=== PATIENT | female | born 1960 | race Caucasian/White ===

== ENCOUNTER → 2017-12-05 08:38 | Outpatient (CLI) | payer OTHER, SELFPAY ==
--- NOTE | 2017-12-05 08:17 | DI.REPORT_ITS ---
SYMPTOMS/DIAGNOSIS: S/P RTKR, RT GREAT TOE PAIN RIGHT KNEE: The patient is status post TKR. The prosthesis in good position and surrounding bone intact. 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 Screws are affixed to the distal metaphysis of the first metatarsal. In addition there is medial subluxation of the second toe on the metatarsal phalangeal joint. SUMMARY: Degenerative changes and deformities of the first and second toes are noted as described above.
== END ==
PROVIDERS: PCP Family Medicine; Visit Provider Physician Assistant
DX: M79.674 Pain in right toe(s) (principal); M19.071 Primary osteoarthritis, right ankle and foot; Z96.651 Presence of right artificial knee joint; Z47.1 Aftercare following joint replacement surgery
CPT/HCPCS: 73560; 73630

== ENCOUNTER 2018-01-16 11:14 | Outpatient (REF) | payer OTHER, SELFPAY | END 2018-01-16 11:34 | LOC: LBN 11:14 | PROVIDERS: PCP Family Medicine; Visit Provider Family Medicine | DX: B99.9 Unspecified infectious disease (principal) | CPT/HCPCS: 87070; 87205 ==

== ENCOUNTER 2018-02-05 08:04 | Outpatient (CLI) | payer OTHER, SELFPAY ==
[2018-02-05 11:14] LABS: HCT 38.6 % (36.0-46.0); Mean Corp. HGB Concentration 31.1 g/dL (32.0-36.0); Mean Corpuscular Hemoglobin 28.2 pg (27.0-33.0); Mean Corpuscular Volume 90.6 fL (80-95); Mean Platelet Volume 8.9 fL (8.0-11.0); Platelet Count 333 x1000/uL (130-400); RBC 4.26 m/cumm (4.00-5.20); RBC Distribution Width 15.4 % (11.7-14.6); White Blood Cell Count 6.79 k/cumm (4.4-10.8)
[2018-02-05 11:43] LABS: ALT 32 U/L (12-78); AST 28 U/L (15-37); Albumin 3.7 g/dL (3.4-5.0); Alkaline Phosphatase 90 U/L (46-116); Anion Gap 7.9 mmol/L (3-11); BUN 15 mg/dL (7-18); Bilirubin, Total 0.3 mg/dL (0.2-1.0); CO2 30.1 mmol/L (21.0-32.0); CREATININE 0.72 mg/dL (0.55-1.02); Chloride 103 mmol/L (98-107); Cholesterol 207 mg/dL (50-200); Glucose 98 mg/dL (70-100); HDL Cholesterol 115 mg/dL (40-60); LDL CHOLESTEROL 81 mg/dL (<100); Potassium 4.3 mmol/L (3.5-5.1); Sodium 141 mmol/L (136-145); TSH (W/Ref FT4) 1.38 uIU/mL (0.358-3.74); Total Protein 6.3 g/dL (6.4-8.2); Triglyceride 42 mg/dL (30-150)
== END 2018-02-05 08:24 ==
PROVIDERS: PCP Family Medicine; Visit Provider Family Medicine
DX: R53.83 Other fatigue (principal); M06.9 Rheumatoid arthritis, unspecified
CPT/HCPCS: 36415; 80053; 80061; 83721; 85027; 84443

== ENCOUNTER 2018-05-13 08:40 | Emergency (ER) | payer OTHER, SELFPAY ==
[2018-05-13] VITALS (64 sets, daily range): BP systolic 106–167; BP diastolic 58–98; PULSE 63–112; RESP 8–27; TEMP 36.4–36.8; O2SAT 91–99
--- NOTE | 2018-05-13 08:48 | ED.GENADUL_ITS ---
Discharge Plan Disposition Patient Disposition: HOME Discharge Details Chief Complaint: Headache Clinical Impression: Acute neck pain, Headache Primary Care Provider: Kim Mandel ED Provider: Gallo Cuenca Home Meds and New Rx's Prescriptions: New cyclobenzaprine 5 mg tablet 5 mg PO TID PRN (Reason: spasm) Qty: 20 RF: 0 Continued methylphenidate HCl 10 mg tablet See Rx Instructions PO TID MDD 4 Qty: 120 RF: 0 Advair HFA 230-21 mcg/actuation HFA aerosol inhaler 2 puff Inhalation BID PRN (Reason: asthma) Qty: 12 RF: 11 estradiol [Vivelle-Dot] 0.0375 mg/24 hr patch semiweekly 1 patch Transdermal twice weekly Qty: 24 RF: 5 rosuvastatin [Crestor] 5 mg tablet 5 mg PO Q48H Qty: 45 RF: 12 albuterol sulfate 5 MG/1 ML solution 2.5 mg Inhalation QID PRNRF: 0 Rituxan 10 MG/1 ML concentrate 1,000 mg IV q20 weeks RF: 0 Restasis 1 EACH dropperette 1 drp OU BID PRNRF: 0 cholecalciferol (vitamin D3) 1,000 UNIT tablet 1,000 unit PO DAILY RF: 0 Bactroban Nasal 1 GM ointment 1 gm NS BID Qty: 15 RF: 0 Loratadine 10 MG TAB.RAPDIS 10 mg PO DAILY Qty: 90 RF: 12 triamcinolone acetonide 80 GM ointment 2 - 4 gm Topical BID PRNQty: 80 RF: 2 amitriptyline 10 MG tablet 2 tab PO HS PRNQty: 180 RF: 12 duloxetine 60 MG capsule,delayed release(DR/EC) 60 mg PO DAILY Qty: 90 RF: 11 clindamycin phosphate 40 GM cream 1 appful VG HS Qty: 15 RF: 3 olopatadine [Pataday] 2.5 ML drops 1 drp Ophthalmic DAILY PRNQty: 1 RF: 0 acyclovir 800 MG tablet 800 mg PO TID PRNQty: 90 RF: 0 celecoxib [Celebrex] 200 mg capsule 200 mg PO BID Qty: 180 RF: 4 folic acid 1 mg tablet 2 mg PO DAILY Qty: 180 RF: 12 methotrexate sodium 2.5 mg tablet 7.5 mg PO qWEEK Qty: 36 RF: 5 prednisone 5 mg tablet 5 mg PO DAILY Qty: 90 RF: 4 prednisone 20 mg tablet 20 mg PO DAILY PRNQty: 11 RF: 0 zolpidem 10 mg tablet 10 mg PO HS PRN (Reason: insomnia) Qty: 45 RF: 3 prednisone 20 mg tablet 40 mg PO DAILY Qty: 10 RF: 0 levofloxacin 500 mg tablet 500 mg PO DAILY Qty: 7 RF: 0 polyethylene glycol 3350 17 GM powder in packet 17 gm PO BID PRN PRN (Reason: Constipation) RF: 0 acetaminophen [Acetaminophen Extra Strength] 500 MG tablet 1,000 mg PO Q8H PRN PRNQty: 180 RF: 0 Discharge Instructions Instructions: General Headache (ED), Neck Pain (ED) Additional Instructions: Please follow-up with your primary care physician. Call tomorrow. Take flexeril as prescribed. If pain persists, consider prednisone burst as prescribed by your primary. Return to the ER for any worsening or new concerning symptoms. Referrals: Kim Mandel MD, [place] [Primary Care Provider] - Discharge Data Discharge Date/Time-TO BE ENTERED AT DEPARTURE: 05/13/18 17:15 Medical Decision Making <Laurie Cuenca MD - Last Filed: 05/22/18 14:18> Crissy Hurt is a 57-year-old woman with history of rheumatoid arthritis on Rituxan, hyperlipidemia, GERD presenting to the emergency department with 10 days of neck pain and headache worse with movement of her neck, associated with sensation of being off balance and intermittent tingling of the right face. On exam patient is a comfortable uncomfortable but nontoxic-appearing. She has a normal neurologic exam, normal gait. Concern for pathology of the OA junction, opportunistic infection of the C-spine/brain given immunosuppressed, vasculitis, SAH, other. Doubt bacterial meningitis at this time given duration of symptoms. Exam/history not consistent with sepsis. Discussed patient presentation with Dr. Suazo of neurology, who recommended MRI brain with contrast in addition to imaging of the C-spine. I discussed imaging with Dr. Dhillon, who recommended MRA of the head and neck in addition to MRI of the head and neck with and without contrast, to evaluate for bony, vascular, or infectious etiologies. Will plan for these imaging tests in addition to screening labs and LP, Compazine, Benadryl, IV fluid hydration. At this time patient requesting delay LP until imaging test resulted, she feels she will not be able to tolerate the necessary positioning for the procedure. This delay is unlikely to pose a significant threat to her health given duration of symptoms at this point. Per radiology: MRI brain/neck, MRA brain/neck negative. Plan for LP at this t joshua. LP performed by anesthesia. Patient signed out to Dr. Gallo Cuenca at time of shift change with LP results, disposition pending. Anticipate discharge to home if LP negative with Flexeril for trap spasm, MSK pain, plan for outpatient f/u. He did have a lengthy discussion with the patient regarding outpatient plan including return to emergency department precautions and importance of outpati ent follow-up should be negative prior to my sign out. Medical Records Medical records reviewed: Yes I reviewed the patient's medical records. Lab Data Lab results reviewed: Yes I reviewed the patient's lab results. HPI <Laurie Cuenca MD - Last Filed: 05/22/18 14:18> General Mode of arrival: ambulatory . Date/Time Provider Initiated Documentation: 05/13/18 08:47 . Limitations to Documentation: no limitations . Information obtained by: patient, RN notes reviewed and old records reviewed . HPI Narrative: Crissy Hurt is a 7-year-old woman with history of rheumatoid arthritis, hyperlipidemia, GERD on Rituxan every 2 weeks presenting to the emergency department with neck pain and headache. Patient reports that at the end of March she was treated with amoxicillin for respiratory infection, which did seem to improve symptoms. She developed sinus pain in the middle of April, and was treated for this with Levaquin, which did not improve her symptoms. Subsequent to her course of Levaquin, patient was diagnosed with strep throat and is on approximately day 5 of treatment with penicillin for that. Patient reports that she has not been having any respiratory symptoms in the past few weeks, and her sore throat has resolved. She has continued bilateral frontal sinus pain. Patient reports that approximately 10 days ago she developed gradual onset posterior neck pain and headache. Neck pain and headache has been constant and persistent since onset, worsening in severity over the past few days. There was no trauma. Patient has continued to work during this time, but reports the pain is worse with any movement of her neck, particularly flexion, and has been holding herself very stiffly She reports that since onset of head and neck pain she has developed difficulty with balance wi thout vertigo or presyncopal component. She has also had tingling intermittently in her right face. She denies fevers, any other pain, shortness of breath, cough, vomiting, diarrhea, weakness to the extremities. Has had some nausea. Has continued to eat and drink as usual. No recent travel. Has been receiving her Rituxan as usual. No trauma. Related Data Home Medications Medication Instructions Recorded Confirmed Restasis 1 drp OU BID PRN drp 01/26/16 05/13/18 Rituxan 1,000 mg IV q20 weeks vial 01/26/16 05/13/18 albuterol sulfate 2.5 mg INHALATION QID PRN ml 01/26/16 05/13/18 cholecalciferol (vitamin D3) 1,000 unit PO DAILY 01/26/16 05/13/18 acetaminophen [Acetaminophen Extra 1,000 mg PO Q8H PRN PRN #180 08/30/16 05/13/18 Strength] tab-cap polyethylene glycol 3350 17 gm PO BID PRN PRN packet 08/30/16 05/13/18 Bactroban Nasal 1 gm NS BID #15 gm 10/04/16 05/13/18 triamcinolone acetonide 2 - 4 gm TOPICAL BID PRN #80 gm 02/27/17 05/13/18 amitriptyline 2 tab PO HS PRN #180 tab-cap 05/02/17 05/13/18 duloxetine 60 mg PO DAILY #90 tab-cap 06/07/17 05/13/18 clindamycin phosphate 1 appful VG HS #15 dose 06/15/17 05/13/18 olopatadine [Pataday] 1 drp OPHTHALMIC DAILY PRN #1 07/09/17 05/13/18 bottle acyclovir 800 mg PO TID PRN #90 tab 11/02/17 05/13/18 estradiol 0.0375 mg/24 hr 1 patch TRANSDERMAL twice weekly 02/12/18 05/13/18 semiweekly transdermal patch #24 patch fluticasone-salmeterol 230 mcg-21 2 puff INHALATION BID PRN #12 gm 02/12/18 05/13/18 mcg/actuation HFA aerosol inhaler methylphenidate 10 mg tablet See Rx Instructions PO TID #120 02/12/18 05/13/18 tab-cap MDD 4 rosuvastatin 5 mg tablet 5 mg PO Q48H #45 tab-cap 02/12/18 05/13/18 celecoxib 200 mg capsule 200 mg PO BID #180 tab-cap 02/19/18 05/13/18 folic acid 1 mg tablet 2 mg PO DAILY #180 tab-cap 02/19/18 05/13/18 methotrexate sodium 2.5 mg tablet 7.5 mg PO qWEEK #36 tab 02/19/18 05/13/18 prednisone 5 mg tablet 5 mg PO DAILY #90 tab 02/19/18 05/13/18 prednisone 20 mg tablet 20 mg PO DAILY PRN #11 tab 02/25/18 05/13/18 zolpidem 10 mg tablet 10 mg PO HS PRN #45 tab-cap 04/07/18 05/13/18 levofloxacin 500 mg tablet 500 mg PO DAILY #7 tab 04/22/18 05/13/18 prednisone 20 mg tablet 40 mg PO DAILY #10 tab 04/22/18 05/13/18 cyclobenzaprine 5 mg PO TID PRN #20 tab 05/13/18 Previous Rx's Medication Instructions Recorded acetaminophen [Acetaminophen Extra 1,000 mg PO Q8H PRN PRN #180 08/30/16 Strength] tab-cap polyethylene glycol 3350 17 gm PO BID PRN PRN packet 08/30/16 duloxetine 60 mg PO DAILY #90 tab-cap 06/07/17 clindamycin phosphate 1 appful VG HS #15 dose 06/15/17 estradiol 0.0375 mg/24 hr 1 patch TRANSDERMAL twice weekly 02/12/18 semiweekly transdermal patch #24 patch fluticasone-salmeterol 230 mcg-21 2 puff INHALATION BID PRN #12 gm 02/12/18 mcg/actuation HFA aerosol inhaler methylphenidate 10 mg tablet See Rx Instructions PO TID #120 02/12/18 tab-cap MDD 4 rosuvastatin 5 mg tablet 5 mg PO Q48H #45 tab-cap 02/12/18 celecoxib 200 mg capsule 200 mg PO BID #180 tab-cap 02/19/18 folic acid 1 mg tablet 2 mg PO DAILY #180 tab-cap 02/19/18 methotrexate sodium 2.5 mg tablet 7.5 mg PO qWEEK #36 tab 02/19/18 prednisone 5 mg tablet 5 mg PO DAILY #90 tab 02/19/18 zolpidem 10 mg tablet 10 mg PO HS PRN #45 tab-cap 04/07/18 levofloxacin 500 mg tablet 500 mg PO DAILY #7 tab 04/22/18 prednisone 20 mg tablet 40 mg PO DAILY #10 tab 04/22/18 cyclobenzaprine 5 mg PO TID PRN #20 tab 05/13/18 Allergies Allergy/AdvReac Type Severity Reaction Status Date / Time gabapentin AdvReac Severe Psychosis Unverified 05/13/18 08:55 codeine AdvReac Nausea Unverified 05/13/18 08:55 Review of Systems <Laurie Cuenca MD - Last Filed: 05/22/18 14:18> Review of Systems Constitutional: denies fevers Eyes: denies eye pain, vision changes, reports photophobia ENT: denies facial pain, dental pain, sore throat Cardiovascular: denies chest pain, edema Respiratory: denies SOB, cough GI: denies abdominal pain, vomiting, diarrhea, reports nausea : denies flank pain MSK: denies back pain, arthralgias, myalgias, reports neck pain Skin: denies rash Neuro: denies numbness, weakness, reports headaches, intermittent tingling of the right face, sensation of difficulty with balance PFSH <Laurie Cuenca MD - Last Filed: 05/22/18 14:18> Medical History Rheumatoid arthritis (Chronic) Pulmonary hypertension, high resistance (Chronic 04/01/17) Paresthesia (Chronic) Osteopenia (Chronic) Insomnia (Chronic) Hyperlipidemia (Chronic) Hormone replacement therapy (HRT) (Chronic) GERD (gastroesophageal reflux disease) (Chronic) Family history of early CAD (Chronic 04/17/16) DDD (degenerative disc disease), lumbosacral (Chronic) Cough (Chronic) Bone spur of toe (Chronic 02/27/17) Trismus (Chronic) Surgical History Abdominal hysterectomy (~1987) Appendectomy (~1977) Bilateral salpingectomy with oophorectomy (~1987) Bunionectomy (~2006) Injection L5-S1 Discectomy (~2001) Lysis of adhesions Repair, ACL (~10/2011) Replacement of total knee joint Rotator Cuff Repair (~2003) Family History Mother Essential hypertension Depression Heart disease Hyperlipidemia Stroke Father RA (rheumatoid arthritis) Essential hypertension CAD (coronary artery disease) Heart disease Hyperlipidemia Myocardial infarction Parkinson disease Sister Multiple personality disorder Substance abuse Essential hypertension Bipolar disorder Depression Heart disease Hyperlipidemia OA (osteoarthritis) Brother Essential hypertension CAD (coronary artery disease) Heart disease Hyperlipidemia Myocardial infarction Brother RA (rheumatoid arthritis) Grandfather Essential hypertension Heart disease Hyperlipidemia Grandfather Dementia Leukemia Grandmother Neoplasm Grandmother Essential hypertension Heart disease Hyperlipidemia Social History Smoking and Tabacco status: Former Tobacco Use Exam <Laurie Cuenca MD - Last Filed: 05/22/18 14:18> Narrative Exam Narrative: Constitutional: Uncomfortable but [id number], pleasant, conversing normally HENT: head atraumatic, normocephalic normal inspection, mucous membranes moist, normal oropharynx Eyes: conjunctiva normal, sclera normal, PERRLA, EOMI Neck: no stridor, normal ROM, trachea midline,tenderness posteriorly at the OA junction, of the right cervical paraspinals and right trapezius, has pain with flexion or extension or lateral rotation of the neck Chest: normal inspection Resp: normal work of breathing, LCTAB Cardio: normal rate, normal rhythm, no murmur appreciated Back: normal inspection, no rash Skin: warm, dry, normal color, no rash Neuro: alert, not altered, cranial nerves II through XII intact, motor 5 out of 5 all extremities, normal finger to nose and normal heel to toe Ext: no edema Psych: normal mood, normal affect, normal behavior Sign Out <Laurie Cuenca MD - Last Filed: 05/22/18 14:18> Sign Out Data: Sign Out Comment: Patient signed out to Dr. Cuenca at time of shift change with CSF results pending Last updated by Laurie Cuenca MD at 05/13/18 16:07 Post-Handoff Eval: Plan at signout was to follow-up on LP. LP results reviewed: no xanthochromia, RBC 2, WBC 1. Lumbar puncture is not consistent with infectious process or hemorrhage. MRI of the brain and cspine and MRA neck and brain interpreted by radiology: BRAIN MRI: There are no prior comparison exams. T 2 sagittal, T 1, T 2, FLAIR, diffusion and gradient echo axial and post Dotarem T 1 axial and coronal sequences were performed. No intracranial hemorrhage, mass or infarct is seen. The ventricles are normal in size. There are no areas of restricted diffusion. The vascular flow voids appear intact. There is no abnormal signal in the white matter. There are no abnormal enhancing lesions. IMPRESSION: Negative MRI of the brain. MRA OF THE [place]: A 3D time of flight study was performed. There is no evidence of aneurysm, stenosis or occlusion. IMPRESSION: Negative MRA of the [place]. MRA OF THE NECK: A 2 time of flight study was performed. The exam is mildly limited by patient motion. The vertebral arteries, common, internal and external carotid arteries show normal diameter throughout. There is some tortuosity of the proximal internal carotid arteries. There is no significant stenosis or plaque. IMPRESSION: Negative MRA of the neck. CERVICAL SPINE MRI: There are no prior comparison exams. T 1, T 2, FLAIR and STIR sagittal, gradient echo axial and post Dotarem fat suppressed T 1, axial and sagittal sequences were performed. There are no abnormal areas of enhancement post Dotarem. The exam is limited by patient motion. The marrow signal and cord signal appear normal. There are degenerative disc changes, greatest at C 5-6 and C 6-7. There is reversal of the normal cervical lordosis at these levels. There are prominent endplate osteophytes projecting posteriorly. There is e ffacement of the anterior CSF space at these levels. No disc herniation is seen. There is bulging of the C 4-5 disc. Neural foraminal narrowing is seen bilaterally at C 6-7. IMPRESSION: Degenerative changes, greatest at C 6-7, causing bilateral neural foraminal narrowing and narrowing of the AP dimension of the central canal. Plan is to start Flexeril and if no relief start prednisone burst. I called and spoke with the patient's primary care physician, Dr. Mandel who will follow up with the patient. Disposition decision was made weighing the risks and benefits of hospitalization versus outpatient treatment, the risk for further decompensation, and the patient's wishes. The patient was stable and requested discharge. Prior to discharge, my usual and customary return precautions were reviewed with the patient - this included follow-up instructions and reason to return to the emergency department if condition worsens, does not improve as expected, or other new concerns arise.
[2018-05-13] MEDS: Normal Saline 1,000 ML 1000 ML IV (09:35)
[2018-05-13] MEDS: diphenhydrAMINE 50 MG/ML VIAL 25 MG IVP ×2 (09:42→10:07)
[2018-05-13] MEDS: Prochlorperazine 10 MG/2 ML VIAL IVP (09:43)
--- NOTE | 2018-05-13 09:49 | DI.MRI_ITS ---
SYMPTOM/DIAGNOSIS: HEADACHE, NECK PAIN BRAIN MRI: There are no prior comparison exams. T 2 sagittal, T 1, T 2, FLAIR, diffusion and gradient echo axial and post Dotarem T 1 axial and coronal sequences were performed. No intracranial hemorrhage, mass or infarct is seen. The ventricles are normal in size. There are no areas of restricted diffusion. The vascular flow voids appear intact. There is no abnormal signal in the white matter. There are no abnormal enhancing lesions. IMPRESSION: Negative MRI of the brain. MRA OF [place]: A 3D time of flight study was performed. There is no evidence of aneurysm, stenosis or occlusion. IMPRESSION: Negative MRA of the [place]. MRA OF THE NECK: A 2 time of flight study was performed. The exam is mildly limited by patient motion. The vertebral arteries, common, internal and external carotid arteries show normal diameter throughout. There is some tortuosity of the proximal internal carotid arteries. There is no significant stenosis or plaque. IMPRESSION: Negative MRA of the neck. CERVICAL SPINE MRI: There are no prior comparison exams. T 1, T 2, FLAIR and STIR sagittal, gradient echo axial and post Dotarem fat suppressed T 1, axial and sagittal sequences were performed. There are no abnormal areas of enhancement post Dotarem. The exam is limited by patient motion. The marrow signal and cord signal appear normal. There are degenerative disc changes, greatest at C 5-6 and C 6-7. There is reversal of the normal cervical lordosis at these levels. There are prominent endplate osteophytes projecting posteriorly. There is effacement of the anterior CSF space at these levels. No disc herniation is seen. There is bulging of the C 4-5 disc. Neural foraminal narrowing is seen bilaterally at C 6-7. IMPRESSION: Degenerative changes, greatest at C 6-7, causing bilateral neural foraminal narrowing and narrowing of the AP dimension of the central canal.
[2018-05-13 09:57] LABS: Abs Immature Grans 0.01 k/cumm (0.0-0.09); Absolute Basophil Count 0.02 k/cumm (0.0-0.2); Absolute Eosinophil Count 0.16 k/cumm (0.0-0.7); Absolute Lymphocyte Count 0.95 k/cumm (1.2-3.4); Absolute Monocyte Count 0.72 k/cumm (0.11-0.7); Absolute Neutrophil Count 2.99 k/cumm (1.2-6.7); Basophils % 0.4; Eosinophils % 3.3; HCT 42.6 % (36.0-46.0); HGB 13.6 g/dL (12.0-15.5); Immature Grans % 0.2; Lymphocytes % 19.6; Mean Corp. HGB Concentration 31.9 g/dL (32.0-36.0); Mean Corpuscular Volume 87.7 fL (80-95); Mean Platelet Volume 8.6 fL (8.0-11.0); Monocytes % 14.8; Neutrophils % 61.7; Platelet Count 369 x1000/uL (130-400); RBC 4.86 m/cumm (4.00-5.20); RBC Distribution Width 15.5 % (11.7-14.6); White Blood Cell Count 4.85 k/cumm (4.4-10.8)
[2018-05-13 10:01] LABS: ALT 23 U/L (12-78); AST 30 U/L (15-37); Albumin 3.7 g/dL (3.4-5.0); Alkaline Phosphatase 89 U/L (46-116); Anion Gap 6.9 mmol/L (3-11); BUN 17 mg/dL (7-18); Bilirubin, Total 0.3 mg/dL (0.2-1.0); CO2 30.1 mmol/L (21.0-32.0); CREATININE 0.84 mg/dL (0.55-1.02); Calcium 9.5 mg/dL (8.5-10.1); Chloride 105 mmol/L (98-107); Glucose 100 mg/dL (70-100); Potassium 4.1 mmol/L (3.5-5.1); Sodium 142 mmol/L (136-145); Total Protein 7.1 g/dL (6.4-8.2)
[2018-05-13] MEDS: Normal Saline 1,000 ML 150 ML IV (10:19)
[2018-05-13 10:37] LABS: ESR 8 MM/HR (0-30)
--- NOTE | 2018-05-13 10:46 | NUR.NOTE ---
Nursing Note: Did get an ansy feeling from Compazine---relieved with a second dose of Benadryl 25 mg
[2018-05-13] MEDS: Gadoterate meglumine 20 ML VIAL 12 ML IVP (13:17)
[2018-05-13 16:16] LABS: Glucose (CSF) 62 mg/dL (40-70); Total Protein (CSF) 28 mg/dL (15-45)
[2018-05-13 16:31] LABS: Clarity Clear; RBC 2 /mm3 (0-5); Tube # 4; WBC 1 /mm3 (0-5); Xanthochromia Absent
[2018-05-13] MEDS: Cyclobenzaprine 10 MG TAB PO (17:12)
[2018-05-15 14:37] LABS: VDRL, CSF Negative (Negative)
[2018-05-15 21:54] LABS: Cytomegalovirus PCR Negative (Negative); Specimen Source CSF
[2018-05-15 23:44] LABS: Enterovirus PCR Negative (Negative); Specimen Source CSF
[2018-05-16 13:22] LABS: Specimen Source CSF
[2018-05-16 13:37] LABS: Adenovirus PCR Negative (Negative); Specimen Source CSF
[2018-05-20 10:24] LABS: Lyme Disease Serology, CSF See Comments
== END 2018-05-13 17:15 | disposition home or self-care (01) ==
PROVIDERS: Student in an Organized Health Care Education/Training Program; Emergency Provider Student in an Organized Health Care Education/Training Program; PCP Family Medicine
DX: M54.2 Cervicalgia (principal); R51 Headache
CPT/HCPCS: 36415; 70544; 70547; 70553; 80053; 82945; 85652; 87798; 89050; 89051; 96361; 96374; 96375; 99284; 72156; 84157; 85025; 86140; 86403; 86592; 86618; 87070; 87205; 87496; 87498; J0780; J1200

== ENCOUNTER 2018-08-12 01:07 | Outpatient (CLI) | payer OTHER, SELFPAY ==
--- NOTE | 2018-08-12 17:00 | DI.RAD_ITS ---
SYMPTOM/DIAGNOSIS: HAMMER TOE OF RT FOOT, BUNION, M20.41,M21.611,M20.31,Z48.89 RIGHT FOOT: Three views. Comparison is made with 12/05/17. Since the prior examination, the patient has undergone a bunionectomy. There is again seen medial subluxation at the second metatarsal phalangeal joint which appears stable. No acute fracture or dislocation is seen. The soft tissues are grossly unremarkable.
== END 2018-08-12 01:27 ==
PROVIDERS: PCP Family Medicine; Visit Provider Orthopaedic Surgery Foot and Ankle Surgery
DX: M20.41 Other hammer toe(s) (acquired), right foot (principal); M21.611 Bunion of right foot; M20.31 Hallux varus (acquired), right foot; Z48.89 Encounter for other specified surgical aftercare
CPT/HCPCS: 73630

== ENCOUNTER 2018-11-19 14:30 | Outpatient (REF) | payer OTHER, SELFPAY ==
[2018-11-20 11:32] LABS: Campylobacter PCR SEE COMMENTS; Salmonella PCR SEE COMMENTS; Shiga Toxin PCR SEE COMMENTS; Shigella/Enteroinvasive Ecoli SEE COMMENTS
== END 2018-11-19 14:50 ==
LOC: LBN 14:30
PROVIDERS: PCP Family Medicine; Visit Provider Family Medicine
DX: R19.7 Diarrhea, unspecified (principal)
CPT/HCPCS: 87329; 87505; 82710; 83630; 87324

== ENCOUNTER 2018-11-27 07:40 | Outpatient (REF) | payer OTHER, SELFPAY | END 2018-11-27 08:00 | LOC: LBN 07:40 | PROVIDERS: PCP Family Medicine; Visit Provider Family Medicine | DX: R19.7 Diarrhea, unspecified (principal) | CPT/HCPCS: 87324 ==

== ENCOUNTER 2018-12-03 09:04 | Outpatient (CLI) | payer OTHER, SELFPAY ==
[2018-12-03 13:39] LABS: TSH (W/Ref FT4) 1.09 uIU/mL (0.36-3.74)
[2018-12-04 12:39] LABS: IgA 83 mg/dL (85-499); Interpretation SEE COMMENTS; Tissue Transglutaminase IgA <1.2 U/mL (<4.0)
== END 2018-12-03 09:24 ==
PROVIDERS: PCP Family Medicine; Visit Provider Family Medicine
DX: R53.83 Other fatigue (principal); R19.7 Diarrhea, unspecified
CPT/HCPCS: 36415; 82784; 83516; 84443

== ENCOUNTER 2018-12-30 00:32 | Outpatient (CLI) | payer OTHER, SELFPAY ==
--- NOTE | 2018-12-30 07:30 | DI.MAMMO_ITS ---
EXAM: MG MAMMO SCREENING CLINICAL HISTORY: Screening, Z12.39. TECHNIQUE: Mammograms were interpreted according to the usual protocol including computer analysis [email or web address] CAD system, tomosynthesis and C-view imaging. COMPARISON: No exams were available for comparison FINDINGS: The breast tissue is heterogeneously radiodense, which lowers the sensitivity of the study. There is no dominant mass. There are no suspicious calcifications and there has been no significant interval change when compared with prior images. IMPRESSION: No evidence of malignancy, category 1. Annual screening mammography is recommended. BI-RADS category C. BI-RADS Cat 1 - Negative Breast Density - Category C - Heterogeneously dense
== END 2018-12-30 00:52 ==
PROVIDERS: PCP Family Medicine
DX: Z12.31 Encounter for screening mammogram for malignant neoplasm of breast (principal)
CPT/HCPCS: 77063; 77067

== ENCOUNTER 2019-01-01 09:37 | Outpatient (CLI) | payer OTHER, SELFPAY ==
--- NOTE | 2019-01-01 12:26 | DI.RAD_ITS ---
EXAM: XR HIP RT COMPLETE AND AP PELVIS INDICATION: RT HIP PAIN. COMPARISON: No exams were available for comparison TECHNIQUE: 2D digital imaging was performed. FINDINGS: The bony structures are normally mineralized. The hip joint appears intact. The pelvic bones appear n ormal. IMPRESSION: No abnormality is demonstrated.
== END 2019-01-01 09:57 ==
PROVIDERS: PCP Family Medicine; Visit Provider Student in an Organized Health Care Education/Training Program
DX: M25.551 Pain in right hip (principal)
CPT/HCPCS: 73502

== ENCOUNTER 2019-01-24 02:16 | Outpatient (CLI) | payer OTHER, SELFPAY ==
--- NOTE | 2019-01-24 06:10 | DI.MRI_ITS ---
EXAM: MR LOWER JOINT RT WO CLINICAL HISTORY: R hip pain, s/p fall,? NONDISPLACED FNF OR ACETABULAR FX. TECHNIQUE: Multiplanar multisequence MRI was performed. COMPARISON: XR FEMUR RT from 01/24/2019 FINDINGS: There is abnormal high signal on T2 weighted images in the superior aspect of the right femoral hea d consistent with a mild impaction fracture. There is also some high signal in the adjacent area of the anterior acetabulum which represents a bone contusion. No definite femoral neck fracture is seen . There is some increased edema in the femoral neck region. There is a small right hip joint effusi on. There is mild edema in the abductor muscles close to the femur. The overall marrow signal shows a mildly patchy appearance which could be secondary to red marrow re- conversion. IMPRESSION: Mild impaction fracture of the superior right femoral head. Contusion of the adjacent aspect of the acetabulum.
--- NOTE | 2019-01-24 07:19 | DI.RAD_ITS ---
EXAM: XR FEMUR RT INDICATION: R distal thigh pain,m79.651,S/P FALL, RT DISTAL FEMUR PAIN COMPARISON: BONE LENGTH from 09/13/2016 TECHNIQUE: 2D digital imaging was performed. FINDINGS: There has been no change in the total knee prosthesis. The hip joint is unremarkable. There is no evidence of fracture, lytic or blastic bony lesion. IMPRESSION: Stable knee prosthesis. No evidence of acute fracture.
== END 2019-01-24 02:36 ==
PROVIDERS: PCP Family Medicine; Visit Provider Student in an Organized Health Care Education/Training Program
DX: M25.551 Pain in right hip (principal); M79.651 Pain in right thigh; M25.451 Effusion, right hip; R60.0 Localized edema; S72.044A Nondisplaced fracture of base of neck of right femur, initial encounter for closed fracture; Z96.651 Presence of right artificial knee joint
CPT/HCPCS: 73552; 73721

== ENCOUNTER 2019-02-11 01:52 | Outpatient (CLI) | payer OTHER, SELFPAY ==
[2019-02-11 10:52] LABS: HCT 42.3 % (36.0-46.0); HGB 13.1 g/dL (12.0-15.5); Mean Corpuscular Hemoglobin 27.1 pg (27.0-33.0); Mean Corpuscular Volume 87.6 fL (80-95); Mean Platelet Volume 8.5 fL (8.0-11.0); Platelet Count 477 x1000/uL (130-400); RBC 4.83 m/cumm (4.00-5.20); RBC Distribution Width 15.7 % (11.7-14.6); White Blood Cell Count 7.36 k/cumm (4.4-10.8)
[2019-02-11 10:56] LABS: Anion Gap 7.4 mmol/L (3-11); BUN 15 mg/dL (7-18); CO2 31.6 mmol/L (21.0-32.0); CREATININE 0.86 mg/dL (0.55-1.02); Calcium 9.5 mg/dL (8.5-10.1); Chloride 102 mmol/L (98-107); Glucose 94 mg/dL (70-100); Potassium 4.4 mmol/L (3.5-5.1); Sodium 141 mmol/L (136-145)
== END 2019-02-11 02:12 ==
PROVIDERS: PCP Family Medicine; Visit Provider Student in an Organized Health Care Education/Training Program
DX: M25.551 Pain in right hip (principal); S72.044A Nondisplaced fracture of base of neck of right femur, initial encounter for closed fracture; Z01.818 Encounter for other preprocedural examination; Z01.812 Encounter for preprocedural laboratory examination
CPT/HCPCS: 36415; 80048; 85027; 86850; 86900; 86901

== ENCOUNTER 2019-02-21 09:42 | Inpatient (IN) | payer OTHER, SELFPAY ==
[2019-02-21] VITALS (17 sets, daily range): BP systolic 73–113; BP diastolic 43–82; PULSE 62–90; RESP 10–18; TEMP 36–36.9; O2SAT 87–100
[2019-02-21] MEDS: Lactated Ringers 1,000 ML 80 ML IV ×3 (10:57→16:53)
[2019-02-21] MEDS: Celecoxib 200 MG CAP 400 MG PO (10:58)
[2019-02-21] MEDS: Acetaminophen 500 MG TAB 1000 MG PO ×2 (10:58→19:28)
[2019-02-21] MEDS: ceFAZolin 2 GM/50 ML BAG IVPB (11:40)
[2019-02-21] MEDS: Lactated Ringers 1,000 ML 75 ML IV (12:30)
[2019-02-21] MEDS: Bupivacaine 0.25% Pres-Free 30 ML VIAL (13:35)
[2019-02-21] MEDS: Normal Saline 50 ML (13:35)
[2019-02-21] MEDS: Ketorolac 30 MG/ML VIAL (13:35)
--- NOTE | 2019-02-21 13:50 | DI.RAD_ITS ---
EXAM: XR HIP RT IN OR CLINICAL HISTORY: Articular fracture of head of femur. TECHNIQUE: 2D digital imaging was performed. COMPARISON: XR HIP RT COMPLETE AP PELVIS from 01/01/2019 MR LOWER JOINT RT WO from 01/24/2019 FINDINGS: Fluoroscopy was utilized by during the performance of a right total hip replacement. The orthopedic hardware appears in good position. Please refer to the procedure report for complete det ails. IMPRESSION: Status post right total hip replacement. FLUORO TIME: 48.6 seconds
--- NOTE | 2019-02-21 14:11 | W.PM.OP ---
Date of service: 02/21/19 Time of Service: 14:11 Operative Note Operative Note DATE OF PROCEDURE: 02/21/19 PRE-OP DIAGNOSIS: Right Femoral Head Fracture POST-OP DIAGNOSIS: same PROCEDURE: Right Anterior Total Hip Arthroplasty SURGEON: Darrion Moses JUTE BAG CUTTING MACHINE OPERATOR: Cody Nazario ANESTHESIA: GETA ESTIMATED BLOOD LOSS: 400 PATHOLOGY: none sent COMPLICATIONS: None Patient was transported to: PACU Patient's condition: stable Implants: 1. Depuy Bogard Acetabular Component, 48mm 2. Depuy Acetabular Liner, [id number] 3. Depuy Corail Standard Collared Femoral Stem, Size 9 4. Depuy Altrx Ceramic Femoral Head, Size 32+1mm Indications: I have seen Crissy in clinic for symptoms of a femoral head fracture, confirmed with radiographic findings. Crissy has exhausted nonoperative methods and was having significant limitations in daily function and desired better function and less pain. I discussed the technical details of a hip replacement. I explained the risks of the procedure to include, but not limited to, bleeding, infection, pain, stiffness, fracture, damage to nerves and vessels, damage to muscles and tendons, loosening, instability, leg length inequality, need for repeat procedure, blood clot and cardiopulmonary demise. Despite these risks, Crissy elected to proceed. Findings: There was a notable area of depression of the superior femoral head as well as an area of complete loss of cartilage. Procedure Description: Crissy was greeted in the preoperative holding area where the correct side was identified and marked. The consent was reviewed with the patient and signed. The history and physical was updated. All questions were answered. She was taken back to the operating room. A general anesthetic was administered. The patient was placed into the supine position on the operating room table. The patient was then positioned onto the ARCH table. Both feet were wrapped with Webrill cotton wrap along with Coban. The feet were placed in specialized boots for the ARCH table, well seated within the boot and secured. SCDs were applied. The patient was then slid down onto a peroneal post and the nonoperative leg was secured in a leg zavala attached to the table. The operative side was placed into the ARCH table attachment and bed height and positioning was secured. A preoperative AP pelvis was obtained to serve as a reference for determining leg lengths. Prophylactic antibiotics in the form of Cefazolin were administered. 1g of Tranxemic Acid was given intravenously within 30 minutes of incision. The right leg was then prepped with Chloraprep and draped in a standard fashion. A second prep with Chloraprep was performed prior to placement of a shower-curtain type drape with Iodine impregnated skin protection. A timeout to confirm correct identity, side and site, procedure, allergies, anesthesia, and medical concerns was performed. An obliquely oriented incision was made starting lateral to the ASIS and running distal over the Tensor Fascia Romana (TFL) muscle belly toward the fibular head, approximately 10cm. The skin and soft tissue was dissected sharply, through Liliana?s fascia, and to the fascia of the TFL. With the fascia and superior border of the IT band identified, the fascia was incised with a new knife just above any perforators from the IT band. The TFL muscle belly was bluntly dissected away from the fascia and moved laterally. The fat between TFL and rectus was identified to ensure the dissection was not within the TFL. Blunt dissection created space between abductors and the capsule and retractor was placed over the lateral femoral neck. The fibers of the rectus femoris tendon were identified and these were freed from the anterior capsule. A second cobra retractor was placed around the medial femoral neck. The TFL was further retracted laterally to show the deep fascia. Careful dissection through this layer identified three main crossing vessels of the lateral femoral circumflex. These were cauterized in multiple locations and then cut without any noticeable bleeding. The TFL was further released bluntly from the deep fascia to expose anterior hip capsule and fat The Sammy orthopaedic retractor was then placed beneath the TFL and against sartorius and medial soft tissues to protect and retract the soft tissues. A T-capsulotomy was then performed starting at the superior lateral acetabulum and moving distally to the intertrochanteric ridge. These capsular flaps were tagged with a No. 1 Ethibond and elevated from within. The capsular flaps were released to the shoulder of the lateral neck and to the lesser trochanter to give excellent visualization of the proximal femur. A neck osteotomy was performed using an oscillating saw based on preoperative templates. This cut started in the shoulder and of the lateral neck and exited medially. The saw was at all times directed medially to avoid injury to the greater trochanter. 6cm of traction was applied to the leg and the osteotomy opened. The femoral head was removed with a corkscrew, making sure to protect the TFL on its exit. This was measured on the back table to determing the starting reamer size. Portions of the rectus obscuring visualization were minimally elevated off the superior acetabulum. An anterior retractor was placed over the anterior wall between capsule and labrum and attached to the Gripper retraction system. A posterior retractor was placed similarly. This provided excellent visualization. The contents of the cotyloid fossa were removed with electrocautery and the labrum was removed with a knife. Acetabular reaming began with a 42mm reamer. This first reaming was directed anterior to posterior and medial to get down to the true floor. This was inspected and reamed until the true floor was reached. I then reamed sequentially up to a 48mm reamer where good fit was obtained. The larger reamers were oriented based on anatomical reference of the anterior and lateral garcia to ensure proper abduction and anteversion. Positioning and size was confirmed with the fluoroscopy. A 48mm Depuy Bogard acetabular component was selected. The acetabulum was reamed around the periphery with the selected acetabular size to prevent a rim fit. The deep tissues were irrigated. The acetabular component was then impacted in a position of about 40-45 degrees of abduction and 15-20 degrees of anteversion, using the patient?s anatomy as the ultimate landmark. Fluoroscopy was used to confirm this. There was excellent tape sewing machine operator of the acetabular component and the inserting handle was removed. A primary acetabular screw was placed into the ilium by drilling through one of the holes in the acetabular component. This was measured and an approrpriately sized screw was placed with excellent purchase. It was checked not to be proud. A second screw was placed in a similar fashion. The acetabular liner, Depuy [id number] polyethylene liner, was inserted and lined up with the tines of the acetabular component. There was no soft tissue interposition. The liner was then impacted into position and confirmed to be well-seated. A portion of the sherry-articular cocktail was then injected around the acetabulum into the capsule and periosteum. This cocktail consisted of 50cc of 0.25% Bupivicaine and 20cc of Exparel, expanded to a total of 120cc. Traction was released from the femur. The leg was rotated to 120 degrees. Any remaining medial capsule was released until the lesser trochanter was easily palpable. A Norris retractor was placed medially. The lateral capsule was further released into the shoulder to allow access to the greater trochanter. A Norris retractor was placed over the greater trochanter which allowed the trochanter to flip in front of the capsule for excellent exposure. The leg was brought down into maximal extension and 20 degrees of adduction while ensuring there was no impingement on the acetabulum. Any remnant capsule within the trochanter was released. Piriformis and obturator externis were identified and protected. There was excellent access to the proximal femur. The lateral neck remnant was removed with a rongeur. A blunt canal probe was used to identify the canal and trajectory for later broaching. A box osteotome initiated the broach course. A small curved rasp and a curved curette were used to work laterally. Broaching then began with a size 8 Corail broach. This was inserted manually around the trochanter and into the canal before mallet blows. The broach was seated to a few millimeters below the cut level based on the neck cut and the preoperative template. Sequential broaching was continued until a tight fit was obtained with good rotational control of the femur. At this time, there was noted to be a small crack in the medial calcar. It extended to just above the intertrochanteric ridge and was contained and not unstable. A trial standard neck was inserted along with a +1 trial head. The leg was brought out of extension and adduction and then reduced with traction and internal rotation. The leg was stable anteriorly in a position of 30 degrees of extension and 90 degrees of external rotation. Fluoroscopy was used to ensure there was no fracture and the stem was seated well. Leg lengths were checked with an AP pelvis and pelvic reference points. Once content with the desired offset and leg lengths, the leg was brought back into extension, external rotation and adduction. The periosteum and surrounding tissue was injected with remaining portion of the sherry-articular cocktail. The proximal femur was irrigated as well as the deep tissues. The Cyanuy Corail standard collared stem, size 9, was then manually inserted into the proximal femur making sure to control rotation. It was then malleted into position with light blows, giving breaks to allow bone expansion and decrease risk of fracture. The previously identified calcar crack was inspected and showed no signs of widening. There is also no propagation. It was spanned by the collar and appeared to be contained. The selected Depuy Altrx Ceramic Head, size 32+1mm, was then placed onto the clean and dry trunnion and secured with impaction onto the tapered fit. The leg was brought back out of extension and adduction and reduced with traction and internal rotation. Stability was confirmed with no shuck at 90 degrees of external rotation and 30 degrees of extension. No impingement through range of motion arc. Final x-ray images were obtained with fluoroscopy to confirm adequate positioning. The deep tissues were thoroughly irrigated with a pulse lavage. The second dose of TXA 1g was administered intravenously.The capsule was then reapproximated with the previously placed Ethibond sutures. The TFL fascia was finally closed with a No. 2 Stratafix, barbed suture. Deep tissues were then reapproximated with 0 Vicryl and a running 2-0 Vicryl. The skin was closed with a running 4-0 Monocryl in a subcuticular fashion. This was reinforced with skin glue. A Mepilex silver dressing was applied. At the end of the case, all counts were correct. Crissy was transferred to the hospital bed without difficulty and suffering no apparent complication. Crissy has a good prognosis. Physical therapy will start today and without restrictions, weight-bearing as tolerated. Aspirin 81mg BID will be used for DVT prophylaxis.
[2019-02-21] MEDS: HYDROmorphone 2 MG/ML VIAL IVP ×3 (14:29→14:56)
[2019-02-21] MEDS: Normal Saline Flush 10 ML SYR IV (14:31)
[2019-02-21] MEDS: fentaNYL 100 MCG/2 ML VIAL IVP ×2 (14:44→15:09)
[2019-02-21] MEDS: oxyCODONE 5 MG TAB PO ×3 (18:38→22:58)
[2019-02-21] MEDS: Montelukast 10 MG TAB PO (19:27)
[2019-02-21] MEDS: Celecoxib 200 MG CAP PO (19:27)
[2019-02-21] MEDS: Aspirin E.C. 81 MG TABEC PO (19:27)
[2019-02-21] MEDS: Rosuvastatin 5 MG TAB PO (19:27)
[2019-02-21] MEDS: ceFAZolin 1 GM/50 ML BAG IVPB (19:27)
[2019-02-22 00:05] VITALS: BP 94/58; PULSE 83; RESP 17; TEMP 36.8; O2SAT 100
[2019-02-22 03:35] VITALS: BP 97/64; PULSE 88; RESP 17; TEMP 37; O2SAT 97
[2019-02-22] MEDS: ceFAZolin 1 GM/50 ML BAG IVPB ×2 (03:44→11:10)
[2019-02-22] MEDS: oxyCODONE 5 MG TAB PO ×2 (03:46→12:33)
--- NOTE | 2019-02-22 07:17 | DI.RAD_ITS ---
EXAM: XR HIP RT AP LAT ONLY INDICATION: post R KENNEDY. COMPARISON: XR HIP RT COMPLETE AP PELVIS from 01/01/2019 XR HIP RT IN OR from 02/21/2019 TECHNIQUE: 2D digital imaging was performed. FINDINGS: The patient is status post placement of a total right hip prosthesis. The components appear well ali gned. There is some residual postsurgical air in the soft tissue.
[2019-02-22 07:40] VITALS: BP 93/60; PULSE 80; RESP 18; TEMP 37; O2SAT 99
--- NOTE | 2019-02-22 07:58 | DI.VRAD_ITS ---
PROCEDURE INFORMATION: Exam: XR Right Hip with Pelvis when Performed Exam date and time: 02/22/2019 7:15 AM Clinical history: 58 years old, female; postop TECHNIQUE: Imaging protocol: XR Right hip with pelvis when performed. Views: 2 or 3 views. COMPARISON: None available at the time of dictation FINDINGS: Bones/joints: No acute fracture or subluxation is identified. Total right hip arthroplasty hardware is present. Minimal DJD of the left hip noted Soft tissues: soft tissue air versus dressing over the right hip; this could be postop. IMPRESSION: soft tissue air versus dressing over the right hip; this could be postop. Otherwise no acute findings Total right hip arthroplasty hardware present Dictated and Authenticated by: To Bolton MD. Ordering:ZOHRA Maier MD
[2019-02-22] MEDS: DULoxetine 30 MG CAP 60 MG PO (07:59)
[2019-02-22] MEDS: Cholecalciferol (Vitamin D3) 1,000 UNIT TAB 1000 UNITS PO (08:00)
[2019-02-22] MEDS: Pantoprazole 40 MG TABCR PO (08:00)
[2019-02-22] MEDS: predniSONE 5 MG TAB PO (08:01)
[2019-02-22] MEDS: Celecoxib 200 MG CAP PO (08:01)
[2019-02-22] MEDS: Folic Acid 1 MG TAB 2 MG PO (08:01)
[2019-02-22] MEDS: Aspirin E.C. 81 MG TABEC PO (08:01)
[2019-02-22] MEDS: Acetaminophen 500 MG TAB 1000 MG PO (08:02)
--- NOTE | 2019-02-22 09:21 | DSE_ITS ---
Date of service: 02/22/19 Time of Service: 09:22 DS: Diagnosis Discharge Diagnosis (1) Articular fracture of head of femur: Status: Acute Discharge Plan Disposition Patient Disposition: HOME Condition: Good Discharge Details Reason For Visit: (R) HIP TOTAL Admit Date/Time: 02/21/19 09:42 Admit Provider: Darrion Moses Attending Provider: Darrion Moses Primary Care Provider: Kim Mandel [facility] Hospital Course: Patient was admitted to the medical/surgical floor following the procedure. It was tolerated well without any notable medical, surgical, or anesthetic complications. Mobilization began postoperatively. The hale catheter was removed and voiding spontaneously. Vitals were stable. During did have more pain than I was expecting. Therefore, repeat x-rays were performed to make sure there is no complications. X-ray showed well-positioned components without signs of fracture propagation, malposition, or dislocation. Physical therapy worked with the patient and was cleared for discharge home. No acute medical issues. Home Meds and New Rx's Prescriptions: New aspirin 81 mg tablet,delayed release (DR/EC) 81 mg PO BID Qty: 60 RF: 0 pantoprazole 40 mg tablet,delayed release (DR/EC) 40 mg PO DAILY Qty: 30 RF: 0 oxycodone 5 mg tablet 5 mg PO Q4H Qty: 18 RF: 0 Continued loratadine 10 mg tablet,disintegrating 10 mg PO DAILY PRNRF: 0 flu vacc qs 2019-20 (6 mos up) 60 mcg (15 mcg x 4)/0.5 mL suspension 0.5 ml IM ONCE Qty: 1 RF: 0 albuterol sulfate 5 MG/1 ML solution 2.5 mg Inhalation QID PRNRF: 0 cholecalciferol (vitamin D3) 1,000 UNIT tablet 1,000 unit PO DAILY RF: 0 triamcinolone acetonide 80 GM ointment 2 - 4 gm Topical BID PRNQty: 80 RF: 2 folic acid 1 mg tablet 2 mg PO DAILY Qty: 180 RF: 12 methotrexate sodium 2.5 mg tablet 7.5 mg PO qWEEK Qty: 36 RF: 5 prednisone 5 mg tablet 5 mg PO DAILY Qty: 90 RF: 4 prednisone 20 mg tablet 20 mg PO DAILY PRNQty: 11 RF: 0 duloxetine 60 mg capsule,delayed release(DR/EC) 60 mg PO DAILY Qty: 90 RF: 11 Advair HFA 230-21 mcg/actuation HFA aerosol inhaler 2 puff Inhalation BID PRN (Reason: asthma) Qty: 12 RF: 11 estradiol [Vivelle-Dot] 0.0375 mg/24 hr patch semiweekly 1 patch Transdermal twice weekly RF: 5 montelukast 10 mg tablet 10 mg PO QPM Qty: 90 RF: 4 mupirocin 2 % ointment 1 applic TP BID Qty: 30 RF: 4 Rituxan 10 mg/mL concentrate 1,000 mg IV .q2 weeks RF: 0 methylphenidate HCl 10 mg tablet See Rx Instructions PO TID MDD 4 Qty: 120 RF: 0 rosuvastatin [Crestor] 5 mg tablet 5 mg PO Q48H Qty: 45 RF: 12 acyclovir 800 mg tablet 800 mg PO TID PRN (Reason: herpes) Qty: 90 RF: 5 polyethylene glycol 3350 17 GM powder in packet 17 gm PO BID PRN PRN (Reason: Constipation) RF: 0 acetaminophen [Acetaminophen Extra Strength] 500 MG tablet 1,000 mg PO Q8H PRN PRNQty: 180 RF: 0 celecoxib [Celebrex] 200 mg Capsule 200 mg PO BID RF: 0 Discharge Instructions Additional Instructions: Dr. Moses?s Total Hip Discharge Instructions Activity: The most important activity is to walk. You should try to take short walks a few times a day. You have no restrictions on movement or positioning, but do not try to force what you do. You will find some stiffness and weakness with hip flexion (lifting your knee). Do not try to strengthen this too early, continue to practice walking and stairs and this will come. - Outpatient physical therapy can be helpful to help return you to a normal gait and improve your flexibility and strength. This can start around 2 weeks. For some patients, it?s not necessary. Usually this is determined at the time of discharge or at the first post-operative visit. - You should wear the JEAN PIERRE hose on both legs for 2 weeks. Dressing: Keep the surgical dressing in place for at least one week. After the first week it may be removed and replace with light gauze and tape or nothing. It may get wet after 3 days but avoid soaking the dressing. If it gets wet, just lightly pat dry. It is important to always keep some gauze between skin folds, especially when you are sitting. Spend some time with the wound exposed when you are lying flat as the incision does wrinkle onto itself. Medications: - You should take Tylenol and an anti-inflammatory Celebrex as your primary pain control medications - You have been prescribed a stronger pain medication Oxycodone for breakthrough pain, take as needed as prescribed. - You have also been prescribed a stomach acid reduction agent Pantoprozole to help reduce stomach acid and reflux. - You will be taking Aspirin 81mg twice a day for DVT prevention unless instructed otherwise. - If you have constipation you should take Colace or Miralax (both [id number]). It takes most people 3-4 days to have a bowel movement. Follow-up: 2 weeks Referrals: Darrion Moses MD [ [facility] STAFF PHYSICIAN] - Activity:: Activity as Tolerated Equipment/Supplies:: No Equipment Needed Diet:: As Tolerated Discharge Orders Discharge Orders: Discharge Order (Routine); Ordered 02/22/19 Ordered By: Darrion Moses DS: Summary Status at Discharge Functional status at discharge: uses cane/walker Overall status at discharge: patient is progressing back to baseline Mental Status: mental status grossly normal Speech and Movement: speech and movement normal Mood: congruent mood Affect: normal affect Exam Psych Mental Status: mental status grossly normal Speech and Movement: speech and movement normal Mood: congruent mood Affect: normal affect DS: Data Vitals/I&O Vitals and I&O: Vital Signs Temperature 37 C 02/22/19 03:35 Temperature Source Skin 02/22/19 03:35 Pulse 88 02/22/19 03:35 Pulse Rhythm Regular 02/22/19 03:40 Respiratory Rate 17 02/22/19 03:35 Respiratory Effort Non-Labored 02/22/19 03:40 Respiratory Depth Normal 02/22/19 03:40 Respiratory Pattern Normal 02/22/19 03:40 Blood Pressure 97/64 L 02/22/19 03:35 Pulse Oximetry 97 02/22/19 03:35 Respiratory End-tidal CO2 57 02/21/19 15:45 Oxygen Delivery Method Room Air 02/22/19 03:35 Oxygen Flow Rate 0 02/22/19 03:35 Pain Level 8 11/16/19 08:02 Comment 02/21/19 16:26 Intake & Output 02/21/19 02/21/19 02/22/19 11:59 23:59 11:59 Intake Total 3636 / 3636 2496.25 / 2496.25 Output Total 700 / 700 3050 / 3050 Balance 2936 / 2936 -553.75 / -553.75 Weight 68 kg Intake: IV 2456 / 2456 1656.25 / 1656.25 Oral 1180 / 1180 840 / 840 Output: Urine 300 / 300 3050 / 3050 Estimated Blood Loss 400 / 400 Other: Urine Color Yellow Pale Pale Yellow Yellow Urine Appearance Clear Clear Clear Urine Odor Strong Comment commode x2 Emesis Description None Voiding Methods Bedside Commode [facility] Medical History Bone spur of toe (Chronic 02/27/17) Cough (Chronic) DDD (degenerative disc disease), lumbosacral (Chronic) Family history of early CAD (Chronic 04/17/16) GERD (gastroesophageal reflux disease) (Chronic) Hormone replacement therapy (HRT) (Chronic) Hyperlipidemia (Chronic) Insomnia (Chronic) Osteopenia (Chronic) Paresthesia (Chronic) Pulmonary hypertension, high resistance (Chronic 04/01/17) PAP 37 03/25 Rheumatoid arthritis (Chronic) Trismus (Chronic) Surgical History Abdominal hysterectomy (~1987) Appendectomy (~1977) RUPTURED Bilateral salpingectomy with oophorectomy (~1987) Bunionectomy (~2006) Right Injection 03/03/15, 12/2015 Synvisc/Depomedrol in the right knee L5-S1 Discectomy (~2001) Lysis of adhesions Multiple surgeries Repair, ACL (~10/2011) Replacement of total knee joint 08/23 [facility] (R) Rotator Cuff Repair (~2003) Left Family History Mother Essential hypertension Depression Heart disease Hyperlipidemia Stroke Father , BRAIN BLEED at age 84. RA (rheumatoid arthritis) Essential hypertension CAD (coronary artery disease) Heart disease Hyperlipidemia Myocardial infarction Parkinson disease Sister Multiple personality disorder Substance abuse Essential hypertension Bipolar disorder Depression Heart disease Hyperlipidemia OA (osteoarthritis) RA (rheumatoid arthritis) Brother Essential hypertension CAD (coronary artery disease) Heart disease Hyperlipidemia Myocardial infarction ANGIOPLASTY/STENTS Brother RA (rheumatoid arthritis) Hypertension Hyperlipidemia Maternal Grandfather , 84 Essential hypertension Heart disease Hyperlipidemia Dementia Paternal Grandfather Dementia Leukemia Heart disease Maternal Grandmother , 72 Neoplasm BREAST W/METS Breast cancer with mets Paternal Grandmother , 74 Essential hypertension Heart disease NE Hyperlipidemia Social History Smoking/Tobacco Use Status: Former Tobacco Use Tobacco: How many years used: 16 Second Hand Exposure: Yes Alcohol Intake: current Alcohol Intake frequency: a few times a week Alcohol type: wine and hard liquor Drug use: Never Caregiver/Support person: No Household members: spouse and other Details: Adopted grandson (Rick) Communication Needs: Corrective Lenses Do you need help understanding health information?: Never Pets and animals: No Sexually active: Yes Do you think of yourself as: straight/heterosexual Current gender identity: female What is your relationship status?: How often do you talk on the phone with friends or family?: three or more times per week How often do you get together with friends or relatives?: once per week How often do you attend restoration or scientology services?: 4 or more times per year Do you belong to any clubs or organized social groups?: yes Panel score (0-1 are the most socially isolated patients): 4 What type of physical activity do you participate in: decline to answer Duration: decline to answer Frequency: decline to answer Jessica/Caodaism: Zoroastrian Special jessica needs: No Seatbelt use: always Helmet use: Yes Helmet use: always Drive intox or ride w/intox driver supervisor: No Do you feel safe in your relationship?: Yes
--- NOTE | 2019-02-22 09:59 | PT.INIE ---
Date of service: 02/22/19 Time of Service: 09:00 PT Notes Inpatient Physical Therapy Evaluation Date: 02/22/19 Referring Doctor: Dr. Moses PT Orders: PT CONSULT: s/p anterior right KENNEDY Precautions: WBAT Patient Profile/Admitting Diagnosis: Patient seen post-op day 1 after left KENNEDY for management of articular fracture of the right femoral head after a fall. PMHX: Bone spur of toe (Chronic 02/27/17) Cough (Chronic) DDD (degenerative disc disease), lumbosacral (Chronic) Family history of early CAD (Chronic 04/17/16) GERD (gastroesophageal reflux disease) (Chronic) Hormone replacement therapy (HRT) (Chronic) Hyperlipidemia (Chronic) Insomnia (Chronic) Osteopenia (Chronic) Paresthesia (Chronic) Pulmonary hypertension, high resistance (Chronic 04/01/17) PAP 37 03/25 Rheumatoid arthritis (Chronic) Trismus (Chronic) Social History/Home Situation: Patient lives in a private home with her . She has 3 steps to enter without rail, and full flight of stairs to her bedroom. 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 Equipment Owned/DME: Bilateral axillary crutches. FWW Subjective: Patient states that she fractured her hip after a fall in November 2018. She reports significant pain in the weeks leading up to surgery, and intermittent use of both a walker and either 1 or 2 axillary crutches. She admits to struggling with shoulder and hand pain with utilization of assistive device. Objective: General Observation: Resting comfortably in chair at initiation of session. Mental Status: A and O x3 Pain: Minimal Vital Signs: Resting BP is 99/64, heart rate 99. With transition to standing, BP is 104/65, heart rate 104. ROM: Right Upper Extremity: WNL Left Upper Extremity: WNL Right Lower Extremity: Right knee and ankle motion WNL. Hip ROM not assessed. Left Lower Extremity: Grossly WNL Strength: Right Upper Extremity: WFL Left Upper Extremity: WFL Right Lower Extremity: Quad strength 4/5. Ankle dorsiflexion 4/5, which patient reports is chronic Left Lower Extremity: Hip flexion 5/5. Quads 5/5. Ankle dorsiflexion 5/5. Sensation: Intact distally Bed Mobility/Transfers: Supine?sit: Independent Sit?supine: Independent Sit?stand: Independent Stand?sit: Independent Gait: Patient initially ambulates with FW W x25 feet, with supervision only. She is able to independently toilet and perform self-care activities at the sink. Transition to use of axillary crutches, where she ambulates 150 feet x 2 with supervision only. Her axillary crutches were modified for improved WBing position for the wrists, with significantly improved comfort noted by patient. Stairs: Patient manages therapeutic stairs 4 inches x 3, 6 inches x 2 with bilateral axillary crutches and step to pattern. She requires supervision only. Balance: Static Sitting: Normal Dynamic Sitting: Normal Static Standing: Normal Dynamic Standing: Fair Special Tests: Mobility Limitations Standardized Measure [facility] AM-PAC 6 clicks Basic Mobility Inpatient Short Form: Raw Score: 24 CMS Score: 0% deficit Informed Consent/Education: Patient instructed in purpose of PT consult and plan of care. She was instructed in early home exercise program consisting of antiembolic exercises and heel slides. We discussed appropriate activity progression, and all questions were answered. Assessment: Patient is a 58 year old female referred to physical therapy services with the diagnosis of right KENNEDY. Patient presents with clinical signs and symptoms consistent with post-operative status. Session today consisted of evaluation and instruction in home exercise program, as well as gait and transfer training. Patient demonstrated excellent safety and independence, and does not require any further PT intervention in acute care setting. Patient demonstrates sufficient safety and independence to allow for safe transition back home once medically cleared. She currently demonstrates the following impairment level findings: 1. Decreased right lower extremity strength 2. Gait impairments Impairments are contributing to the following functional limitations: 1. Patient requiring education regarding stair management 2. Decreased activity tolerance Patient is assessed as a Low [id number] complexity based on the following: History: 58-year-old female presenting 1 day status post right KENNEDY. Multiple complicating medical comorbidities, as noted above, most significantly chronic left shoulder pain and rheumatoid arthritis, both affecting tolerance utilization of assistive device. Examination: Functional limitations as noted above Presentation: Stable Decision Making: Low complexity Plan of Care/Treatment Plan: No further PT intervention required in acute care setting. DISCHARGE RECOMMENDATIONS: Home, no anticipated equipment needs TREATMENT CODE/TIME: 9:00?930 ([id number]) Sharon Mackay, PT, DPT [facility]
[2019-02-22] MEDS: Normal Saline Flush 10 ML SYR IV (11:11)
[2019-02-22] MEDS: Normal Saline 500 ML IV (11:11)
--- NOTE | 2019-02-22 14:46 | PDOC.CMDIS ---
- If Service Date Differs Date of service: 02/22/19 Time of Service: 14:46 LACE Index Scoring Tool - Questions: Length of Stay (in days): 2 Acuity (Admit via E.D.?): No E.D. Visits: 1 - Answers: Total Score: 3 Risk of Readmission: Low Risk Care Management Discharge Reason for Hospitalization: right total hip Discharge Plan: Crissy will discharge home with no new services. She will follow up with her surgeon and discharge plan of care. She will transport with family via private vehicle. Patient/Family Education Needs: Discharge plan, limitations, follow up plan, Ask Me Three.
== END 2019-02-22 12:36 | disposition home or self-care (01) | DRG 470 ==
LOC: PDS 09:42 → MS 16:40
PROVIDERS: Admitting Provider Student in an Organized Health Care Education/Training Program; PCP Family Medicine; Visit Provider Student in an Organized Health Care Education/Training Program
PROC: 0SR904A Replacement of Right Hip Joint with Ceramic on Polyethylene Synthetic Substitute, Uncemented, Open Approach (ICD-10-PCS; CPT 27130; principal; 2019-02-21 11:30)
DX: S72.061A Displaced articular fracture of head of right femur, initial encounter for closed fracture (principal); W19.XXXA Unspecified fall, initial encounter; M85.80 Other specified disorders of bone density and structure, unspecified site; K21.9 Gastro-esophageal reflux disease without esophagitis; E78.5 Hyperlipidemia, unspecified; M06.9 Rheumatoid arthritis, unspecified; Z79.890 Hormone replacement therapy; I27.20 Pulmonary hypertension, unspecified
CPT/HCPCS: 27130; 97161; NC; 73501; 73502; J0690; J1100; J1885; J2250; J2405; J3010; J3490; J7512

== ENCOUNTER 2019-03-10 11:14 | Outpatient (CLI) | payer OTHER, SELFPAY ==
--- NOTE | 2019-03-10 11:05 | DI.RAD_ITS ---
EXAM: XR HIP RT COMPLETE AP PELVIS INDICATION: 1ST POST OP RIGHT KENNEDY. COMPARISON: XR HIP RT AP LAT ONLY from 02/22/2019 TECHNIQUE: 2D digital imaging was performed. FINDINGS: There are stable postsurgical changes of a right total hip replacement. No evidence of hardware fail ure is seen. The bones are intact. The soft tissues are unremarkable.
== END 2019-03-10 11:34 ==
PROVIDERS: PCP Family Medicine; Visit Provider Student in an Organized Health Care Education/Training Program
DX: Z96.641 Presence of right artificial hip joint (principal); Z47.1 Aftercare following joint replacement surgery
CPT/HCPCS: 73502

== ENCOUNTER 2019-06-12 09:34 | Outpatient (CLI) | payer OTHER, SELFPAY ==
[2019-06-12 13:09] LABS: HCT 41.6 % (36.0-46.0); HGB 12.8 g/dL (12.0-15.5); Mean Corp. HGB Concentration 30.8 g/dL (32.0-36.0); Mean Corpuscular Hemoglobin 26.5 pg (27.0-33.0); Mean Corpuscular Volume 86.1 fL (80-95); Mean Platelet Volume 8.7 fL (8.0-11.0); Platelet Count 439 x1000/uL (130-400); RBC 4.83 m/cumm (4.00-5.20); RBC Distribution Width 14.9 % (11.7-14.6); White Blood Cell Count 5.49 k/cumm (4.4-10.8)
[2019-06-12 13:28] LABS: Iron 85 ug/dL (50-170)
[2019-06-12 13:41] LABS: ALT 26 U/L (14-59); AST 27 U/L (15-37); Albumin 4.4 g/dL (3.4-5.0); Alkaline Phosphatase 83 U/L (46-116); Anion Gap 9.4 mmol/L (3-11); BUN 16 mg/dL (7-18); Bilirubin, Total 0.5 mg/dL (0.2-1.0); CO2 29.6 mmol/L (21.0-32.0); CREATININE 0.79 mg/dL (0.55-1.02); Calcium 9.4 mg/dL (8.5-10.1); Chloride 101 mmol/L (98-107); Ferritin 47 ng/mL (8-252); Glucose 97 mg/dL (74-106); Potassium 4.3 mmol/L (3.5-5.1); Sodium 140 mmol/L (136-145); Total Protein 6.9 g/dL (6.4-8.2); Vitamin B12 639 pg/mL (193-986)
[2019-06-12 14:54] LABS: ESR 9 mm/hr (0-30)
== END 2019-06-12 09:54 ==
PROVIDERS: PCP Family Medicine; Visit Provider Family Medicine
DX: M06.9 Rheumatoid arthritis, unspecified (principal); R53.83 Other fatigue
CPT/HCPCS: 36415; 80053; 85027; 85652; 82607; 82728; 83540

== ENCOUNTER 2019-08-08 11:51 | Outpatient (CLI) | payer OTHER, SELFPAY ==
[2019-08-09 07:42] LABS: COVID-19 RT-PCR UVMMC Result Negative (Negative)
== END 2019-08-08 12:11 ==
PROVIDERS: PCP Family Medicine; Visit Provider Family Medicine
DX: R43.0 Anosmia (principal); D89.9 Disorder involving the immune mechanism, unspecified
CPT/HCPCS: U0003

== ENCOUNTER 2019-12-18 02:18 | Outpatient (CLI) | payer OTHER, SELFPAY ==
--- NOTE | 2019-12-18 09:19 | DI.RAD_ITS ---
EXAM: XR SHOULDER LT COMPLETE 2+V INDICATION: l shoulder pain s/p repair,[id number]. COMPARISON: CR LEFT SHOULDER COMPLETE from 05/22/2016 TECHNIQUE: 2D digital imaging was performed. FINDINGS: There is mild spurring at the AC joint and undersurface of the acromion. There is severe narrowing o f the glenohumeral joint space with periarticular spurring and sclerosis. Loose bodies are seen in t he subcoracoid bursa. An os acromiale is noted. IMPRESSION: Severe degenerative changes of the glenohumeral joint. Loose bodies in the subcoracoid bursa. DATA REPOSITORY: RADIATION DOSE DELIVERED:
== END 2019-12-18 02:38 ==
PROVIDERS: PCP Family Medicine; Visit Provider Family Medicine
DX: M19.012 Primary osteoarthritis, left shoulder (principal)
CPT/HCPCS: 73030

== ENCOUNTER 2019-12-18 03:10 | Outpatient (CLI) | payer OTHER, SELFPAY ==
[2019-12-18 08:58] LABS: Abs Immature Grans 0.02 10^3/uL (0.0-0.06); Absolute Basophil Count 0.03 10^3/uL (0.0-0.2); Absolute Eosinophil Count 0.11 10^3/uL (0.0-0.7); Absolute Lymphocyte Count 0.73 10^3/uL (1.2-3.4); Absolute Monocyte Count 0.63 10^3/uL (0.1-0.8); Basophils % 0.4; Eosinophils % 1.6; HCT 41.2 % (36.0-46.0); HGB 12.6 g/dL (11.2-15.7); Immature Grans % 0.3; Lymphocytes % 10.5; MCH 27.5 pg (27.0-33.0); MCHC 30.6 % (32.0-36.0); MPV 8.6 fL (8.0-11.0); Monocytes % 9.1; Neutrophils % 78.1; Nucleated RBC 0 %; Platelet Count 386 10^3/uL (130-400); RBC 4.58 10^6/uL (3.93-5.22); RDW 14.7 % (11.7-14.6); RDW-SD 48.3 fL; WBC 6.92 10^3/uL (4.4-10.8)
[2019-12-18 09:58] LABS: ALT 34 U/L (14-59); AST 35 U/L (15-37); Albumin 3.9 g/dL (3.4-5.0); Alkaline Phosphatase 81 U/L (46-116); Anion Gap 6.1 mmol/L (3-11); BUN 17 mg/dL (7-18); Bilirubin, Total 0.4 mg/dL (0.2-1.0); CO2 30.9 mmol/L (21.0-32.0); CREATININE 0.82 mg/dL (0.55-1.02); Calcium 9.2 mg/dL (8.5-10.1); Calculated LDL 106 mg/dL (<100); Chloride 102 mmol/L (98-107); Cholesterol 240 mg/dL (<200); Glucose 98 mg/dL (74-106); HDL Cholesterol 125 mg/dL (40-60); Potassium 4.3 mmol/L (3.5-5.1); Sodium 139 mmol/L (136-145); TSH (W/Ref FT4) 1.77 uIU/mL (0.36-3.74); Total Protein 6.4 g/dL (6.4-8.2); Triglyceride 47 mg/dL (<150)
[2019-12-18 10:11] LABS: Vitamin D 25 Total 50.2 ng/ml (30-100)
== END 2019-12-18 03:30 ==
PROVIDERS: PCP Family Medicine; Visit Provider Family Medicine
DX: Z00.00 Encounter for general adult medical examination without abnormal findings (principal); M06.9 Rheumatoid arthritis, unspecified; Z79.52 Long term (current) use of systemic steroids
CPT/HCPCS: 36415; 80053; 80061; 82306; 83735; 84443; 85025

== ENCOUNTER 2020-01-06 01:41 | Outpatient (CLI) | payer OTHER, SELFPAY ==
--- NOTE | 2020-01-06 09:00 | DI.DEXA_ITS ---
EXAM: XR DEXA BONE DENSITY W/WO SYLVIA CLINICAL HISTORY: chronic prednisone,OSTEOPENIA,M85.80,M06.9,Z79.52 TECHNIQUE: COMPARISON: CR XR HIP RT COMPLETE AP PELVIS from 03/10/2019 FINDINGS: Lateral Spine Image: Limited evaluation due to the patient body habitus. No definite compression fra ctures are seen. Left hip: Total T-Score: -1.1 Total Z-Score: -0.1 T- and Z-scores: Findings consistent with osteopenia and an increased fracture risk. Lumbar Spine: Total T-Score: -1.9 Total Z-Score: -0.4 T- and Z-scores: Findings consistent with osteopenia and an increased fracture risk. IMPRESSION: Findings of osteopenia in the lumbar spine and left hip.
== END 2020-01-06 02:01 ==
PROVIDERS: PCP Family Medicine; Visit Provider Family Medicine
DX: M85.89 Other specified disorders of bone density and structure, multiple sites (principal); M06.9 Rheumatoid arthritis, unspecified; Z79.52 Long term (current) use of systemic steroids
CPT/HCPCS: 77080

== ENCOUNTER 2020-01-26 13:09 | Outpatient (CLI) | payer OTHER, SELFPAY ==
[2020-01-28 13:16] LABS: Patient Race White; SARS-CoV-2 RNA Undetected (Undetected); SARS-CoV-2 Specimen Source Nasal
== END 2020-01-26 13:29 ==
PROVIDERS: PCP Family Medicine; Visit Provider Family Medicine
DX: R05 Cough (principal); J02.9 Acute pharyngitis, unspecified
CPT/HCPCS: U0003

== ENCOUNTER 2020-02-27 10:50 | Outpatient (CLI) | payer OTHER, SELFPAY ==
--- NOTE | 2020-02-27 07:45 | DI.RAD_ITS ---
EXAM: XR HIP RT AP LAT ONLY CLINICAL HISTORY: annual f/u. TECHNIQUE: 2D digital imaging was performed. COMPARISON: CR XR HIP RT AP LAT ONLY from 02/22/2019 FINDINGS: BONES: There are stable post operative changes present. No fracture or dislocation. JOINTS: The joint spaces are well maintained. No joint effusion is present. SOFT TISSUE: Normal. IMPRESSION: Stable postoperative changes. DATA REPOSITORY: RADIATION DOSE DELIVERED:
--- NOTE | 2020-02-27 08:15 | DI.RAD_ITS ---
EXAM: XR KNEE RT 2V AP,LAT CLINICAL HISTORY: right knee pain. TECHNIQUE: 2D digital imaging was performed. COMPARISON: CR RIGHT KNEE LIMITED 1 OR 2 VIEW from 12/05/2017 CR XR HIP RT AP LAT ONLY from 02/27/2020 FINDINGS: BONES: There are stable post operative changes present. No fracture or dislocation. JOINTS: The joint spaces are well maintained. No joint effusion is present. SOFT TISSUE: Normal. IMPRESSION: Stable postoperative changes. DATA REPOSITORY: RADIATION DOSE DELIVERED:
== END 2020-02-27 11:10 ==
PROVIDERS: PCP Family Medicine; Referring Provider Family Medicine; Visit Provider Student in an Organized Health Care Education/Training Program
DX: Z96.641 Presence of right artificial hip joint (principal); M25.561 Pain in right knee
CPT/HCPCS: 73502; 73560

== ENCOUNTER 2020-03-23 00:36 | Outpatient (CLI) | payer OTHER, SELFPAY ==
--- NOTE | 2020-03-23 07:45 | DI.MAMMO_ITS ---
EXAM: MG MAMMO SCREENING CLINICAL HISTORY: screening,Z12.39. TECHNIQUE: Bilateral full field digital CC and MLO mammographic images were obtained with 3D tomosyn thesis and utilizing computer aided detection (CAD). COMPARISON: Prior mammograms dating back to 2012, the most recent being December 2018. FINDINGS: Fibroglandular tissue is dense, this decreasing the sensitivity of the mammogram for finding in under lying lesions. There are no spiculated masses nor malignant appearing microcalcification groups. There is no signif icant architectural distortion nor skin thickening-retraction. IMPRESSION: No radiographic evidence of malignancy. Dense fibroglandular tissue BI-RADS Category 1 - Negative Breast Density - Category C - Heterogeneously dense Breast density Category C or D implies that the patient has dense breast tissue. Dense breast tissue can make it harder to find cancer on a mammogram. Dense breast tissue is also associated with an incr eased risk of breast cancer. This information about the result of the mammogram report was provided to the patient to raise their awareness. Use this report when you speak with the patient about their risks for breast cancer, which includes their family history. At that time, you may recommend additional screening tests (Ultrasoun d or MRI) as these tests may add significant information. A negative radiographic report should not delay biopsy if a dominant or clinically suspicious mass is present. Up to ten percent of cancers are not identified on mammography. A negative report may reinforce clinical impression. Adenosis and dense breasts may obscure an underlying neoplasm. False positive reports average 6 to 10%. Patient will receive a letter notifying them of these results.
== END 2020-03-23 00:56 ==
PROVIDERS: PCP Family Medicine; Visit Provider Family Medicine
DX: Z12.31 Encounter for screening mammogram for malignant neoplasm of breast (principal)
CPT/HCPCS: 77063; 77067

== ENCOUNTER 2020-04-05 08:51 | Outpatient (CLI) | payer OTHER, SELFPAY ==
[2020-04-06 00:37] LABS: COVID-19 RT-PCR UVMMC Result Negative (Negative)
== END 2020-04-05 09:11 ==
PROVIDERS: Nurse Practitioner Family; PCP Family Medicine; Visit Provider Family Medicine
DX: Z11.59 Encounter for screening for other viral diseases (principal); Z01.818 Encounter for other preprocedural examination
CPT/HCPCS: U0003

== ENCOUNTER 2020-04-08 01:00 | Outpatient (CLI) | payer OTHER, SELFPAY ==
--- NOTE | 2020-04-08 09:15 | DI.NM_ITS ---
APPROVED REPORT Exam: Exercise Treadmill Patient Location: Out-Patient Room/Bed: BMI: 27.61 Baseline Rhythm: Sinus Rhythm Indications: chest pain, fatigue, LI Medical History Medical History: degenerative disc disease, gerd, HLD, osteopenia, pulmonary HTN, RA, angina Cardiac Medications: Diltiazem, Nitroglycerin, Rosuvastatin/ Crestor Allergies: gabapentin, codeine Cardiac Risk Factors: family hx, CVD, smoker (former), asthma, HLD Previous Cardiac Procedures: None. Pretest Chest Pain Characteristics: None. Exercise History: Sedentary Physical Disabilities: None. Lung Sounds: Clear to auscultation Heart Sounds: Regular Stress Test Details Test: Exercise stress testing was performed using a José Miguel protocol. Nuclear Acquisition: Rest Tc-99m/Stress Tc-99m 1 day Rest Isotope: Tc-99m Sestamibi. Dose: 12 Date: 04/08/2020 Injection Time: 0945 Stress Isotope: Tc-99m Sestamibi. Dose: 36.1 Date: 04/08/20 Injection Time: 1132 HR Resting HR Supine: 67 bpm Max Heart Rate (APMHR): 159 bpm Resting HR Standin bpm Target HR (85% APMHR): 135 bpm Max HR Achieved: 154 bpm % of APMHR: 96 Recovery HR: 96 bpm HR response to stress: Normal HR response to stress BP Resting BP Supine: 134/82 mmHg Resting BP Standin/80 mmHg Max BP: 154/70 mmHg Recovery BP: 132/78 mmHg BP response to stress: Normal blood pressure response to stress. ECG Resting ECG: Sinus Rhythm Ectopy: None Stress ECG: Sinus Tachycardia ST Change: No significant ST segment changes noted. Arrhythmia: None. Recovery ECG: Sinus Rhythm Recovery ST Change: No significant ST segment changes noted. Recovery Arrhythmia: None Clinical Reason for Termination: Fatigue Stress Symptoms: Dyspnea, localized back pain Exercise duration: 7 min11 sec Highest Stage Reached: Stage 3: 3.4 mph at 14% grade. Exercise capacity: 8.86 METs Stress ECG Conclusion 1. The resting electrocardiogram was normal 2. Patient exercised on the José Miguel protocol and completed a workload of 8.86 METS, limited by shortnes s of breath and back pain 3. Normal heart rate and blood pressure response to exercise. The patient achieved 96% of predicted heart rate for age 4. Electrocardiographically there was no evidence of myocardial ischemia 5. There were no dysrhythmias 6. Capps treadmill score is 7, low risk Stress Test Summary STAGE Time (mins) Speed (mph) Grade (%) HR BP SYMPTOMS METS Supine 67 134/82 Standing 83 128/80 SPO2 97% 1 3 1.7 10 132 136/78 SPO2 92% 4.6 2 6 2.5 12 148 150/72 SOB SPO2 92% 7 3 9 3.4 14 SOB, L scapular pain 8/10 stabbibng 10.2 1 min recovery 138 154/70 SPO2 96%, pain 4/10 3 min recovery 107 148/76 SPO2 98%, pain 0/10 6 min recovery 96 132/78 MPI Conclusion Normal myocardial perfusion without ischemia or prior infarction. EF is 66%
== END 2020-04-08 01:20 ==
PROVIDERS: PCP Family Medicine; Visit Provider Family Medicine
DX: R07.9 Chest pain, unspecified (principal); R06.09 Other forms of dyspnea; Z82.49 Family history of ischemic heart disease and other diseases of the circulatory system; Z87.891 Personal history of nicotine dependence; J45.909 Unspecified asthma, uncomplicated; E78.5 Hyperlipidemia, unspecified
CPT/HCPCS: 78452; 93017

== ENCOUNTER 2020-06-17 13:36 | Outpatient (CLI) | payer OTHER, SELFPAY ==
[2020-06-17 18:18] LABS: Iron 50 ug/dL (50-170)
[2020-06-17 18:33] LABS: Ferritin 94 ng/mL (8-252)
== END 2020-06-17 13:37 | disposition home or self-care (01) ==
LOC: LBO 13:40
PROVIDERS: PCP Family Medicine; Visit Provider Family Medicine
DX: R53.83 Other fatigue (principal); M06.9 Rheumatoid arthritis, unspecified
CPT/HCPCS: 36415; 82728; 83540

== ENCOUNTER 2020-08-10 11:20 | Outpatient (CLI) | payer OTHER, SELFPAY ==
[2020-08-10 13:19] LABS: ESR 5 mm//hr (0-30)
[2020-08-10 15:15] LABS: C-Reactive Protein 6.08 mg/dL (0.0-0.3)
== END 2020-08-10 11:21 | disposition home or self-care (01) ==
LOC: LBO 11:21
PROVIDERS: PCP Family Medicine; Visit Provider Student in an Organized Health Care Education/Training Program
DX: T84.020A Dislocation of internal right hip prosthesis, initial encounter (principal)
CPT/HCPCS: 36415; 85652; 86140

== ENCOUNTER 2020-08-10 17:30 | Outpatient (CLI) | payer OTHER, SELFPAY ==
--- NOTE | 2020-08-10 10:15 | DI.CT_ITS ---
Exam(s) CT LOWER EXTREMITY RT WO EXAM: CT LOWER EXTREMITY RT WO CLINICAL HISTORY: eval component positioning due to recent dislocati T84.020A DISLOCATION RT. TECHNIQUE: Imaging Protocol: Axial computed tomography images with coronal and sagittal reformatted images were created and reviewed. COMPARISON: CT SINUS CT WITHOUT CONTRAST from 11/15/2009 FINDINGS: Bones: No definite acute fracture or dislocation is seen. There is a cortical depression seen at th e posterior lateral aspect of the right acetabulum. This is of uncertain clinical significance. Thi s may be chronic. Bony alignment is satisfactory. No cellulitic or osteomyelitic changes are identi fied. There is a right total hip replacement. No lucencies are seen in or about the orthopedic hard cardenas. There is normal alignment of the orthopedic hardware. No lytic or sclerotic lesions are ident ified. Soft Tissues: There is mild edema in the soft tissues around the right hip. No focal fluid collecti on is seen. No soft tissue mass is appreciated. IMPRESSION: 1. Unremarkable right KENNEDY. 2. No definite acute fracture or dislocation. 3. Mild edema in the soft tissues around the right hip. No focal fluid collection. RADIATION DOSE DELIVERED: 295.85mGy.cm Total DLP 295.85mGy.cm Total DLP DATA REPOSITORY: All CT scans at this facility are submitted to the National Radiology Data Registry (NRDR) Dose Index Registry (DIR) with the [employer] ([employer]). RADIATION OPTIMIZATION: All CT scans at this facility use at least one of these dose optimization te chniques: automated exposure control; mA and/or kV adjustment per patient size (includes targeted exa ms where dose is matched to clinical indication); or iterative reconstruction.
== END 2020-08-10 17:50 ==
PROVIDERS: PCP Family Medicine; Visit Provider Student in an Organized Health Care Education/Training Program
DX: Z96.641 Presence of right artificial hip joint (principal); T84.020A Dislocation of internal right hip prosthesis, initial encounter
CPT/HCPCS: 73700

== ENCOUNTER 2020-08-20 04:49 | Outpatient (RCR) | payer OTHER, SELFPAY ==
[2020-08-20] VITALS (9 sets, daily range): BP systolic 112–124; BP diastolic 71–78; PULSE 73–90; RESP 16; TEMP 36.4–36.9; O2SAT 95–100
[2020-08-20] MEDS: riTUXimab-PVVR 1,000 MG in Normal Saline 150 ML 62.5 MG IVPB (08:50)
[2020-08-20] MEDS: Normal Saline Flush 10 ML SYR IVP (08:52)
== END 2020-09-06 23:59 | disposition home or self-care (01) ==
LOC: INF 04:49
PROVIDERS: PCP Family Medicine; Visit Provider Family Medicine
DX: M06.9 Rheumatoid arthritis, unspecified (principal)
CPT/HCPCS: 96365; 96366; 96413; 96415; Q5119

== ENCOUNTER 2020-08-26 13:39 | Emergency (ER) | payer OTHER, SELFPAY ==
[2020-08-26] VITALS (64 sets, daily range): BP systolic 95–146; BP diastolic 50–119; PULSE 77–162; RESP 6–22; TEMP 36.9; O2SAT 90–100; BMI 23.3
--- NOTE | 2020-08-26 13:50 | ED.GENADUL_ITS ---
Discharge Plan Disposition Patient Disposition: HOME Condition: Improving Discharge Details Clinical Impression: Hip dislocation, right, Status post closed reduction of dislocated total hip prosthesis Primary Care Provider: Kim Mandel ED Provider: Angie Morris Home Meds and New Rx's Prescriptions: Continued Advair HFA 230-21 mcg/actuation HFA aerosol inhaler 2 puff Inhalation BID PRN (Reason: asthma) Qty: 12 RF: 11 mupirocin 2 % ointment 1 applic TP BID Qty: 30 RF: 4 methylphenidate HCl 10 mg tablet See Rx Instructions PO TID MDD 4 Qty: 120 RF: 0 acetaminophen [Acetaminophen Extra Strength] 500 mg tablet 1,000 mg PO Q6H PRNRF: 0 diltiazem HCl 120 mg capsule,extended release 24 hr 120 mg PO DAILY Qty: 90 RF: 4 acyclovir 800 mg tablet 800 mg PO TID PRN (Reason: herpes) Qty: 90 RF: 5 prednisone 5 mg tablet 5 mg PO DAILY Qty: 90 RF: 4 nitroglycerin 0.4 mg tablet, sublingual 0.4 mg SL Q5M PRN (Reason: chest pain) Qty: 25 RF: 6 escitalopram oxalate 10 mg tablet 10 mg PO DAILY Qty: 90 RF: 4 ketorolac 30 mg/mL (1 mL) solution 60 mg IM ONCE Qty: 2 RF: 0 albuterol sulfate 5 MG/1 ML solution 2.5 mg Inhalation QID PRNRF: 0 prednisone 20 mg tablet 20 mg PO DAILY PRNQty: 11 RF: 0 acyclovir [Zovirax] 5 % cream 1 applic TP DAILY PRN Qty: 5 RF: 4 folic acid 1 mg tablet 2 mg PO DAILY Qty: 180 RF: 12 cholecalciferol (vitamin D3) 25 mcg (1,000 unit) tablet 2,000 unit PO DAILY RF: 0 rosuvastatin [Crestor] 5 mg tablet 5 mg PO DAILY Qty: 90 RF: 12 triamcinolone acetonide 0.025 % ointment 1 applic Topical BID PRN (Reason: rash) Qty: 80 RF: 5 methotrexate sodium 2.5 mg tablet 7.5 mg PO qWEEK Qty: 36 RF: 5 estradiol [Vivelle-Dot] 0.0375 mg/24 hr patch semiweekly 1 patch Transdermal twice weekly Qty: 24 RF: 5 montelukast 10 mg tablet 10 mg PO QPM Qty: 90 RF: 4 estradiol [Yuvafem] 10 mcg tablet 10 mcg vaginal .3 times weekly Qty: 36 RF: 4 duloxetine 60 mg capsule,delayed release(DR/EC) 60 mg PO DAILY Qty: 90 RF: 11 celecoxib [Celebrex] 200 mg capsule 200 mg PO BID Qty: 180 RF: 4 prednisone 20 mg tablet 80 mg PO DAILY Qty: 16 RF: 5 estradiol 0.01 % (0.1 mg/gram) cream 1 g vaginal .twice weekly Qty: 127.5 RF: 5 Discharge Instructions Instructions: Hip Dislocation (ED) Additional Instructions: Rest as much as possible. You may use your walker for ambulation as needed. Be sure to avoid hip extension and external rotation. Take your Celebrex or ibuprofen as needed and directed for pain. You can take the tramadol as needed as directed for pain not relieved with Tylenol, ibuprofen or Celebrex. Follow-up with your scheduled appointment with Dr. Moses next week. Return immediately to the emergency department if you develop any worsening or new concerning symptoms. Referrals: Darrion Moses MD [ [facility] STAFF PHYSICIAN] - Discharge Data Discharge Physician: Angie Morris Medical Decision Making <Sean Collins MD - Last Filed: 08/26/20 15:26> 60 yo female with pmhx of prior right femur fx with prosthesis, comes in with ems for right hip pain. She states 3 weeks ago she had a nontraumatic spontaneous right hip dislocation and had it reduced at [facility]. SHe was at work today and similar to 3 weeks ago turned right around a corner and felt her right hip dislocate and fell to the ground, no loc or head trauma. She has pain and is unable to move the right hip with tenderness and also has right knee pain with no visible traumatic deformities. She has intact distal sensation and pulses. No symptoms prior to the fall to suggest presyncope. Will administer pain medicine and obtain xrays for possible recurrent hip dislocation. patient has a dislocated hip. Discussed with ortho and they are going to come assist with reduction. Pt consents to reduction and understands risks benefits patient given 175mg total of propofol but unfortunately unsuccessful in reduction. Dr. Rush consult public accountant and they will attempt sedation at the bedside. Pt signed out to Dr. Mroris pending 2nd attempt at reduction with sedation Differential Diagnosis Differential Diagnosis: fracture, dislocation Medical Records Medical records reviewed: Yes I reviewed the patient's medical records. Imaging Data Radiologic Study: Attestation: I personally reviewed and interpreted this imaging study as follows: Imaging: X-Ray Radiologist's impression: hip dislocation on hip xray Radiologic Study #2: Attestation: I personally reviewed and interpreted this imaging study as follows: Imaging: X-Ray My impression: femur xray shows no femur fracture, does have right hip dislocation Radiologic Study #3: Attestation: I personally reviewed and interpreted this imaging study as follows: Imaging: X-Ray Radiologist's impression: no acute findings xray knee Radiologic Study #4: Attestation: I personally reviewed and interpreted this imaging study as follows: Imaging: X-Ray My impression: 2nd hip xray hip dislocation <Angie Morris DO - Last Filed: 08/26/20 16:35> 1500 --please see Dr. Collins's note for initial presentation, exam and plan. Case endorsed to reevaluate after plan for reduction by Dr. Rush with assistance for sedation by MAINTENANCE TEAM LEADER. 1600 --hip successfully reduced, confirmed by post reduction film. Patient is clear for discharge to home. She is awake and alert. Instructions per Dr. Rush for no brace. She may use her walker but instructed to avoid hip extension and external rotation. Plan is for her to follow-up with Dr. Moses next week and this appointment is already arranged. They requested adding CRP and ESR to her lab work today. Recommend NSAIDs for pain and tramadol as needed. Patient felt much better and was able to drink gerson lana prior to discharge. Usual and customary return precautions given prior to discharge. HPI <Sean Collins MD - Last Filed: 08/26/20 15:26> General Mode of arrival: ambulatory . Date/Time Provider Initiated Documentation: 08/26/20 13:41 . Limitations to Documentation: no limitations . Information obtained by: patient . History of Present Illness 60 year old F presents to the emergency department with the chief complaint of right hip pain, described as moderate, Patient started experiencing this hour(s) (1) and it has been constant. Rest improves symptom(s), Movement worsens symptoms . Patient notes no other symptoms.. Patient did receive the following treatments prior to arrival, none Related Data Home Medications Medication Instructions Recorded Confirmed albuterol sulfate 2.5 mg INHALATION QID PRN ml 01/26/16 03/09/20 prednisone 20 mg tablet 20 mg PO DAILY PRN #11 tab 02/25/18 03/09/20 acyclovir 5 % topical cream 1 applic TP DAILY PRN #5 gm 04/05/19 03/09/20 folic acid 1 mg tablet 2 mg PO DAILY #180 tab-cap 07/25/19 03/09/20 acetaminophen 500 mg tablet 1,000 mg PO Q6H PRN tab-cap 12/08/19 03/09/20 acyclovir 800 mg tablet 800 mg PO TID PRN #90 tab 12/08/19 03/09/20 cholecalciferol (vitamin D3) 25 2,000 unit PO DAILY tab 12/08/19 03/09/20 mcg (1,000 unit) tablet diltiazem HCl 120 mg capsule,24 120 mg PO DAILY #90 cap 12/08/19 03/09/20 hr,extended release escitalopram oxalate 10 mg tablet 10 mg PO DAILY #90 tab 12/08/19 03/09/20 nitroglycerin 0.4 mg sublingual 0.4 mg SL Q5M PRN #25 tab 12/08/19 03/09/20 tablet prednisone 5 mg tablet 5 mg PO DAILY #90 tab 12/08/19 03/09/20 rosuvastatin 5 mg tablet 5 mg PO DAILY #90 tab-cap 01/28/20 03/09/20 triamcinolone acetonide 0.025 % 1 applic TOPICAL BID PRN #80 g 04/07/20 topical ointment Vivelle-Dot 0.0375 mg/24 hr 1 patch TRANSDERMAL twice weekly 05/19/20 transdermal patch #24 ea NS methotrexate sodium 2.5 mg tablet 7.5 mg PO qWEEK #36 tab 05/19/20 montelukast 10 mg tablet 10 mg PO QPM #90 tab 05/19/20 celecoxib 200 mg capsule 200 mg PO BID #180 cap 05/20/20 duloxetine 60 mg capsule,delayed 60 mg PO DAILY #90 tab-cap 05/20/20 release estradiol 10 mcg vaginal tablet 10 mcg VAGINAL .3 times weekly #36 05/20/20 tab prednisone 20 mg tablet 80 mg PO DAILY #16 tab 06/08/20 fluticasone propionate 230 2 puff INHALATION BID PRN #12 gm 07/01/20 07/01/20 mcg-salmeterol 21 mcg/actuation HFA inhaler methylphenidate HCl 10 mg tablet See Rx Instructions PO TID #120 07/01/20 07/01/20 tab-cap MDD 4 mupirocin 2 % topical ointment 1 applic TP BID #30 gm 07/01/20 07/01/20 estradiol 1 g VAGINAL .twice weekly #127.5 g 08/05/20 Previous Rx's Medication Instructions Recorded acyclovir 5 % topical cream 1 applic TP DAILY PRN #5 gm 04/05/19 folic acid 1 mg tablet 2 mg PO DAILY #180 tab-cap 07/25/19 acyclovir 800 mg tablet 800 mg PO TID PRN #90 tab 12/08/19 diltiazem HCl 120 mg capsule,24 120 mg PO DAILY #90 cap 12/08/19 hr,extended release escitalopram oxalate 10 mg tablet 10 mg PO DAILY #90 tab 12/08/19 nitroglycerin 0.4 mg sublingual 0.4 mg SL Q5M PRN #25 tab 12/08/19 tablet prednisone 5 mg tablet 5 mg PO DAILY #90 tab 12/08/19 rosuvastatin 5 mg tablet 5 mg PO DAILY #90 tab-cap 01/28/20 triamcinolone acetonide 0.025 % 1 applic TOPICAL BID PRN #80 g 04/07/20 topical ointment Vivelle-Dot 0.0375 mg/24 hr 1 patch TRANSDERMAL twice weekly 05/19/20 transdermal patch #24 ea NS methotrexate sodium 2.5 mg tablet 7.5 mg PO qWEEK #36 tab 05/19/20 montelukast 10 mg tablet 10 mg PO QPM #90 tab 05/19/20 celecoxib 200 mg capsule 200 mg PO BID #180 cap 05/20/20 duloxetine 60 mg capsule,delayed 60 mg PO DAILY #90 tab-cap 05/20/20 release estradiol 10 mcg vaginal tablet 10 mcg VAGINAL .3 times weekly #36 05/20/20 tab prednisone 20 mg tablet 80 mg PO DAILY #16 tab 06/08/20 fluticasone propionate 230 2 puff INHALATION BID PRN #12 gm 07/01/20 mcg-salmeterol 21 mcg/actuation HFA inhaler methylphenidate HCl 10 mg tablet See Rx Instructions PO TID #120 07/01/20 tab-cap MDD 4 mupirocin 2 % topical ointment 1 applic TP BID #30 gm 07/01/20 estradiol 1 g VAGINAL .twice weekly #127.5 g 08/05/20 Allergies Allergy/AdvReac Type Severity Reaction Status Date / Time gabapentin AdvReac Severe Psychosis Verified 03/09/20 10:36 codeine AdvReac Mild Nausea Verified 03/09/20 10:36 General Stated Complaint: Orthopedic WILMAN: 3 Review of Systems <Sean Collins MD - Last Filed: 08/26/20 15:26> All systems reviewed & are unremarkable except as noted in HPI and below Constitutional Constitutional: Denies chills, Denies fever(s) and Denies weakness Cardiovascular Cardiovascular: Denies chest pain and Denies dyspnea Respiratory Respiratory: Denies cough and Denies dyspnea Gastrointestinal Gastrointestinal: Denies abdominal pain, Denies nausea and Denies vomiting Neurologic Neurologic: Denies weakness PFS <Sean Collins MD - Last Filed: 08/26/20 15:26> Medical History (Updated 08/26/20 @ 16:23 by Horace Rush MD) Articular fracture of head of femur Bone spur of toe (02/27/17) Chest pain Cough DDD (degenerative disc disease), lumbosacral Encounter for screening for other viral diseases Family history of early CAD (04/17/16) GERD (gastroesophageal reflux disease) History of exercise stress test (11/24/13) Hormone replacement therapy (HRT) Hyperlipidemia Insomnia 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 Osteopenia Paresthesia Pre-op exam Pulmonary hypertension, high resistance (04/01/17) PAP 37 03/25 Rheumatoid arthritis Stress fracture Trismus Surgical History (Updated 02/27/20 @ 08:10 by Katharine Pierce) Abdominal hysterectomy (~1987) Appendectomy (~1977) RUPTURED Bilateral salpingectomy with oophorectomy (~1987) Bunionectomy (~2006) Right History of appendectomy History of discectomy History of orthopedic surgery History of total right hip replacement (02/21/19) Injection 03/03/15, 12/2015 Synvisc/Depomedrol in the right knee L5-S1 Discectomy (~2001) Lysis of adhesions Multiple surgeries Repair, ACL (~10/2011) Replacement of total knee joint 08/23 [facility] (R) Rotator Cuff Repair (~2003) Left Status post abdominal hysterectomy Status post bunionectomy Status post repair of anterior cruciate ligament Status post right hip replacement (02/21/19) Status post rotator cuff repair Family History (Updated 12/08/19 @ 15:53 by Shelley Umanzor) Mother Essential hypertension Depression Heart disease Hyperlipidemia Stroke Father , BRAIN BLEED at age 84. RA (rheumatoid arthritis) Essential hypertension CAD (coronary artery disease) Heart disease Hyperlipidemia Myocardial infarction Parkinson disease Sister Multiple personality disorder Substance abuse Essential hypertension Bipolar disorder Depression Heart disease Hyperlipidemia OA (osteoarthritis) RA (rheumatoid arthritis) Brother Essential hypertension CAD (coronary artery disease) Heart disease Hyperlipidemia Myocardial infarction ANGIOPLASTY/STENTS Brother RA (rheumatoid arthritis) Hypertension Hyperlipidemia Maternal Grandfather , 84 Essential hypertension Heart disease Hyperlipidemia Dementia Paternal Grandfather Dementia Leukemia Heart disease Maternal Grandmother , 72 Neoplasm BREAST W/METS Breast cancer with mets Paternal Grandmother , 74 Essential hypertension Heart disease CT Hyperlipidemia Son Depression Substance abuse Social History Smoking/Tobacco Use Status: Former Tobacco Use Tobacco: How many years used: 16 Second Hand Exposure: Yes Smoking risk assessment performed?: Yes Alcohol Intake: current Alcohol Intake frequency: a few times a week Alcohol type: wine and hard liquor Drug use: Never Caregiver/Support person: No Household members: spouse and other Details: Adopted grandson (Rick) Communication Needs: Corrective Lenses Do you need help understanding health information?: Never Pets and animals: No Sexually active: Yes Do you think of yourself as: straight/heterosexual Current gender identity: female What is your relationship status?: How often do you talk on the phone with friends or family?: three or more times per week How often do you get together with friends or relatives?: once per week How often do you attend judaism or roman catholic services?: 4 or more times per year Do you belong to any clubs or organized social groups?: yes Panel score (0-1 are the most socially isolated patients): 4 What type of physical activity do you participate in: decline to answer Duration: decline to answer Frequency: decline to answer Jessica/Hindu: Jain Special jessica needs: No Seatbelt use: always Helmet use: Yes Helmet use: always Drive intox or ride w/intox 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: No Do you feel safe in your relationship?: Yes Exam <Sean Collins MD - Last Filed: 08/26/20 15:26> Const General: other (in pain) Orientation: alert HENVT Head: normal to inspection Ears: external ears normal General nose exam: external nose normal Mouth: moist mucous membranes Eyes General: appearance normal, both eyes and all related structures Neck Neck: normal visual inspection Resp Effort & Inspection: normal respiratory effort and able to speak in complete sentences Cardio Rate: regular rate Skin General skin exam: no rashes or lesions noted Neuro General: patient alert and patient oriented x3 Extrem General: capillary refill normal Psych Mental Status: mental status grossly normal Course <Sean Collins MD - Last Filed: 08/26/20 15:26> Vital Signs Vital signs: Vital Signs Temperature 36.9 C 08/26/20 13:45 Pulse 123 H 08/26/20 13:45 Respiratory Rate 08/26/20 13:45 Blood Pressure 146/119 H 08/26/20 13:45 Pulse Oximetry 99 08/26/20 13:45 Temperature 36.9 C 08/26/20 13:45 Temperature Source Temporal Artery Scan 08/26/20 13:45 Pulse 123 H 08/26/20 13:45 Respiratory Rate 08/26/20 13:45 Blood Pressure 146/119 H 08/26/20 13:45 Pulse Oximetry 99 08/26/20 13:45 Oxygen Delivery Method Room Air 08/26/20 13:45 Oxygen Flow Rate 0 08/26/20 13:45 Pain Level 10 08/26/20 13:45 Procedures <Sean Collins MD - Last Filed: 08/26/20 15:26> Procedural Sedation Indication: fracture/dislocation reduction ASA Class: II Time of Last PO Intake: 09:00 Preparation: desk monitor applied, pulse oximeter, capnometry used and supplemental O2 applied IV Propofol dose (mg): 175 Patient Tolerated Procedure: well Complications: hypoventilation (assisted ventilations for approximately 30 seconds) Interventions: oxygen applied Sign Out <Sean Collins MD - Last Filed: 08/26/20 15:26> Sign Out Data: Sign Out Comment: reeval after ortho and public accountant attempt reduction with sedation Last updated by Sean Collins MD at 08/26/20 15:24
[2020-08-26] MEDS: HYDROmorphone 2 MG/ML VIAL 1 MG IVP (13:57)
[2020-08-26] MEDS: Normal Saline 1,000 ML 1000 ML IV (14:02)
--- NOTE | 2020-08-26 14:02 | DI.RAD_ITS ---
Exam(s) XR PELVIS AP EXAM: XR PELVIS AP CLINICAL HISTORY: pain s/p fall. TECHNIQUE: 2D digital imaging was performed. COMPARISON: CR Hip Right 1 View w/ Pelvis from 08/09/2020 FINDINGS: Right hip prosthesis is dislocated. The femoral head component is dislocated superiorly relative to acetabular component. Acetabular component is again noted be secured by 2 screws. IMPRESSION: DATA REPOSITORY: RADIATION DOSE DELIVERED:
--- NOTE | 2020-08-26 14:02 | NUR.NOTE ---
Nursing Note: PT MEDICATED AND TAKEN TO XRAY. SKIN PWD. PT SPEAKING IN CLEAR AND FULL SENTENCES. DENIES NEEDS AT THIS TIME.
[2020-08-26 14:06] LABS: Abs Immature Grans 0.04 10^3/uL (0.0-0.06); Absolute Basophil Count 0.03 10^3/uL (0.0-0.2); Absolute Eosinophil Count 0.01 10^3/uL (0.0-0.7); Absolute Lymphocyte Count 0.88 10^3/uL (1.2-3.4); Absolute Monocyte Count 0.74 10^3/uL (0.1-0.8); Absolute Neutrophil Count 7.33 10^3/uL (1.2-6.7); Basophils % 0.3; Eosinophils % 0.1; HCT 37.6 % (36.0-46.0); Immature Grans % 0.4; Lymphocytes % 9.7; MCH 28.3 pg (27.0-33.0); MCHC 31.9 % (32.0-36.0); MCV 88.7 fL (80-95); MPV 8.3 fL (8.0-11.0); Monocytes % 8.2; Neutrophils % 81.3; Nucleated RBC 0 %; Platelet Count 438 10^3/uL (130-400); RBC 4.24 10^6/uL (3.93-5.22); RDW 14.7 % (11.7-14.6); RDW-SD 47.5 fL; WBC 9.03 10^3/uL (4.4-10.8)
--- NOTE | 2020-08-26 14:10 | DI.RAD_ITS ---
Exam(s) XR FEMUR RT EXAM: XR FEMUR RT CLINICAL HISTORY: pain s/p fall. TECHNIQUE: 2D digital imaging was performed. COMPARISON: CR XR FEMUR RT from 01/24/2019 FINDINGS: There is dislocation of the hip prosthesis. The femoral and component is dislocated superiorly. No obvious fracture. No obvious loosening. More distally there are components of a knee prosthesis evident. IMPRESSION: DATA REPOSITORY: RADIATION DOSE DELIVERED:
[2020-08-26 14:20] LABS: ALT 36 U/L (14-59); AST 39 U/L (15-37); Alkaline Phosphatase 81 U/L (46-116); Anion Gap 14.3 mmol/L (3-11); BUN 9 mg/dL (7-18); Bilirubin, Total 0.3 mg/dL (0.2-1.0); CO2 22.7 mmol/L (21.0-32.0); Calcium 9.1 mg/dL (8.5-10.1); Chloride 104 mmol/L (98-107); Estimated GFR 56.18 (mL/min/1.73m2); Glucose 108 mg/dL (74-106); Potassium 4.2 mmol/L (3.5-5.1); Sodium 141 mmol/L (136-145); Total Protein 6.7 g/dL (6.4-8.2)
--- NOTE | 2020-08-26 14:20 | DI.RAD_ITS ---
Exam(s) XR KNEE RT 2V AP,LAT EXAM: XR KNEE RT 2V AP,LAT CLINICAL HISTORY: pain s/p fall. TECHNIQUE: 2D digital imaging was performed. COMPARISON: CR XR KNEE RT 2V AP,LAT from 02/27/2020 FINDINGS: Satisfactory position of components of the prosthesis. No fracture or loosening evident. There is n o radiographic evidence of osteomyelitis. IMPRESSION: DATA REPOSITORY: RADIATION DOSE DELIVERED:
[2020-08-26 14:25] LABS: Prothrombin Time 9.9 sec (9.3-11.0)
[2020-08-26] MEDS: HYDROmorphone 2 MG/ML VIAL IVP (14:43)
[2020-08-26 14:44] LABS: Source Nasal/Nares
--- NOTE | 2020-08-26 14:47 | NUR.NOTE ---
patient medicated per MD order Nursing Note:
[2020-08-26] MEDS: Propofol 200 MG/20 ML VIAL 70 MG IVP (14:56)
--- NOTE | 2020-08-26 15:00 | DI.RAD_ITS ---
Exam(s) XR HIP RT 1V EXAM: XR HIP RT 1V CLINICAL HISTORY: right hip reduction. TECHNIQUE: 2D digital imaging was performed. COMPARISON: CR XR HIP RT AP LAT ONLY from 02/27/2020 FINDINGS: There is dislocation of the right hip prosthesis. The femoral head component is dislocated superior to the acetabular cup. IMPRESSION: DATA REPOSITORY: RADIATION DOSE DELIVERED:
--- NOTE | 2020-08-26 15:18 | W.ANESPRE ---
General Info Date of Service Date Performed: 08/26/20 Height: 5 ft 10 in Weight: 73.6 kg Body Mass Index (BMI): 23.3 Meds Allergies and Home Medications Allergies Allergy/AdvReac Type Severity Reaction Status Date / Time gabapentin AdvReac Severe Psychosis Verified 03/09/20 10:36 codeine AdvReac Mild Nausea Verified 03/09/20 10:36 Home Medication Medication Instructions Recorded albuterol sulfate 2.5 mg INHALATION QID PRN ml 01/26/16 prednisone 20 mg tablet 20 mg PO DAILY PRN #11 tab 02/25/18 acyclovir 5 % topical cream 1 applic TP DAILY PRN #5 gm 04/05/19 folic acid 1 mg tablet 2 mg PO DAILY #180 tab-cap 07/25/19 acetaminophen 500 mg tablet 1,000 mg PO Q6H PRN tab-cap 12/08/19 acyclovir 800 mg tablet 800 mg PO TID PRN #90 tab 12/08/19 cholecalciferol (vitamin D3) 25 2,000 unit PO DAILY tab 12/08/19 mcg (1,000 unit) tablet diltiazem HCl 120 mg capsule,24 120 mg PO DAILY #90 cap 12/08/19 hr,extended release escitalopram oxalate 10 mg tablet 10 mg PO DAILY #90 tab 12/08/19 nitroglycerin 0.4 mg sublingual 0.4 mg SL Q5M PRN #25 tab 12/08/19 tablet prednisone 5 mg tablet 5 mg PO DAILY #90 tab 12/08/19 rosuvastatin 5 mg tablet 5 mg PO DAILY #90 tab-cap 01/28/20 triamcinolone acetonide 0.025 % 1 applic TOPICAL BID PRN #80 g 04/07/20 topical ointment Vivelle-Dot 0.0375 mg/24 hr 1 patch TRANSDERMAL twice weekly 05/19/20 transdermal patch #24 ea NS methotrexate sodium 2.5 mg tablet 7.5 mg PO qWEEK #36 tab 05/19/20 montelukast 10 mg tablet 10 mg PO QPM #90 tab 05/19/20 celecoxib 200 mg capsule 200 mg PO BID #180 cap 05/20/20 duloxetine 60 mg capsule,delayed 60 mg PO DAILY #90 tab-cap 05/20/20 release estradiol 10 mcg vaginal tablet 10 mcg VAGINAL .3 times weekly #36 05/20/20 tab prednisone 20 mg tablet 80 mg PO DAILY #16 tab 06/08/20 fluticasone propionate 230 2 puff INHALATION BID PRN #12 gm 07/01/20 mcg-salmeterol 21 mcg/actuation HFA inhaler methylphenidate HCl 10 mg tablet See Rx Instructions PO TID #120 07/01/20 tab-cap MDD 4 mupirocin 2 % topical ointment 1 applic TP BID #30 gm 07/01/20 estradiol 1 g VAGINAL .twice weekly #127.5 g 08/05/20 Current Visit Medications: Current Medications Generic Name Dose Route Start Last Admin Trade Name Freq PRN Reason Stop Dose Admin IV Miscellaneous Supplies 1 each 08/26/20 13:45 Iv Access IV DIRECTED MARIZA Sodium Chloride 0 ml 08/26/20 13:42 Normal Saline Flush 10 Ml Syr IVP PRN PRN PFSH Active Problems Active Problems: Problem Status Onset Code Contusion of hip, right S70.01XA Strain of right knee S86.911A Dislocation of internal right hip prosthesis T84.020A Rectocele N81.6 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00 Trismus R25.2 Medical History Medical History (Updated 08/26/20 @ 15:14 by Sean Collins MD) Articular fracture of head of femur Bone spur of toe (02/27/17) Chest pain Cough DDD (degenerative disc disease), lumbosacral Encounter for screening for other viral diseases Family history of early CAD (04/17/16) GERD (gastroesophageal reflux disease) History of exercise stress test (11/24/13) Hormone replacement therapy (HRT) Hyperlipidemia Insomnia 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 Osteopenia Paresthesia Pre-op exam Pulmonary hypertension, high resistance (04/01/17) PAP 37 03/25 Rheumatoid arthritis Stress fracture Trismus Surgical History Surgical History (Updated 02/27/20 @ 08:10 by Katharine Pierce) Abdominal hysterectomy (~1987) Appendectomy (~1977) RUPTURED Bilateral salpingectomy with oophorectomy (~1987) Bunionectomy (~2006) Right History of appendectomy History of discectomy History of orthopedic surgery History of total right hip replacement (02/21/19) Injection 03/03/15, 12/2015 Synvisc/Depomedrol in the right knee L5-S1 Discectomy (~2001) Lysis of adhesions Multiple surgeries Repair, ACL (~10/2011) Replacement of total knee joint 08/23 [facility] (R) Rotator Cuff Repair (~2003) Left Status post abdominal hysterectomy Status post bunionectomy Status post repair of anterior cruciate ligament Status post right hip replacement (02/21/19) Status post rotator cuff repair Tobacco Smoking/Tobacco Use Status: Former Tobacco Use Tobacco: How many years used: 16 Passive smoking exposure: Yes Second hand exposure: Yes Alcohol Alcohol Intake: current Alcohol intake frequency: a few times a week Alcohol type: wine and hard liquor Substance Use Substance use: Never Vital Signs and Lab Results Vital Signs Most Recent Vital Signs in EMR: Most Recent Vital Signs Temp Pulse Resp BP Pulse Ox 36.9 C 85 13 102/50 L 94 08/26/20 13:45 08/26/20 15:15 08/26/20 15:15 08/26/20 15:15 08/26/20 15:15 Lab Results Result Diagrams: 08/26/20 13:53 08/26/20 13:53 Blood Type / Crossmatch: Patient ABO/Rh O Positive 08/26/20 13:53 08/26/20 Antibody Screen Negative 08/26/20 13:53 08/26/20 Complete Blood Count: White Blood Count 9.03 10^3/uL (4.4-10.8) 08/26/20 13:53 08/26/20 Red Blood Count 4.24 10^6/uL (3.93-5.22) 08/26/20 13:53 08/26/20 Hemoglobin 12.0 g/dL (11.2-15.7) 08/26/20 13:53 08/26/20 Hematocrit 37.6 % (36.0-46.0) 08/26/20 13:53 08/26/20 Platelet Count 438 10^3/uL (130-400) H 08/26/20 13:53 08/26/20 Complete Metabolic Panel: Sodium Level 141 mmol/L (136-145) 08/26/20 13:53 08/26/20 Potassium Level 4.2 mmol/L (3.5-5.1) 08/26/20 13:53 08/26/20 Chloride Level 104 mmol/L (98-107) 08/26/20 13:53 08/26/20 Carbon Dioxide Level 22.7 mmol/L (21.0-32.0) 08/26/20 13:53 08/26/20 Blood Urea Nitrogen 9 mg/dL (7-18) 08/26/20 13:53 08/26/20 Creatinine 1.0 mg/dL (0.55-1.02) 08/26/20 13:53 08/26/20 Calcium Level 9.1 mg/dL (8.5-10.1) 08/26/20 13:53 08/26/20 Albumin 4.0 g/dL (3.4-5.0) 08/26/20 13:53 08/26/20 Glucose Level 108 mg/dL (74-106) H 08/26/20 13:53 08/26/20 C-Reactive Protein 6.08 mg/dL (0.0-0.3) H 08/10/20 12:58 08/10/20 Liver Function Panel: Alanine Aminotransferase (ALT/SGPT) 36 U/L (14-59) 08/26/20 13:53 08/26/20 Aspartate Amino Transf (AST/SGOT) 39 U/L (15-37) H 08/26/20 13:53 08/26/20 Coagulation Panel: INR International Normalized Ratio 1.0 (0.9-1.1) 08/26/20 13:53 08/26/20 Prothrombin Time 9.9 sec (9.3-11.0) 08/26/20 13:53 08/26/20 Activated Partial Thromboplast Time 23.0 sec (21.0-27.5) 08/26/20 13:53 08/26/20 Cardiac Panel: No Data to Display Arterial Blood Gas: No Data to Display Venous Blood Gas: No Data to Display Pancreas Panel: No Data to Display Thyroid Panel: No Data to Display Infectious Disease: Coronavirus 2019 Source Nasal/nares 08/26/20 14:34 08/26/20 Blood Cultures: No Data to Display Toxicology Panel: No Data to Display Anesthesia Assessment and Plan Anesthesia History Personal History: No History of Anesthesia Complications Family History: No Family History of Anesthesia Complications Exercise Tolerance Exercise Tolerance: Metabolic Equivalents>4 Cardiac & Pulmonary Exam Cardiac Exam: Normal S1/S2 Heart Sounds Pulmonary Exam: Clear Bilateral Breath Sounds Airway Exam Known Difficult Airway: No Mallampati Class: 2 Mouth Opening: Narrow (< 3cm) Thyromental Distance: Greater than 3 cm Neck Range of Motion: Limited ROM Neck Circumference: Normal Teeth Condition: Normal Dentition ASA Classification ASA Score: ASA 2 Emergency Case?: Yes NPO Status NPO Status: NPO Clear Liquids>2 hours and NPO Small Non-Fatty Meal >6 hours Anesthesia Plan Resuscitation Status: Full Code Anesthesia Technique: General Anesthesia Airway Planned: Natural Airway Monitors Used: Standard Monitors Preoperative Comments:: hip dislocation with previous hip replacement, failed ED sedation
--- NOTE | 2020-08-26 15:22 | NUR.NOTE ---
Nursing Note:PER ER MD. UNABLE TO GET HIP BACK IN PLACE. OR WILL DO PROCEDURE IN ROOM 2
--- NOTE | 2020-08-26 15:23 | NUR.NOTE ---
during procedure patient was ambu bagged by RT for [place]. MD Collins at bedside airway and breathing secure. Nursing Note:
--- NOTE | 2020-08-26 15:23 | W.ORTHOCONSU ---
Date of service: 08/26/20 Time of Service: 15:30 History of Present Illness History of Present Illness Chief Complaint: Right hip dislocation Narrative: Patient describes minimally traumatic twisting while turning injury to the right hip. Feels hip is dislocated again. History of prior dislocation of anterior hip replacement reduced at outside hospital. Presented to our emergency department this time for management. Already evaluated by primary hip replacement surgeon Dr. Moses for potential revision surgery to address instability. Consult Reason Right prosthetic hip dislocation Assessment and Plan Assessment and plan (1) Dislocation of internal right hip prosthesis: Status: Acute Assessment and plan: 60-year-old female with anterior right prosthetic hip dislocation, second occurrence. Successful closed reduction with anesthesia today. Discussed appropriate precautions with patient and her to avoid hip extension and external rotation. All questions were answered. No indication for knee brace or abduction pillow. May use walker as necessary. Follow-up as previously scheduled with Dr. Moses next week to discuss potential revision hip surgery. Repeat inflammatory and infectious markers today. Discussed with emergency department providers and Dr. Moses. Qualifiers: Encounter type: initial encounter Qualified Code(s): T84.020A - Dislocation of internal right hip prosthesis, initial encounter REPLACED BY [facility] Medical History (Updated 08/26/20 @ 16:23 by Horace Rush MD) Articular fracture of head of femur Bone spur of toe (02/27/17) Chest pain Cough DDD (degenerative disc disease), lumbosacral Encounter for screening for other viral diseases Family history of early CAD (04/17/16) GERD (gastroesophageal reflux disease) History of exercise stress test (11/24/13) Hormone replacement therapy (HRT) Hyperlipidemia Insomnia 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 Osteopenia Paresthesia Pre-op exam Pulmonary hypertension, high resistance (04/01/17) PAP 37 03/25 Rheumatoid arthritis Stress fracture Trismus Surgical History (Updated 02/27/20 @ 08:10 by Katharine Pierce) Abdominal hysterectomy (~1987) Appendectomy (~1977) RUPTURED Bilateral salpingectomy with oophorectomy (~1987) Bunionectomy (~2006) Right History of appendectomy History of discectomy History of orthopedic surgery History of total right hip replacement (02/21/19) Injection 03/03/15, 12/2015 Synvisc/Depomedrol in the right knee L5-S1 Discectomy (~2001) Lysis of adhesions Multiple surgeries Repair, ACL (~10/2011) Replacement of total knee joint 08/23 [facility] (R) Rotator Cuff Repair (~2003) Left Status post abdominal hysterectomy Status post bunionectomy Status post repair of anterior cruciate ligament Status post right hip replacement (02/21/19) Status post rotator cuff repair Family History (Updated 12/08/19 @ 15:53 by Shelley Umanzor) Mother Essential hypertension Depression Heart disease Hyperlipidemia Stroke Father , BRAIN BLEED at age 84. RA (rheumatoid arthritis) Essential hypertension CAD (coronary artery disease) Heart disease Hyperlipidemia Myocardial infarction Parkinson disease Sister Multiple personality disorder Substance abuse Essential hypertension Bipolar disorder Depression Heart disease Hyperlipidemia OA (osteoarthritis) RA (rheumatoid arthritis) Brother Essential hypertension CAD (coronary artery disease) Heart disease Hyperlipidemia Myocardial infarction ANGIOPLASTY/STENTS Brother RA (rheumatoid arthritis) Hypertension Hyperlipidemia Maternal Grandfather , 84 Essential hypertension Heart disease Hyperlipidemia Dementia Paternal Grandfather Dementia Leukemia Heart disease Maternal Grandmother , 72 Neoplasm BREAST W/METS Breast cancer with mets Paternal Grandmother , 74 Essential hypertension Heart disease [place] Hyperlipidemia Son Depression Substance abuse Social History Smoking/Tobacco Use Status: Former Tobacco Use Tobacco: How many years used: 16 Second Hand Exposure: Yes Smoking risk assessment performed?: Yes Alcohol Intake: current Alcohol Intake frequency: a few times a week Alcohol type: wine and hard liquor Drug use: Never Caregiver/Support person: No Household members: spouse and other Details: Adopted grandson (Rick) Communication Needs: Corrective Lenses Do you need help understanding health information?: Never Pets and animals: No Sexually active: Yes Do you think of yourself as: straight/heterosexual Current gender identity: female What is your relationship status?: How often do you talk on the phone with friends or family?: three or more times per week How often do you get together with friends or relatives?: once per week How often do you attend denominational or congregational services?: 4 or more times per year Do you belong to any clubs or organized social groups?: yes Panel score (0-1 are the most socially isolated patients): 4 What type of physical activity do you participate in: decline to answer Duration: decline to answer Frequency: decline to answer Jessica/Spiritism: Pentecostal Special jessica needs: No Seatbelt use: always Helmet use: Yes Helmet use: always Drive intox or ride w/intox tow car driver: No Do you feel safe in your relationship?: Yes Exam Narrative Exam Narrative: Uncomfortable Right lower extremity shortened, abducted, and externally rotated Complains of plantar foot moderate paresthesias Limited exam due to discomfort but no ecchymosis, edema, or wounds about the hip. No erythema or drainage about the well-healed incision. No knee deformity. Demonstrates limited ankle and foot motor given right lower extremity discomfort. Results Last Vital Signs Temp 98.4 F 08/26/20 13:45 Pulse 81 08/26/20 15:20 Resp 18 08/26/20 15:20 BP 113/66 08/26/20 15:20 Pulse Ox 99 08/26/20 15:20 Labs Result diagrams: 08/26/20 13:53 08/26/20 13:53 Labs: Laboratory Results - last 24 hr 08/26/20 08/26/20 08/26/20 13:53 13:53 13:53 WBC 9.03 RBC 4.24 Hgb 12.0 Hct 37.6 MCV 88.7 MCH 28.3 MCHC 31.9 L RDW 14.7 H Plt Count 438 H MPV 8.3 Immature Gran % 0.4 Neutrophils % 81.3 Lymphocytes % 9.7 Monocytes % 8.2 Eosinophils % 0.1 Basophils % 0.3 Nucleated RBC % 0 Absolute Neutrophils 7.33 H Absolute Lymphocytes 0.88 L Absolute Monocytes 0.74 Absolute Eosinophils 0.01 Absolute Basophils 0.03 PT 9.9 INR 1.0 APTT 23.0 Sodium 141 Potassium 4.2 Chloride 104 Carbon Dioxide 22.7 Anion Gap 14.3 H BUN 9 Creatinine 1.0 Estimated GFR/1.73 m2 56.18 Glucose 108 H Calcium 9.1 Total Bilirubin 0.3 AST 39 H ALT 36 Alkaline Phosphatase 81 Total Protein 6.7 Albumin 4.0 COVID-19 Source Patient ABO/Rh Antibody Screen 08/26/20 08/26/20 13:53 14:34 WBC RBC Hgb Hct MCV MCH MCHC RDW Plt Count MPV Immature Gran % Neutrophils % Lymphocytes % Monocytes % Eosinophils % Basophils % Nucleated RBC % Absolute Neutrophils Absolute Lymphocytes Absolute Monocytes Absolute Eosinophils Absolute Basophils PT INR APTT Sodium Potassium Chloride Carbon Dioxide Anion Gap BUN Creatinine Estimated GFR/1.73 m2 Glucose Calcium Total Bilirubin AST ALT Alkaline Phosphatase Total Protein Albumin COVID-19 Source Nasal/nares Patient ABO/Rh O Positive Antibody Screen Negative Imaging Imaging Studies: Right hip x-rays show anterior prosthetic hip dislocation. No obvious fracture or dislocation about the hip, pelvis, or remainder of the imaged right lower extremity. Procedures Orthopedic Joint Reduction Right hip closed reduction under anesthsia: Time out performed: Yes Joint reduction location: hip (prosthetic) Analgesia: procedural sedation (initially with Karina SQUIRES then deeper with Vincenzo HERRMANN) Technique used: direct manipulation Post-reduction neuro exam: intact Post-reduction vascular exam: intact Post-reduction x-ray obtained: Yes Post-reduction x-ray results: reduced Splint applied: No Patient tolerated procedure: well Additional comments: Gentle inline traction followed by internal rotation for easy hip reduction with obvious clunk and taoist of equal leg lengths once the patient was adequately relaxed with propofol. Initial attempts while the patient was still uncomfortable and tense were unsuccessful so sedation was deepened by nurse heel washer stringing machine operator. Hip joint stable in extension full internal rotation and external rotation past 30 degrees. Stable hip flexion 90 degrees with moderate internal and external rotation. Post reduction x-rays do not show any periprosthetic fracture, loosening, or subsidence. Patient with significant relief of pain post reduction. Plan to monitor plantar foot nerve symptoms.
--- NOTE | 2020-08-26 15:30 | DI.RAD_ITS ---
Exam(s) XR HIP RT AP LAT ONLY EXAM: XR HIP RT AP LAT ONLY CLINICAL HISTORY: s/p reduction, assess for successful reduction, fx. TECHNIQUE: 2D digital imaging was performed. COMPARISON: CR XR HIP RT 1V from 08/26/2020 FINDINGS: AP and cross-table lateral views: There is satisfactory re-alignment of the components of the right hip prosthesis. No fracture eviden t. IMPRESSION: Satisfactory alignment of the dislocated right hip prosthesis. No fractures. DATA REPOSITORY: RADIATION DOSE DELIVERED:
[2020-08-26 15:32] LABS: COVID-19 PCR Negative (Negative)
--- NOTE | 2020-08-26 15:33 | NUR.NOTE ---
Nursing Note: OR TEAM IN ROOM FOR REDUCTION OF RIGHT HIP.
--- NOTE | 2020-08-26 15:37 | NUR.NOTE ---
ALIZE Loya and MD Rush bedside to perform deeper sedation. Nursing Note:
--- NOTE | 2020-08-26 15:41 | NUR.NOTE ---
see ST[facility] MOVER provider note for documentation Nursing Note:
[2020-08-26] MEDS: Propofol 200 MG/20 ML VIAL 105 MG IVP (15:53)
--- NOTE | 2020-08-26 15:59 | W.ANESPOSTOP ---
Postoperative Evaluation Date, Time and Location Date Performed: 08/26/20 Time Performed: 16:00 Patient Location: Emergency Department Vital Signs Most Recent Imported Vital Signs: Most Recent Vital Signs Temp Pulse Resp BP Pulse Ox 36.9 C 96 H 18 107/78 96 08/26/20 13:45 08/26/20 15:55 08/26/20 15:55 08/26/20 15:55 08/26/20 15:57 Pain Score Most Recent Pain Score: Most Recent Pain Score Pain Level 10 08/26/20 14:43 Assessment Mental Status: Awake (Alert & Oriented to Patient Baseline) Airway and Respiratory Function: Patent airway with normal (patient baseline) respiratory exam Cardiovascular Function: Hemodynamically Stable Hydration Status: Adequately Hydrated Nausea & Vomiting: No Nausea or Vomiting Pain: Pain is tolerable/mild (<5/10) Peripheral Nerve Block: Patient did not receive a nerve block
[2020-08-26 16:16] LABS: ESR 6 mm/hr (0-30)
[2020-08-26 16:19] LABS: C-Reactive Protein 0.19 mg/dL (0.0-0.3)
== END 2020-08-26 17:07 | disposition home or self-care (01) ==
PROVIDERS: Emergency Medicine; Emergency Provider Physician Assistant; PCP Family Medicine
DX: T84.020A Dislocation of internal right hip prosthesis, initial encounter (principal); X58.XXXA Exposure to other specified factors, initial encounter
CPT/HCPCS: 73552; 80053; 85652; 86850; 86900; 86901; 87635; 96361; 96374; 96375; 99284; 72170; 73501; 73502; 73560; 85025; 85610; 85730; 86140; J2001; J2704

== ENCOUNTER 2020-08-30 08:29 | Outpatient (CLI) | payer OTHER, SELFPAY ==
[2020-08-30 11:50] LABS: Source Nasal/Nares
[2020-08-30 21:03] LABS: COVID-19 PCR Negative (Negative)
== END 2020-08-30 08:30 | disposition home or self-care (01) ==
PROVIDERS: PCP Family Medicine; Visit Provider Student in an Organized Health Care Education/Training Program
DX: Z20.822 Contact with and (suspected) exposure to COVID-19 (principal); Z01.818 Encounter for other preprocedural examination
CPT/HCPCS: 87635

== ENCOUNTER 2020-09-01 09:41 | Inpatient (IN) | payer OTHER, SELFPAY ==
[2020-09-01] VITALS (13 sets, daily range): BP systolic 74–118; BP diastolic 50–75; PULSE 73–115; RESP 8–25; TEMP 36.5–37; O2SAT 94–100; BMI 31.6
--- NOTE | 2020-09-01 10:26 | W.ANESPRE ---
General Info Date of Service Date Performed: 09/01/20 Height: 5 ft Weight: 73.6 kg Body Mass Index (BMI): 31.6 Surgical Procedure: Operation Date: 09/01/20 11:50 Proposed Procedures Side Surgeon p Hip Total Hip Anterior revision Right Darrion Moses MD Meds Allergies and Home Medications Allergies Allergy/AdvReac Type Severity Reaction Status Date / Time gabapentin AdvReac Severe Psychosis Verified 09/01/20 10:03 codeine AdvReac Mild Nausea Verified 09/01/20 10:03 Home Medication Medication Instructions Recorded albuterol sulfate 2.5 mg INHALATION QID PRN ml 01/26/16 prednisone 20 mg tablet 20 mg PO DAILY PRN #11 tab 02/25/18 acyclovir 5 % topical cream 1 applic TP DAILY PRN #5 gm 04/05/19 folic acid 1 mg tablet 2 mg PO DAILY #180 tab-cap 07/25/19 acetaminophen 500 mg tablet 1,000 mg PO Q6H PRN tab-cap 12/08/19 acyclovir 800 mg tablet 800 mg PO TID PRN #90 tab 12/08/19 cholecalciferol (vitamin D3) 25 2,000 unit PO DAILY tab 12/08/19 mcg (1,000 unit) tablet diltiazem HCl 120 mg capsule,24 120 mg PO DAILY #90 cap 12/08/19 hr,extended release escitalopram oxalate 10 mg tablet 10 mg PO DAILY #90 tab 12/08/19 nitroglycerin 0.4 mg sublingual 0.4 mg SL Q5M PRN #25 tab 12/08/19 tablet prednisone 5 mg tablet 5 mg PO DAILY #90 tab 12/08/19 rosuvastatin 5 mg tablet 5 mg PO DAILY #90 tab-cap 01/28/20 triamcinolone acetonide 0.025 % 1 applic TOPICAL BID PRN #80 g 04/07/20 topical ointment methotrexate sodium 2.5 mg tablet 7.5 mg PO qWEEK #36 tab 05/19/20 montelukast 10 mg tablet 10 mg PO QPM #90 tab 05/19/20 celecoxib 200 mg capsule 200 mg PO BID #180 cap 05/20/20 duloxetine 60 mg capsule,delayed 60 mg PO DAILY #90 tab-cap 05/20/20 release prednisone 20 mg tablet 80 mg PO DAILY #16 tab 06/08/20 fluticasone propionate 230 2 puff INHALATION BID PRN #12 gm 07/01/20 mcg-salmeterol 21 mcg/actuation HFA inhaler methylphenidate HCl 10 mg tablet See Rx Instructions PO TID #120 07/01/20 tab-cap MDD 4 mupirocin 2 % topical ointment 1 applic TP BID #30 gm 07/01/20 estradiol 1 g VAGINAL .twice weekly #127.5 g 08/05/20 Current Visit Medications: Current Medications Generic Name Dose Route Start Last Admin Trade Name Freq PRN Reason Stop Dose Admin Acetaminophen 1,000 mg 09/01/20 06:00 Acetaminophen 500 Mg Tab PO 09/01/20 16:00 PREOP MARIZA Celecoxib 400 mg 09/01/20 06:00 Celecoxib 200 Mg Cap PO 09/01/20 16:00 PREOP MARIZA Ringer's Solution 1,000 mls @ 80 mls/hr 09/01/20 06:00 IV 09/30/20 23:59 INFUSION MARIZA Cefazolin Sodium/Dextrose 2 gm in 50 mls @ 100 mls/hr 09/01/20 06:00 Ancef Duplex IVPB 09/01/20 16:00 PREOP MARIZA Tranexamic Acid 1,000 mg/ 60 mls @ 360 mls/hr 09/01/20 06:00 Sodium Chloride IVPB 09/01/20 16:00 PREOP MARIZA IV Miscellaneous Supplies 1 each 09/01/20 06:00 Iv Access IV 09/30/20 23:59 DIRECTED MARIZA Sodium Chloride 0 ml 09/01/20 06:00 Normal Saline Flush 10 Ml Syr IV 09/30/20 23:59 PRN PRN Sodium Chloride 0 ml 09/01/20 06:00 Normal Saline 10 Ml Vial IJ 09/30/20 23:59 DIRECTED PRN Sterile Water 0 ml 09/01/20 06:00 Water,Injection,Sterile 10 Ml Vial IJ 09/30/20 23:59 DIRECTED PRN PFSH Active Problems Active Problems: Problem Status Onset Code Annual physical exam 02/27/17 Z00.00 Seasonal affective disorder Primary osteoarthritis of right knee 10/04/16 M17.11 Herpes B00.9 Fatigue R53.83 Left shoulder pain M25.512 On prednisone therapy Z79.52 Anosmia R43.0 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 Rectocele N81.6 Dislocation of internal right hip prosthesis T84.020A Contusion of hip, right S70.01XA Strain of right knee S86.911A Mechanical instability of hip prosthesis T84.098A, Z96.649 History of total right hip replacement 02/21/19 Z96.641 Rheumatoid arthritis M06.9 Pulmonary hypertension, high resistance 04/01/17 I27.20 Paresthesia R20.2 Osteopenia M85.80 Insomnia G47.00 Hyperlipidemia E78.5 Hormone replacement therapy (HRT) Z79.890 GERD (gastroesophageal reflux disease) K21.9 Family history of early CAD 04/17/16 Z82.49 Cough R05 Bone spur of toe 02/27/17 M77.50 Trismus R25.2 Medical History Medical History Articular fracture of head of femur Bone spur of toe (02/27/17) Chest pain Per pt. 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 Osteopenia Paresthesia Pre-op exam Pulmonary hypertension, high resistance (04/01/17) PAP 37 03/25 Rheumatoid arthritis Stress fracture Trismus Surgical History Surgical History Abdominal hysterectomy (~1987) Appendectomy (~1977) RUPTURED Bilateral salpingectomy with oophorectomy (~1987) Bunionectomy (~2006) Right History of appendectomy History of discectomy History of orthopedic surgery History of total right hip replacement (02/21/19) Injection 03/03/15, 12/2015 Synvisc/Depomedrol in the right knee L5-S1 Discectomy (~2001) Lysis of adhesions Multiple surgeries, abdominal Repair, ACL (~10/2011) Replacement of total knee joint 08/23 [facility] (R) Rotator Cuff Repair (~2003) Left Status post abdominal hysterectomy Status post bunionectomy Status post repair of anterior cruciate ligament Status post right hip replacement (02/21/19) Status post rotator cuff repair Tobacco Smoking/Tobacco Use Status: Former Tobacco Use Tobacco: How many years used: 16 Passive smoking exposure: Yes Second hand exposure: Yes Alcohol Alcohol Intake: current Alcohol intake frequency: a few times a week Alcohol type: wine and hard liquor Substance Use Substance use: Never Vital Signs and Lab Results Lab Results Blood Type / Crossmatch: Patient ABO/Rh O Positive 09/01/20 09:55 09/01/20 Antibody Screen Negative 09/01/20 09:55 09/01/20 Complete Blood Count: White Blood Count 9.03 10^3/uL (4.4-10.8) 08/26/20 13:53 08/26/20 Red Blood Count 4.24 10^6/uL (3.93-5.22) 08/26/20 13:53 08/26/20 Hemoglobin 12.0 g/dL (11.2-15.7) 08/26/20 13:53 08/26/20 Hematocrit 37.6 % (36.0-46.0) 08/26/20 13:53 08/26/20 Platelet Count 438 10^3/uL (130-400) H 08/26/20 13:53 08/26/20 Complete Metabolic Panel: Sodium Level 141 mmol/L (136-145) 08/26/20 13:53 08/26/20 Potassium Level 4.2 mmol/L (3.5-5.1) 08/26/20 13:53 08/26/20 Chloride Level 104 mmol/L (98-107) 08/26/20 13:53 08/26/20 Carbon Dioxide Level 22.7 mmol/L (21.0-32.0) 08/26/20 13:53 08/26/20 Blood Urea Nitrogen 9 mg/dL (7-18) 08/26/20 13:53 08/26/20 Creatinine 1.0 mg/dL (0.55-1.02) 08/26/20 13:53 08/26/20 Calcium Level 9.1 mg/dL (8.5-10.1) 08/26/20 13:53 08/26/20 Albumin 4.0 g/dL (3.4-5.0) 08/26/20 13:53 08/26/20 Glucose Level 108 mg/dL (74-106) H 08/26/20 13:53 08/26/20 C-Reactive Protein 0.19 mg/dL (0.0-0.3) 08/26/20 13:50 08/26/20 Liver Function Panel: Alanine Aminotransferase (ALT/SGPT) 36 U/L (14-59) 08/26/20 13:53 08/26/20 Aspartate Amino Transf (AST/SGOT) 39 U/L (15-37) H 08/26/20 13:53 08/26/20 Coagulation Panel: INR International Normalized Ratio 1.0 (0.9-1.1) 08/26/20 13:53 08/26/20 Prothrombin Time 9.9 sec (9.3-11.0) 08/26/20 13:53 08/26/20 Activated Partial Thromboplast Time 23.0 sec (21.0-27.5) 08/26/20 13:53 08/26/20 Cardiac Panel: No Data to Display Arterial Blood Gas: No Data to Display Venous Blood Gas: No Data to Display Pancreas Panel: No Data to Display Thyroid Panel: No Data to Display Infectious Disease: Coronavirus (COVID-19)(PCR) Negative (Negative) 08/30/20 11:15 08/30/20 Coronavirus 2019 Source Nasal/nares 08/30/20 11:15 08/30/20 Blood Cultures: No Data to Display Toxicology Panel: No Data to Display Imaging and Studies Imaging and Studies Stress Test Summary: 04/08/2020 Clinical Reason for Termination: Fatigue Stress Symptoms: Dyspnea, localized back pain Exercise duration: 7 min11 sec Highest Stage Reached: Stage 3: 3.4 mph at 14% grade. Exercise capacity: 8.86 METs Stress ECG Conclusion 1. The resting electrocardiogram was normal 2. Patient exercised on the José Miguel protocol and completed a workload of 8.86 METS, limited by shortness of breath and back pain 3. Normal heart rate and blood pressure response to exercise. The patient achieved 96% of predicted heart rate for age 4. Electrocardiographically there was no evidence of myocardial ischemia 5. There were no dysrhythmias 6. Capps treadmill score is 7, low risk Echocardiogram Summary: Date of study: 03/30/2017 Transthoracic Echocardiography M-mode, complete 2D, complete spectral Doppler, and color Doppler *STUDY CONCLUSIONS* Summary: 1. Left ventricle: The cavity size was normal. Wall thickness was normal. Systolic function was normal. The estimated ejection fraction was 55-60%. Wall motion was normal; there were no regional wall motion abnormalities. 2. Aortic valve: There was trivial regurgitation. 3. Ascending aorta: The ascending aorta was at upper normal limits. 4. Mitral valve: There was mild regurgitation. 5. Right ventricle: The cavity size was normal. Wall thickness was normal. Systolic function was normal. 6. Pulmonary arteries: Pulmonary systolic pressure was mildly increased. PA peak pressure: 37mm Hg (S). 7. Pericardium, extracardiac: A trivial pericardial effusion was identified. Anesthesia Assessment and Plan Anesthesia History Personal History: No History of Anesthesia Complications Family History: No Family History of Anesthesia Complications Exercise Tolerance Exercise Tolerance: Metabolic Equivalents>4 Pertinent Negatives Pertinent Negatives: No Symptoms of GERD, No Major Cardiovascular Symptoms or Complaints, No Major Pulmonary Symptoms or Complaints and No History of CVA/TIA Cardiac & Pulmonary Exam Cardiac Exam: Normal S1/S2 Heart Sounds Pulmonary Exam: Clear Bilateral Breath Sounds Airway Exam Known Difficult Airway: No Mallampati Class: 2 Mouth Opening: Narrow (< 3cm) Thyromental Distance: Greater than 3 cm Neck Range of Motion: Limited ROM Neck Circumference: Normal Teeth Condition: Normal Dentition ASA Classification ASA Score: ASA 2 Emergency Case?: No NPO Status NPO Status: NPO Clears >2 hours, Solids >8 hours Anesthesia Plan Resuscitation Status: Full Code Anesthesia Technique: General Anesthesia Airway Planned: LMA Monitors Used: Standard Monitors
[2020-09-01] MEDS: Celecoxib 200 MG CAP 400 MG PO (10:29)
[2020-09-01] MEDS: Lactated Ringers 1,000 ML 80 ML IV ×2 (10:40→15:38)
--- NOTE | 2020-09-01 12:03 | W.PM.HP.N ---
Date of service: 09/01/20 Time of Service: 11:41 Assessment and Plan Assessment and plan (1) Dislocation of internal right hip prosthesis: Status: Acute Assessment and plan: Crissy is a 60yo female who is about 18 monhts s/p right hip replacement and has had 2 recent anterior dislocations of the right hip. Given the instability I recommended surgical intervention. The most likely treatment would consist of revision of the acetabulum given that it has 35 degrees of anteversion and placement of a dual mobility system. If the hip is unable to be dislocated with maneuvers on the table prior to opening, a constrained liner would be reasonable. I reviewed the literature with hip dislocation and the rate of revision failure. I discussed the risk of the procedure to include bleeding, infection, pain, stiffness, damage to nerves and vessels, blood clot, redislocation, need for repeat procedures. She does have some chronic nerve issues on the right side with some numbness and weakness. All of her questions were answered. She agrees to proceed. I will do post-opertive antibiotics given the increase risk of infection from the recent Rituximab but I do not think that this can wait the requisite six months for the Rituximab to be out of her system. Qualifiers: Encounter type: initial encounter Qualified Code(s): T84.020A - Dislocation of internal right hip prosthesis, initial encounter History of Present Illness History of Present Illness Chief Complaint: Recurrent Right Hip Dislocation Narrative: Crissy is a 60yo female who has had two dislocations anteriorly of the right hip. I have spoken to her over the phone multiple times and discussed treatment options. Given that she has had two dislocations, I recommended that this be treated surgically. The dislocations ahve been anterior. She does have RA and unfortunately just had her first dose of Rituximab about two weeks ago. She has had no recent illness. She denies fever and chills. Review of Systems All systems reviewed & are unremarkable except as noted in HPI and below PFSH Medical History Articular fracture of head of femur Bone spur of toe (02/27/17) Chest pain Per pt. 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 Osteopenia Paresthesia Pre-op exam Pulmonary hypertension, high resistance (04/01/17) PAP 37 03/25 Rheumatoid arthritis Stress fracture Trismus Surgical History Abdominal hysterectomy (~1987) Appendectomy (~1977) RUPTURED Bilateral salpingectomy with oophorectomy (~1987) Bunionectomy (~2006) Right History of appendectomy History of discectomy History of orthopedic surgery History of total right hip replacement (02/21/19) Injection 03/03/15, 12/2015 Synvisc/Depomedrol in the right knee L5-S1 Discectomy (~2001) Lysis of adhesions Multiple surgeries, abdominal Repair, ACL (~10/2011) Replacement of total knee joint 08/23 [facility] (R) Rotator Cuff Repair (~2003) Left Status post abdominal hysterectomy Status post bunionectomy Status post repair of anterior cruciate ligament Status post right hip replacement (02/21/19) Status post rotator cuff repair Family History Mother Essential hypertension Depression Heart disease Hyperlipidemia Stroke Father , BRAIN BLEED at age 84. RA (rheumatoid arthritis) Essential hypertension CAD (coronary artery disease) Heart disease Hyperlipidemia Myocardial infarction Parkinson disease Sister Multiple personality disorder Substance abuse Essential hypertension Bipolar disorder Depression Heart disease Hyperlipidemia OA (osteoarthritis) RA (rheumatoid arthritis) Brother Essential hypertension CAD (coronary artery disease) Heart disease Hyperlipidemia Myocardial infarction ANGIOPLASTY/STENTS Brother RA (rheumatoid arthritis) Hypertension Hyperlipidemia Maternal Grandfather , 84 Essential hypertension Heart disease Hyperlipidemia Dementia Paternal Grandfather Dementia Leukemia Heart disease Maternal Grandmother , 72 Neoplasm BREAST W/METS Breast cancer with mets Paternal Grandmother , 74 Essential hypertension Heart disease [place] Hyperlipidemia Son Depression Substance abuse Social History Smoking/Tobacco Use Status: Former Tobacco Use Tobacco: How many years used: 16 Second Hand Exposure: Yes Smoking risk assessment performed?: Yes Alcohol Intake: current Alcohol Intake frequency: a few times a week Alcohol type: wine and hard liquor Drug use: Never Caregiver/Support person: No Household members: spouse and other Details: Adopted grandson (Rick) Communication Needs: Corrective Lenses Do you need help understanding health information?: Never Pets and animals: No Sexually active: Yes Do you think of yourself as: straight/heterosexual Current gender identity: female What is your relationship status?: How often do you talk on the phone with friends or family?: three or more times per week How often do you get together with friends or relatives?: once per week How often do you attend yarsanism or spiritism services?: 4 or more times per year Do you belong to any clubs or organized social groups?: yes Panel score (0-1 are the most socially isolated patients): 4 What type of physical activity do you participate in: decline to answer Duration: decline to answer Frequency: decline to answer Jessica/Latter Day: Restorationist Special jessica needs: No Seatbelt use: always Helmet use: Yes Helmet use: always Drive intox or ride w/intox helper driver: No Do you feel safe in your relationship?: Yes Meds Allergies and Home Medications Allergies Allergy/AdvReac Type Severity Reaction Status Date / Time gabapentin AdvReac Severe Psychosis Verified 09/01/20 10:03 codeine AdvReac Mild Nausea Verified 09/01/20 10:03 Home Medications Medication Instructions Recorded Confirmed Type albuterol sulfate 2.5 mg INHALATION QID PRN ml 01/26/16 09/01/20 History prednisone 20 mg tablet 20 mg PO DAILY PRN #11 tab 02/25/18 09/01/20 History acyclovir 5 % topical cream 1 applic TP DAILY PRN #5 gm 04/05/19 09/01/20 Rx folic acid 1 mg tablet 2 mg PO DAILY #180 tab-cap 07/25/19 09/01/20 Rx acetaminophen 500 mg tablet 1,000 mg PO Q6H PRN tab-cap 12/08/19 09/01/20 History acyclovir 800 mg tablet 800 mg PO TID PRN #90 tab 12/08/19 09/01/20 Rx cholecalciferol (vitamin D3) 25 2,000 unit PO DAILY tab 12/08/19 09/01/20 History mcg (1,000 unit) tablet diltiazem HCl 120 mg capsule,24 120 mg PO DAILY #90 cap 12/08/19 09/01/20 Rx hr,extended release escitalopram oxalate 10 mg tablet 10 mg PO DAILY #90 tab 12/08/19 09/01/20 Rx nitroglycerin 0.4 mg sublingual 0.4 mg SL Q5M PRN #25 tab 12/08/19 09/01/20 Rx tablet prednisone 5 mg tablet 5 mg PO DAILY #90 tab 12/08/19 09/01/20 Rx rosuvastatin 5 mg tablet 5 mg PO DAILY #90 tab-cap 01/28/20 09/01/20 Rx triamcinolone acetonide 0.025 % 1 applic TOPICAL BID PRN #80 g 04/07/20 09/01/20 Rx topical ointment methotrexate sodium 2.5 mg tablet 7.5 mg PO qWEEK #36 tab 05/19/20 08/31/20 Rx montelukast 10 mg tablet 10 mg PO QPM #90 tab 05/19/20 09/01/20 Rx celecoxib 200 mg capsule 200 mg PO BID #180 cap 05/20/20 09/01/20 Rx duloxetine 60 mg capsule,delayed 60 mg PO DAILY #90 tab-cap 05/20/20 09/01/20 Rx release prednisone 20 mg tablet 80 mg PO DAILY #16 tab 06/08/20 09/01/20 Rx fluticasone propionate 230 2 puff INHALATION BID PRN #12 gm 07/01/20 09/01/20 Rx mcg-salmeterol 21 mcg/actuation HFA inhaler methylphenidate HCl 10 mg tablet See Rx Instructions PO TID #120 07/01/20 09/01/20 Rx tab-cap MDD 4 mupirocin 2 % topical ointment 1 applic TP BID #30 gm 07/01/20 09/01/20 Rx estradiol 1 g VAGINAL .twice weekly #127.5 g 08/05/20 09/01/20 Rx Exam Narrative Exam Narrative: Sitting up. NAD. AAOx3. Chest CTAB Heart RRR RLE WWP. No signs of infection. Well healed wound of the right hip. Results Imaging Imaging Studies: Previous x-ray of hte right hip showed an anterior dislocation followed by a succesful reduction. No fracture. no subsidence. CT of the right hip also demonstrated well-fixed components. The acetabulum was anteverted excessively at 35 degrees and the femoral stem was anteverted 15 degrees. CRP was normal on last check. Labs Labs: Laboratory Results - last 24 hr 09/01/20 09:55 Patient ABO/Rh O Positive Antibody Screen Negative Last Vital Signs Temp 36.7 C 09/01/20 10:14 Pulse 73 09/01/20 10:14 Resp 16 09/01/20 10:14 BP 118/75 09/01/20 10:14 Pulse Ox 100 09/01/20 10:14 COVID-19 Screening Have you, or household traveled for leisure in last 14 days?: No Had IN PERSON contact w/suspected or confirmed C-19 person: No
[2020-09-01] MEDS: ceFAZolin 2 GM/50 ML BAG IVPB (12:20)
[2020-09-01] MEDS: Bupivacaine 0.25% Pres-Free 30 ML VIAL (12:51)
[2020-09-01] MEDS: Ketorolac 30 MG/ML VIAL (12:52)
--- NOTE | 2020-09-01 14:40 | DI.RAD_ITS ---
Exam(s) XR HIP RT IN OR EXAM: XR HIP RT IN OR CLINICAL HISTORY: RECURRENT DISLOCATION OF PROSTHETIC RIGHT HIP. TECHNIQUE: 2D digital imaging was performed. COMPARISON: CR XR HIP RT 1V from 08/26/2020 CR XR FEMUR RT from 08/26/2020 FINDINGS: Raspy was provided during orthopedic procedure on right hip arthroplasty. Total fluoroscopy time 46 seconds. Cumulative dose 5.26 mGy IMPRESSION: DATA REPOSITORY: RADIATION DOSE DELIVERED:
[2020-09-01] MEDS: LORazepam 2 MG/ML VIAL 0.5 MG IVP (15:37)
[2020-09-01] MEDS: Methocarbamol 500 MG TAB 1000 MG PO (16:07)
--- NOTE | 2020-09-01 16:34 | W.ANESPOSTOP ---
Postoperative Evaluation Date, Time and Location Date Performed: 09/01/20 Time Performed: 16:34 Patient Location: Day Surgery Unit Vital Signs Most Recent Imported Vital Signs: Most Recent Vital Signs Temp Pulse Resp BP Pulse Ox 36.8 C 87 8 L 80/60 L 99 09/01/20 16:10 09/01/20 16:10 09/01/20 16:10 09/01/20 16:10 09/01/20 16:10 Pain Score Most Recent Pain Score: Most Recent Pain Score Pain Level 7 09/01/20 15:40 Assessment Mental Status: Awake (Alert & Oriented to Patient Baseline) Airway and Respiratory Function: Patent airway with normal (patient baseline) respiratory exam Cardiovascular Function: Hemodynamically Stable Hydration Status: Adequately Hydrated Nausea & Vomiting: No Nausea or Vomiting Pain: Pt. Denies Any Pain Peripheral Nerve Block: Patient did not receive a nerve block
[2020-09-01] MEDS: oxyCODONE 5 MG TAB PO (16:40)
[2020-09-01 17:03] LABS: HCT 35.1 % (36.0-46.0)
[2020-09-01] MEDS: Ketorolac 15 MG/ML VIAL IVP ×2 (17:08→23:12)
[2020-09-01] MEDS: ceFAZolin 1 GM/50 ML BAG IVPB (17:08)
--- NOTE | 2020-09-01 17:12 | PT.INNT ---
Date of service: 09/01/20 Time of Service: 17:12 PT Notes Visit Reasons: HIP REVISION Patient and orthopedic surgeon amenable to doing PT evaluation tomorrow morning. Reports pain in R hip. Nurse Cristian is with patient at time of PT visit. Thank you for the opportunity to participate in the care of this patient. Shelia Galvan PT, DPT, CLT [facility] [place], [place]
--- NOTE | 2020-09-01 17:54 | W.PM.OP ---
Date of service: 09/01/20 Time of Service: 14:54 Operative Note Operative Note DATE OF PROCEDURE: 09/01/20 PRE-OP DIAGNOSIS: Right Prosthetic Hip Instability POST-OP DIAGNOSIS: same PROCEDURE: Right Acetabular Revision SURGEON: Darrion Moses SKIVER HAND: Cody Nazario Refer to Anesthesia Record ESTIMATED BLOOD LOSS: 800 PATHOLOGY: none sent COMPLICATIONS: None Patient was transported to: PACU Patient's condition: stable Implants: 1. Depuy [place] Acetabular Component, 54mm 2. Depuy Dual Mobility Liner, 45v50cf 3. Depuy Dual Mobility 47x28 4. Depuy Revision TS Altrx Ceramic Femoral Head, Size 28+5mm Indications: Crissy is a 60-year-old who is approximate 1/2 years out from a right total hip arthroplasty. She had been doing well until recently when she turned awkwardly in the shower and had an anterior dislocation. She was treated conservatively but after 2 weeks of conservative treatment it happened again while at work. Given the recurrence of the dislocation I recommended revision surgery for recurrent dislocation. I explained the risks of the procedure to include, but not limited to, bleeding, infection, pain, stiffness, fracture, damage to nerves and vessels, damage to muscles and tendons, loosening, recurrent instability, leg length inequality, need for repeat procedure, blood clot and cardiopulmonary demise. Despite these risks, Crissy elected to proceed. Findings: I was able to dislocate the hip with minimal effort at approximate 30 degrees of external rotation and 30 degrees of extension. The cup was removed with minimal bone loss. I was able to place a new acetabular component and less anteversion and use a dual mobility system for increased range of motion less dislocation risk. After these changes, I was unable to dislocate the hip without traction and lateral and anterior pull. Procedure Description: Crissy was greeted in the preoperative holding area where the correct side was identified and marked. The consent was reviewed with the patient and signed. The history and physical was updated. All questions were answered. She was taken back to the operating room. A general anesthetic was administered. The feet were wrapped with cast padding and Coban and then placed into the boot liners and then into the boots. Care was taken to protect the skin and make sure the heels were fully down and the boots were stable. The patient was then positioned onto the HANA table. Both legs were held in a neutral position. SCDs were applied. The patient was then slid down onto a peroneal post. Prophylactic antibiotics in the form of cefazolin were administered. 1g of Tranxemic Acid was given intravenously within 30 minutes of incision. The right leg was then prepped with Chloraprep and draped in a standard fashion. A second prep with Chloraprep was performed prior to placement of a shower-curtain type drape with Iodine impregnated skin protection. A timeout to confirm correct identity, side and site, procedure, allergies, anesthesia, and medical concerns was performed. An obliquely oriented incision was made starting lateral to the ASIS and running distal over the Tensor Fascia Eh (TFL) muscle belly toward the fibular head, utilizing the previous incision and extending it approximately 1 cm in either direction.. The skin and soft tissue was dissected sharply, through Liliana?s fascia, and to the fascia of the TFL. This fascial layer was quite thickened since the previous surgery. I was able to identify the perforators as well as the superior border of the iliotibial band to serve as a guide for fascial incision. With the fascia and superior border of the IT band identified, the fascia was incised with a new knife just above any perforators from the IT band. The TFL muscle belly was bluntly dissected away from the fascia and moved laterally. There is significant adherence between the tissues in this region, especially the rectus and the tensor fascia eh. This was dissected both bluntly and with electrocautery. The fibers of the rectus femoris tendon were identified and these were freed from the anterior capsule. However, there is notable adherence in this area which did make initial exposure difficult as well as significant thickening of the anterior capsule. I used a mohamud elevator to help elevate these tissues off of the capsular tissue. A second cobra retractor was placed around the medial femoral neck. The TFL was further retracted laterally to show the deep fascia. The TFL was further released bluntly from the deep fascia to expose anterior hip capsule and fat A T-capsulotomy was then performed starting at the superior lateral acetabulum and moving distally to the intertrochanteric ridge. These capsular flaps were tagged with a No. 1 Ethibond and elevated from within. The capsular flaps were released to the shoulder of the lateral neck and to the lesser trochanter to give excellent visualization of the proximal femur. These flaps are significantly thickened. I used a rongeur and letter cautery to thin these capsular flaps. There is thickened synovium throughout the hip. I did not want to release too much capsule but I did thin it out by excising the inner portion of the capsule. I did this enough so I could see the interface between the bone and the acetabular component. The hip was then dislocated and the femoral head was removed. There is no traction on the leg and the femoral stem was allowed to move superiorly and posteriorly underneath the abductors. A blunt retractor was placed over the anterior wall as well as another one behind the posterior wall for adequate visualization. Intermittently, I would use a bent Jean Claude over the inferior aspect of the acetabulum for complete visualization. Then remove any excess tissue from around the acetabular component. The Karon acetabular extraction system was utilized to help extract the acetabular component. Starting with a short blade I broke the interface between the acetabulum and the metal component. Using a thin osteotome I removed the polyethylene liner from the cup. 2 screws from the acetabulum were then removed without difficulty. The liner was placed back into the acetabulum where I then proceeded to free up the acetabular component from the surrounding bone using the longer blade. This was done circumferentially around the cup that was felt to of cover the entirety of the cup. The liner was once again removed and I attached the insertion handle back to the cup. With very minimal effort the acetabular component was freed from the pelvis. On inspection of the acetabular component, there is a small amount of bone at the very apex of the cup but otherwise very minimal bony debris. On inspection of the actual acetabulum there was good bleeding bone surrounding, although shallow in nature. There is a very small area of inner table seen at the apex but no perforation into the pelvis and still significant cancellous bone in this area as well. There is at least 3 to 4 mm of each anterior posterior wall. Very little lateral coverage was present. I then began to prepare the acetabulum. Acetabular reaming began with a 50 mm reamer. This first reaming was directed anterior to posterior and medial to get down to the true floor. This was inspected and reamed until the true floor was reached. The anterior retractor was then released and entry and exit was provided by traction on the capsular flaps. I then reamed sequentially up to a 52 mm reamer. The larger reamers were oriented based on anatomical reference of the anterior and lateral garcia to ensure proper abduction and anteversion. Positioning and size was confirmed with the fluoroscopy. At the 52 mm size there was some resistance but not significant and therefore I plan to use a 54 mm acetabular component after I was unable to get any significant purchase with a 52 mm trial. A 54 mm Depuy [place] acetabular component was selected. The acetabulum was reamed around the periphery with the 53 mm reamer to prevent a rim fit. The deep tissues were irrigated. The acetabular component was then impacted in a position of about 40-45 degrees of abduction and 10 degrees of anteversion, using the patient?s anatomy as the ultimate landmark. Fluoroscopy was used to confirm this. While the insertion handle seem to indicate minimal anteversion at all and the visual inspection of the acetabular cup would suggest minimal to no anteversion the x-ray still showed approximate 10 to 15 degrees of anteversion, may be up to 20 degrees. However, when the initial component was extracted this angle is much higher, therefore I felt that this had adequately and more appropriately corrected the anteversion. Due to the shallow nature of the cup, the acetabular component felt better with a slight bit less abduction than desired, approximate 45 or so degrees. In this position, there was excellent therapeutic riding instructor of the acetabular component and the inserting handle was removed. A primary acetabular screw was placed into the ilium by drilling through one of the holes in the acetabular component. This was measured and an approrpriately sized screw was placed with excellent purchase. It was checked not to be proud. A second screw was placed in a similar fashion. The first screw had excellent bicortical fixation and the second screw was placed into the anterior column with excellent fixation. A portion of the sherry-articular cocktail was then injected around the acetabulum into the capsule and periosteum. This cocktail consisted of 50cc of 0.25% Bupivicaine and 20cc of Exparel and 30mg of Ketorolac. The trial liner for the dual mobility system was then inserted. The femoral component neck was exposed and a trial 28+1 dual mobility head was then inserted. This was reduced. There was noted to be excellent range of motion without impingement. The leg was tested in multiple additions, 0, 30, 60, and 90 degrees of rotation at 0, 15, 30, 45, and 60 degrees of extension. There still seem to be some ability to manually dislocate this with a bone hook at 30 degrees of external rotation and 30 degrees of extension. However this also disengaged the do mobility system which would indicate that it may have not been completely snapped or it was too much for semipulling with the bone hook. Nevertheless, given this information and a slight shock still present I went up to a +5 neck. This was then inserted and the dual mobility system was noted to be well attached. The hip was reduced and once again tested to the same positions. At this point there was no shock. There is no ability dislocate the hip without any added traction on the leg even with me pulling laterally and anteriorly with a bone hook. The trial components were then removed. The periosteum and surrounding tissue was injected with remaining portion of the sherry-articular cocktail. The deep tissues were once again irrigated. The metal do mobility liner was inserted. He was confirmed to be coplanar with the cup face before insertion. Once impacted it was also noted to be appropriately positioned without any asymmetries noted between the face of the acetabular component and the lip of the acetabular liner. The dual mobility system was prepared on the back table with the 28+5 mm revision TS ceramic head and the 47 x 28 dual mobility polyethylene. These were inserted together and check to make sure there is easy mobility between the two. The femoral neck was then exposed and the head was impacted onto the cleaned trunnion. Prior to impaction of this system the trunnion was inspected and showed no signs of damage nor corrosion. The hip was then reduced with traction and a head pusher. Stability was once again confirmed to show very minimal shuck at all and no ability dislocate without added traction. Final x-ray images were obtained with fluoroscopy to confirm adequate positioning and no intraoperative fracture. While there was some oozing during the case there is no significant bleeding event. However, the suction canister read approximate 800 cc of blood loss. I am uncertain if this was reset although it was confirmed by nursing that it was. At the end the case there was no significant bleeding. She was stable with anesthesia. My suspicion is that the cancer is not fully reset as it did not feel that we loss 800 cc of blood. The deep tissues were thoroughly irrigated with Irrisept chlorhexadine solution. The second dose of TXA 1g was administered intravenously. The capsule was then reapproximated with the previously placed Ethibond sutures. The TFL fascia was finally closed with a No. 2 Stratafix, barbed suture. Deep tissues were then reapproximated with 0 Vicryl and a running 2-0 Vicryl. The skin was closed with a running 4-0 Monocryl in a subcuticular fashion. This was reinforced with skin glue. A Mepilex silver dressing was applied. At the end of the case, all counts were correct. Crissy was transferred to the hospital bed without difficulty and suffering suspected blood loss but no other complication. Crissy has a good prognosis. Physical therapy will start today and without restrictions, weight-bearing as tolerated. Aspirin 81mg BID will be used for DVT prophylaxis.
[2020-09-01] MEDS: Normal Saline 1,000 ML 1000 ML IV (18:22)
[2020-09-01] MEDS: Acetaminophen 500 MG TAB 1000 MG PO (19:15)
[2020-09-01] MEDS: Aspirin E.C. 81 MG TABEC PO (20:01)
[2020-09-02] VITALS (11 sets, daily range): BP systolic 86–104; BP diastolic 45–80; PULSE 70–98; RESP 12–18; TEMP 36.4–37.7; O2SAT 90–98
[2020-09-02] MEDS: Normal Saline 1,000 ML 1000 ML IV (00:17)
[2020-09-02] MEDS: ceFAZolin 1 GM/50 ML BAG IVPB ×2 (01:30→11:21)
[2020-09-02] MEDS: Ondansetron 4 MG/2 ML VIAL IVP ×2 (02:28→07:59)
[2020-09-02] MEDS: oxyCODONE 5 MG TAB PO (02:32)
[2020-09-02] MEDS: Ketorolac 15 MG/ML VIAL IVP ×2 (05:04→11:21)
[2020-09-02] MEDS: Lactated Ringers 1,000 ML 80 ML IV (05:04)
[2020-09-02 07:21] LABS: HCT 26.9 % (36.0-46.0); HGB 8.5 g/dL (11.2-15.7); MCH 28.4 pg (27.0-33.0); MCHC 31.6 % (32.0-36.0); MPV 8.8 fL (8.0-11.0); Platelet Count 333 10^3/uL (130-400); RBC 2.99 10^6/uL (3.93-5.22); RDW 15.2 % (11.7-14.6); RDW-SD 49.5 fL; WBC 18.21 10^3/uL (4.4-10.8)
[2020-09-02 07:29] LABS: Anion Gap 7.9 mmol/L (3-11); BUN 14 mg/dL (7-18); CO2 24.1 mmol/L (21.0-32.0); CREATININE 0.9 mg/dL (0.55-1.02); Calcium 8.2 mg/dL (8.5-10.1); Chloride 109 mmol/L (98-107); Glucose 135 mg/dL (74-106); Potassium 4.5 mmol/L (3.5-5.1); Sodium 141 mmol/L (136-145)
[2020-09-02] MEDS: Hydrocortisone SOD SUC. 100 MG VIAL 50 MG IVP (07:59)
[2020-09-02] MEDS: DULoxetine 30 MG CAP 60 MG PO (08:33)
[2020-09-02] MEDS: Folic Acid 1 MG TAB 2 MG PO (08:34)
[2020-09-02] MEDS: Aspirin E.C. 81 MG TABEC PO (08:34)
[2020-09-02] MEDS: Acetaminophen 500 MG TAB 1000 MG PO ×2 (08:34→13:00)
[2020-09-02] MEDS: Cholecalciferol (Vitamin D3) 1,000 UNIT TAB 2000 UNITS PO (08:34)
[2020-09-02] MEDS: dilTIAZem CD 120 MG CAPCR PO (08:35)
[2020-09-02] MEDS: Pantoprazole 40 MG TABCR PO (08:35)
[2020-09-02] MEDS: diphenhydrAMINE 25 MG CAP PO (08:51)
--- NOTE | 2020-09-02 09:19 | IN_ITS ---
Date of service: 09/02/20 Time of Service: 09:19 PT Notes Visit Reasons: HIP REVISION Physical Therapy Initial Evaluation Date: 09/02/2020 Referring Doctor: LANDON Li PT Orders: PT CONSULT: Eval/Treat Precautions: WBAT on right LE with AD. Patient Profile/Admitting Diagnosis: Crissy is a 60-year-old female with dislocated internal right hip prosthesis and is status post a right anterior hip revision on postoperative day 1. PMHX: Medical History? Articular fracture of head of femur Bone spur of toe (02/27/17) Chest pain Per pt. 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 03/25 Rheumatoid arthritis Stress fracture Trismus Surgical History? Abdominal hysterectomy (~1987) Appendectomy (~1977) RUPTUREDBilateral salpingectomy with oophorectomy (~1987) Bunionectomy (~2006) RightHistory of appendectomy History of discectomy History of orthopedic surgery History of total right hip replacement (02/21/19) Injection 03/03/15, 12/2015 Synvisc/Depomedrol in the right kneeL5-S1 Discectomy (~2001) Lysis of adhesions Multiple surgeries, abdominalRepair, ACL (~10/2011) Replacement of total knee joint 08/23 [facility] (R)Rotator Cuff Repair (~2003) LeftStatus post abdominal hysterectomy Status post bunionectomy Status post repair of anterior cruciate ligament Status post right hip replacement (02/21/19) Status post rotator cuff repair Social History/Home Situation: Lives with in a private home with 4 steps to enter through the garage with bilateral rails. She has another set of steps to the second floor of the house with 5 steps through the first flight with a rail on the right and another 9 steps through the second flight with rail on the left. 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 Independent with all aspects of ADLs without an assistive amatory device nor adaptive equipment. Equipment Owned/DME: Front-wheeled walker Subjective: Reports feeling a lot better today than she did yesterday. Indicates 4?5/10 pain in the right hip at rest and 6/10 pain level with ambulation activity. Also reports pain and discomfort in the right ankle which she feels she may have inversion sprained and she fell. Objective: General Observation: 1 PRBC being infused during PT session. Mepilex Ag over surgical incision. Mental Status: Alert and oriented x4 Pain: As above ROM: Right Upper Extremity: Shoulder Flexion WFL. Shoulder abduction WFL. Elbow flexion WFL. Wrist flexion WFL. Functional opening and closing of hand WFL. Left Upper Extremity: Shoulder Flexion WFL. Shoulder abduction WFL. Elbow flexion WFL. Wrist flexion WFL. Functional opening and closing of hand WFL. Right Lower Extremity: Hip flexion WFL. Hip abduction WFL. Knee flexion WFL. Ankle dorsiflexion WFL. Ankle plantarflexion WFL. Left Lower Extremity: Hip flexion WFL. Hip abduction WFL. Knee flexion WFL. Ankle dorsiflexion WFL. Ankle plantarflexion WFL. Strength: Right Upper Extremity: Shoulder flexors 5/5. Shoulder abductors 5/5. Elbow flexors 5/5. Elbow extensors 5/5. Supervisor Nurse strong. Left Upper Extremity: Shoulder flexors 5/5. Shoulder abductors 5/5. Elbow flexors 5/5. Elbow extensors 5/5. Supervisor Nurse strong. Right Lower Extremity: Hip flexors 4/5. Hip abductors 4/5. Knee flexors 5/5. Knee extensors 4/5. Ankle dorsiflexors 4/5. Ankle plantarflexors 5/5. Left Lower Extremity: Hip flexors 5/5. Hip abductors 5/5. Knee flexors 5/5. Knee extensors 5/5. Ankle dorsiflexors 5/5. Ankle plantarflexors 5/5. Sensation: Intact as to pain and light pressure in bilateral lower extremities Bed Mobility/Transfers: Supine to sit independent Sit to stand supervision Stand to sit supervision Bed to chair supervision Gait: Guided patient through level surface ambulation of up to 200 feet after adjustment of front wheeled walker height with standby assist of PT and with step through gait pattern with report of 6/10 pain. Stairs: Performed stair negotiation 12 x 4 inch steps and 8 x 6 inch steps while holding onto B rails, to one rail on the right without AD on the left, and one rail on the left without AD on the right requiring only standby assist and IV pole management by PT. Minimal verbal cues given for correct gait sequence and overall safety. THERA EX: Educated and trained patient on safe and accurate performance of early level range of motion exercises for the right hip and in supine, seated, and standing positions with provision of written instructions with images in order to maximize compliance and safety. Balance: Static Sitting: Normal Dynamic Sitting: Normal Static Standing: Good Dynamic Standing: Fair Special Tests: Mobility Limitations Standardized Measure [facility] AM-PAC 6 clicks Basic Mobility Inpatient Short Form: Raw Score: -2-4- CMS Score: 0% deficit Informed Consent/Education: atient instructed in purpose of PT consult. Packet containing KENNEDY exercise protocol has been given to patient. Education and training on initial set of exercises that can be done at home have been completed with patient. Assessment: Crissy requires the use of a front wheeled walker to maximize independence and reduce fall risk at home. She will have the support of her as she recovers at home. She has good understanding of her HEP provided for her. She is confident about going home today. Patient presents with clinical signs and symptoms consistent with c lucilarent/admitting diagnoses that have resulted to mobility limitations, gait instability, generalized weakness, and impairment of motor control as demonstrated by the following impairment level findings: 1. Decreased strength to right hip major muscle groups 2. Impaired standing balance Impairments are contributing to the following functional limitations: 1. Inability to safely ambulate without assistive device 2. Increase completion time for mobility ADL performance 3. Increased fall risk Patient is assessed as a 29452 moderate complexity based on the following: History: 60-year-old female with impairment level findings, functional limitations, and past medical history as indicated above Examination: Demonstrable impairment in strength, balance, and mobility level with underlying impairments and functional limitations as documented above Presentation: Stable Decision Makin moderate complexity Goals: N/A. PT evaluation and 1-2 treatment sessions only for functional mobility training using recommended AD and for HEP instruction. Plan of Care/Treatment Plan: N/A. PT evaluation and 1-2 treatment session only for functional mobility training using recommended AD and for HEP instruction. DISCHARGE RECOMMENDATIONS: Home when medically cleared by orthopedic surgeon. Outpatient PT services in order to maximize return to community ambulation and full vocational activities. TREATMENT CODE/TIME: 32647 x 25 minutes, 87155 x 25 minutes, and 78600 x 11 minutes beginning at 9:19 AM. Thank you for the opportunity to participate in the care of this patient. Shelia Galvan PT, DPT, CLT [facility] [place], [place]
--- NOTE | 2020-09-02 10:16 | INITIAL_ITS ---
- If Service Date Differs Date of service: 09/02/20 Time of Service: 10:16 Care Management Initial Assess REASON FOR HOSPITALIZATION:: Hip Revision PAST MEDICAL HISTORY/PAST SURGICAL HISTORY:: Medical History. Articular fracture of head of femur. Bone spur of toe (02/27/17). Chest pain. Per pt. has been fully worked up, states it is a spasming of the coronary artieres and takes diltiazem helps with this. Cough. DDD (degenerative disc disease), lumb osacral. Encounter for screening for other viral diseases. Family history of early CAD (04/17/16). GERD (gastroesophageal reflux disease). History of exercise stress test (11/24/13). Hormone replacement therapy (HRT). Hyperlipidemia. Insomnia. Meningeal disorder. 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 Osteopenia. Paresthesia. Pre-op exam. Pulmonary hypertension, high resistance (04/01/17). PAP 37 03/25. Rheumatoid arthritis. Stress fracture. Trismus. Surgical History. Abdominal hysterectomy (~1987). Appendectomy (~1977). RUPTURED. Bilateral salpingectomy with oophorectomy (~1987). Bunionectomy (~2006). Right. History of appendectomy. History of discectomy. History of orthopedic surgery. History of total right hip replacement (02/21/19). Injection. 03/03/15, 12/2015 Synvisc/Depomedrol in the right knee. L5-S1 Discectomy (~2001). Lysis of adhesions. Multiple surgeries, abdominal. Repair, ACL (~10/2011). Replacement of total knee joint. 08/23 [facility] (R). Rotator Cuff Repair (~2003). Left. Status post abdominal hysterectomy. Status post bunionectomy. Status post repair of anterior cruciate ligament. Status post right hip replacement (02/21/19). Status post rotator cuff repair PREVIOUS FUNCTIONAL STATUS/SOCIAL/FAMILY SUPPORTS:: Crissy resides in [place] with her , Aron. 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 She is independent at baseline. CURRENT FUNCTIONAL STATUS:: Crissy was sitting up in bed when CM met with her. She reported that she was feeling well today, and was anticipating being discharged. She stated that she is independent at home and will not require services up on discharge. CM will continue to follow. ADVANCE DIRECTIVES:: On file at [facility]: Aron Hurt as DPOA for Health Care Agent, Rick Lopez as Alternate. Has patient been provided with info about the portal/API?: Yes Did the patient sign up for the portal?: Yes (previously) CODE STATUS:: Full Code INSURANCE COVERAGE / FINANCIAL ISSUES:: Health Plans CURRENT HOME/COMMUNITY SERVICES/EQUIPMENT:: Crissy has crutches, 4WW and canes. PRIMARY CARE PHYSICIAN:: Kim Mandel MD POTENTIAL DISCHARGE NEEDS:: Follow up appointment with Dr. Moses. Crissy will be evaluated by PT and work with PT daily to assess her readiness for discharge. PATIENT/FAMILY EDUCATION NEEDS:: Review discharge instructions and follow up plan of care. ANTICIPATED BARRIERS TO DISCHARGE:: None identified at this time. TRANSPORTATION:: Via private vehicle by her . PLAN:: Crissy will discharge home when ready per MD. Crissy will transport home via private vehicle with her , Aron. She will follow up with Ortho and her discharge plan of care. CM will continue to follow.
--- NOTE | 2020-09-02 10:55 | DSE_ITS ---
Date of service: 09/02/20 Time of Service: 10:55 DS: Diagnosis Discharge Diagnosis (1) Dislocation of internal right hip prosthesis: Status: Acute Discharge Plan Disposition Patient Disposition: HOME Condition: Good Discharge Details Reason For Visit: HIP REVISION Admit Date/Time: 09/01/20 09:41 Admit Provider: Darrion Moses Attending Provider: Darrion Moses Primary Care Provider: Kim Mandel [facility] Course Hospital Course: Patient was admitted to the medical/surgical floor following the procedure. The surgery was tolerated well without any notable medical, surgical, or anesthetic complications. Mobilization began postoperatively. She was voiding spontaneously. Vitals were stable after fluid bolus and Hydrocortison administration. She did have falling hemoglobin due to acute post-operative blood loss anemia and was transfused one unit. Physical therapy worked with the patient and was cleared for discharge home. No acute medical issues. Pain was controlled on oral regimen. Home Meds and New Rx's Prescriptions: New aspirin 81 mg tablet,delayed release (DR/EC) 81 mg PO BID Qty: 60 RF: 0 docusate sodium [Colace] 100 mg capsule 100 mg PO BID PRNQty: 10 RF: 0 oxycodone 5 mg tablet 5 mg PO Q4H Qty: 15 RF: 0 pantoprazole 40 mg tablet,delayed release (DR/EC) 40 mg PO DAILY Qty: 30 RF: 0 Continued Advair HFA 230-21 mcg/actuation HFA aerosol inhaler 2 puff Inhalation BID PRN (Reason: asthma) Qty: 12 RF: 11 mupirocin 2 % ointment 1 applic TP BID Qty: 30 RF: 4 methylphenidate HCl 10 mg tablet See Rx Instructions PO TID MDD 4 Qty: 120 RF: 0 diltiazem HCl 120 mg capsule,extended release 24 hr 120 mg PO DAILY Qty: 90 RF: 4 acyclovir 800 mg tablet 800 mg PO TID PRN (Reason: herpes) Qty: 90 RF: 5 prednisone 5 mg tablet 5 mg PO DAILY Qty: 90 RF: 4 nitroglycerin 0.4 mg tablet, sublingual 0.4 mg SL Q5M PRN (Reason: chest pain) Qty: 25 RF: 6 escitalopram oxalate 10 mg tablet 10 mg PO DAILY Qty: 90 RF: 4 albuterol sulfate 5 MG/1 ML solution 2.5 mg Inhalation QID PRNRF: 0 acyclovir [Zovirax] 5 % cream 1 applic TP DAILY PRN Qty: 5 RF: 4 folic acid 1 mg tablet 2 mg PO DAILY Qty: 180 RF: 12 cholecalciferol (vitamin D3) 25 mcg (1,000 unit) tablet 2,000 unit PO DAILY RF: 0 rosuvastatin [Crestor] 5 mg tablet 5 mg PO DAILY Qty: 90 RF: 12 triamcinolone acetonide 0.025 % ointment 1 applic Topical BID PRN (Reason: rash) Qty: 80 RF: 5 methotrexate sodium 2.5 mg tablet 7.5 mg PO qWEEK Qty: 36 RF: 5 montelukast 10 mg tablet 10 mg PO QPM Qty: 90 RF: 4 duloxetine 60 mg capsule,delayed release(DR/EC) 60 mg PO DAILY Qty: 90 RF: 11 celecoxib [Celebrex] 200 mg capsule 200 mg PO BID Qty: 180 RF: 4 estradiol 0.01 % (0.1 mg/gram) cream 1 g vaginal .twice weekly Qty: 127.5 RF: 5 acetaminophen [Acetaminophen Extra Strength] 500 mg tablet 1,000 mg PO Q6H PRNQty: 90 RF: 0 Discontinued prednisone 20 mg tablet 20 mg PO DAILY PRNQty: 11 RF: 0 prednisone 20 mg tablet 80 mg PO DAILY Qty: 16 RF: 5 Discharge Instructions Additional Instructions: Hip Discharge Instructions Activity: The most important activity is to walk. You should try to take short walks a few times a day. You have no restrictions on movement or positioning, but do not try to force what you do. You will find some stiffness and weakness with hip flexion (lifting your knee). Do not try to strengthen this too early, continue to practice walking and stairs and this will come. - Outpatient physical therapy can be helpful to help return you to a normal gait and improve your flexibility and strength. This can start around 1-2 weeks. For some patients, it?s not necessary. - You should wear the JEAN PIERRE hose on both legs for 2 weeks. - You do not have to continue with the walker once you feel confident and pain has improved. The walker is not necessary for any particular length of time. Dressing: Keep the surgical dressing in place for at least one week. After the first week it may be removed and replace with light gauze and tape or nothing. It may get wet after 3 days but avoid soaking the dressing. If it gets wet, just lightly pat dry. It is important to always keep some gauze between skin folds, especially when you are sitting. Spend some time with the wound exposed when you are lying flat as the incision does wrinkle onto itself. It is normal to have bruising down the leg. Medications: - You should take Tylenol and an anti-inflammatory Celebrex as your primary pain control medications. - You have been prescribed a stronger pain medication Oxycodone for breakthrough pain, take as needed as prescribed. - You have also been prescribed a stomach acid reduction agent Pantoprozole to help reduce stomach acid and reflux. - You will be taking Aspirin 81mg twice a day for DVT prevention unless instructed otherwise. - If you have constipation you should take Colace or Miralax (both [id number]). It takes most people 3-4 days to have a bowel movement. Follow-up: 2 weeks If you have any acute concerns or questions, please do not hesitate to contact the office at [phone]. You may contact Dr. Moses with any questions after hours through the hospital at [phone] or on his cell phone at [phone]. Stand Alone Forms: Nursing Discharge Form Referrals: Darrion Moses MD [ [facility] STAFF PHYSICIAN] - 09/17/20 10:45 am Activity:: Activity as Tolerated Equipment/Supplies:: Walker Diet:: As Tolerated Discharge Orders Discharge Orders: Discharge Order (Routine); Ordered 09/02/20 Ordered By: Darrion Moses DS: Summary Time Spent with Patient providing and/or coordinating discharge services: Less than 30 minutes Status at Discharge Functional status at discharge: uses cane/walker Overall status at discharge: patient is progressing back to baseline Mental Status: mental status grossly normal Speech and Movement: speech and movement normal Mood: congruent mood Affect: normal affect Exam Psych Mental Status: mental status grossly normal Speech and Movement: speech and movement normal Mood: congruent mood Affect: normal affect DS: Data Vitals/I&O Vitals and I&O: Vital Signs Temperature 36.5 C 09/02/20 10:47 Temperature Source Tympanic 09/02/20 06:56 Pulse 82 09/02/20 10:47 Pulse Rhythm Regular 09/02/20 09:09 Respiratory Rate 18 09/02/20 10:47 Respiratory Effort 09/02/20 09:09 Respiratory Depth Normal 09/02/20 09:09 Respiratory Pattern Normal 09/02/20 09:09 Blood Pressure 100/60 09/02/20 10:47 Pulse Oximetry 98 09/02/20 10:47 Respiratory End-tidal CO2 33 09/01/20 16:10 Oxygen Delivery Method Room Air 09/02/20 10:47 Oxygen Flow Rate 0 09/02/20 10:47 Pain Level 3 09/02/20 06:56 Comment 09/02/20 06:56 Intake & Output 09/01/20 09/01/20 09/02/20 11:59 23:59 11:59 Intake Total 2003 1933.333 / 1933.333 Output Total 1150 / 1150 2600 / 2600 Balance 854 / 854 -666.667 / -666.667 Weight 73.6 kg Intake: IV 2003 1683.333 / 1683.333 Oral 250 / 250 Output: Urine 350 / 350 2600 / 2600 Estimated Blood Loss 800 / 800 Other: Urine Color Yellow Yellow Urine Appearance Clear Clear Urine Odor Normal Normal Emesis Description None Voiding Methods Toilet Toilet Data Completed and Pending Labs on day of discharge: Labs from last 24 hours 09/02/20 09/02/20 09/01/20 06:55 06:55 16:57 WBC 18.21 H RBC 2.99 L Hgb 8.5 L D 11.0 L Hct 26.9 L D 35.1 L MCV 90.0 MCH 28.4 MCHC 31.6 L RDW 15.2 H Plt Count 333 D MPV 8.8 Sodium 141 Potassium 4.5 Chloride 109 H Carbon Dioxide 24.1 Anion Gap 7.9 BUN 14 Creatinine 0.9 Estimated GFR/1.73 m2 >= 60.00 Glucose 135 H Calcium 8.2 L Patient ABO/Rh Antibody Screen Crossmatch 09/01/20 09:55 WBC RBC Hgb Hct MCV MCH MCHC RDW Plt Count MPV Sodium Potassium Chloride Carbon Dioxide Anion Gap BUN Creatinine Estimated GFR/1.73 m2 Glucose Calcium Patient ABO/Rh O Positive Antibody Screen Negative Crossmatch See Detail PFSH Medical History Articular fracture of head of femur Bone spur of toe (02/27/17) Chest pain Per pt. 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 Osteopenia Paresthesia Pre-op exam Pulmonary hypertension, high resistance (04/01/17) PAP 37 03/25 Rheumatoid arthritis Stress fracture Trismus Surgical History Abdominal hysterectomy (~1987) Appendectomy (~1977) RUPTURED Bilateral salpingectomy with oophorectomy (~1987) Bunionectomy (~2006) Right History of appendectomy History of discectomy History of orthopedic surgery History of total right hip replacement (02/21/19) Injection 03/03/15, 12/2015 Synvisc/Depomedrol in the right knee L5-S1 Discectomy (~2001) Lysis of adhesions Multiple surgeries, abdominal Repair, ACL (~10/2011) Replacement of total knee joint 08/23 [facility] (R) Rotator Cuff Repair (~2003) Left Status post abdominal hysterectomy Status post bunionectomy Status post repair of anterior cruciate ligament Status post right hip replacement (02/21/19) Status post rotator cuff repair Family History Mother Essential hypertension Depression Heart disease Hyperlipidemia Stroke Father , BRAIN BLEED at age 84. RA (rheumatoid arthritis) Essential hypertension CAD (coronary artery disease) Heart disease Hyperlipidemia Myocardial infarction Parkinson disease Sister Multiple personality disorder Substance abuse Essential hypertension Bipolar disorder Depression Heart disease Hyperlipidemia OA (osteoarthritis) RA (rheumatoid arthritis) Brother Essential hypertension CAD (coronary artery disease) Heart disease Hyperlipidemia Myocardial infarction ANGIOPLASTY/STENTS Brother RA (rheumatoid arthritis) Hypertension Hyperlipidemia Maternal Grandfather , 84 Essential hypertension Heart disease Hyperlipidemia Dementia Paternal Grandfather Dementia Leukemia Heart disease Maternal Grandmother , 72 Neoplasm BREAST W/METS Breast cancer with mets Paternal Grandmother , 74 Essential hypertension Heart disease [place] Hyperlipidemia Son Depression Substance abuse Social History Smoking/Tobacco Use Status: Former Tobacco Use Tobacco: How many years used: 16 Second Hand Exposure: Yes Smoking risk assessment performed?: Yes Alcohol Intake: current Alcohol Intake frequency: a few times a week Alcohol type: wine and hard liquor Drug use: Never Caregiver/Support person: No Household members: spouse and other Details: Adopted grandson (Rick) Communication Needs: Corrective Lenses Do you need help understanding health information?: Never Pets and animals: No Sexually active: Yes Do you think of yourself as: straight/heterosexual Current gender identity: female What is your relationship status?: How often do you talk on the phone with friends or family?: three or more times per week How often do you get together with friends or relatives?: once per week How often do you attend latter day or taoist services?: 4 or more times per year Do you belong to any clubs or organized social groups?: yes Panel score (0-1 are the most socially isolated patients): 4 What type of physical activity do you participate in: decline to answer Duration: decline to answer Frequency: decline to answer Jessica/Pentecostal: Cheondoism Special jessica needs: No Seatbelt use: always Helmet use: Yes Helmet use: always Drive intox or ride w/intox 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
[2020-09-02] MEDS: Normal Saline Flush 10 ML SYR IV (11:21)
--- NOTE | 2020-09-02 14:56 | CHAPLAIN ---
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 She explained that she had to have her artificial hip joint replaced because it slipped into dislocated position, twice. She told me about those experiences. She will be discharged later today. She and her are raising her grandson who is seven now.
--- NOTE | 2020-09-02 18:33 | PDOC.CMDIS ---
- If Service Date Differs Date of service: 09/02/20 Time of Service: 18:33 LACE Index Scoring Tool - Questions: Length of Stay (in days): 1 Acuity (Admit via E.D.?): No E.D. Visits: 1 - Answers: Total Score: 2 Risk of Readmission: Low Risk Care Management Discharge Reason for Hospitalization: Hip Revision Discharge Plan: Crissy will return home with no additional services at this time. Her will drive her home via private vehicle. She will follow up with Ortho, her PCP and discharge plan of care. She is happy to be returning home. Patient/Family Education Needs: Review discharge instructions regarding activity levels and medications, discussion of self care needs.
== END 2020-09-02 13:07 | disposition home or self-care (01) | DRG 467 ==
LOC: PDS 09:41 → MS 16:33
PROVIDERS: Admitting Provider Student in an Organized Health Care Education/Training Program; PCP Family Medicine; Visit Provider Student in an Organized Health Care Education/Training Program
PROC: 0SRA00A Replacement of Right Hip Joint, Acetabular Surface with Polyethylene Synthetic Substitute, Uncemented, Open Approach (ICD-10-PCS; CPT 27130; principal; 2020-09-01 11:30)
DX: T84.020A Dislocation of internal right hip prosthesis, initial encounter (principal); I20.1 Angina pectoris with documented spasm; D62 Acute posthemorrhagic anemia; M51.37 Other intervertebral disc degeneration, lumbosacral region; Z20.822 Contact with and (suspected) exposure to COVID-19; K21.9 Gastro-esophageal reflux disease without esophagitis; E78.5 Hyperlipidemia, unspecified; G47.00 Insomnia, unspecified; M85.80 Other specified disorders of bone density and structure, unspecified site; I27.20 Pulmonary hypertension, unspecified; M06.9 Rheumatoid arthritis, unspecified; Z79.890 Hormone replacement therapy
CPT/HCPCS: 27137; 36415; 36430; 80048; 85027; 86850; 86900; 86901; 86920; 97110; 97162; 97530; 73501; 85014; 85018; J0131; J0690; J1100; J1720; J1885; J2060; J2370; J2405; J2704; P9016

== ENCOUNTER 2020-09-08 03:09 | Outpatient (CLI) | payer OTHER, SELFPAY ==
[2020-09-08 12:27] LABS: HGB 10.5 g/dL (11.2-15.7)
[2020-09-09 10:50] LABS: HBs Antibody, Quant 92.8 mIU/mL (See Note); Hep B Surface Ab Positive (See Note); Hepatitis B Core Antibody Negative (Negative); Hepatitis B Surface Antigen Negative (Negative)
== END 2020-09-08 03:10 | disposition home or self-care (01) ==
LOC: LOS 03:09
PROVIDERS: PCP Family Medicine; Visit Provider Student in an Organized Health Care Education/Training Program
DX: D62 Acute posthemorrhagic anemia (principal); Z11.59 Encounter for screening for other viral diseases
CPT/HCPCS: 36415; 86704; 86706; 87340; 85014; 85018

== ENCOUNTER 2020-09-17 11:27 | Outpatient (CLI) | payer OTHER, SELFPAY ==
--- NOTE | 2020-09-17 11:15 | DI.RAD_ITS ---
Exam(s) XR HIP RT COMPLETE AP PELVIS EXAM: XR HIP RT COMPLETE AP PELVIS INDICATION: F/U R KENNEDY. COMPARISON: CR XR HIP RT AP LAT ONLY from 08/26/2020 TECHNIQUE: 2D digital imaging was performed. FINDINGS: There has been no change in the right hip prosthesis. There are no abnormal bony lucencies. The lef t hip is unremarkable. DATA REPOSITORY: RADIATION DOSE DELIVERED:
== END 2020-09-17 11:28 | disposition home or self-care (01) ==
LOC: DIORS 11:27
PROVIDERS: PCP Family Medicine; Referring Provider Family Medicine; Visit Provider Physician Assistant
DX: Z96.641 Presence of right artificial hip joint (principal); Z47.1 Aftercare following joint replacement surgery
CPT/HCPCS: 73502

== ENCOUNTER 2020-10-28 03:09 | Outpatient (RCR) | payer OTHER, SELFPAY ==
[2020-10-07 00:21] VITALS: BP 117/76; PULSE 80; RESP 16; TEMP 36.9
[2020-10-28] VITALS (9 sets, daily range): BP systolic 114–130; BP diastolic 74–86; PULSE 69–95; RESP 16; TEMP 36.9–37.2; O2SAT 96–100
[2020-10-28] MEDS: riTUXimab-PVVR 1,000 MG in Normal Saline 150 ML 62.5 MG IVPB (09:31)
[2020-10-28] MEDS: Normal Saline Flush 10 ML SYR IVP (09:32)
== END 2020-11-06 23:59 | disposition home or self-care (01) ==
LOC: INF 03:09
PROVIDERS: PCP Family Medicine; Visit Provider Family Medicine
DX: M06.9 Rheumatoid arthritis, unspecified (principal)
CPT/HCPCS: 96365; 96366; Q5119

== ENCOUNTER 2020-12-24 04:43 | Outpatient (RCR) | payer OTHER, SELFPAY ==
[2020-11-07 00:10] VITALS: BP 122/78; PULSE 95; RESP 16; TEMP 37.2
[2020-12-24] VITALS (11 sets, daily range): BP systolic 106–146; BP diastolic 67–84; PULSE 72–91; RESP 16–18; TEMP 36.6–37.5; O2SAT 95–99
[2020-12-24] MEDS: Normal Saline Flush 10 ML SYR IVP (09:20)
[2020-12-24] MEDS: riTUXimab-PVVR 1,000 MG in Normal Saline 150 ML 50 MG IVPB (09:29)
== END 2021-01-06 23:59 | disposition home or self-care (01) ==
LOC: INF 04:43
PROVIDERS: PCP Family Medicine; Visit Provider Family Medicine
DX: M06.9 Rheumatoid arthritis, unspecified (principal)
CPT/HCPCS: 96365; 96366; 96413; 96415; Q5119

== ENCOUNTER 2020-12-28 07:29 | Outpatient (CLI) | payer OTHER, SELFPAY ==
[2020-12-28 12:27] LABS: HCT 41.9 % (36.0-46.0); HGB 12.7 g/dL (11.2-15.7); MCH 27.6 pg (27.0-33.0); MCHC 30.3 % (32.0-36.0); MCV 91.1 fL (80-95); MPV 8.7 fL (8.0-11.0); Platelet Count 439 10^3/uL (130-400); RDW 14.7 % (11.7-14.6); RDW-SD 48.9 fL; WBC 7.16 10^3/uL (4.4-10.8)
[2020-12-28 13:29] LABS: ALT 40 U/L (14-59); AST 31 U/L (15-37); Alkaline Phosphatase 73 U/L (46-116); Anion Gap 6.5 mmol/L (3-11); BUN 12 mg/dL (7-18); Bilirubin, Total 0.4 mg/dL (0.2-1.0); CO2 32.5 mmol/L (21.0-32.0); CREATININE 0.9 mg/dL (0.55-1.02); Calcium 9.2 mg/dL (8.5-10.1); Chloride 104 mmol/L (98-107); Glucose 96 mg/dL (74-106); Potassium 4.3 mmol/L (3.5-5.1); Sodium 143 mmol/L (136-145); TSH (W/Ref FT4) 1.31 uIU/mL (0.36-3.74); Total Protein 6.5 g/dL (6.4-8.2)
[2020-12-28 13:42] LABS: Albumin 4.1 g/dL (3.4-5.0); Calculated LDL 88 mg/dL (<100); Cholesterol 219 mg/dL (<200); HDL Cholesterol 117 mg/dL (40-60); Triglyceride 70 mg/dL (<150)
== END 2020-12-28 07:30 | disposition home or self-care (01) ==
LOC: LOS 07:30
PROVIDERS: PCP Family Medicine; Visit Provider Family Medicine
DX: Z00.00 Encounter for general adult medical examination without abnormal findings (principal); R53.83 Other fatigue; M06.9 Rheumatoid arthritis, unspecified
CPT/HCPCS: 36415; 80053; 80061; 85027; 84443

== ENCOUNTER 2021-01-07 01:10 | Outpatient (CLI) | payer OTHER, SELFPAY ==
[2021-01-07 09:45] LABS: Ferritin 114 ng/mL (8-252)
== END 2021-01-07 01:11 | disposition home or self-care (01) ==
PROVIDERS: PCP Family Medicine; Visit Provider Nurse Practitioner
DX: M25.552 Pain in left hip (principal)
CPT/HCPCS: 36415; 82728

== ENCOUNTER 2021-01-07 02:54 | Outpatient (RCR) | payer OTHER, SELFPAY ==
[2021-01-07 00:16] VITALS: BP 110/67; PULSE 87; RESP 18; TEMP 36.8
[2021-01-07 08:47] VITALS: BP 122/80; PULSE 88; RESP 18; TEMP 36.9; O2SAT 96
[2021-01-07] MEDS: Normal Saline Flush 10 ML SYR IVP (08:48)
[2021-01-07] MEDS: riTUXimab-PVVR 1,000 MG in Normal Saline 150 ML 50 MG IVPB (09:00)
[2021-01-07 09:30] VITALS: BP 120/76; PULSE 80; RESP 16; TEMP 37.1; O2SAT 94
[2021-01-07 10:00] VITALS: BP 113/69; PULSE 82; RESP 17; TEMP 36.7; O2SAT 94
[2021-01-07 10:30] VITALS: BP 125/76; PULSE 82; RESP 17; TEMP 36.8; O2SAT 95
[2021-01-07 11:00] VITALS: BP 122/82; PULSE 104; RESP 16; TEMP 37.2; O2SAT 95
== END 2021-02-06 23:59 | disposition home or self-care (01) ==
LOC: INF 02:54
PROVIDERS: PCP Family Medicine; Visit Provider Family Medicine
DX: M06.9 Rheumatoid arthritis, unspecified (principal)
CPT/HCPCS: 96365; 96366; 96413; 96415; Q5119

== ENCOUNTER 2021-05-07 12:19 | Outpatient (REF) | payer OTHER, SELFPAY ==
[2021-05-08 01:24] LABS: COVID-19 RT-PCR UVMMC Result Negative (Negative)
== END 2021-05-07 12:20 | disposition home or self-care (01) ==
LOC: LBN 12:19
PROVIDERS: PCP Family Medicine; Visit Provider Family Medicine
DX: Z20.822 Contact with and (suspected) exposure to COVID-19 (principal); Z01.812 Encounter for preprocedural laboratory examination
CPT/HCPCS: 87635; U0003

== ENCOUNTER 2021-06-28 01:43 | Outpatient (RCR) | payer OTHER, SELFPAY ==
[2021-06-14] VITALS (9 sets, daily range): BP systolic 94–117; BP diastolic 60–80; PULSE 74–94; RESP 16; TEMP 35.9–36.4; O2SAT 97–100
[2021-06-14] MEDS: Normal Saline Flush 10 ML SYR IVP (08:37)
[2021-06-14] MEDS: riTUXimab-PVVR 1,000 MG in Normal Saline 150 ML 12.5 MG IVPB (08:37)
[2021-06-28] MEDS: methylPREDNISolone SUCC 125 MG VIAL 100 MG IVP (08:28)
[2021-06-28 08:35] VITALS: BP 130/79; PULSE 77; RESP 16; TEMP 36.5; O2SAT 95
[2021-06-28] MEDS: riTUXimab-PVVR 1,000 MG in Normal Saline 150 ML 100 MG IVPB (08:37)
[2021-06-28] MEDS: Normal Saline Flush 10 ML SYR IVP (08:38)
[2021-06-28 09:05] VITALS: BP 110/69; PULSE 70; RESP 16; TEMP 36.3; O2SAT 97
[2021-06-28 09:35] VITALS: BP 110/66; PULSE 75; RESP 18; TEMP 36.2; O2SAT 99
[2021-06-28 10:05] VITALS: BP 113/69; PULSE 75; RESP 16; TEMP 36.1; O2SAT 99
[2021-06-28 10:40] VITALS: BP 112/72; PULSE 84; RESP 17; TEMP 36.4; O2SAT 99
[2021-06-28 11:20] VITALS: BP 131/75; PULSE 86; RESP 16; TEMP 36.7; O2SAT 99
== END 2021-07-07 23:59 | disposition home or self-care (01) ==
LOC: INF 01:43
PROVIDERS: PCP Family Medicine; Visit Provider Family Medicine
DX: M06.9 Rheumatoid arthritis, unspecified (principal)
CPT/HCPCS: 96365; 96366; 96413; 96415; J2930; Q5119

== ENCOUNTER 2021-08-16 13:59 | Outpatient (CLI) | payer OTHER, SELFPAY ==
[2021-08-16 14:19] LABS: Anion Gap 7.3 mmol/L (3-11); BUN 14 mg/dL (7-18); CO2 32.7 mmol/L (21.0-32.0); CREATININE 0.9 mg/dL (0.55-1.02); Calcium 8.7 mg/dL (8.5-10.1); Chloride 104 mmol/L (98-107); Glucose 106 mg/dL (74-106); Potassium 3.5 mmol/L (3.5-5.1); Sodium 144 mmol/L (136-145)
== END 2021-08-16 14:00 | disposition home or self-care (01) ==
LOC: LBO 14:01
PROVIDERS: PCP Family Medicine; Visit Provider Family Medicine
DX: U07.1 COVID-19 (principal)
CPT/HCPCS: 36415; 80048

== ENCOUNTER 2021-09-02 09:24 | Outpatient (CLI) | payer OTHER, SELFPAY ==
--- NOTE | 2021-09-02 08:30 | DI.RAD_ITS ---
Exam(s) XR HIP RT AP LAT ONLY EXAM: XR HIP RT AP LAT ONLY INDICATION: f/u revision R KENNEDY. COMPARISON: CR XR HIP RT COMPLETE AP PELVIS from 09/17/2020 TECHNIQUE: 2D digital imaging was performed. Two views. FINDINGS: There has been no change in the right hip prosthesis or appearance of the surrounding bone. DATA REPOSITORY: RADIATION DOSE DELIVERED:
== END 2021-09-02 09:25 | disposition home or self-care (01) ==
LOC: DIORS 09:24
PROVIDERS: PCP Family Medicine; Referring Provider Family Medicine; Visit Provider Student in an Organized Health Care Education/Training Program
DX: Z96.641 Presence of right artificial hip joint (principal); Z47.1 Aftercare following joint replacement surgery
CPT/HCPCS: 73502

== ENCOUNTER 2021-09-27 11:25 | Emergency (ER) | payer OTHER, SELFPAY ==
--- NOTE | 2021-09-27 11:15 | RT.EKG_ITS ---
APPROVED REPORT Exam: Resting ECG Reason for Exam: chest pressure Patient Location: E HR:81 bpm ECG Measurements Heart Rate 81 AXIS WV 146 P 57 QRSd 89 QRS 50 QT 368 T 50 QTc 428 Conclusion Sinus rhythm...normal P axis, V-rate 60- 99. Sinus. Normal axis. No STEMI. I have reviewed and interpreted ECG and agree with software generated interpretation.
[2021-09-27 11:31] VITALS: BP 113/77; PULSE 92; RESP 20; TEMP 36.5; O2SAT 94
[2021-09-27 11:36] VITALS: RESP 20
--- NOTE | 2021-09-27 12:34 | W.ED.GENAD ---
Discharge Plan Disposition Patient Disposition: HOME Condition: Stable Discharge Details Clinical Impression: Community acquired pneumonia, bilateral Primary Care Provider: Kim Mandel ED Provider: Robbie Dey Home Meds and New Rx's Prescriptions: New doxycycline hyclate 100 mg capsule 100 mg PO BID Qty: 20 0RF Continued aspirin 81 mg tablet,delayed release (DR/EC) 81 mg PO .3 time week Qty: 60 0RF nitroglycerin 0.4 mg tablet, sublingual 0.4 mg SL Q5M PRN (Reason: chest pain) Qty: 25 6RF Rx Instructions: do not exceed 3 doses per episode albuterol sulfate 5 MG/1 ML solution 2.5 mg Inhalation QID PRN cholecalciferol (vitamin D3) 25 mcg (1,000 unit) tablet 2,000 unit PO DAILY doxycycline monohydrate 100 mg tablet 100 mg PO BID Qty: 10 0RF cyclobenzaprine 10 mg tablet 10 mg PO HS PRN (Reason: muscle spasm) Qty: 30 4RF duloxetine 60 mg capsule,delayed release(DR/EC) 60 mg PO DAILY Qty: 90 11RF escitalopram oxalate 10 mg tablet 10 mg PO DAILY Qty: 90 4RF sulfamethoxazole-trimethoprim 800-160 mg tablet 1 tab PO BID Qty: 14 0RF diltiazem HCl 120 mg capsule,extended release 24 hr 120 mg PO DAILY Qty: 90 4RF albuterol sulfate [ProAir HFA] 90 mcg/actuation HFA aerosol inhaler 2 puff inhalation Q6H PRN (Reason: shortness of breath or wheezing) Qty: 25.5 3RF celecoxib [Celebrex] 200 mg capsule 200 mg PO BID Qty: 180 4RF estradiol 0.01 % (0.1 mg/gram) cream 1 g vaginal .twice weekly Qty: 127.5 5RF Advair HFA 230-21 mcg/actuation HFA aerosol inhaler 2 puff Inhalation BID PRN (Reason: asthma) Qty: 12 11RF Rx Instructions: dispense 3 canisters folic acid 1 mg tablet 2 mg PO DAILY Qty: 180 12RF methotrexate sodium 2.5 mg tablet 7.5 mg PO qWEEK Qty: 36 5RF montelukast 10 mg tablet 10 mg PO QPM Qty: 90 4RF mupirocin 2 % ointment 1 applic TP BID Qty: 30 4RF prednisone 20 mg tablet 40 mg PO .COMPLEX Qty: 10 4RF Rx Instructions: 40 mg PO daily prior to infusion; for premedication prior to infusion omeprazole 20 mg capsule,delayed release(DR/EC) 20 mg PO DAILY PRN (Reason: heartburn) Qty: 90 4RF triamcinolone acetonide 0.1 % cream 1 applic topical BID Qty: 453.6 3RF Rx Instructions: apply to affected area acyclovir [Zovirax] 5 % cream 1 applic TP DAILY PRN Qty: 15 4RF acyclovir 800 mg tablet 800 mg PO TID PRN (Reason: herpes) Qty: 90 5RF prednisone 5 mg tablet 5 mg PO DAILY Qty: 90 4RF methylphenidate HCl 10 mg tablet See Rx Instructions PO TID MDD 4 Qty: 120 0RF Dose Instruction: 2 tabs am; 1 tab noon and 4 pm PO TID; 2 tabs am; 1 tab noon and 4 pm Rx Instructions: 2 tabs am; 1 tab noon and 4 pm PO TID; 2 tabs am; 1 tab noon and 4 pm rosuvastatin [Crestor] 5 mg tablet 5 mg PO DAILY Qty: 90 12RF Rituxan 10 mg/mL concentrate 1,000 mg IV .q2 weeks Qty: 1 0RF Paxlovid (EUA) 150 mg x 2- 100 mg tablet See Rx Instructions PO PER PKG DIR Qty: 1 0RF Rx Instructions: PO PER PKG DIR docusate sodium [Colace] 100 mg capsule 100 mg PO BID PRNQty: 10 0RF acetaminophen [Acetaminophen Extra Strength] 500 mg tablet 1,000 mg PO Q6H PRNQty: 90 0RF Discharge Instructions Instructions: Pneumonia (ED) Additional Instructions: Work-up in the ER today reveals bilateral infiltrates, greatest in the right upper lobe. Take doxycycline as directed. Rest, plenty of fluids to avoid dehydration, and [id number] Tylenol and other medications for symptomatic control. Please watch for new or worsening symptoms and please have a low threshold to return immediately to the ER. Otherwise I would like you to contact your primary care provider to discuss your ER visit and need for close outpatient follow-up. Stand Alone Forms: Work Release Discharge Data Discharge Date/Time-TO BE ENTERED AT DEPARTURE: 09/27/21 15:31 Medical Decision Making This is a 61-year-old female, past medical history of RA who takes immunosuppressive medications, GERD, hyperlipidemia, had COVID in August 15, presenting to the ER reporting intermittent symptoms ever since, simply not feeling well, fatigue, headache, mild dry cough with shortness of breath and chest pressure, body aches, etc. Clinically she appears well, nontoxic, hemodynamically stable. Given her presentation, will initiate cardiac work-up with a D-dimer, given the duration of her symptoms a single troponin is sufficient for a cardiac rule out. Will provide 1 L IV fluid and once work-up is completed we will provide IV Toradol. Patient did take Tylenol earlier today. Laboratory values reveal a white blood cell count of 3.85 hemoglobin 12.7 hematocrit 41.2 platelet count 397. D-dimer of 1311, we will pursue CTA of the chest. Electrolytes unremarkable, creatinine 0.8 with a GFR greater than 60. Magnesium 2.1 troponin less than 50, BNP 57. Will send a tickborne panel as well. COVID negative. RSV negative. Flu negative. CTA reveals bilateral infiltrates greatest in the right upper lobe. We will now provide IV Toradol and a single dose of p.o. doxycycline. While her pneumonia appears fairly moderate on CT, she appears well, nontoxic, hemodynamically stable, O2 sat is 97% on room air. She is able to speak in full sentences. While I do not believe that she requires admission at this time we discussed the importance of returning to the ER for new or evolving symptoms immediately. Strict discharge and return precautions were provided. Patient understands, is agreeable to this plan, and has no additional questions or concerns upon discharge. This documentation was generated using [employer] system, please disregard any oddities of phrase or misspellings. Medical Records Medical records reviewed: Yes I reviewed the patient's medical records. Imaging Data Radiologic Study: Attestation: I personally reviewed and interpreted this imaging study as follows: Imaging: CT Scan Radiologist's impression: Exam(s) CT CHEST PE CTA EXAM: CT CHEST PE CTA CLINICAL HISTORY: chest pressure, elevated dimer, s/p covid 1 month. TECHNIQUE: Imaging Protocol: Axial CT angiography was performed with multi-slice acquisition and multi-planar reconstructions as well as axial, coronal and sagittal MIP reconstructions. CONTRAST MATERIAL: Intravenous: Omnipaque 350 Contrast volume:100 ml COMPARISON: CT CT ABDOMEN PELVIS W from 01/07/2021 FINDINGS: Pulmonary Arteries: No evidence of filling defect to suggest pulmonary emboli. Tracheobronchial tree: Patent where visualized. Mediastinum and Yeimi: No dominant adenopathy or fluid collection. Pulmonary parenchyma: Bilateral infiltrates, greatest in the right upper lobe. No dominant measurable mass. Pleura: No effusion or pneumothorax. Heart: The heart is not dilated. No coronary artery calcifications are seen. Aorta: Maximal diameter 4 cm proximally.. No dissection. Upper abdomen: Unremarkable. Bones: Severe degenerative changes left shoulder. Degenerative changes in the spine. IMPRESSION: Bilateral infiltrates greatest in the right upper lobe. No evidence of pulmonary embolism. Results of this exam have been verbally communicated with emergency department provider. Lab Data Lab results reviewed: Yes I reviewed the patient's lab results. Labs: Laboratory Tests Range/Units 09/27/21 09/27/21 09/27/21 12:35 12:35 12:35 WBC (4.4-10.8) 10^3/uL RBC (3.93-5.22) 10^6/uL Hgb (11.2-15.7) g/dL Hct (36.0-46.0) % MCV (80-95) fL MCH (27.0-33.0) pg MCHC (32.0-36.0) % RDW (11.7-14.6) % Plt Count (130-400) 10^3/uL MPV (8.0-11.0) fL Immature Gran % Neutrophils % Lymphocytes % Monocytes % Eosinophils % Basophils % Nucleated RBC % (0.0-0.3) % Absolute Neutrophils (1.2-6.7) 10^3/uL Absolute Lymphocytes (1.2-3.4) 10^3/uL Absolute Monocytes (0.1-0.8) 10^3/uL Absolute Eosinophils (0.0-0.7) 10^3/uL Absolute Basophils (0.0-0.2) 10^3/uL PT (9.3-11.0) sec 9.9 INR (0.9-1.1) 1.0 APTT (21.0-27.5) sec 26.9 D-Dimer (<500) ng/mlFEU 1311 H Sodium (136-145) mmol/L 137 Potassium (3.5-5.1) mmol/L 3.8 Chloride (98-107) mmol/L 100 Carbon Dioxide (21.0-32.0) mmol/L 29.3 Anion Gap (3-11) mmol/L 7.7 BUN (7-18) mg/dL 10 Creatinine (0.55-1.02) mg/dL 0.8 Estimated GFR/1.73 m2 (mL/min/1.73m2) >= 60.00 Glucose (74-106) mg/dL 94 Calcium (8.5-10.1) mg/dL 9.3 Magnesium (1.8-2.4) mg/dL 2.1 Total Bilirubin (0.2-1.0) mg/dL 0.2 AST (15-37) U/L 28 ALT (14-59) U/L 24 Alkaline Phosphatase (46-116) U/L 89 Troponin I (<or=60) ng/L < 50 NT-Pro-B Natriuret Pep (<300) pg/mL 57 Total Protein (6.4-8.2) g/dL 6.8 Albumin (3.4-5.0) g/dL 3.3 L Urine Color Urine Clarity Urine pH Ur Specific Dugger Urine Protein Urine Ketones Urine Blood Urine Nitrite Urine Bilirubin Urine Urobilinogen Ur Leukocyte Esterase Urine Glucose COVID-19 Source SARS-CoV-2 (PCR) (Negative) Influenza Type A (PCR) (Negative) Influenza Type B (PCR) (Negative) RSV (PCR) (Negative) Range/Units 09/27/21 09/27/21 09/27/21 12:35 12:35 14:57 WBC (4.4-10.8) 10^3/uL 3.85 L RBC (3.93-5.22) 10^6/uL 4.74 Hgb (11.2-15.7) g/dL 12.7 Hct (36.0-46.0) % 41.2 MCV (80-95) fL 87 MCH (27.0-33.0) pg 26.8 L MCHC (32.0-36.0) % 30.8 L RDW (11.7-14.6) % 14.5 Plt Count (130-400) 10^3/uL 397 MPV (8.0-11.0) fL 8.2 Immature Gran % 0.8 Neutrophils % 56.1 Lymphocytes % 21.6 Monocytes % 17.9 Eosinophils % 3.1 Basophils % 0.5 Nucleated RBC % (0.0-0.3) % 0.0 Absolute Neutrophils (1.2-6.7) 10^3/uL 2.16 Absolute Lymphocytes (1.2-3.4) 10^3/uL 0.83 L Absolute Monocytes (0.1-0.8) 10^3/uL 0.69 Absolute Eosinophils (0.0-0.7) 10^3/uL 0.12 Absolute Basophils (0.0-0.2) 10^3/uL 0.02 PT (9.3-11.0) sec INR (0.9-1.1) APTT (21.0-27.5) sec D-Dimer (<500) ng/mlFEU Sodium (136-145) mmol/L Potassium (3.5-5.1) mmol/L Chloride (98-107) mmol/L Carbon Dioxide (21.0-32.0) mmol/L Anion Gap (3-11) mmol/L BUN (7-18) mg/dL Creatinine (0.55-1.02) mg/dL Estimated GFR/1.73 m2 (mL/min/1.73m2) Glucose (74-106) mg/dL Calcium (8.5-10.1) mg/dL Magnesium (1.8-2.4) mg/dL Total Bilirubin (0.2-1.0) mg/dL AST (15-37) U/L ALT (14-59) U/L Alkaline Phosphatase (46-116) U/L Troponin I (<or=60) ng/L NT-Pro-B Natriuret Pep (<300) pg/mL Total Protein (6.4-8.2) g/dL Albumin (3.4-5.0) g/dL Urine Color Cancelled Urine Clarity Cancelled Urine pH Cancelled Ur Specific Dugger Cancelled Urine Protein Cancelled Urine Ketones Cancelled Urine Blood Cancelled Urine Nitrite Cancelled Urine Bilirubin Cancelled Urine Urobilinogen Cancelled Ur Leukocyte Esterase Cancelled Urine Glucose Cancelled COVID-19 Source Not Applicable SARS-CoV-2 (PCR) (Negative) Negative Influenza Type A (PCR) (Negative) Negative Influenza Type B (PCR) (Negative) Negative RSV (PCR) (Negative) Negative Range/Units 09/27/21 15:25 WBC (4.4-10.8) 10^3/uL RBC (3.93-5.22) 10^6/uL Hgb (11.2-15.7) g/dL Hct (36.0-46.0) % MCV (80-95) fL MCH (27.0-33.0) pg MCHC (32.0-36.0) % RDW (11.7-14.6) % Plt Count (130-400) 10^3/uL MPV (8.0-11.0) fL Immature Gran % Neutrophils % Lymphocytes % Monocytes % Eosinophils % Basophils % Nucleated RBC % (0.0-0.3) % Absolute Neutrophils (1.2-6.7) 10^3/uL Absolute Lymphocytes (1.2-3.4) 10^3/uL Absolute Monocytes (0.1-0.8) 10^3/uL Absolute Eosinophils (0.0-0.7) 10^3/uL Absolute Basophils (0.0-0.2) 10^3/uL PT (9.3-11.0) sec INR (0.9-1.1) APTT (21.0-27.5) sec D-Dimer (<500) ng/mlFEU Sodium (136-145) mmol/L Potassium (3.5-5.1) mmol/L Chloride (98-107) mmol/L Carbon Dioxide (21.0-32.0) mmol/L Anion Gap (3-11) mmol/L BUN (7-18) mg/dL Creatinine (0.55-1.02) mg/dL Estimated GFR/1.73 m2 (mL/min/1.73m2) Glucose (74-106) mg/dL Calcium (8.5-10.1) mg/dL Magnesium (1.8-2.4) mg/dL Total Bilirubin (0.2-1.0) mg/dL AST (15-37) U/L ALT (14-59) U/L Alkaline Phosphatase (46-116) U/L Troponin I (<or=60) ng/L Cancelled NT-Pro-B Natriuret Pep (<300) pg/mL Total Protein (6.4-8.2) g/dL Albumin (3.4-5.0) g/dL Urine Color Urine Clarity Urine pH Ur Specific Dugger Urine Protein Urine Ketones Urine Blood Urine Nitrite Urine Bilirubin Urine Urobilinogen Ur Leukocyte Esterase Urine Glucose COVID-19 Source SARS-CoV-2 (PCR) (Negative) Influenza Type A (PCR) (Negative) Influenza Type B (PCR) (Negative) RSV (PCR) (Negative) HPI General Mode of arrival: ambulatory. Date/Time Provider Initiated Documentation: 09/27/21 12:03. Limitations to Documentation: no limitations. Information obtained by: patient and family. HPI Narrative: This is a 61-year-old female, past medical history that includes hyperlipidemia, pulmonary hypertension, GERD, RA, on immunosuppressive medications, COVID-19 on August 15, took Paxlovid, but since that time intermittently has not felt well, reports dry cough, body aches, dyspnea, diffuse anterior chest pressure, headaches, simply not feeling well, this episode at least a few days. Reports general fatigue. She did take [id number] Tylenol earlier today. She denies any visual changes, fever, neck pain, productive cough, abdominal pain, nausea, vomiting, numbness, tingling, weakness, change in bowel or bladder function. Patient denies concern for dehydration. Related Data Home Medications Medication Instructions Recorded Confirmed albuterol sulfate 5 mg/mL(0.5 %) 2.5 mg inhalation QID PRN 01/26/16 09/27/21 solution for nebulization cholecalciferol (vitamin D3) 25 2,000 unit PO DAILY 12/08/19 09/27/21 mcg (1,000 unit) tablet nitroglycerin 0.4 mg sublingual 0.4 mg sublingual Q5M PRN chest 12/08/19 09/27/21 tablet pain #25 tabs acetaminophen 500 mg tablet 1,000 mg PO Q6H PRN #90 tab-caps 09/02/20 09/27/21 (Acetaminophen Extra Strength) docusate sodium 100 mg capsule 100 mg PO BID PRN #10 caps 09/02/20 09/27/21 (Colace) aspirin 81 mg tablet,delayed 81 mg PO .3 time week #60 tabs 12/23/20 09/27/21 release doxycycline monohydrate 100 mg 100 mg PO BID #10 tabs 01/25/21 09/27/21 tablet cyclobenzaprine 10 mg tablet 10 mg PO HS PRN muscle spasm #30 03/22/21 09/27/21 tabs duloxetine 60 mg capsule,delayed 60 mg PO DAILY #90 tab-caps 04/11/21 09/27/21 release escitalopram oxalate 10 mg tablet 10 mg PO DAILY #90 tabs 04/11/21 09/27/21 sulfamethoxazole 800 1 tab PO BID #14 tabs 05/19/21 09/27/21 mg-trimethoprim 160 mg tablet acyclovir 5 % topical cream 1 applic topical DAILY PRN #15 06/22/21 09/27/21 (Zovirax) grams acyclovir 800 mg tablet 800 mg PO TID PRN herpes #90 tabs 06/22/21 09/27/21 albuterol sulfate 90 mcg/actuation 2 puff inhalation Q6H PRN 06/22/21 09/27/21 aerosol inhaler (ProAir HFA) shortness of breath or wheezing #25.5 grams celecoxib 200 mg capsule (Celebrex) 200 mg PO BID #180 caps 06/22/21 09/27/21 diltiazem HCl 120 mg capsule,24 120 mg PO DAILY #90 caps 06/22/21 09/27/21 hr,extended release estradiol 0.01% (0.1 mg/gram) 1 g vaginal .twice weekly #127.5 06/22/21 09/27/21 vaginal cream grams fluticasone propionate 230 2 puff inhalation BID PRN asthma 06/22/21 09/27/21 mcg-salmeterol 21 mcg/actuation #12 grams HFA inhaler (Advair HFA) folic acid 1 mg tablet 2 mg PO DAILY #180 tab-caps 06/22/21 09/27/21 methotrexate sodium 2.5 mg tablet 7.5 mg PO qWEEK #36 tabs 06/22/21 09/27/21 methylphenidate HCl 10 mg tablet See Rx Instructions PO TID #120 06/22/21 09/27/21 tab-caps montelukast 10 mg tablet 10 mg PO QPM #90 tabs 06/22/21 09/27/21 mupirocin 2 % topical ointment 1 applic topical BID #30 grams 06/22/21 09/27/21 omeprazole 20 mg capsule,delayed 20 mg PO DAILY PRN heartburn #90 06/22/21 09/27/21 release caps prednisone 20 mg tablet 40 mg PO .COMPLEX #10 tabs 06/22/21 09/27/21 prednisone 5 mg tablet 5 mg PO DAILY #90 tabs 06/22/21 09/27/21 triamcinolone acetonide 0.1 % 1 applic topical BID #453.6 grams 06/22/21 09/27/21 topical cream rosuvastatin 5 mg tablet (Crestor) 5 mg PO DAILY #90 tab-caps 07/18/21 09/27/21 nirmatrelvir 300 mg (150 mg x See Rx Instructions PO PER PKG DIR 08/15/21 09/27/21 2)-ritonavir 100 mg tablet (EUA) #1 pkg (Paxlovid 300 mg () rituximab 10 mg/mL 1,000 mg (100 mL) IV .q2 weeks #1 08/15/21 09/27/21 concentrate,intravenous (Rituxan) vial doxycycline hyclate 100 mg capsule 100 mg PO BID #20 caps 09/27/21 Previous Rx's Medication Instructions Recorded nitroglycerin 0.4 mg sublingual 0.4 mg sublingual Q5M PRN chest 12/08/19 tablet pain #25 tabs acetaminophen 500 mg tablet 1,000 mg PO Q6H PRN #90 tab-caps 09/02/20 (Acetaminophen Extra Strength) docusate sodium 100 mg capsule 100 mg PO BID PRN #10 caps 09/02/20 (Colace) aspirin 81 mg tablet,delayed 81 mg PO .3 time week #60 tabs 12/23/20 release doxycycline monohydrate 100 mg 100 mg PO BID #10 tabs 01/25/21 tablet cyclobenzaprine 10 mg tablet 10 mg PO HS PRN muscle spasm #30 03/22/21 tabs duloxetine 60 mg capsule,delayed 60 mg PO DAILY #90 tab-caps 04/11/21 release escitalopram oxalate 10 mg tablet 10 mg PO DAILY #90 tabs 04/11/21 sulfamethoxazole 800 1 tab PO BID #14 tabs 05/19/21 mg-trimethoprim 160 mg tablet acyclovir 5 % topical cream 1 applic topical DAILY PRN #15 06/22/21 (Zovirax) grams acyclovir 800 mg tablet 800 mg PO TID PRN herpes #90 tabs 06/22/21 albuterol sulfate 90 mcg/actuation 2 puff inhalation Q6H PRN 06/22/21 aerosol inhaler (ProAir HFA) shortness of breath or wheezing #25.5 grams celecoxib 200 mg capsule (Celebrex) 200 mg PO BID #180 caps 06/22/21 diltiazem HCl 120 mg capsule,24 120 mg PO DAILY #90 caps 06/22/21 hr,extended release estradiol 0.01% (0.1 mg/gram) 1 g vaginal .twice weekly #127.5 06/22/21 vaginal cream grams fluticasone propionate 230 2 puff inhalation BID PRN asthma 06/22/21 mcg-salmeterol 21 mcg/actuation #12 grams HFA inhaler (Advair HFA) folic acid 1 mg tablet 2 mg PO DAILY #180 tab-caps 06/22/21 methotrexate sodium 2.5 mg tablet 7.5 mg PO qWEEK #36 tabs 06/22/21 methylphenidate HCl 10 mg tablet See Rx Instructions PO TID #120 06/22/21 tab-caps montelukast 10 mg tablet 10 mg PO QPM #90 tabs 06/22/21 mupirocin 2 % topical ointment 1 applic topical BID #30 grams 06/22/21 omeprazole 20 mg capsule,delayed 20 mg PO DAILY PRN heartburn #90 06/22/21 release caps prednisone 20 mg tablet 40 mg PO .COMPLEX #10 tabs 06/22/21 prednisone 5 mg tablet 5 mg PO DAILY #90 tabs 06/22/21 triamcinolone acetonide 0.1 % 1 applic topical BID #453.6 grams 06/22/21 topical cream rosuvastatin 5 mg tablet (Crestor) 5 mg PO DAILY #90 tab-caps 07/18/21 nirmatrelvir 300 mg (150 mg x See Rx Instructions PO PER PKG DIR 08/15/21 2)-ritonavir 100 mg tablet (EUA) #1 pkg (Paxlovid 300 mg () rituximab 10 mg/mL 1,000 mg (100 mL) IV .q2 weeks #1 08/15/21 concentrate,intravenous (Rituxan) vial doxycycline hyclate 100 mg capsule 100 mg PO BID #20 caps 09/27/21 Allergies Allergy/AdvReac Type Severity Reaction Status Date / Time gabapentin AdvReac Severe Psychosis Verified 09/27/21 11:35 codeine AdvReac Mild Nausea Verified 09/27/21 11:35 General Stated Complaint: SOB WILMAN: 3 Review of Systems Constitutional Constitutional: Reports fatigue, Denies fever(s), Reports headache(s) and Denies weakness ENT Ears, Nose, Mouth, and Throat: Reports headache(s) and Denies neck pain Cardiovascular Cardiovascular: Reports chest pain (Described as pressure) and Reports dyspnea Respiratory Respiratory: Reports cough, Reports dyspnea and Denies wheezing Gastrointestinal Gastrointestinal: Denies abdominal pain, Denies nausea and Denies vomiting Genitourinary Genitourinary: Denies dysuria Musculoskeletal Musculoskeletal: Reports myalgias and Denies neck pain Integumentary/Breasts Skin/Breast: Denies rash Neurologic Neurologic: Reports headache(s) and Denies weakness Endocrine Endocrine: Reports fatigue Allergic/Immunologic Allergic/Immunologic: Denies wheezing PFSH All Active Problems (Updated 09/27/21 @ 15:16 by LANDON Gilliam) Community acquired pneumonia, bilateral (Acute) COVID-19 (Acute) Low back pain (Acute) History of revision of total replacement of right hip joint (Acute 09/01/20) Acetabular component Rectal prolapse (Acute) Recto-vaginal fistula (Acute) Annual physical exam (Acute 02/27/17) Seasonal affective disorder (Acute) Primary osteoarthritis of right knee (Acute 10/04/16) Herpes (Acute) Fatigue (Acute) Left shoulder pain (Acute) On prednisone therapy (Acute) Anosmia (Acute) 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) Rectocele (Acute) Dislocation of internal right hip prosthesis (Acute) Contusion of hip, right (Acute) Strain of right knee (Acute) Mechanical instability of hip prosthesis (Acute) s/p acetabular revision with dual mobility liner (09/01/20) History of total right hip replacement (Acute 02/21/19) Rheumatoid arthritis (Chronic) Pulmonary hypertension, high resistance (Chronic 04/01/17) PAP 37 03/25 Paresthesia (Chronic) Osteopenia (Chronic) Insomnia (Chronic) Hyperlipidemia (Chronic) Hormone replacement therapy (HRT) (Chronic) GERD (gastroesophageal reflux disease) (Chronic) Family history of early CAD (Chronic 04/17/16) Cough (Chronic) Bone spur of toe (Chronic 02/27/17) Trismus (Chronic) Medical History Articular fracture of head of femur Chest pain Per pt. 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 Pre-op exam Stress fracture Surgical History Abdominal hysterectomy (~1987) Appendectomy (~1977) RUPTURED Bilateral salpingectomy with oophorectomy (~1987) Bunionectomy (~2006) Right History of appendectomy History of discectomy History of orthopedic surgery Injection 03/03/15, 12/2015 Synvisc/Depomedrol in the right knee L5-S1 Discectomy (~2001) Lysis of adhesions Multiple surgeries, abdominal Repair, ACL (~10/2011) Replacement of total knee joint 08/23 [facility] (R) Rotator Cuff Repair (~2003) Left Status post abdominal hysterectomy Status post bunionectomy Status post repair of anterior cruciate ligament Status post rotator cuff repair Family History Mother Essential hypertension Depression Heart disease Hyperlipidemia Stroke Father , BRAIN BLEED at age 84. RA (rheumatoid arthritis) Essential hypertension CAD (coronary artery disease) Heart disease Hyperlipidemia Myocardial infarction Parkinson disease Sister Multiple personality disorder Substance abuse Essential hypertension Bipolar disorder Depression Heart disease Hyperlipidemia OA (osteoarthritis) RA (rheumatoid arthritis) Brother Essential hypertension CAD (coronary artery disease) Heart disease Hyperlipidemia Myocardial infarction ANGIOPLASTY/STENTS Brother RA (rheumatoid arthritis) Hypertension Hyperlipidemia Maternal Grandfather , 84 Essential hypertension Heart disease Hyperlipidemia Dementia Paternal Grandfather Dementia Leukemia Heart disease Maternal Grandmother , 72 Neoplasm BREAST W/METS Breast cancer with mets Paternal Grandmother , 74 Essential hypertension Heart disease [place] Hyperlipidemia Son Depression Substance abuse Social History Smoking/Tobacco Use Status: Former Tobacco Use tobacco type: cigarettes Tobacco: How many years used: 16 Second Hand Exposure: Yes Smoking risk assessment performed?: Yes Alcohol Intake: current Alcohol Intake frequency: a few times a week Alcohol type: wine and hard liquor Drug use: Never Substance use type: does not use Caregiver/Support person: No Household members: spouse and children Communication Needs: None Do you need help understanding health information?: Rarely Pets and animals: No Sexually active: No Do you think of yourself as: straight/heterosexual Current gender identity: female What is your relationship status?: How often do you talk on the phone with friends or family?: three or more times per week How often do you attend mu-ism or spiritism services?: 4 or more times per year Do you belong to any clubs or organized social groups?: no Panel score (0-1 are the most socially isolated patients): 3 Jessica/Congregational: Shinto Special jessica needs: No Seatbelt use: always Helmet use: Yes Helmet use: always Drive intox or ride w/intox frontload driver: No Do you feel safe at home: Yes Do you feel safe in your relationship?: Yes Exam Const General: cooperative, healthy appearing, comfortable and no acute distress Orientation: alert, awake and oriented x3 HENMT Head: normal to inspection, normocephalic and atraumatic Ears: external ears normal, TM's normal bilaterally and TM normal on the left Face and sinus: normal facial exam Mouth: moist mucous membranes Throat: posterior oropharynx normal Eyes General: appearance normal, both eyes and all related structures Conjunctivae: conjunctivae normal Neck Neck: normal visual inspection, full ROM, trachea midline and supple Resp Effort & Inspection: normal respiratory effort and able to speak in complete sentences Auscultation: diminished lung sounds bilaterally in the lower lung flores Cardio Rate: regular rate Rhythm: regular rhythm GI Palpation: soft, not firm, no guarding, no pulsatile masses and nontender Auscultation: normal bowel sounds Back/Spine/Pelvis Back: no CVA tenderness and No back tenderness Skin General skin exam: no rashes or lesions noted Neuro General: patient alert, patient awake, patient oriented x3, moves all extremities and no focal motor deficits Cognition: normal cognition Speech: speech normal Gait: normal gait Motor: muscle tone normal throughout Sensory Exam: no sensory deficits noted Extrem General: normal to inspection, full ROM, capillary refill normal, no pedal edema and no calf tenderness Psych Appearance: grossly normal Mental Status: mental status grossly normal Course Vital Signs Vital signs: Vital Signs Temperature 36.5 C 09/27/21 11:31 Pulse 92 H 09/27/21 11:31 Respiratory Rate 20 09/27/21 11:31 Blood Pressure 113/77 09/27/21 11:31 Pulse Oximetry 94 09/27/21 11:31 Temperature 36.5 C 09/27/21 11:31 Temperature Source Temporal Artery Scan 09/27/21 11:31 Pulse 92 H 09/27/21 11:31 Respiratory Rate 20 09/27/21 11:36 Respiratory Effort 09/27/21 11:36 Respiratory Depth Normal 09/27/21 11:36 Respiratory Pattern Normal 09/27/21 11:36 Blood Pressure 113/77 09/27/21 11:31 Blood Pressure Position Sitting 09/27/21 11:31 Pulse Oximetry 94 09/27/21 11:31 Oxygen Delivery Method Room Air 09/27/21 11:31 Oxygen Flow Rate 0 09/27/21 11:31 Pain Level 10 09/27/21 11:31
[2021-09-27] MEDS: Normal Saline 1,000 ML 1000 ML IV (12:48)
[2021-09-27 12:53] LABS: Abs Immature Grans 0.03 10^3/uL (0.0-0.06); Absolute Basophil Count 0.02 10^3/uL (0.0-0.2); Absolute Eosinophil Count 0.12 10^3/uL (0.0-0.7); Absolute Lymphocyte Count 0.83 10^3/uL (1.2-3.4); Absolute Monocyte Count 0.69 10^3/uL (0.1-0.8); Absolute Neutrophil Count 2.16 10^3/uL (1.2-6.7); Basophils % 0.5; Eosinophils % 3.1; HCT 41.2 % (36.0-46.0); HGB 12.7 g/dL (11.2-15.7); Immature Grans % 0.8; Lymphocytes % 21.6; MCH 26.8 pg (27.0-33.0); MCHC 30.8 % (32.0-36.0); MCV 87 fL (80-95); MPV 8.2 fL (8.0-11.0); Monocytes % 17.9; Neutrophils % 56.1; Platelet Count 397 10^3/uL (130-400); RBC 4.74 10^6/uL (3.93-5.22); RDW 14.5 % (11.7-14.6); RDW-SD 46.4 fL; WBC 3.85 10^3/uL (4.4-10.8)
[2021-09-27 13:12] LABS: ALT 24 U/L (14-59); AST 28 U/L (15-37); Albumin 3.3 g/dL (3.4-5.0); Alkaline Phosphatase 89 U/L (46-116); Anion Gap 7.7 mmol/L (3-11); BUN 10 mg/dL (7-18); Bilirubin, Total 0.2 mg/dL (0.2-1.0); CO2 29.3 mmol/L (21.0-32.0); CREATININE 0.8 mg/dL (0.55-1.02); Calcium 9.3 mg/dL (8.5-10.1); Chloride 100 mmol/L (98-107); Glucose 94 mg/dL (74-106); Magnesium 2.1 mg/dL (1.8-2.4); Potassium 3.8 mmol/L (3.5-5.1); Sodium 137 mmol/L (136-145); Total Protein 6.8 g/dL (6.4-8.2); Troponin I < 50 ng/L (<or=60)
[2021-09-27 13:18] LABS: NT-proBNP 57 pg/mL (<300); PTT Activated 26.9 sec (21.0-27.5); Prothrombin Time 9.9 sec (9.3-11.0)
[2021-09-27 13:25] LABS: COVID-19 PCR Negative (Negative); Influenza A PCR Negative (Negative); Influenza B PCR Negative (Negative); RSV PCR Negative (Negative)
--- NOTE | 2021-09-27 13:30 | DI.CT_ITS ---
Exam(s) CT CHEST PE CTA EXAM: CT CHEST PE CTA CLINICAL HISTORY: chest pressure, elevated dimer, s/p covid 1 month. TECHNIQUE: Imaging Protocol: Axial CT angiography was performed with multi-slice acquisition and mu lti-planar reconstructions as well as axial, coronal and sagittal MIP reconstructions. CONTRAST MATERIAL: Intravenous: Omnipaque 350 Contrast volume:100 ml COMPARISON: CT CT ABDOMEN PELVIS W from 01/07/2021 FINDINGS: Pulmonary Arteries: No evidence of filling defect to suggest pulmonary emboli. Tracheobronchial tree: Patent where visualized. Mediastinum and Yeimi: No dominant adenopathy or fluid collection. Pulmonary parenchyma: Bilateral infiltrates, greatest in the right upper lobe. No dominant measurabl e mass. Pleura: No effusion or pneumothorax. Heart: The heart is not dilated. No coronary artery calcifications are seen. Aorta: Maximal diameter 4 cm proximally.. No dissection. Upper abdomen: Unremarkable. Bones: Severe degenerative changes left shoulder. Degenerative changes in the spine. IMPRESSION: Bilateral infiltrates greatest in the right upper lobe. No evidence of pulmonary embolism. Results of this exam have been verbally communicated with emergency department provider. RADIATION DOSE DELIVERED: 308.07mGy.cm Total DLP DATA REPOSITORY: All CT scans at this facility are submitted to the National Radiology Data Registry (NRDR) Dose Index Registry (DIR) with the [employer] (ACR). RADIATION OPTIMIZATION: All CT scans at this facility use at least one of these dose optimization te chniques: automated exposure control; mA and/or kV adjustment per patient size (includes targeted exa ms where dose is matched to clinical indication); or iterative reconstruction.
[2021-09-27 13:33] LABS: D-Dimer 1311 ng/mlFEU (<500)
[2021-09-27] MEDS: Normal Saline Flush 10 ML SYR IVP (14:40)
[2021-09-27] MEDS: Omnipaque 350 MG/ML 100 ML BTL 99 ML IJ (14:40)
[2021-09-27] MEDS: Doxycycline Hyclate 100 MG CAP PO (15:08)
[2021-09-27] MEDS: Ketorolac 30 MG/ML VIAL IVP (15:11)
[2021-09-27 15:28] VITALS: BP 128/80; PULSE 72; RESP 18; TEMP 36.8; O2SAT 97
[2021-09-28 10:57] LABS: Lyme Ab w Rflx to Lyme Confirm Negative (Negative)
[2021-09-29 13:10] LABS: Anaplasma phagocytophilum Negative (Negative); B. miyamotoi PCR Negative (Negative); Babesia divergens/MO-1 Negative (Negative); Babesia duncani Negative (Negative); Babesia microti Negative (Negative); Ehrlichia chaffeensis Negative (Negative); Ehrlichia ewingii/canis Negative (Negative); Ehrlichia muris eauclairensis Negative (Negative)
== END 2021-09-27 15:31 | disposition home or self-care (01) ==
PROVIDERS: Emergency Provider Physician Assistant; PCP Family Medicine
DX: J18.9 Pneumonia, unspecified organism (principal); R07.89 Other chest pain; R06.02 Shortness of breath; Z86.16 Personal history of COVID-19; Z20.822 Contact with and (suspected) exposure to COVID-19
CPT/HCPCS: 36415; 71275; 80053; 87637; 87798; 93005; 96361; 96374; 99284; 99285; 81003; 83735; 83880; 84484; 85025; 85379; 85610; 85730; 86618; 93010; J1885; J3490

== ENCOUNTER → 2021-10-11 11:02 | Outpatient (CLI) | payer OTHER, SELFPAY ==
--- NOTE | 2021-10-11 12:00 | DI.CT_ITS ---
Exam(s) CT CHEST PE CTA EXAM: CT CHEST PE CTA CLINICAL HISTORY: continued SOB, s/p covid,treated for pneumonia, R06.02; RA, M06.9. TECHNIQUE: Imaging Protocol: CT angiography of the chest was performed using pulmonary embolus aide col. Multi planar reconstructions were performed. CONTRAST MATERIAL: Intravenous: Omnipaque 350 Contrast volume: 100 cc COMPARISON: CT CT CHEST PE CTA from 09/27/2021 FINDINGS: CHEST: PULMONARY ARTERIES: There are no intraluminal filling defects to suggest acute pulmonary emboli. LUNGS: There is significant increase in left upper lobe infiltrate when compared 09/27/2021.. There has been improvement in the right upper lobe infiltrate, however, there is some increased infiltrate in the right lower lobe. There are no pleural effusions on either side. No significant focal findings in trachea and mainstem bronchi. MEDIASTINUM: There is no hilar nor mediastinal adenopathy. Visualized thyroid unremarkable. CARDIAC: Mild cardiomegaly. No pericardial effusion.Caliber of the thoracic aorta is slightly promin ent, measuring 3.7 cm. No dissection.. There is no significant shift of the interventricular septum . PARTIALLY VISUALIZED UPPERMOST ABDOMEN: No adrenal masses. Hepatic steatosis noted. No splenomegaly . OSSEOUS: No significant osseous lesions.No fractures.. IMPRESSION: 1. Compared to the prior CT scan of 09/27/2021 there is presently worsening left upper lobe infiltrat es and right lower lobe infiltrates. Has been some improvement in left lower lobe infiltrates. Ther e are no pleural effusions. No obvious intrathoracic adenopathy. 2. No evidence of acute pulmonary emboli. RADIATION DOSE DELIVERED: 290.57mGy.cm Total DLP DATA REPOSITORY: All CT scans at this facility are submitted to the National Radiology Data Registry (NRDR) Dose Index Registry (DIR) with the [employer] (ACR). RADIATION OPTIMIZATION: All CT scans at this facility use at least one of these dose optimization te chniques: automated exposure control; mA and/or kV adjustment per patient size (includes targeted exa ms where dose is matched to clinical indication); or iterative reconstruction.
[2021-10-11] MEDS: Omnipaque 350 MG/ML 100 ML BTL IJ (12:35)
[2021-10-11] MEDS: Normal Saline Flush 10 ML SYR IVP (12:36)
== END ==
PROVIDERS: PCP Family Medicine; Visit Provider Family Medicine
DX: M06.9 Rheumatoid arthritis, unspecified (principal); R06.02 Shortness of breath; R91.8 Other nonspecific abnormal finding of lung field
CPT/HCPCS: 71275; J3490

== ENCOUNTER 2021-10-11 12:21 | Outpatient (CLI) | payer OTHER, SELFPAY ==
--- NOTE | 2021-10-12 18:27 | W.PFT ---
Date of service: 10/11/21 Time of Service: 16:07 Pulmonary Function Test Result Requesting Provider Kim Mandel Indications: On methotrexate therapy Interpretation Spirometry: There is restrictive appearing spirometry. There is no significant bronchodilator response. Impression Restrictive appearing spirometry. Recommend full PFT testing, particularly given the history of methotrexate/Rituxan therapy. Clinical Correlation therefore is recommended.
== END 2021-10-11 12:22 | disposition home or self-care (01) ==
PROVIDERS: PCP Family Medicine; Visit Provider Family Medicine
DX: R06.02 Shortness of breath (principal); R94.2 Abnormal results of pulmonary function studies; Z86.16 Personal history of COVID-19; Z87.891 Personal history of nicotine dependence
CPT/HCPCS: 94060

== ENCOUNTER → 2021-10-12 11:11 | Outpatient (CLI) | payer OTHER, SELFPAY ==
--- NOTE | 2021-10-12 09:29 | DI.US_ITS ---
APPROVED REPORT EXAM: Comprehensive 2D, Doppler, and color-flow Echocardiogram Patient Location: Out-Patient Lime Spreader: Suzie Salcido RDCS (AE) Indications: SOB, Cardiomegaly, Worsening lung function Other Information Study Quality: Adequate Conclusion Normal left ventricular wall thickness and chamber size. Estimated ejection fraction is 60%. Wall m otion is normal Normal right ventricular size and systolic function Both atria are normal in size Aortic valve is trileaflet with trace regurgitation Normal mitral valve with trace regurgitation Normal tricuspid valve with mild regurgitation. Estimated right ventricular systolic pressure is 23 mmHg Mildly dilated ascending aorta Wall motion Left Ventricle The left ventricle is normal size. The left ventricular systolic function is normal. The left ventric ular ejection fraction is within the normal range. There is normal left ventricular wall thickness. T here is normal LV segmental wall motion. There is no ventricular septal defect visualized. LVEF is 60 %. Right Ventricle The right ventricle is normal size. The right ventricular systolic function is normal. The RVSP is 22 .9mmHg. Atria The left atrium size is normal. The right atrium size is normal. The interatrial septum is intact wit h no evidence for an atrial septal defect. Aortic Valve The aortic valve is normal in structure. Aortic valve is trileaflet. There is no aortic valvular sten osis. Trace aortic regurgitation. Mitral Valve The mitral valve is normal in structure. No evidence of mitral valve stenosis. Trace mitral regurgita tion. Tricuspid Valve The tricuspid valve is normal in structure. There is no tricuspid valve stenosis. Mild tricuspid regu rgitation. Pulmonic Valve The pulmonary valve is normal in structure. There is no pulmonic valvular stenosis. Trace pulmonic re gurgitation. Great Vessels The aortic root is normal in size. The ascending aorta is mildly dilated. Aortic arch is normal in ca liber. IVC is normal in size and collapses >50% with inspiration. Pericardium There is no pericardial effusion. 2D Dimensions IVSD d PLAX 0.99 cm F: 0.6-1.0 LV Vol A2C d MOD 66.7 mL LVPW d PLAX 0.95 cm F: 0.6 - 1.0 LV Vol A4C d MOD 75.5 mL LVID d PLAX 4.31 cm F: 3.8 - 5.2 LA vol/ BSA A2C s A-L 22.9 mL/m2 LVDs 3.00 cm F: 2.2 - 3.5 LA vol/ BSA A4C s A-L 24.0 mL/m2 Ao Root d 3.27 cm F: 2.7 - 3.3 LA Vol/ BSA Biplane s A-L 24.3 mL/m2 RA Area A4C 10.56 cm2 LA Area A4C s MOD 15.13 cm2 RA Vol/ BSA A4C s A-L 15.7 mL/m2 LA Area A2C s MOD 14.21 cm2 Ao Asc Diam d 3.59 cm F: 2.3 - 3.1 LV EF A4C MOD 60.6 % LV EF Teichholz 57.1 % LV EF A2C MOD 59.4 % LVEF (Acosta's) 60.35 % F: 54 - 74 LV EF Biplane MOD 60.4 % LV Volume 58.40 mL F: 46 - 106 SV 43.22 mL LV Volume Index 36.96 mL/m2 F: 29 - 61 SV Index 27.27 mL/m2 LV Vol Biplane MOD 71.6 mL FS 29.70 % M-Mode TAPSE 1.80 cm (M/F) >1.7 LV Diastology MV E' medial 0.088 (>0.07 m/s) E/A Ratio 1.1 LV E/e MED 8.40 (<14) MV E Vmax 0.74 (0.4-1.3 m/s) MV E' lateral 0.100 (>0.1 m/s) MV A Vmax 0.65 (0.4-1.3 m/s) LV E/e LAT 7.40 (<14) MV E/A Ratio 1.11 MV E/E' medial 8.44 MV E/E' lateral 7.41 Aortic Valve LVOT Area 3.03 cm2 AoV Area Vmax 2.61 cm2 LVOT Vmax 1.09 m/s AoV Area/ BSA (Vmax) 1.65 cm2/m2 LVOT Mean Som. 0.83 m/s SYBIL Mean Som. 2.82 cm2 LVOT Peak Grad 4.8 mmHg SYBIL Mean Som. Index 1.78 cm2/m2 LVOT Mean Grad 3.0 mmHg AR DT 2460 msec LVOT VTI 0.216 m AR PHT 713 msec LVOT Diam s 1.95 cm AoV Vmax 1.27 m/s Velocity Ratio 0.85 AoV Mean Som. 0.89 m/s AoV Peak Grad 6.5 mmHg LVOT SV 65.54 mL AoV Mean Grad 3.7 mmHg AoV VTI 0.236 m AoV Area VTI 2.78 cm2 AoV Area/ BSA (VTI) 1.75 cm/m2 Mitral Valve MV DT 217 (160-240 msec) MV PHT 63 msec MV Area PHT 3.49 cm2 MV VTI 0.284 m MV Area VTI 2.30 (4.0-6.0 cm2) Pulmonary Valve PV Vmax 0.73 (0.5-1.5 m/s) RVOT Peak Gr. 1.29 mmHg PV Peak Grad 2.2 mmHg RVOT Mean Gr. 0.70 mmHg PV Mean Grad 1.3 mmHg RVOT VTI 0.111 m PV VTI 0.139 m RVOT Vmax 0.57 m/s Tricuspid Valve TR Peak Grad 19.9 mmHg TR Vmax 2.23 m/s RA Pressure 3.00 mmHg RVSP (TR) 22.9 mmHg
== END ==
PROVIDERS: PCP Family Medicine; Visit Provider Family Medicine
DX: I51.7 Cardiomegaly (principal); J18.9 Pneumonia, unspecified organism; R06.02 Shortness of breath
CPT/HCPCS: 93306

== ENCOUNTER 2021-10-14 18:41 | Outpatient (REF) | payer OTHER, SELFPAY ==
[2021-10-14 18:00] LABS: Procalcitonin < 0.1 ng/mL
[2021-10-18 14:33] LABS: Fungitell Qualitative Negative (Negative); Fungitell Quantitative Value <31 pg/mL (<60 pg/mL)
[2021-10-20 08:36] LABS: Interpretation Negative; Result: None Detected
== END 2021-10-14 18:42 | disposition home or self-care (01) ==
LOC: LBN 18:41
PROVIDERS: PCP Family Medicine; Visit Provider Student in an Organized Health Care Education/Training Program
DX: R93.89 Abnormal findings on diagnostic imaging of other specified body structures (principal)
CPT/HCPCS: 84145; 87449; 87385

== ENCOUNTER 2021-10-21 01:07 | Outpatient (RCR) | payer OTHER, SELFPAY ==
[2021-07-08 00:17] VITALS: BP 131/75; PULSE 86; RESP 16; TEMP 36.7
[2021-10-21] VITALS (8 sets, daily range): BP systolic 111–137; BP diastolic 63–86; PULSE 69–80; RESP 16; TEMP 36.7–37; O2SAT 96–98
[2021-10-21] MEDS: methylPREDNISolone SUCC 125 MG VIAL 100 MG IVP (08:30)
[2021-10-21] MEDS: riTUXimab-PVVR 1,000 MG in Normal Saline 150 ML 7.5 MG IVPB (08:45)
[2021-10-21] MEDS: Normal Saline Flush 10 ML SYR IVP (14:17)
== END 2021-11-06 23:59 | disposition home or self-care (01) ==
LOC: INF 01:07
PROVIDERS: PCP Family Medicine; Visit Provider Family Medicine
DX: M06.9 Rheumatoid arthritis, unspecified (principal)
CPT/HCPCS: 96365; 96366; 96374; 96413; 96415; J2930; Q5119

== ENCOUNTER 2021-10-24 02:46 | Outpatient (CLI) | payer OTHER, SELFPAY ==
--- NOTE | 2021-10-25 18:23 | W.PFT ---
Date of service: 10/24/21 Time of Service: 10:09 Pulmonary Function Test Result Requesting Provider Duchene Indications: Dyspnea Interpretation Spirometry: Normal MIP and MEP Lung Volumes: Borderline low lung volumes Diffusion Capacity: Normal diffusion Airway Pressure: Normal airways resistance Impression Normal muscle pressures and diffusion. Likely mildly decreased lung volumes. Clinical Correlation therefore is recommended.
== END 2021-10-24 02:47 | disposition home or self-care (01) ==
LOC: RT 02:46
PROVIDERS: PCP Family Medicine; Visit Provider Student in an Organized Health Care Education/Training Program
DX: R06.02 Shortness of breath (principal); R06.09 Other forms of dyspnea
CPT/HCPCS: 94726; 94729

== ENCOUNTER 2021-10-28 20:48 | Outpatient (REF) | payer OTHER, SELFPAY ==
[2021-10-28 10:12] LABS: Source Nasal/Nares
[2021-10-28 15:34] LABS: COVID-19 PCR Positive (Negative)
== END 2021-10-28 20:49 | disposition home or self-care (01) ==
LOC: LBN 20:48
PROVIDERS: PCP Family Medicine; Visit Provider Student in an Organized Health Care Education/Training Program
DX: Z20.822 Contact with and (suspected) exposure to COVID-19 (principal); Z01.818 Encounter for other preprocedural examination
CPT/HCPCS: 87635

== ENCOUNTER 2021-11-15 06:11 | Day surgery (SDC) | payer OTHER, SELFPAY ==
[2021-11-15] VITALS (7 sets, daily range): BP systolic 115–122; BP diastolic 65–83; PULSE 75–98; RESP 16–22; TEMP 36–36.7; O2SAT 94–100; BMI 26.8
--- NOTE | 2021-11-15 06:43 | W.ANESPRE ---
General Info Date of Service Date Performed: 11/15/21 Height: 4 ft 11.5 in Weight: 61.2 kg Body Mass Index (BMI): 26.8 Surgical Procedure: Operation Date: 11/15/21 07:40 Proposed Procedure Side Surgeon mike Saleh/DEVENDRA Ann MD Meds Allergies and Home Medications Allergies Allergy/AdvReac Type Severity Reaction Status Date / Time gabapentin AdvReac Severe Psychosis Verified 11/15/21 06:35 prochlorperazine AdvReac Severe Itching Unverified 11/15/21 06:35 [From Compazine] codeine AdvReac Mild Nausea Verified 11/15/21 06:35 Home Medication Medication Instructions Recorded albuterol sulfate 5 mg/mL(0.5 %) 2.5 mg inhalation QID PRN 01/26/16 solution for nebulization cholecalciferol (vitamin D3) 25 2,000 unit PO DAILY 12/08/19 mcg (1,000 unit) tablet acetaminophen 500 mg tablet 1,000 mg PO Q6H PRN #90 tab-caps 09/02/20 (Acetaminophen Extra Strength) duloxetine 60 mg capsule,delayed 60 mg PO DAILY #90 tab-caps 04/11/21 release escitalopram oxalate 10 mg tablet 10 mg PO DAILY #90 tabs 04/11/21 acyclovir 5 % topical cream 1 applic topical DAILY PRN #15 06/22/21 (Zovirax) grams acyclovir 800 mg tablet 800 mg PO TID PRN herpes #90 tabs 06/22/21 albuterol sulfate 90 mcg/actuation 2 puff inhalation Q6H PRN 06/22/21 aerosol inhaler (ProAir HFA) shortness of breath or wheezing #25.5 grams celecoxib 200 mg capsule (Celebrex) 200 mg PO BID #180 caps 06/22/21 diltiazem HCl 120 mg capsule,24 120 mg PO DAILY #90 caps 06/22/21 hr,extended release estradiol 0.01% (0.1 mg/gram) 1 g vaginal .twice weekly #127.5 06/22/21 vaginal cream grams fluticasone propionate 230 2 puff inhalation BID PRN asthma 06/22/21 mcg-salmeterol 21 mcg/actuation #12 grams HFA inhaler (Advair HFA) folic acid 1 mg tablet 2 mg PO DAILY #180 tab-caps 06/22/21 montelukast 10 mg tablet 10 mg PO QPM #90 tabs 06/22/21 mupirocin 2 % topical ointment 1 applic topical BID #30 grams 06/22/21 omeprazole 20 mg capsule,delayed 20 mg PO DAILY PRN heartburn #90 06/22/21 release caps prednisone 20 mg tablet 40 mg PO .COMPLEX #10 tabs 06/22/21 triamcinolone acetonide 0.1 % 1 applic topical BID #453.6 grams 06/22/21 topical cream rosuvastatin 5 mg tablet (Crestor) 5 mg PO DAILY #90 tab-caps 07/18/21 rituximab 10 mg/mL 1,000 mg (100 mL) IV .q2 weeks #1 08/15/21 concentrate,intravenous (Rituxan) vial levalbuterol tartrate 45 2 inh inhalation Q6H #45 grams 10/03/21 mcg/actuation aerosol inhaler nitroglycerin 0.4 mg sublingual 0.4 mg sublingual Q5M PRN chest 10/13/21 tablet pain #25 tabs methotrexate sodium 2.5 mg tablet 7.5 mg PO qWEEK #36 tabs 10/20/21 zolpidem 10 mg tablet 10 mg PO QHS PRN sleep #90 tabs 10/20/21 prednisone 20 mg tablet 60 mg PO DAILY #137 tabs 10/28/21 sulfamethoxazole 800 1 tab PO DAILY #63 tabs 10/28/21 mg-trimethoprim 160 mg tablet (Bactrim DS) methylphenidate HCl 10 mg tablet See Rx Instructions PO TID #120 11/14/21 tab-caps Current Visit Medications: Current Medications Generic Name Dose Route Start Last Admin Trade Name Freq PRN Reason Stop Dose Admin Ringer's Solution 1,000 mls @ 80 mls/hr 11/15/21 06:00 IV 11/15/21 23:59 [facility] IV Miscellaneous Supplies 1 each 11/15/21 06:00 Iv Access IV 11/15/21 23:59 DIRECTED MARIZA Sodium Chloride 0 ml 11/15/21 06:00 Normal Saline Flush 10 Ml Syr IV 11/15/21 23:59 PRN PRN Sodium Chloride 0 ml 11/15/21 06:00 Normal Saline 10 Ml Vial IJ 08/09/22 23:59 DIRECTED PRN Sterile Water 0 ml 11/15/21 06:00 Water,Injection,Sterile 10 Ml Vial IJ 11/15/21 23:59 DIRECTED PRN PFSH Active Problems Active Problems: Problem Status Onset Code Encounter for screening for COVID-[address] R93.89 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 Cardiomegaly I51.7 Chest pain R07.9 Rheumatoid arthritis M06.9 SOB (shortness of breath) R06.02 Community acquired pneumonia, bilateral J18.9 COVID-19 U07.1 Low back pain M54.50 History of revision of total replacement of right hip joint 09/01/20 Z96.641 Rectal prolapse K62.3 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 Annual physical exam 02/27/17 Z00.00 Seasonal affective disorder Primary osteoarthritis of right knee 10/04/16 M17.11 Herpes B00.9 Fatigue R53.83 Left shoulder pain M25.512 On prednisone therapy Z79.52 Anosmia R43.0 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 Rectocele N81.6 Dislocation of internal right hip prosthesis T84.020A Contusion of hip, right S70.01XA Strain of right knee S86.911A Mechanical instability of hip prosthesis 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 Pre-op exam Stress fracture Medical History Comments:: Pt reports there are times she will experience delayed emergence. Surgical History Surgical History Abdominal hysterectomy (~1987) Appendectomy (~1977) RUPTURED Bilateral salpingectomy with oophorectomy (~1987) Bunionectomy (~2006) Right H/O abdominal surgery for prolapsed rectum, 05/10/2021 History of appendectomy History of discectomy History of orthopedic surgery Injection 03/03/15, 12/2015 Synvisc/Depomedrol in the right knee L5-S1 Discectomy (~2001) Lysis of adhesions Multiple surgeries, abdominal Repair, ACL (~10/2011) Replacement of total knee joint 08/23 [facility] (R) Rotator Cuff Repair (~2003) Left Status post abdominal hysterectomy Status post bunionectomy Status post repair of anterior cruciate ligament Status post rotator cuff repair Tobacco Smoking/Tobacco Use Status: Former Tobacco Use Passive smoking exposure: Yes Second hand exposure: Yes Alcohol Alcohol Intake: current Alcohol intake frequency: a few times a week Alcohol type: wine and hard liquor Substance Use Substance use: Never Substance use type: does not use Vital Signs and Lab Results Vital Signs Most Recent Vital Signs in EMR: Most Recent Vital Signs Pulse Resp BP Pulse Ox 98 H 18 115/82 98 11/15/21 06:13 11/15/21 06:13 11/15/21 06:13 11/15/21 06:13 Lab Results Blood Type / Crossmatch: No Data to Display Complete Blood Count: No Data to Display Complete Metabolic Panel: No Data to Display Liver Function Panel: No Data to Display Coagulation Panel: No Data to Display Cardiac Panel: No Data to Display Arterial Blood Gas: No Data to Display Venous Blood Gas: No Data to Display Pancreas Panel: No Data to Display Thyroid Panel: No Data to Display Infectious Disease: Coronavirus (COVID-19)(PCR) Positive (Negative) A* 10/28/21 09:05 Coronavirus 2019 Source Nasal/Nares 10/28/21 09:05 Blood Cultures: No Data to Display Toxicology Panel: No Data to Display Imaging and Studies Imaging and Studies Study information below may be from another EMR and interpreted by another provider. Please see original notes in EMR for more complete details. EKG Summary: Conclusion Sinus rhythm...normal P axis, V-rate 60- 99. Sinus. Normal axis. No STEMI. I have reviewed and interpreted ECG and agree with software generated interpretation. 09/27/21 Stress Test Summary: 04/08/2020 Clinical Reason for Termination: Fatigue Stress Symptoms: Dyspnea, localized back pain Exercise duration: 7 min11 sec Highest Stage Reached: Stage 3: 3.4 mph at 14% grade. Exercise capacity: 8.86 METs Stress ECG Conclusion 1. The resting electrocardiogram was normal 2. Patient exercised on the José Miguel protocol and completed a workload of 8.86 METS, limited by shortness of breath and back pain 3. Normal heart rate and blood pressure response to exercise. The patient achieved 96% of predicted heart rate for age 4. Electrocardiographically there was no evidence of myocardial ischemia 5. There were no dysrhythmias 6. Capps treadmill score is 7, low risk Echocardiogram Summary: Date of study: 03/30/2017 Transthoracic Echocardiography M-mode, complete 2D, complete spectral Doppler, and color Doppler *STUDY CONCLUSIONS* Summary: 1. Left ventricle: The cavity size was normal. Wall thickness was normal. Systolic function was normal. The estimated ejection fraction was 55-60%. Wall motion was normal; there were no regional wall motion abnormalities. 2. Aortic valve: There was trivial regurgitation. 3. Ascending aorta: The ascending aorta was at upper normal limits. 4. Mitral valve: There was mild regurgitation. 5. Right ventricle: The cavity size was normal. Wall thickness was normal. Systolic function was normal. 6. Pulmonary arteries: Pulmonary systolic pressure was mildly increased. PA peak pressure: 37mm Hg (S). 7. Pericardium, extracardiac: A trivial pericardial effusion was identified. Anesthesia Assessment and Plan Anesthesia History Personal History: Delayed Emergence Family History: No Family History of Anesthesia Complications Exercise Tolerance Exercise Tolerance: Metabolic Equivalents>4 Pertinent Negatives Pertinent Negatives: No Symptoms of GERD, No Major Cardiovascular Symptoms or Complaints and No History of CVA/TIA Cardiac & Pulmonary Exam Cardiac Exam: Normal S1/S2 Heart Sounds Pulmonary Exam: Other (active shortness of breath; per patient exertional dysnea although appears to have mild dyspnea at rest with conversation.) Implantable Cardiac Device Does patient have a Pacemaker or an ICD?: No Airway Exam Known Difficult Airway: No Mallampati Class: 2 Mouth Opening: Narrow (< 3cm) Thyromental Distance: Greater than 3 cm Neck Range of Motion: Full ROM Neck Circumference: Normal Teeth Condition: Normal Dentition ASA Classification ASA Score: ASA 3 Emergency Case?: No NPO Status NPO Status: NPO Clears >2 hours, Solids >8 hours Anesthesia Plan Resuscitation Status: Full Code Anesthesia Technique: General Anesthesia Airway Planned: Endotracheal Tube Monitors Used: Standard Monitors
[2021-11-15] MEDS: Lactated Ringers 1,000 ML 80 ML IV (07:21)
[2021-11-15] MEDS: Lidocaine 1% Pres-Free 30 ML VIAL (07:59)
--- NOTE | 2021-11-15 08:19 | PAPNONF_PTH ---
PATIENT: Crissy Hurt LOC: [facility] U#:[id number] AGE/SX: 61/F ROOM: RE11/15/[address]: Haydee Ann MD : 1960 BED: DIS: 11/15/2021 SPEC #: [id number] RECD: 11/15/21 13:18 STATUS: BURT REQ #: [id number] ANGEL: 11/15/21 08:[address]: Haydee Ann DEPT: [facility] Cytology RECD BY: Shy Griffiths ENTERED: 11/15/21 13:18 SP TYPE: ROB GRAHAM DR: Kim Mandel MD, DC Tissues: 1 - BODY FLUID CYTO(NOT S/U/N/EM)[facility] 2 - BODY FLUID CYTO(NOT S/U/N/EM)[facility] Procedures: BODY FLUID CYTO(NOT SPU/UR/NIP/ENDOM)[facility] Comments: [id number]
--- NOTE | 2021-11-15 09:16 | W.ANESPOSTOP ---
Postoperative Evaluation Date, Time and Location Date Performed: 11/15/21 Time Performed: 09:00 Patient Location: Day Surgery Unit Vital Signs Most Recent Imported Vital Signs: Most Recent Vital Signs Temp Pulse Resp BP Pulse Ox 36.6 C 75 18 119/83 94 11/15/21 09:00 11/15/21 09:00 11/15/21 09:00 11/15/21 09:00 11/15/21 09:00 Pain Score Most Recent Pain Score: Most Recent Pain Score Pain Level 0 11/15/21 09:00 Assessment Mental Status: Awake (Alert & Oriented to Patient Baseline) Airway and Respiratory Function: Patent airway with normal (patient baseline) respiratory exam Cardiovascular Function: Hemodynamically Stable Hydration Status: Adequately Hydrated Nausea & Vomiting: No Nausea or Vomiting Pain: Pt. Denies Any Pain Peripheral Nerve Block: Patient did not receive a nerve block
--- NOTE | 2021-11-15 10:16 | W.PM.OP ---
Date of service: 11/15/21 Time of Service: 07:30 Operative Note Operative Note PRE-OP DIAGNOSIS: Abnormal Chest CT PROCEDURE: Flexible bronchoscopy with BAL or BESS and RML Refer to Anesthesia Record Procedure Description: Bronchoscopy Indication: Abnormal chest CT Procedure performed: Flexible bronchoscopy of RML and BESS Sedation plan: General anesthesia Medications used: see anesthesia records Informed consent was obtained after the risks and benefits or the procedure were discussed. Anesthesia intubated the patient with ease. A proper and complete OR compliant time out was performed. The therapeutic 6.2mm Olympus bronchoscope was inserted through the endotracheal tube. The bronchoscope was inserted into the airways, where 1cc in total of 1% topical lidocaine was used the anesthetize the airways. The camera of the bronchoscopy did experience failure with display. This was attempted to be trouble shooted, however I did not want to leave the patient under general anesthesia longer than required so the lights on the scope were decreased to a point to minimize the artifact but to a point where I could still see adequately. The trachea was midline and without lesion or injury. The mucosa appeared normal and there were no signs of tracheomalacia. The manju was sharp. All bronchial subsegments were visualized within each lobe and showed scant white secreations that were easy to suction. A bronchoalveolar lavage was performed in the RML. A total of 120cc of saline was administered with a return of 50cc. The fluid was slightly cloudy in appearance with mucus plugging seen. A bronchoalveolar lavage was performed in the BESS. A total of 120cc of saline was administered with a return of 40cc. The fluid was slightly cloudy in appearance with mucus plugging seen. The bronchoscope was then removed and the case terminated. The patient was taken to PACU in stable condition. Samples collected:BESS and RML BAL Testing ordered:on both samples: differentials, bacterial, fungal & AFB cultures and cytopathology Complications:None Haydee Ann MD Pulmonary & Critical Care Medicine
[2021-11-17 08:12] LABS: Gram Smear Result Neutrophils Present
[2021-11-17 08:14] LABS: Gram Smear Result Neutrophils Present
[2021-11-18 15:10] LABS: Lymphocytes Fluid Relative 65 %; Neutrophils Fluid Relative 5 %
[2021-11-18 15:11] LABS: Mono/Macrophage Fluid Relative 30 %
[2021-11-18 15:12] LABS: Lymphocytes Fluid Relative 85 %; Mono/Macrophage Fluid Relative 11 %; Neutrophils Fluid Relative 4 %
[2021-12-13 14:43] LABS: Fungus Smear No Fungi Seen
[2022-02-17 09:01] LABS: Fungus Smear No Fungi Seen
== END 2021-11-15 10:00 | disposition home or self-care (01) ==
PROVIDERS: PCP Family Medicine; Visit Provider Student in an Organized Health Care Education/Training Program
PROC: 0BJ08ZZ Inspection of Tracheobronchial Tree, Via Natural or Artificial Opening Endoscopic (ICD-10-PCS; CPT 31622; principal; 2021-11-15 07:30)
DX: R06.00 Dyspnea, unspecified (principal); U09.9 Post COVID-19 condition, unspecified; Z79.899 Other long term (current) drug therapy; J98.4 Other disorders of lung
CPT/HCPCS: 31624; 80162; 87070; 87102; 87107; 87116; 87205; 87206; 88104; J1720; J2405

== ENCOUNTER 2021-12-21 17:57 | Outpatient (REF) | payer OTHER, SELFPAY ==
--- NOTE | 2021-12-21 16:59 | NASALBX_PTH ---
PATIENT: Crissy Hurt LOC: [facility] U#:[id number] AGE/SX: 61/F ROOM: RE12/21/[address]: Luis Aleman MD : 1960 BED: DIS: 12/21/2021 SPEC #: [id number] RECD: 12/22/21 12:09 STATUS: BURT REQ #: [id number] ANGEL: 12/21/21 16:[address]: Luis Aleman DEPT: Surgical Specimen RECD BY: Shy Griffiths ENTERED: 12/22/21 12:12 SP TYPE: NASALBX OTHR DR: Kim Mandel MD, DC Tissues: NASAL/OROPHARYNX BIOPSY Procedures: GROSS AND MICRO LEVEL 4 IMMUNOPEROXIDASE STAIN Comments: [id number]
== END 2021-12-21 17:58 | disposition home or self-care (01) ==
LOC: LBN 17:57
PROVIDERS: PCP Family Medicine; Visit Provider Otolaryngology
DX: J31.0 Chronic rhinitis (principal)
CPT/HCPCS: 88305; 87070; 88361

== ENCOUNTER 2021-12-24 16:04 | Inpatient (IN) | payer OTHER, SELFPAY ==
[2021-12-24] VITALS (48 sets, daily range): BP systolic 96–131; BP diastolic 67–100; PULSE 87–102; RESP 12–32; TEMP 36.6–36.7; O2SAT 70–100
--- NOTE | 2021-12-24 16:15 | DI.RAD_ITS ---
Exam(s) XR PORTABLE CHEST AP EXAM: XR PORTABLE CHEST AP CLINICAL HISTORY: SOB. TECHNIQUE: 2D digital imaging was performed. COMPARISON: CR CHEST 2 VIEWS PA,LAT from 03/16/2017 FINDINGS: Single AP portable view. There is cardiomegaly. Mediastinum unchanged. Extensive bilateral increased vascular markings in the lung flores. Pulmonary venous hypertension pa ttern. Bordering on interstitial edema. No large pleural effusions. IMPRESSION: Findings as above which recommend significant change compared to 2017.Recommend nonportable PA and la teral views when clinically possible. DATA REPOSITORY: RADIATION DOSE DELIVERED: All CT scans at this facility use at least one of these dose optimization techniques: automated exposure control; mA and/or kV adjustment per patient size (includes targeted e xams where dose is matched to clinical indication); or iterative reconstruction.
--- NOTE | 2021-12-24 16:15 | RT.EKG_ITS ---
APPROVED REPORT Exam: Resting ECG Reason for Exam: SOB Patient Location: E HR:98 bpm ECG Measurements Heart Rate 98 AXIS DE 126 P 48 QRSd 81 QRS 65 QT 332 T 31 QTc 424 Conclusion Sinus rhythm...normal P axis, V-rate 60- 99 ST elevation, consider inferior injury...ST >0.08mV, II III aVF. Sinus. No STEMI. I have reviewed and interpreted ECG and agree with software generated interpretation.
--- NOTE | 2021-12-24 16:25 | W.ED.GENAD ---
Discharge Plan Disposition Patient Disposition: [facility] INPATIENT Condition: Critical Discharge Details Chief Complaint: SOB Clinical Impression: COVID-19, Acute respiratory failure with hypoxia Admit Date/Time: 12/24/21 21:01 Admit Provider: Kaushik Lunsford Attending Provider: Kaushik Lunsford Primary Care Provider: Kim Mandel ED Provider: Yesica Vargas Discharge Instructions Activity:: bed to chair Equipment/Supplies:: Oxygen (L/min Below) Diet:: As Tolerated Discharge Orders Discharge Orders: Discharge Order (Routine); Ordered 12/27/21 Ordered By: Kassandra Bird Discharge Data Discharge Date/Time-TO BE ENTERED AT DEPARTURE: 12/24/21 22:43 Medical Decision Making Patient is a pleasant 51-year-old female presenting today with chief complaint of shortness of breath. Past medical history is pertinent for COVID-19 long hauler, inflammation of the lung, chronic rhinitis, GERD, hyperlipidemia, pulmonary hypertension, rheumatoid arthritis, and ED bilateral pneumonia, cardiomegaly. She reports that she has been in and out of the hospital this summer, initially diagnosed with COVID back in August and has had chronic shortness of breath since then. Did recently try to return to work. 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 She reports that she is been checking her O2 at home and noted to be in the 60s today. She has been low in the 60s historically but typically is able to be able to get this up with rest and deep breathing and was unsuccessful today prompting her to come in. She reports that she has been on steroids and has been tapering this down over the past 6 weeks, currently on 45 mg of prednisone daily with a recent drop in her steroid dosing. She denies any chest pain. No fevers or chills. No cough. No sputum production. States she has had evaluation for potential D-dimer, cardiac involvement all of which is been negative. She is being followed locally by board layer. On exam, patient appears acutely ill. She is pursed lip breathing, tripoding, tachypneic. She is able to speak clearly in partial sentences but able to string several words together once. Her oxygen was initially 48% on room air. With 6 L nasal cannula, patient did come up to 70%, placing her on BiPAP now. Her lungs are clear in upper flores, crackles at the bases, sounds to be moving air well. She has no notable lower extremity edema. No appreciable cardiac murmurs. Concerned for respiratory distress. Patient has relief with respiratory support. RT at bedside. She continues to be tachypneic but is less anxious, tolerating BiPAP well. She has no wheezing, however, discussed with RT trialing a nebulizer. will begin this. As she has been down titrating her steroids, questioning if this could be associated with her dosing changes. Will augment methylprednisolone on top of the prednisone she took this morning. Concerned for long COVID, recurrent COVID, PE, ACS, pneumothorax. Will obtain imaging, ECG, labs. I do not see need for intubation at this point but iwll monitor the patient closely, particularly with her acute, signficant presentation of O2 at 48%. ECG obtained and reviewed by physician. No acute ischemic changes. CXR reviewed by radiologist: FINDINGS: Lungs: Bilateral patchy lung infiltrates. Pleural spaces: No pneumothorax. No pleural fluid collection. Heart/Mediastinum: Prominent cardiac silhouette. Bones/joints: Spinal and left shoulder degenerative changes. IMPRESSION: Bilateral patchy lung infiltrates. ABG obtained. Patient had a elevated troponin at 90. She denied having any chest pain at this time. No EKG changes. I believe this is likely a demand ischemia associated with her extreme hypoxia and we will continue to trend this. We will give the patient aspirin we will hold off on formal anticoagulation at this time. I did discuss with the aptient. She reports that she is schedule for an echo as there was concern for possible cardiomyopathy associated with her long COVID. She states she has had subjective swelling of hands/BLE. I do not note this objectively at this time. However, with this concern and her presentation today, will give 20mg IV Lasix which patient is in agreement with. Patient's D-dimer is elevated, even beyond what she has had in the past associated with her known COVID diagnosis. Will obtain CTA for potential PE. FINDINGS: Pulmonary arteries: No evidence of pulmonary embolism. Aorta: No aortic aneurysm. No aortic dissection. Lungs: Extensive areas of ground-glass opacity (GGO) within each lung. Atypical / viral infection, including COVID-19, is a consideration. Clinical correlation is important. Pleural spaces: Trace right pleural fluid.? Minimal left pleural fluid. No pneumothorax. Heart: No right ventricular strain. No pericardial effusion. Lymph nodes: No enlarged lymph nodes. Bones/joints: Spinal degenerative changes. Soft tissues: Unremarkable. IMPRESSION: 1.? No evidence of pulmonary embolism. 2.? Extensive areas of ground-glass opacity (GGO) within each lung. Atypical / viral infection, including COVID-19, is a consideration. Clinical correlation is important. 3.? Trace right pleural fluid.? Minimal left pleural fluid. Discussed with patient and hsuband. Have started on abx. She did have a bronch but I do not see need for targeted abx at this time based on those results. Patient continues to be on BiPAP. I did discuss coming down as her O2 demand is improved. However, she is toelrateing this well and still on high levels. Patient reports that she would like to remain on it as she has been so fatigued at home. I do feel that this is reasonable. RT has been in to assess patient frequently as well. Patient also reporting that she has intranasal zoster, will give her the shcedule dosing of acyclovir sh eis due for. Patient COVID positive. Unclear if this is new or old infection, will keep on precautions and monitor. Will discuss acute COVID treatment with the hospitalist. However, as patient feels that this is old infection, has had recurrent SOB/hypoxia for months, I do not believe she will likely benefit from typical acute COVID treatment and will hold off for now. Will continue with abx and steroids. Consulted hospitalist regarding admission for hypoxemia. Hospitalist agrees to admission. HPI General Date/Time Provider Initiated Documentation: 12/24/21 16:22. Limitations to Documentation: no limitations. Information obtained by: patient, family, RN notes reviewed and old records reviewed. History of Present Illness 61 year old F presents to the emergency department with the chief complaint of shortness of breath, hypoxia, described as severe and similar to prior episodes (states she has had several similar episodes since initial dx of covid last spring), with intensity rated at 1 (denies any pain, only SOB). Quality is described as other, and is localized to the chest. Patient reports no radiation. Patient started experiencing this month(s) and it has been intermittent. Immobilization improves symptom(s), Movement worsens symptoms . Patient notes cough, loss of appetite, malaise and shortness of breath; denies confusion, chest pain, diaphoresis, fever/chills, headaches, nausea/vomiting, rash and syncope. Patient did receive the following treatments prior to arrival, none Related Data Home Medications Medication Instructions Recorded Confirmed albuterol sulfate 5 mg/mL(0.5 %) 2.5 mg inhalation QID PRN 01/26/16 12/24/21 solution for nebulization cholecalciferol (vitamin D3) 25 2,000 unit PO DAILY 12/08/19 12/24/21 mcg (1,000 unit) tablet acetaminophen 500 mg tablet 1,000 mg PO Q6H PRN #90 tab-caps 09/02/20 12/24/21 (Acetaminophen Extra Strength) duloxetine 60 mg capsule,delayed 60 mg PO DAILY #90 tab-caps 04/11/21 12/24/21 release escitalopram oxalate 10 mg tablet 10 mg PO DAILY #90 tabs 04/11/21 12/24/21 acyclovir 5 % topical cream 1 applic topical DAILY PRN #15 06/22/21 12/24/21 (Zovirax) grams acyclovir 800 mg tablet 800 mg PO TID PRN herpes #90 tabs 06/22/21 12/24/21 celecoxib 200 mg capsule (Celebrex) 200 mg PO BID #180 caps 06/22/21 12/24/21 diltiazem HCl 120 mg capsule,24 120 mg PO DAILY #90 caps 06/22/21 12/24/21 hr,extended release estradiol 0.01% (0.1 mg/gram) 1 g vaginal .twice weekly #127.5 06/22/21 12/24/21 vaginal cream grams fluticasone propionate 230 2 puff inhalation BID PRN asthma 06/22/21 12/24/21 mcg-salmeterol 21 mcg/actuation #12 grams HFA inhaler (Advair HFA) folic acid 1 mg tablet 2 mg PO DAILY #180 tab-caps 06/22/21 12/24/21 montelukast 10 mg tablet 10 mg PO QPM #90 tabs 06/22/21 12/24/21 mupirocin 2 % topical ointment 1 applic topical BID #30 grams 06/22/21 12/24/21 omeprazole 20 mg capsule,delayed 20 mg PO DAILY PRN heartburn #90 06/22/21 12/24/21 release caps prednisone 20 mg tablet 40 mg PO .COMPLEX #10 tabs 06/22/21 12/24/21 triamcinolone acetonide 0.1 % 1 applic topical BID #453.6 grams 06/22/21 12/24/21 topical cream rosuvastatin 5 mg tablet (Crestor) 5 mg PO DAILY #90 tab-caps 07/18/21 12/24/21 nitroglycerin 0.4 mg sublingual 0.4 mg sublingual Q5M PRN chest 10/13/21 12/24/21 tablet pain #25 tabs methotrexate sodium 2.5 mg tablet 7.5 mg PO qWEEK #36 tabs 10/20/21 12/24/21 zolpidem 10 mg tablet 10 mg PO QHS PRN sleep #90 tabs 10/20/21 12/24/21 methylphenidate HCl 10 mg tablet See Rx Instructions PO TID #120 11/14/21 12/24/21 tab-caps prednisone 20 mg tablet 50 mg PO DAILY 12/06/21 12/24/21 albuterol sulfate 90 mcg/actuation 2 puff inhalation Q6H PRN 12/16/21 12/24/21 aerosol inhaler (ProAir HFA) shortness of breath or wheezing #25.5 grams prednisone 20 mg tablet 20 mg PO DAILY #90 tabs 12/19/21 12/24/21 prednisone 5 mg tablet 5 mg PO DAILY #60 tabs 12/19/21 12/24/21 sulfamethoxazole 800 1 tab PO DAILY #63 tabs 12/19/21 12/24/21 mg-trimethoprim 160 mg tablet (Bactrim DS) Previous Rx's Medication Instructions Recorded acetaminophen 500 mg tablet 1,000 mg PO Q6H PRN #90 tab-caps 09/02/20 (Acetaminophen Extra Strength) duloxetine 60 mg capsule,delayed 60 mg PO DAILY #90 tab-caps 04/11/21 release escitalopram oxalate 10 mg tablet 10 mg PO DAILY #90 tabs 04/11/21 acyclovir 5 % topical cream 1 applic topical DAILY PRN #15 06/22/21 (Zovirax) grams acyclovir 800 mg tablet 800 mg PO TID PRN herpes #90 tabs 06/22/21 celecoxib 200 mg capsule (Celebrex) 200 mg PO BID #180 caps 06/22/21 diltiazem HCl 120 mg capsule,24 120 mg PO DAILY #90 caps 06/22/21 hr,extended release estradiol 0.01% (0.1 mg/gram) 1 g vaginal .twice weekly #127.5 06/22/21 vaginal cream grams fluticasone propionate 230 2 puff inhalation BID PRN asthma 06/22/21 mcg-salmeterol 21 mcg/actuation #12 grams HFA inhaler (Advair HFA) folic acid 1 mg tablet 2 mg PO DAILY #180 tab-caps 06/22/21 montelukast 10 mg tablet 10 mg PO QPM #90 tabs 06/22/21 mupirocin 2 % topical ointment 1 applic topical BID #30 grams 06/22/21 omeprazole 20 mg capsule,delayed 20 mg PO DAILY PRN heartburn #90 06/22/21 release caps prednisone 20 mg tablet 40 mg PO .COMPLEX #10 tabs 06/22/21 triamcinolone acetonide 0.1 % 1 applic topical BID #453.6 grams 06/22/21 topical cream rosuvastatin 5 mg tablet (Crestor) 5 mg PO DAILY #90 tab-caps 07/18/21 nitroglycerin 0.4 mg sublingual 0.4 mg sublingual Q5M PRN chest 10/13/21 tablet pain #25 tabs methotrexate sodium 2.5 mg tablet 7.5 mg PO qWEEK #36 tabs 10/20/21 zolpidem 10 mg tablet 10 mg PO QHS PRN sleep #90 tabs 10/20/21 methylphenidate HCl 10 mg tablet See Rx Instructions PO TID #120 11/14/21 tab-caps albuterol sulfate 90 mcg/actuation 2 puff inhalation Q6H PRN 12/16/21 aerosol inhaler (ProAir HFA) shortness of breath or wheezing #25.5 grams prednisone 20 mg tablet 20 mg PO DAILY #90 tabs 12/19/21 prednisone 5 mg tablet 5 mg PO DAILY #60 tabs 12/19/21 sulfamethoxazole 800 1 tab PO DAILY #63 tabs 12/19/21 mg-trimethoprim 160 mg tablet (Bactrim DS) Allergies Allergy/AdvReac Type Severity Reaction Status Date / Time gabapentin AdvReac Severe Psychosis Verified 12/24/21 22:18 prochlorperazine AdvReac Severe Itching Unverified 12/24/21 22:18 [From Compazine] codeine AdvReac Mild Nausea Verified 12/24/21 22:18 General Stated Complaint: SOB WILMAN: 2 Review of Systems Constitutional Constitutional: Reports as per HPI, Denies chills, Denies fever(s) and Denies headache(s) Eyes Eyes: Denies change in vision ENT Ears, Nose, Mouth, and Throat: Denies dizziness and Denies headache(s) Cardiovascular Cardiovascular: Reports as per HPI Respiratory Respiratory: Reports as per HPI, Denies chest congestion, Denies pain on inspiration, Denies pain with cough and Denies wheezing Gastrointestinal Gastrointestinal: Reports as per HPI, Denies abdominal pain, Denies diarrhea, Denies nausea and Denies vomiting Musculoskeletal Musculoskeletal: Reports as per HPI and Denies back pain Integumentary/Breasts Skin/Breast: Reports as per HPI and Denies rash Neurologic Neurologic: Reports as per HPI, Denies dizziness and Denies headache(s) Allergic/Immunologic Allergic/Immunologic: Denies wheezing PFSH All Active Problems (Updated 12/28/21 @ 10:25 by LANDON Massey) Palliative care patient (Acute) Acute respiratory distress syndrome (ARDS) due to COVID-19 virus (Acute) Leukocytosis (Acute) COVID-19 (Acute) Acute respiratory failure with hypoxia (Acute) Thrush, oral (Acute) Herpes zoster (Acute) Elevated troponin level not due to acute coronary syndrome (Acute) Chronic rhinitis (Acute) Nasal ulcer (Chronic) Trismus (Chronic) Annual physical exam (Acute 02/27/17) Bone spur of toe (Chronic 02/27/17) Family history of early CAD (Chronic 04/17/16) GERD (gastroesophageal reflux disease) (Chronic) Hormone replacement therapy (HRT) (Chronic) Hyperlipidemia (Chronic) Insomnia (Chronic) Osteopenia (Chronic) Paresthesia (Chronic) Rheumatoid arthritis (Chronic) Seasonal affective disorder (Acute) Primary osteoarthritis of right knee (Acute 10/04/16) Herpes (Acute) Fatigue (Acute) Left shoulder pain (Acute) On prednisone therapy (Acute) History of total right hip replacement (Acute 02/21/19) Anosmia (Acute) 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) Rectocele (Acute) Dislocation of internal right hip prosthesis (Acute) Contusion of hip, right (Acute) Strain of right knee (Acute) Mechanical instability of hip prosthesis (Acute) s/p acetabular revision with dual mobility liner (09/01/20) Recto-vaginal fistula (Acute) Rectal prolapse (Acute) History of revision of total replacement of right hip joint (Acute 09/01/20) Acetabular component Low back pain (Acute) Community acquired pneumonia, bilateral (Acute) SOB (shortness of breath) (Acute) Rheumatoid arthritis (Chronic) Chest pain (Acute) Cardiomegaly (Acute) Post-acute sequelae of COVID-19 (PASC) (Acute) Abnormal chest CT (Acute) Encounter for screening for COVID-19 (Acute) Medical History (Updated 12/28/21 @ 10:25 by LANDON Massey) Articular fracture of head of femur Chest pain Per pt. 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 Pre-op exam Pulmonary hypertension, high resistance (04/01/17) PAP 37 03/25 Stress fracture Surgical History Abdominal hysterectomy (~1987) Appendectomy (~1977) RUPTURED Bilateral salpingectomy with oophorectomy (~1987) Bunionectomy (~2006) Right H/O abdominal surgery for prolapsed rectum, 05/10/2021 History of appendectomy History of discectomy History of orthopedic surgery History of tonsillectomy and adenoidectomy Injection 03/03/15, 12/2015 Synvisc/Depomedrol in the right knee L5-S1 Discectomy (~2001) Lysis of adhesions Multiple surgeries, abdominal Repair, ACL (~10/2011) Replacement of total knee joint 08/23 [facility] (R) Rotator Cuff Repair (~2003) Left Status post abdominal hysterectomy Status post bunionectomy Status post repair of anterior cruciate ligament Status post rotator cuff repair Family History Mother Essential hypertension Depression Heart disease Hyperlipidemia Stroke Father , BRAIN BLEED at age 84. RA (rheumatoid arthritis) Essential hypertension CAD (coronary artery disease) Heart disease Hyperlipidemia Myocardial infarction Parkinson disease Sister Multiple personality disorder Substance abuse Essential hypertension Bipolar disorder Depression Heart disease Hyperlipidemia OA (osteoarthritis) RA (rheumatoid arthritis) Brother Essential hypertension CAD (coronary artery disease) Heart disease Hyperlipidemia Myocardial infarction ANGIOPLASTY/STENTS Brother RA (rheumatoid arthritis) Hypertension Hyperlipidemia Maternal Grandfather , 84 Essential hypertension Heart disease Hyperlipidemia Dementia Paternal Grandfather Dementia Leukemia Heart disease Maternal Grandmother , 72 Neoplasm BREAST W/METS Breast cancer with mets Paternal Grandmother , 74 Essential hypertension Heart disease MD Hyperlipidemia Son Depression Substance abuse Social History Smoking/Tobacco Use Status: Former Tobacco Use tobacco type: cigarettes Quit Date: 04/09/91 Tobacco: How many years used: 16 Second Hand Exposure: Yes Smoking risk assessment performed?: Yes Alcohol Intake: current Alcohol Intake frequency: a few times a week Alcohol type: wine and hard liquor Drug use: Never Substance use type: does not use Caregiver/Support person: No Household members: spouse and children Communication Needs: None Do you need help understanding health information?: Rarely Pets and animals: No Sexually active: No Do you think of yourself as: straight/heterosexual Current gender identity: female What is your relationship status?: How often do you talk on the phone with friends or family?: three or more times per week How often do you attend jew or yazidism services?: 4 or more times per year Do you belong to any clubs or organized social groups?: no Panel score (0-1 are the most socially isolated patients): 3 Jessica/Druze: Pentecostalism Special jessica needs: No Seatbelt use: always Helmet use: Yes Helmet use: always Drive intox or ride w/intox restaurant delivery driver: No Do you feel safe at home: Yes Do you feel safe in your relationship?: Yes Exam Const General: cooperative, not healthy appearing, uncomfortable, well developed, acute distress moderate and respiratory, anxious, frail appearing and ill appearing acutely Nutritional Appearance: average body habitus and well nourished Orientation: alert, awake and oriented x3 HENMT Head: normal to inspection Ears: hearing grossly normal bilaterally Mouth: mucous membranes dry (dry) Chest Chest: normal inspection of the chest, normal palpation of entire chest wall and no crepitus Resp Effort & Inspection: abnormal respiratory effort, not able to speak in complete sentences, no audible wheezes, no cough, nasal flaring, pursed lip breathing, respiratory distress, tachypneic, no tracheal deviation, tripod positioning and uses accessory muscles Auscultation: crackles on the right at the base and on the left in the mid lung flores and in the lower lung flores, no rales, no rhonchi and no wheezes Cardio Rate: tachycardic Rhythm: regular rhythm Heart Sounds: S1 normal and S2 normal GI Inspection: normal to inspection, no edema and non-distended Palpation: soft, no hepatosplenomegaly, not firm, no guarding, not rigid and nontender Auscultation: normal bowel sounds Back/Spine/Pelvis Back: no CVA tenderness Thoracic/Lumbar Spine: thoracic and lumbar spine normal to inspection Skin General skin exam: no rashes or lesions noted Trauma: no lacerations or abrasions Neuro General: patient alert, patient awake and patient oriented x3 Cognition: normal cognition Speech: speech normal Gait: gait abnormal (in wheelchair) Extrem General: normal to inspection, capillary refill normal, no pedal edema and no calf tenderness Psych Appearance: grossly normal and well kempt Mental Status: mental status grossly normal Speech and Movement: speech and movement normal Course Vital Signs Vital signs: Vital Signs Temperature 36.7 C 12/24/21 16:20 Pulse 100 H 12/24/21 16:20 Respiratory Rate 24 12/24/21 16:20 Blood Pressure 116/100 H 12/24/21 16:20 Pulse Oximetry 70 L 12/24/21 16:20 Temperature 36.7 C 12/24/21 16:20 Temperature Source Tympanic 12/24/21 16:20 Pulse 100 H 12/24/21 16:20 Respiratory Rate 24 12/24/21 16:20 Blood Pressure 116/100 H 12/24/21 16:20 Blood Pressure Position Supine 12/24/21 16:20 Pulse Oximetry 70 L 12/24/21 16:20 Oxygen Delivery Method Nasal Cannula 12/24/21 16:20 Oxygen Flow Rate 6 12/24/21 16:20 Pain Level 0 12/24/21 16:20
[2021-12-24 17:08] LABS: BE 2 mmol/L (-2-3); HCO3 26 mmol/L (22-26); pCO2 39 mmHg (35-45); pH 7.43 (7.35-7.45); pO2 87 mmHg (80-105); sO2 96 % (95-98); tCO2 23 mmol/L (23-27)
[2021-12-24 17:10] LABS: FIO2 60 %; Site Left Radial
--- NOTE | 2021-12-24 17:10 | DI.VRAD_ITS ---
PROCEDURE INFORMATION: Exam: XR Chest Exam date and time: 12/24/2021 4:22 PM Age: 61 years old Clinical indication: Shortness of breath TECHNIQUE: Imaging protocol: Radiologic exam of the chest. Views: 1 view. COMPARISON: CT CHEST WO 12/06/2021 2:03 PM FINDINGS: Lungs: Bilateral patchy lung infiltrates. Pleural spaces: No pneumothorax. No pleural fluid collection. Heart/Mediastinum: Prominent cardiac silhouette. Bones/joints: Spinal and left shoulder degenerative changes. IMPRESSION: Bilateral patchy lung infiltrates. Dictated and Authenticated by: Jhonathan Cedillo MD. Ordering:FRANKI Robert MD
[2021-12-24] MEDS: methylPREDNISolone SUCC 125 MG VIAL 80 MG IVP (17:20)
[2021-12-24 17:30] LABS: BE (Venous) 3 mmol/L (-2-3); HCO3 (Venous) 28 mmol/L (23-28); O2 Sat (Venous) 64 %; TCO2 (Venous) 26 mmol/L (24-29); pCO2 (Venous) 49 mmHg (41-51); pH (Venous) 7.37 (7.31-7.41); pO2 (Venous) 36 mmHg
[2021-12-24 17:34] LABS: Abs Immature Grans 0.35 10^3/uL (0.0-0.06); Absolute Basophil Count 0.03 10^3/uL (0.0-0.2); Absolute Eosinophil Count 0.01 10^3/uL (0.0-0.7); Absolute Lymphocyte Count 0.13 10^3/uL (1.2-3.4); Absolute Monocyte Count 0.19 10^3/uL (0.1-0.8); Basophils % 0.2; Eosinophils % 0.1; HCT 43.4 % (36.0-46.0); HGB 13.8 g/dL (11.2-15.7); Immature Grans % 2.7; MCH 26.8 pg (27.0-33.0); MCHC 31.8 % (32.0-36.0); MCV 84 fL (80-95); MPV 9.2 fL (8.0-11.0); Monocytes % 1.5; Neutrophils % 94.5; Platelet Count 357 10^3/uL (130-400); RBC 5.15 10^6/uL (3.93-5.22); RDW 15.6 % (11.7-14.6); RDW-SD 46.9 fL; WBC 12.81 10^3/uL (4.4-10.8)
[2021-12-24 17:40] LABS: Absolute Neutrophil Count 12.11 10^3/uL (1.2-6.7)
[2021-12-24 18:12] LABS: ALT 25 U/L (14-59); AST 51 U/L (15-37); Albumin 2.5 g/dL (3.4-5.0); Alkaline Phosphatase 96 U/L (46-116); Anion Gap 7.7 mmol/L (3-11); BUN 17 mg/dL (7-18); Bilirubin, Total 0.2 mg/dL (0.2-1.0); CO2 28.3 mmol/L (21.0-32.0); Calcium 8.9 mg/dL (8.5-10.1); Chloride 94 mmol/L (98-107); Glucose 155 mg/dL (74-106); Magnesium 1.7 mg/dL (1.8-2.4); NT-proBNP 856 pg/mL (<300); Potassium 4.8 mmol/L (3.5-5.1); Sodium 130 mmol/L (136-145); Total Protein 6.7 g/dL (6.4-8.2)
[2021-12-24 18:15] LABS: D-Dimer 2903 ng/mlFEU (<500)
--- NOTE | 2021-12-24 18:15 | DI.CT_ITS ---
Exam(s) CT CHEST PE CTA EXAM: CT CHEST PE CTA CLINICAL HISTORY: SOB, hypoxemia, elevated d-dimer. TECHNIQUE: Imaging Protocol: CT angiography of the chest was performed using pulmonary embolus aide col. Multi planar reconstructions were performed. CONTRAST MATERIAL: Intravenous: Omnipaque 350 Contrast volume: 100 cc COMPARISON: CT CT CHEST WO from 12/06/2021 FINDINGS: CHEST: PULMONARY ARTERIES: There are no intraluminal filling defects to suggest acute pulmonary emboli. LUNGS: There are now extensive ground-glass infiltrates throughout all lobes of both lungs, significa ntly increased from 12/06/2021 and not associated with pleural effusions. Suspicious for Covid pneum onia.. No focal findings in the trachea and mainstem bronchi. MEDIASTINUM: There is no hilar nor mediastinal adenopathy. Visualized thyroid unremarkable. CARDIAC: Mild cardiomegaly. No pericardial effusion.Ascending thoracic aorta is enlarged with diamet er 3.9 cm. No dissection. Ventricular ratio is 1:1. PARTIALLY VISUALIZED UPPERMOST ABDOMEN: No obvious findings OSSEOUS: No significant osseous lesions.. IMPRESSION: 1. Extensive bilateral ground-glass infiltrates throughout both lungs involving all segments of all l obes and with significant progression when compared to prior CT scan of 12/06/2021..No associated ple ural effusions nor obvious intrathoracic adenopathy. Findings are highly suspicious for Covid-19 pne umonia. 2. Prominent descending thoracic aorta. No dissection. 3. No significant osseous lesions. First read by [facility]. RADIATION DOSE DELIVERED: 234.4mGy.cm Total DLP DATA REPOSITORY: All CT scans at this facility are submitted to the National Radiology Data Registry (NRDR) Dose Index Registry (DIR) with the [employer] (A[employer]). RADIATION OPTIMIZATION: All CT scans at this facility use at least one of these dose optimization te chniques: automated exposure control; mA and/or kV adjustment per patient size (includes targeted exa ms where dose is matched to clinical indication); or iterative reconstruction.
[2021-12-24 18:17] LABS: Troponin I 98 ng/L (<or=60)
[2021-12-24] MEDS: Acyclovir 400 MG TAB 800 MG PO (18:41)
[2021-12-24] MEDS: Aspirin 325 MG TAB PO (18:41)
[2021-12-24] MEDS: Ondansetron 4 MG/2 ML VIAL IVP (18:49)
[2021-12-24] MEDS: Furosemide 20 MG/2 ML VIAL IVP (18:49)
[2021-12-24] MEDS: Omnipaque 350 MG/ML 100 ML BTL IJ (20:22)
[2021-12-24] MEDS: AZITHROMYCIN 500 MG in Normal Saline 250 ML 250 MG IVPB (20:27)
--- NOTE | 2021-12-24 20:41 | DI.VRAD_ITS ---
PROCEDURE INFORMATION: Exam: CTA Chest With Contrast Exam date and time: 12/24/2021 7:00 PM Age: 61 years old Clinical indication: SOB, hypoxia, elevated ddimer TECHNIQUE: Imaging protocol: Computed tomographic angiography of the chest with contrast. 3D rendering (Not supervised by radiologist): MIP and/or 3D reconstructed images were created by the technologist. Contrast material: 350; Contrast volume: 100 ml; Contrast route: INTRAVENOUS (IV); COMPARISON: CT CHEST PE CTA 10/11/2021 12:29 PM FINDINGS: Pulmonary arteries: No evidence of pulmonary embolism. Aorta: No aortic aneurysm. No aortic dissection. Lungs: Extensive areas of ground-glass opacity (GGO) within each lung. Atypical / viral infection, including COVID-19, is a consideration. Clinical correlation is important. Pleural spaces: Trace right pleural fluid. Minimal left pleural fluid. No pneumothorax. Heart: No right ventricular strain. No pericardial effusion. Lymph nodes: No enlarged lymph nodes. Bones/joints: Spinal degenerative changes. Soft tissues: Unremarkable. IMPRESSION: 1. No evidence of pulmonary embolism. 2. Extensive areas of ground-glass opacity (GGO) within each lung. Atypical / viral infection, including COVID-19, is a consideration. Clinical correlation is important. 3. Trace right pleural fluid. Minimal left pleural fluid. Dictated and Authenticated by: Jhonathan Cedillo MD. Ordering:FRANKI Robert MD
[2021-12-24 21:15] LABS: Source Nasal/Nares
[2021-12-24 21:47] LABS: COVID-19 PCR POSITIVE (Negative)
[2021-12-24 21:57] LABS: Troponin I 87 ng/L (<or=60)
--- NOTE | 2021-12-24 23:52 | W.PM.HP.N ---
Date of service: 12/24/21 Time of Service: 23:52 Assessment and Plan Assessment and plan (1) COVID-19 igor haisma: Start date: 12/24/21 Status: Acute Assessment and plan: Persistent and recurrent respiratory symptoms with hypoxemia very severe. BiPAP with O2 supplementation to maintain pulse oximeter above 90%. Increased steroid treatment acutely but no recent pretreatment for COVID-19 infection. Supportive care and pulmonology to assist in long-term treatment. Patient is disabled by this problem at this time and should not attempt return to work. She is a full code. (2) Inflammation of lung: Start date: 12/24/21 Status: Acute Assessment and plan: Worsening hypoxemia with continued abnormal CT findings of the chest but no PE. Patient will be treated as if she has pneumonia because of her acute decompensation with Zosyn and doxycycline and steroids will be reinitiated higher dose with Solu-Medrol 80 mg IV every 8 hours. Environmental Resource Specialist to follow-up first of the week and assist with ongoing treatment. (3) Elevated troponin level not due to acute coronary syndrome: Start date: 12/24/21 Status: Acute Assessment and plan: Marginally elevated and these will be trended. This did not appear to be acute ischemic but demand stress of the heart. (4) Cardiomegaly: Status: Acute Assessment and plan: By recent imaging with prolonged pulmonary process, echocardiogram to be updated soon. (5) Pulmonary hypertension, high resistance: Status: Chronic Assessment and plan: Documented in March but assuming worsening with patient's prolonged respiratory issues with COVID-19. Echocardiogram is scheduled with patient having cardiomegaly. Avoid over diuresing. (6) Rheumatoid arthritis: Status: Chronic Assessment and plan: On methotrexate weekly with folic acid. Patient also has been on prednisone most of her life but usually more low dose at 5 mg daily baseline and recently at much higher doses with her pneumonitis associate with COVID-19 persistent inflammation. Monitor on usual meds with increased steroids acutely. (7) Nasal ulcer: Status: Chronic Assessment and plan: Patient recently was diagnosed with herpes infection and will be on high-dose acyclovir 800 mg 5 times daily for acute treatment. This is a chronic rash and being treated as if it may be zoster. 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 She has a history of COVID-19 infection in August of this year and is a 58 COVID-19 long-hauler with continued episodes of pneumonitis, hypoxemia and respiratory symptoms. She does have a history of rheumatoid arthritis on immunosuppressants long-term prior to being infected with COVID-19. She recently attempted to return to work and has been more fatigued. Her other chronic medical problems have been overall stable. She does have a history of pulmonary hypertension and is being evaluated further with echocardiogram which is yet to be performed. She has recently been having cardiomegaly with increasing peripheral edema over her upper and lower extremities but has not been checking her weight. She is moderately obese. In the ED she was found to have positive inflammatory markers and responded to BiPAP which she was comfortable wearing for hypoxemia and her tachypnea. When presenting she was pursed lip breathing and tripoding with tachypnea and not speaking in full sentences. Her pulse oximeter in the ED was 40% on room air. She always test positive for COVID-19. Because of possibility of new infiltrate the patient was initiated on IV antibiotic therapy with Zosyn and now doxycycline. Review of Systems Narrative: 13 point review of systems otherwise unrevealing or stable. PFSH All Active Problems (Updated 12/25/21 @ 06:39 by Kaushik Lunsford) Elevated troponin level not due to acute coronary syndrome (Acute) Chronic rhinitis (Acute) Nasal ulcer (Chronic) Inflammation of lung (Acute) COVID-19 long hauler (Acute) Trismus (Chronic) Annual physical exam (Acute 02/27/17) Bone spur of toe (Chronic 02/27/17) Cough (Chronic) Family history of early CAD (Chronic 04/17/16) GERD (gastroesophageal reflux disease) (Chronic) Hormone replacement therapy (HRT) (Chronic) Hyperlipidemia (Chronic) Insomnia (Chronic) Osteopenia (Chronic) Paresthesia (Chronic) Pulmonary hypertension, high resistance (Chronic 04/01/17) PAP 37 03/25 Rheumatoid arthritis (Chronic) Seasonal affective disorder (Acute) Primary osteoarthritis of right knee (Acute 10/04/16) Herpes (Acute) Fatigue (Acute) Left shoulder pain (Acute) On prednisone therapy (Acute) History of total right hip replacement (Acute 02/21/19) Anosmia (Acute) 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) Rectocele (Acute) Dislocation of internal right hip prosthesis (Acute) Contusion of hip, right (Acute) Strain of right knee (Acute) Mechanical instability of hip prosthesis (Acute) s/p acetabular revision with dual mobility liner (09/01/20) Recto-vaginal fistula (Acute) Rectal prolapse (Acute) History of 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 Pre-op exam Stress fracture Surgical History Abdominal hysterectomy (~1987) Appendectomy (~1977) RUPTURED Bilateral salpingectomy with oophorectomy (~1987) Bunionectomy (~2006) Right H/O abdominal surgery for prolapsed rectum, 05/10/2021 History of appendectomy History of discectomy History of orthopedic surgery History of tonsillectomy and adenoidectomy Injection 03/03/15, 12/2015 Synvisc/Depomedrol in the right knee L5-S1 Discectomy (~2001) Lysis of adhesions Multiple surgeries, abdominal Repair, ACL (~10/2011) Replacement of total knee joint 08/23 [facility] (R) Rotator Cuff Repair (~2003) Left Status post abdominal hysterectomy Status post bunionectomy Status post repair of anterior cruciate ligament Status post rotator cuff repair Family History Mother Essential hypertension Depression Heart disease Hyperlipidemia Stroke Father , BRAIN BLEED at age 84. RA (rheumatoid arthritis) Essential hypertension CAD (coronary artery disease) Heart disease Hyperlipidemia Myocardial infarction Parkinson disease Sister Multiple personality disorder Substance abuse Essential hypertension Bipolar disorder Depression Heart disease Hyperlipidemia OA (osteoarthritis) RA (rheumatoid arthritis) Brother Essential hypertension CAD (coronary artery disease) Heart disease Hyperlipidemia Myocardial infarction ANGIOPLASTY/STENTS Brother RA (rheumatoid arthritis) Hypertension Hyperlipidemia Maternal Grandfather , 84 Essential hypertension Heart disease Hyperlipidemia Dementia Paternal Grandfather Dementia Leukemia Heart disease Maternal Grandmother , 72 Neoplasm BREAST W/METS Breast cancer with mets Paternal Grandmother , 74 Essential hypertension Heart disease GA Hyperlipidemia Son Depression Substance abuse Social History Smoking/Tobacco Use Status: Former Tobacco Use tobacco type: cigarettes Quit Date: 04/09/91 Tobacco: How many years used: 16 Second Hand Exposure: Yes Smoking risk assessment performed?: Yes Alcohol Intake: current Alcohol Intake frequency: a few times a week Alcohol type: wine and hard liquor Drug use: Never Substance use type: does not use Caregiver/Support person: No Household members: spouse and children Communication Needs: None Do you need help understanding health information?: Rarely Pets and animals: No Sexually active: No Do you think of yourself as: straight/heterosexual Current gender identity: female What is your relationship status?: How often do you talk on the phone with friends or family?: three or more times per week How often do you attend yazidism or muslim services?: 4 or more times per year Do you belong to any clubs or organized social groups?: no Panel score (0-1 are the most socially isolated patients): 3 Jessica/Nondenominational: Muslim Special jessica needs: No Seatbelt use: always Helmet use: Yes Helmet use: always Drive intox or ride w/intox driver merchandiser: No Do you feel safe at home: Yes Do you feel safe in your relationship?: Yes Meds Allergies and Home Medications Allergies Allergy/AdvReac Type Severity Reaction Status Date / Time gabapentin AdvReac Severe Psychosis Verified 12/24/21 22:18 prochlorperazine AdvReac Severe Itching Unverified 12/24/21 22:18 [From Compazine] codeine AdvReac Mild Nausea Verified 12/24/21 22:18 Home Medications Medication Instructions Recorded Confirmed Type albuterol sulfate 5 mg/mL(0.5 %) 2.5 mg inhalation QID PRN 01/26/16 12/24/21 History solution for nebulization cholecalciferol (vitamin D3) 25 2,000 unit PO DAILY 12/08/19 12/24/21 History mcg (1,000 unit) tablet acetaminophen 500 mg tablet 1,000 mg PO Q6H PRN #90 tab-caps 09/02/20 12/24/21 Rx (Acetaminophen Extra Strength) duloxetine 60 mg capsule,delayed 60 mg PO DAILY #90 tab-caps 04/11/21 12/24/21 Rx release escitalopram oxalate 10 mg tablet 10 mg PO DAILY #90 tabs 04/11/21 12/24/21 Rx acyclovir 5 % topical cream 1 applic topical DAILY PRN #15 06/22/21 12/24/21 Rx (Zovirax) grams acyclovir 800 mg tablet 800 mg PO TID PRN herpes #90 tabs 06/22/21 12/24/21 Rx celecoxib 200 mg capsule (Celebrex) 200 mg PO BID #180 caps 06/22/21 12/24/21 Rx diltiazem HCl 120 mg capsule,24 120 mg PO DAILY #90 caps 06/22/21 12/24/21 Rx hr,extended release estradiol 0.01% (0.1 mg/gram) 1 g vaginal .twice weekly #127.5 06/22/21 12/24/21 Rx vaginal cream grams fluticasone propionate 230 2 puff inhalation BID PRN asthma 06/22/21 12/24/21 Rx mcg-salmeterol 21 mcg/actuation #12 grams HFA inhaler (Advair HFA) folic acid 1 mg tablet 2 mg PO DAILY #180 tab-caps 06/22/21 12/24/21 Rx montelukast 10 mg tablet 10 mg PO QPM #90 tabs 06/22/21 12/24/21 Rx mupirocin 2 % topical ointment 1 applic topical BID #30 grams 06/22/21 12/24/21 Rx omeprazole 20 mg capsule,delayed 20 mg PO DAILY PRN heartburn #90 06/22/21 12/24/21 Rx release caps prednisone 20 mg tablet 40 mg PO .COMPLEX #10 tabs 06/22/21 12/24/21 Rx triamcinolone acetonide 0.1 % 1 applic topical BID #453.6 grams 06/22/21 12/24/21 Rx topical cream rosuvastatin 5 mg tablet (Crestor) 5 mg PO DAILY #90 tab-caps 07/18/21 12/24/21 Rx nitroglycerin 0.4 mg sublingual 0.4 mg sublingual Q5M PRN chest 10/13/21 12/24/21 Rx tablet pain #25 tabs methotrexate sodium 2.5 mg tablet 7.5 mg PO qWEEK #36 tabs 10/20/21 12/24/21 Rx zolpidem 10 mg tablet 10 mg PO QHS PRN sleep #90 tabs 10/20/21 12/24/21 Rx methylphenidate HCl 10 mg tablet See Rx Instructions PO TID #120 11/14/21 12/24/21 Rx tab-caps prednisone 20 mg tablet 50 mg PO DAILY 12/06/21 12/24/21 History albuterol sulfate 90 mcg/actuation 2 puff inhalation Q6H PRN 12/16/21 12/24/21 Rx aerosol inhaler (ProAir HFA) shortness of breath or wheezing #25.5 grams prednisone 20 mg tablet 20 mg PO DAILY #90 tabs 12/19/21 12/24/21 Rx prednisone 5 mg tablet 5 mg PO DAILY #60 tabs 12/19/21 12/24/21 Rx sulfamethoxazole 800 1 tab PO DAILY #63 tabs 12/19/21 12/24/21 Rx mg-trimethoprim 160 mg tablet (Bactrim DS) Exam Narrative Exam Narrative: General: Patient appears older than stated age, moderately obese lying in bed with head of 45 degree angle on BiPAP. She is speaking through the BiPAP mask and more complete sentences than she was in the ED. She is in moderate distress. She is alert and oriented x3. HEENT: Normocephalic, eyes with pupils equal react to light symmetrically, extraocular movement tact and sclera anicteric. Oropharynx with dry mucosa. Neck: Supple without JVD. Back: Stooped posture without CVA tenderness. Lungs: Bronchovesicular breath sounds diffusely with expiratory coarse crackles sparsely but diffusely and occasional rhonchi. No expiratory wheeze. No increased expiratory phase. No intercostal retractions. Heart: Regular rate and rhythm with no murmurs gallops appreciated. Breast: Exam deferred. Abdomen: Obese contour, soft to palpation and nontender with no palpable hepatosplenomegaly. Bowel sounds positive all quadrants. Genitalia/rectal: Exam deferred. Extremities: Nonpitting edema which is mild over upper and lower extremities. Peripheral pulses grossly intact. No clubbing or cyanosis. Arthritic changes over joints with no acute joint swelling. Skin: Pale, warm and dry. Neuro: Cranial nerves II through XII grossly intact, no focalizing motor deficits. No tremor. Psych: Normal affect and mood. No abnormal thought processes. Remote and recent memory grossly intact. Results Imaging Imaging Studies: Exam: CTA Chest With Contrast Exam date and time: 12/24/2021 7:00 PM Age: 61 years old Clinical indication: SOB, hypoxia, elevated ddimer TECHNIQUE: Imaging protocol: Computed tomographic angiography of the chest with contrast. 3D rendering (Not supervised by radiologist): MIP and/or 3D reconstructed images were created by the technologist. Contrast material: 350; Contrast volume: 100 ml; Contrast route: INTRAVENOUS (IV);? COMPARISON: CT CHEST PE CTA 10/11/2021 12:29 PM FINDINGS: Pulmonary arteries: No evidence of pulmonary embolism. Aorta: No aortic aneurysm. No aortic dissection. Lungs: Extensive areas of ground-glass opacity (GGO) within each lung. Atypical / viral infection, including COVID-19, is a consideration. Clinical correlation is important. Pleural spaces: Trace right pleural fluid.? Minimal left pleural fluid. No pneumothorax. Heart: No right ventricular strain. No pericardial effusion. Lymph nodes: No enlarged lymph nodes. Bones/joints: Spinal degenerative changes. Soft tissues: Unremarkable. IMPRESSION: 1.? No evidence of pulmonary embolism. 2.? Extensive areas of ground-glass opacity (GGO) within each lung. Atypical / viral infection, including COVID-19, is a consideration. Clinical correlation is important. 3.? Trace right pleural fluid.? Minimal left pleural fluid. Exam: XR Chest Exam date and time: 12/24/2021 4:22 PM Age: 61 years old Clinical indication: Shortness of breath TECHNIQUE: Imaging protocol: Radiologic exam of the chest. Views: 1 view. COMPARISON: CT CHEST WO 12/06/2021 2:03 PM FINDINGS: Lungs: Bilateral patchy lung infiltrates. Pleural spaces: No pneumothorax. No pleural fluid collection. Heart/Mediastinum: Prominent cardiac silhouette. Bones/joints: Spinal and left shoulder degenerative changes. IMPRESSION: Bilateral patchy lung infiltrates. Labs Result diagrams: 12/25/21 05:13 12/25/21 05:13 Labs: Laboratory Results - last 24 hr 12/24/21 12/24/21 12/24/21 17:03 17:15 17:15 WBC 12.81 H RBC 5.15 Hgb 13.8 Hct 43.4 MCV 84 MCH 26.8 L MCHC 31.8 L RDW 15.6 H Plt Count 357 MPV 9.2 Immature Gran % 2.7 Neutrophils % 94.5 Lymphocytes % 1.0 Monocytes % 1.5 Eosinophils % 0.1 Basophils % 0.2 Nucleated RBC % 0.0 Absolute Neutrophils 12.11 H Absolute Lymphocytes 0.13 L Absolute Monocytes 0.19 Absolute Eosinophils 0.01 Absolute Basophils 0.03 D-Dimer ABG Sample Site Left Radial ABG pH 7.43 ABG pCO2 39 ABG pO2 87 ABG HCO3 26 ABG Total CO2 23 ABG O2 Saturation 96 ABG Base Excess 2 VBG pH VBG pCO2 VBG pO2 VBG HCO3 VBG Total CO2 VBG O2 Saturation VBG Base Excess Oxygen Liter Flow BiPAP 12/7 FiO2 60 Sodium 130 L Potassium 4.8 Chloride 94 L Carbon Dioxide 28.3 Anion Gap 7.7 BUN 17 Creatinine 1.0 Est GFR (CKD-EPI 2020) 63.30 Glucose 155 H Calcium 8.9 Magnesium 1.7 L Total Bilirubin 0.2 AST 51 H ALT 25 Alkaline Phosphatase 96 Troponin I 98 H* NT-Pro-B Natriuret Pep 856 H Total Protein 6.7 Albumin 2.5 L COVID-19 Source SARS-CoV-2 (PCR) 12/24/21 12/24/21 12/24/21 17:15 17:15 21:10 WBC RBC Hgb Hct MCV MCH MCHC RDW Plt Count MPV Immature Gran % Neutrophils % Lymphocytes % Monocytes % Eosinophils % Basophils % Nucleated RBC % Absolute Neutrophils Absolute Lymphocytes Absolute Monocytes Absolute Eosinophils Absolute Basophils D-Dimer 2903 H ABG Sample Site ABG pH ABG pCO2 ABG pO2 ABG HCO3 ABG Total CO2 ABG O2 Saturation ABG Base Excess VBG pH 7.37 VBG pCO2 49 VBG pO2 36 VBG HCO3 28 VBG Total CO2 26 VBG O2 Saturation 64 VBG Base Excess 3 Oxygen Liter Flow FiO2 Sodium Potassium Chloride Carbon Dioxide Anion Gap BUN Creatinine Est GFR (CKD-EPI 2020) Glucose Calcium Magnesium Total Bilirubin AST ALT Alkaline Phosphatase Troponin I NT-Pro-B Natriuret Pep Total Protein Albumin COVID-19 Source Nasal/Nares SARS-CoV-2 (PCR) POSITIVE A* 12/24/21 21:24 WBC RBC Hgb Hct MCV MCH MCHC RDW Plt Count MPV Immature Gran % Neutrophils % Lymphocytes % Monocytes % Eosinophils % Basophils % Nucleated RBC % Absolute Neutrophils Absolute Lymphocytes Absolute Monocytes Absolute Eosinophils Absolute Basophils D-Dimer ABG Sample Site ABG pH ABG pCO2 ABG pO2 ABG HCO3 ABG Total CO2 ABG O2 Saturation ABG Base Excess VBG pH VBG pCO2 VBG pO2 VBG HCO3 VBG Total CO2 VBG O2 Saturation VBG Base Excess Oxygen Liter Flow FiO2 Sodium Potassium Chloride Carbon Dioxide Anion Gap BUN Creatinine Est GFR (CKD-EPI 2020) Glucose Calcium Magnesium Total Bilirubin AST ALT Alkaline Phosphatase Troponin I 87 H* NT-Pro-B Natriuret Pep Total Protein Albumin COVID-19 Source SARS-CoV-2 (PCR) Last Vital Signs Temp 36.7 C 12/24/21 16:20 Pulse 94 H 12/24/21 22:58 Resp 27 H 12/24/21 23:00 BP 106/67 12/24/21 22:58 Pulse Ox 98 12/24/21 23:00
[2021-12-25] VITALS (134 sets, daily range): BP systolic 82–120; BP diastolic 52–80; PULSE 84–121; RESP 12–45; TEMP 31–36.6; O2SAT 66–99
[2021-12-25] MEDS: Zolpidem 5 MG TAB 10 MG PO ×2 (01:21→22:29)
[2021-12-25] MEDS: Albuterol/Ipratropium 3 ML UPD VIAL UPD (02:48)
[2021-12-25] MEDS: methylPREDNISolone SUCC 125 MG VIAL 80 MG IVP ×2 (02:48→11:23)
[2021-12-25] MEDS: Doxycycline Hyclate 100 MG CAP PO ×3 (02:48→22:29)
[2021-12-25 05:42] LABS: Abs Immature Grans 0.26 10^3/uL (0.0-0.06); Absolute Basophil Count 0.02 10^3/uL (0.0-0.2); Absolute Lymphocyte Count 0.16 10^3/uL (1.2-3.4); Absolute Monocyte Count 0.35 10^3/uL (0.1-0.8); Absolute Neutrophil Count 11.19 10^3/uL (1.2-6.7); Basophils % 0.2; HCT 36.3 % (36.0-46.0); HGB 11.5 g/dL (11.2-15.7); Immature Grans % 2.2; Lymphocytes % 1.3; MCH 26.6 pg (27.0-33.0); MCHC 31.7 % (32.0-36.0); MCV 84 fL (80-95); Monocytes % 2.9; Neutrophils % 93.4; Platelet Count 309 10^3/uL (130-400); RBC 4.32 10^6/uL (3.93-5.22); RDW 15.3 % (11.7-14.6); RDW-SD 46.5 fL; WBC 11.98 10^3/uL (4.4-10.8)
[2021-12-25 06:09] LABS: ALT 23 U/L (14-59); AST 48 U/L (15-37); Albumin 2.2 g/dL (3.4-5.0); Alkaline Phosphatase 81 U/L (46-116); Anion Gap 8.7 mmol/L (3-11); BUN 14 mg/dL (7-18); Bilirubin, Total 0.3 mg/dL (0.2-1.0); CO2 27.3 mmol/L (21.0-32.0); CREATININE 0.8 mg/dL (0.55-1.02); Calcium 8.6 mg/dL (8.5-10.1); Chloride 97 mmol/L (98-107); Estimated GFR 82.74 (mL/min/1.73m2); Glucose 117 mg/dL (74-106); Magnesium 1.7 mg/dL (1.8-2.4); Potassium 4.2 mmol/L (3.5-5.1); Sodium 133 mmol/L (136-145); Total Protein 5.7 g/dL (6.4-8.2); Troponin I < 50 ng/L (<or=60)
--- NOTE | 2021-12-25 07:15 | RT.EKG_ITS ---
APPROVED REPORT Exam: Resting ECG Reason for Exam: elevated troponin Patient Location: I HR:97 bpm ECG Measurements Heart Rate 97 AXIS AK 144 P 51 QRSd 85 QRS 73 QT 340 T 37 QTc 432 Conclusion Sinus rhythm...normal P axis, V-rate 50- 99 Right atrial abnormality
[2021-12-25] MEDS: Methylphenidate 10 MG TAB 20 MG PO (07:43)
[2021-12-25] MEDS: DULoxetine 30 MG CAP 60 MG PO (07:43)
[2021-12-25] MEDS: Acyclovir 400 MG TAB 800 MG PO ×3 (07:43→15:35)
[2021-12-25] MEDS: dilTIAZem CD 120 MG CAPCR PO (07:43)
[2021-12-25] MEDS: Magnesium Oxide 400 MG TAB PO ×2 (07:44→18:43)
[2021-12-25] MEDS: Rosuvastatin 5 MG TAB PO (07:44)
[2021-12-25] MEDS: Celecoxib 200 MG CAP PO ×2 (07:44→18:42)
[2021-12-25] MEDS: Folic Acid 1 MG TAB 2 MG PO (07:44)
[2021-12-25] MEDS: Escitalopram 10 MG TAB PO (07:44)
[2021-12-25] MEDS: Enoxaparin 40 MG/0.4 ML SYR SC (07:44)
--- NOTE | 2021-12-25 08:25 | PDOC.CMIN ---
- If Service Date Differs Date of service: 12/25/21 Time of Service: 08:25 Care Management Initial Assess REASON FOR HOSPITALIZATION:: Covid Pneumonia PAST MEDICAL HISTORY/PAST SURGICAL HISTORY:: All Active Problems (Updated 12/25/21 @ 06:39 by Kaushik Lunsford). Elevated troponin level not due to acute coronary syndrome (Acute). Chronic rhinitis (Acute). Nasal ulcer (Chronic). Inflammation of lung (Acute). COVID-19 long hauler (Acute). Trismus (Chronic). Annual physical exam (Acute 02/27/17). Bone spur of toe (Chronic 02/27/17). Cough (Chronic). Family history of early CAD (Chronic 04/17/16). GERD (gastroesophageal reflux disease) (Chronic). Hormone replacement therapy (HRT) (Chronic). Hyperlipidemia (Chronic). Insomnia (Chronic). Osteopenia (Chronic). Paresthesia (Chronic). Pulmonary hypertension, high resistance (Chronic 04/01/17). PAP 37 03/25. Rheumatoid arthritis (Chronic). Seasonal affective disorder (Acute). Primary osteoarthritis of right knee (Acute 10/04/16). Herpes (Acute). Fatigue (Acute). Left shoulder pain (Acute). On prednisone therapy (Acute). History of total right hip replacement (Acute 02/21/19). Anosmia (Acute). 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 Rectocele (Acute). Dislocation of internal right hip prosthesis (Acute). Contusion of hip, right (Acute). Strain of right knee (Acute). Mechanical instability of hip prosthesis (Acute). s/p acetabular revision with dual mobility liner (09/01/20). Recto-vaginal fistula (Acute). Rectal prolapse (Acute). History of revision of total replacement of right hip joint (Acute 09/01/20). Acetabular component. Low back pain (Acute). COVID-19 (Acute). Community acquired pneumonia, bilateral (Acute). SOB (shortness of breath) (Acute). Rheumatoid arthritis (Chronic). Chest pain (Acute). Cardiomegaly (Acute). Post-acute sequelae of COVID-19 (PASC) (Acute). Abnormal chest CT (Acute). Encounter for screening for COVID-19 (Acute). Medical History . Articular fracture of head of femur. Chest pain. Per pt. has been fully worked up, states it is a spasming of the coronary artieres and takes diltiazem helps with this. Chronic rhinitis. DDD (degenerative disc disease), lumbosacral. Encounter for screening for other viral diseases. History of exercise stress test (11/24/13). Meningeal disorder. 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 Pre-op exam. Stress fracture. Surgical History . Abdominal hysterectomy (~1987). Appendectomy (~1977). RUPTURED. Bilateral salpingectomy with oophorectomy (~1987). Bunionectomy (~2006). Right. H/O abdominal surgery. for prolapsed rectum, 05/10/2021. History of appendectomy. History of discectomy. History of orthopedic surgery. History of tonsillectomy and adenoidectomy. Injection. 03/03/15, 12/2015 Synvisc/Depomedrol in the right knee. L5-S1 Discectomy (~2001). Lysis of adhesions. Multiple surgeries, abdominal. Repair, ACL (~10/2011). Replacement of total knee joint. 08/23 [facility] (R). Rotator Cuff Repair (~2003). Left. Status post abdominal hysterectomy. Status post bunionectomy. Status post repair of anterior cruciate ligament. Status post rotator cuff repair PREVIOUS FUNCTIONAL STATUS/SOCIAL/FAMILY SUPPORTS:: Crissy lives in [place], [place] with her Aron and her 8 year old grandson Rick that they have adopted. Crissy has one son and Aron has 2 adult children both from previous marriages. 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 Crissy has several chronic medical issues and has been taking immunosuppressive therapy (prednisone, rituximab and methotrexate) for a long time. She was independent and at her baseline until she got Covid in August. Since then she has been out of work and her breathing has been greatly compromised. Crissy does not receive any community services. CURRENT FUNCTIONAL STATUS:: ASIM was unable to meet with Crissy in person as she is on Covid precautions in the ICU, but was able to speak at length with her Aron by phone. Aron was able to chronicle Crissy's illness which began in August when she developed Covid. She has not been well since. She has been unable to work and has major challenges with shortness of breath, extreme fatigue and brain fog. On the day of admission her oxygen saturation level was 48%. Aron explained that Crissy has seen multiple providers in the past few months and her treatment has changed several times. Crissy is currently in the ICU on bipap. Her oxygen saturation levels are extremely fragile and drop quickly with even the smallest movement. She is being treated with antibiotics, steroids and antiviral medication as well as respiratory support with high flow nasal oxygen alternating with CPAP or bipap. ADVANCE DIRECTIVES:: On file at [facility]. Aron [facility] Has patient been provided with info about the portal/API?: Yes Did the patient sign up for the portal?: Yes (previously) CODE STATUS:: Full Code INSURANCE COVERAGE / FINANCIAL ISSUES:: [employer] CURRENT HOME/COMMUNITY SERVICES/EQUIPMENT:: none PRIMARY CARE PHYSICIAN:: Kim Mandel POTENTIAL DISCHARGE NEEDS:: follow up with PCP and plan of care PATIENT/FAMILY EDUCATION NEEDS:: Review discharge instructions, limitations, follow up plan, medications, activity and discuss Ask Me Three TRANSPORTATION:: via private vehicle with PLAN:: Crissy will likely be discharged home when medically cleared by provider, unless transfer to a tertiary care facility becomes necessary. She will follow up with her community providers and plan of care and transport with family. CM will continue to support Crissy and assess for discharge planning concerns.
[2021-12-25] MEDS: Triamcinolone 0.1% CR 15 GM TUBE TP ×2 (09:23→18:44)
[2021-12-25] MEDS: Albuterol HFA 8 GM 60 PUFF INH IH (12:50)
--- NOTE | 2021-12-25 14:07 | W.PM.PROGNOT ---
Date of Service Date of service: 12/25/21 Time of Service: 14:07 Assessment and Plan Assessment and plan (1) Acute and chronic respiratory failure: Status: Acute Assessment and plan: patient has had long covid w/ chronic ground glass changes going back to August when she first contracted COVID-19. Patient underwent bronchosopy November 15, 2021 and had complete infectious workup in which she did not have any bacterial, fungal or tuberculous or PJP. She had a lot of lymphocytes. No biopsy were done to rule out underlying RA lung or methotrexate toxicity but she did start to respond to high dose prednisone in which her CT of her chest from 12/06 showed interval improvement compared to that done on 10/11 and 09/27; however she relates that her hypoxemia has gotten worse since she started a prednisone taper and was put back on a slower taper going from 50 mg to 45 mg/day. She has no fever and really no sputum production. Her current CT shows worsening diffuse ground glass changes. Her SARS-COV2 remains postive. In light of the uncertain etiology of her worsening infiltrates and positive for COVID I will put her on Remdesivir, high dose dexamethasone, cont. NIPPV (I have encouraged her to use her CPAP as much as tolerable but allow for HFNC so she can eat. I also encouraged her to prone. I have ordered fungitell, sputum cultures, urine Legionella and Strep antigens, mycoplasma. She was put on Rocephin and doxycycline. She was recently diagnosed w/ zoster ulcers in her nose per bx by Dr. Aleman. She has been on acyclovir orally but has had GI upset. I will put her on iv acyclovir in addition to her antibacterial treatment and Remdesivir. I will ask Dr. Ann to evaluate her in the morning. Critical care time spent interviewing and examining the patient, reviewing studies, discussing case with patient's nurse and consulting physicians was 60 minutes (2) COVID-19 long hauler: Status: Acute Assessment and plan: as above (3) Herpes zoster: Status: Acute Assessment and plan: will give iv acyclovir. (4) Thrush, oral: Status: Acute Assessment and plan: will put her on diflucan (5) Rheumatoid arthritis: Status: Chronic Assessment and plan: patient has not had any methotrexate for the past 6 weeks. She went off this prior to her bronchoscopy and has not restarted this. She has not had her rituximab since August. 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 Last treatment with rituximab was in August of this year. Patient has been infected twice with COVID-19 despite having had her primary series and 2 booster vaccines. Patient has sequela of long COVID with chronic pulmonary inflammation. She is being followed by ribbon lap machine tender Dr. Haydee Ann who would perform bronchoscopy On November 15, 2021 to rule out tuberculosis and fungal lung infection. All cultures are negative including fungal and bacterial and TB. BAL showed a lot of predominance of lymphocytes which was expected post recent COVID infection. Patient was tested for pneumocystis as well as malignancy both of which were negative. Patient has been on high-dose prednisone for which she has been on taper since early October. She had a reemergence of her symptoms with her taper and therefore went back up to 50 mg daily. Patient has chronic hypoxemia with exertion and monitors her oxygen levels at home. On a good day her oxygen saturation is in the high 80s but over the last few days her oxygen saturation has dropped down into the 60s and when it dropped down into the 40s she became alarmed and came to the emergency department yesterday. She denies any fevers or chills or rigors. She has a cough that is recently become productive of white mucus. Patient was recently diagnosed with herpetic lesions in her nares when she was evaluated for nasal ulcerations by Dr. Aleman. She was put on acyclovir. Patient's not currently on her methotrexate and she has not had a rituximab since August. She has not had recent COVID-19 booster for coverage of the new omicron variants. She denies any chest pain or pressure. She gets dyspneic with prolonged conversations or any kind of activities of ADL. Work-up last night through the emergency department clued a CT scan of her chest with enhanced contrast that showed extensive groundglass opacities in each lung and when compared to recent chest CT from 12/06/2021 it appears there is worsening consolidations throughout both lungs. Prior to that she had shown improvement from her previous lung consolidations that were seen on her chest CT from 10/11/2021 as her been interval decrease in the consolidations on her recent CT scan from 12/06/2021. Laboratory work-up last night included CBC that showed minimally elevated white count 12,800 with an absolute lymphocytosis of 130 and a mild elevation of neutrophils at 12,000. She had no anemia. D-dimer is elevated at 2900. CMP demonstrated normal renal function no significant electrolyte abnormalities and mildly elevated troponin I of 87 which is since come down to less than 50. AST was mildly elevated at 48 with the rest of her LFTs being normal. ABG last night showed normal pH 7.43 and normal PCO2 with a PO2 of 87 and saturation 96%. This was taken on BiPAP with 60% FiO2. Urinalysis was unremarkable. Treatment included high-dose Solu-Medrol along with bronchodilators and noninvasive positive pressure ventilation. Overnight she was switched to high flow nasal cannula but alternates between the high flow nasal cannula and the CPAP. She was started on parenteral antibiotics including azithromycin given in the emergency department but switched to doxycycline and ceftriaxone by the human resources administrator. Patient was not given any antivirals other than her acyclovir. Given her worsening ground glass changes and the predominance of new Omicron variants and her not having had the new booster vaccine, I will cover her for possible re-infection w/ COVID-19 w/ Remdesivir, decadron, NIPPV and continue empiric antibiotics pending ruling out bacterial component. Also will give her Diflucan as it appears she has some thrush. Exam Narrative Exam Narrative: Middle-aged male sitting up in bed gets moderately dyspneic with any kind of conversation. Not using accessory respiratory muscles however her O2 saturation drops down into the high 70s and low 80s with prolonged conversation while on high flow nasal cannula. After rest her oxygen saturation came up into the low 90s. HEENT is remarkable for some white cottage cheese looking exudate on her tongue and on her palate. Neck is supple no JVD normal carotid pulses no bruits Lungs with diffuse bilateral cellophane type rales without rhonchi or wheezing Heart is regular no appreciable murmur rub Abdomen soft nontender no organomegaly Extremities without peripheral cyanosis or edema Objective Last Vital Signs Temp 36.6 C 12/25/21 12:00 Pulse 94 H 12/24/21 22:58 Resp 19 12/25/21 13:10 BP 110/76 12/25/21 12:00 Pulse Ox 90 L 12/25/21 13:10 Laboratory Results - last 24 hr 12/24/21 12/24/21 12/24/21 17:03 17:15 17:15 WBC 12.81 H RBC 5.15 Hgb 13.8 Hct 43.4 MCV 84 MCH 26.8 L MCHC 31.8 L RDW 15.6 H Plt Count 357 MPV 9.2 Immature Gran % 2.7 Neutrophils % 94.5 Lymphocytes % 1.0 Monocytes % 1.5 Eosinophils % 0.1 Basophils % 0.2 Nucleated RBC % 0.0 Absolute Neutrophils 12.11 H Absolute Lymphocytes 0.13 L Absolute Monocytes 0.19 Absolute Eosinophils 0.01 Absolute Basophils 0.03 D-Dimer ABG Sample Site Left Radial ABG pH 7.43 ABG pCO2 39 ABG pO2 87 ABG HCO3 26 ABG Total CO2 23 ABG O2 Saturation 96 ABG Base Excess 2 VBG pH VBG pCO2 VBG pO2 VBG HCO3 VBG Total CO2 VBG O2 Saturation VBG Base Excess Oxygen Liter Flow BiPAP 12/7 FiO2 60 Sodium 130 L Potassium 4.8 Chloride 94 L Carbon Dioxide 28.3 Anion Gap 7.7 BUN 17 Creatinine 1.0 Est GFR (CKD-EPI 2020) 63.30 Glucose 155 H Calcium 8.9 Magnesium 1.7 L Total Bilirubin 0.2 AST 51 H ALT 25 Alkaline Phosphatase 96 Troponin I 98 H* NT-Pro-B Natriuret Pep 856 H Total Protein 6.7 Albumin 2.5 L COVID-19 Source SARS-CoV-2 (PCR) 12/24/21 12/24/21 12/24/21 17:15 17:15 21:10 WBC RBC Hgb Hct MCV MCH MCHC RDW Plt Count MPV Immature Gran % Neutrophils % Lymphocytes % Monocytes % Eosinophils % Basophils % Nucleated RBC % Absolute Neutrophils Absolute Lymphocytes Absolute Monocytes Absolute Eosinophils Absolute Basophils D-Dimer 2903 H ABG Sample Site ABG pH ABG pCO2 ABG pO2 ABG HCO3 ABG Total CO2 ABG O2 Saturation ABG Base Excess VBG pH 7.37 VBG pCO2 49 VBG pO2 36 VBG HCO3 28 VBG Total CO2 26 VBG O2 Saturation 64 VBG Base Excess 3 Oxygen Liter Flow FiO2 Sodium Potassium Chloride Carbon Dioxide Anion Gap BUN Creatinine Est GFR (CKD-EPI 2020) Glucose Calcium Magnesium Total Bilirubin AST ALT Alkaline Phosphatase Troponin I NT-Pro-B Natriuret Pep Total Protein Albumin COVID-19 Source Nasal/Nares SARS-CoV-2 (PCR) POSITIVE A* 12/24/21 12/25/21 12/25/21 21:24 05:13 05:13 WBC 11.98 H RBC 4.32 Hgb 11.5 D Hct 36.3 MCV 84 MCH 26.6 L MCHC 31.7 L RDW 15.3 H Plt Count 309 MPV 9.0 Immature Gran % 2.2 Neutrophils % 93.4 Lymphocytes % 1.3 Monocytes % 2.9 Eosinophils % 0.0 Basophils % 0.2 Nucleated RBC % 0.0 Absolute Neutrophils 11.19 H Absolute Lymphocytes 0.16 L Absolute Monocytes 0.35 Absolute Eosinophils 0.00 Absolute Basophils 0.02 D-Dimer ABG Sample Site ABG pH ABG pCO2 ABG pO2 ABG HCO3 ABG Total CO2 ABG O2 Saturation ABG Base Excess VBG pH VBG pCO2 VBG pO2 VBG HCO3 VBG Total CO2 VBG O2 Saturation VBG Base Excess Oxygen Liter Flow FiO2 Sodium 133 L Potassium 4.2 Chloride 97 L Carbon Dioxide 27.3 Anion Gap 8.7 BUN 14 Creatinine 0.8 Est GFR (CKD-EPI 2020) 82.74 Glucose 117 H Calcium 8.6 Magnesium 1.7 L Total Bilirubin 0.3 AST 48 H ALT 23 Alkaline Phosphatase 81 Troponin I 87 H* < 50 NT-Pro-B Natriuret Pep Total Protein 5.7 L Albumin 2.2 L COVID-19 Source SARS-CoV-2 (PCR)
[2021-12-25] MEDS: Dexamethasone 10 MG/ML VIAL IVP (15:17)
[2021-12-25] MEDS: Fluconazole 100 MG TAB 400 MG PO (15:17)
[2021-12-25] MEDS: Furosemide 20 MG/2 ML VIAL IVP (15:32)
[2021-12-25] MEDS: Normal Saline Flush 10 ML SYR IVP ×4 (15:35→15:36)
[2021-12-25] MEDS: Acetaminophen 500 MG TAB 1000 MG PO (17:18)
[2021-12-25] MEDS: Omeprazole 20 MG CAPCR PO (17:18)
[2021-12-25] MEDS: LORazepam 1 MG TAB PO (18:43)
[2021-12-25] MEDS: cefTRIAXone 1 GM/50 ML BAG IVPB (18:43)
[2021-12-25] MEDS: Montelukast 10 MG TAB PO (18:46)
[2021-12-25] MEDS: Sulfameth/Trimeth DS TAB 1 TAB PO (18:48)
[2021-12-26] VITALS (125 sets, daily range): BP systolic 89–118; BP diastolic 56–89; PULSE 80–119; RESP 12–38; TEMP 31–37.3; O2SAT 69–97
[2021-12-26] MEDS: LORazepam 1 MG TAB PO ×2 (04:05→22:31)
[2021-12-26] MEDS: Normal Saline Flush 10 ML SYR IVP ×3 (05:38→19:55)
[2021-12-26 05:41] LABS: Abs Immature Grans 0.33 10^3/uL (0.0-0.06); Absolute Monocyte Count 0.53 10^3/uL (0.1-0.8); Basophils % 0.2; Eosinophils % 0.1; HCT 33.2 % (36.0-46.0); HGB 10.9 g/dL (11.2-15.7); Immature Grans % 1.9; MCH 26.8 pg (27.0-33.0); MCHC 32.8 % (32.0-36.0); MCV 82 fL (80-95); MPV 8.7 fL (8.0-11.0); Neutrophils % 93.8; Platelet Count 289 10^3/uL (130-400); RBC 4.06 10^6/uL (3.93-5.22); RDW 15.3 % (11.7-14.6); RDW-SD 45.4 fL; WBC 17.58 10^3/uL (4.4-10.8)
[2021-12-26 05:43] LABS: Absolute Basophil Count 0.04 10^3/uL (0.0-0.2); Absolute Eosinophil Count 0.02 10^3/uL (0.0-0.7); Absolute Lymphocyte Count 0.18 10^3/uL (1.2-3.4); Absolute Neutrophil Count 16.49 10^3/uL (1.2-6.7)
[2021-12-26 06:26] LABS: D-Dimer 2989 ng/mlFEU (<500)
[2021-12-26 06:30] LABS: ALT 20 U/L (14-59); AST 39 U/L (15-37); Albumin 2.1 g/dL (3.4-5.0); Alkaline Phosphatase 78 U/L (46-116); Anion Gap 7.6 mmol/L (3-11); BUN 29 mg/dL (7-18); Bilirubin, Total 0.3 mg/dL (0.2-1.0); CO2 29.4 mmol/L (21.0-32.0); Calcium 8.9 mg/dL (8.5-10.1); Chloride 94 mmol/L (98-107); Creatine Kinase 20 U/L (26-192); Ferritin 442 ng/mL (8-252); Glucose 119 mg/dL (74-106); LDH 476 U/L (81-234); Potassium 4.4 mmol/L (3.5-5.1); Sodium 131 mmol/L (136-145); Total Protein 5.5 g/dL (6.4-8.2)
[2021-12-26 06:39] LABS: C-Reactive Protein 4.37 mg/dL (0.0-0.3)
[2021-12-26] MEDS: dilTIAZem CD 120 MG CAPCR PO (08:37)
[2021-12-26] MEDS: Celecoxib 200 MG CAP PO (08:37)
[2021-12-26] MEDS: Dexamethasone 10 MG/ML VIAL IVP (08:37)
[2021-12-26] MEDS: Enoxaparin 40 MG/0.4 ML SYR SC (08:38)
[2021-12-26] MEDS: Magnesium Oxide 400 MG TAB PO ×2 (08:38→19:54)
[2021-12-26] MEDS: DULoxetine 30 MG CAP 60 MG PO (08:38)
[2021-12-26] MEDS: Fluconazole 100 MG TAB 200 MG PO (08:38)
[2021-12-26] MEDS: Sulfameth/Trimeth DS TAB 1 TAB PO (08:38)
[2021-12-26] MEDS: Rosuvastatin 5 MG TAB PO (08:38)
[2021-12-26] MEDS: Furosemide 20 MG/2 ML VIAL IVP ×2 (08:39→19:54)
[2021-12-26] MEDS: Folic Acid 1 MG TAB 2 MG PO (08:40)
[2021-12-26] MEDS: Triamcinolone 0.1% CR 15 GM TUBE TP ×2 (08:54→19:56)
[2021-12-26] MEDS: Albuterol HFA 8 GM 60 PUFF INH IH ×2 (08:59→13:05)
[2021-12-26] MEDS: Budesonide/Formoterol 160/4.5 6 GM 60 PUFF INH IH (08:59)
--- NOTE | 2021-12-26 09:38 | W.PULMCC ---
General Date of Service Date of service: 12/26/21 Time of Service: 08:00 Reason for Admission to ICU: COVID-19 Assessment and Plan Assessment and plan (1) Thrush, oral: Status: Acute (2) Herpes zoster: Status: Acute (3) Acute respiratory failure with hypoxia: Status: Acute (4) Nasal ulcer: Status: Chronic (5) Elevated troponin level not due to acute coronary syndrome: Status: Acute (6) Acute respiratory distress syndrome (ARDS) due to COVID-19 virus: Status: Acute (7) Rheumatoid arthritis: Status: Chronic (8) COVID-19: Status: Acute (9) Post-acute sequelae of COVID-19 (PASC): Status: Acute (10) Leukocytosis: Status: Acute Assessment and plan: This is a 61 yo female admitted for her third documented COVID 19 infection. In my opinion there is really no way to tell if she truly has contracted a new COVID infection or if this represents her bodies inability to clear the virus successfully from her last infection. In either case, it seems appropriate to treat her as though this is a new infection. She does have elevation of inflammatory markers and so I do recommend barcitinib. It is also possible that the COVID could have triggered the development of AIP (given the chest CT appearance), particularly with her RA history. It is still more likely that this is severe COVID infection but AIP is on the differential. Due to this, and the severity of her illness it is worth trying pulse dose steroids on her, while continuing to empirically cover her for pneumonia. I will also add fungal coverage in the off chance she contracted aspergillus since her bronch. 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 If this is AIP then pulse dose steroids is the treatment. We need to be aggressive about supportive care with PAP, IS, Acapella, etc. I have worries about the trajectory of her clinical course and recommend transfer to a tertiary care center. Recommendations Pulmonary: ARDS, hypoxic respiratory failure - continue CPAP at night and prn - can try adding mepalex to her cheeks to help with mask fitting - can titrate PEEP up, but would not go above [id number] - HFNC/NRB for CPAP breaks - IS and Acapella - Comnivent QID ordered in place of Atrovent - would consider PICC line Cardiac: Troponin elevation - due to demand - recommend holding Cardizem given softer blood pressures Renal: No acute concerns, continue to monitor I&O: Intake & Output 12/23/21 12/24/21 12/25/21 12/26/21 23:59 23:59 23:59 23:59 Intake Total 300 / 300 600 / 600 350 / 350 Output Total 900 / 900 100 / 100 Balance 300 / 300 -300 / -300 250 / 250 Weight 58.6 kg 58.6 kg 57.4 kg Daily Fluid Goal:: -500 to -1L in 24 hours GI Nutrition: PO diet Date of Last Bowel Movement: 12/22/21 Infectious Disease: COVID 19 - recommend remdesivir - recommend starting barcitinib - would trial pulse dose steroids - 500mg IV bid for 6 doses - stop decadron - continue empiric bacterial pneumonia coverage - will start empiric voriconazole for possible fungal coverage - awaiting Fungitell - add aspergillus antigen Herpetic nasal ulcer - on acyclovir Hematologic: Leukocytosis - due to steroids vs infection Neurologic: Some confusion today - will monitor Endocrine: monitor glucose levels with the steroids Lines: PIV Prophylaxis: Lovenox Prilosec prn Code Status: Resuscitation Status Full Code Subjective Critical and life-threatening events over the past 24 hours: This is a 61 yo female who has RA and was on Rituxan and methotrexate who has had recurrent COVID infections since August. I have been seeing her as an outpatient for this issue and have had her on a prolong high dose prednisone regimen (1mg/kg) with prolonged and slow tapering. I did perform a bronchoscopy which was essentially negative with the exception of high lymphocytes, which I attributed to COVID after several other tests (including fungal and PJP) were negative. She is now admitted to the ICU with what is suspected to be her third new COVID infection. She is on maximal non invasive oxygen support with HFNC and a non-rebreather alternating with CPAP. Her chest CT is significantly worse from her last one (which I got during her prednisone course which was showing some improvements). She does have some elevations in her inflammatory markers. She is on Decadron and ordered for remdesivir. She does have some trouble breathing but is surprised at how low her oxygen is getting. She is overall tired. She is upset by how sick she is and sad about not being able to see her family. Exam Narrative Exam Narrative: Gen: NAD, normal respiratory effort, well-nourished HENT: PERRL, nasal turbinates normal without erythema or inflammation, moist oral mucosa, Mallampati 2, No LAD or JVD Chest: No respiratory distress, normal appearance of chest, clear to auscultation bilaterally, crackles bilaterally, no wheezes, normal inspiratory effort Heart: regular rate and rhythym, no murmurs, rubs or gallops Abdomen: Non-distended, soft, non tender Extremities: No clubbing, edema, cyanosis, rashes Neuro: AAOx3 , non focal Psych: cooperative, appropriate mental affect Most Recent VS/Results Last Vital Signs Temp 37.3 C 12/26/21 09:33 Pulse 105 H 12/26/21 09:15 Resp 26 H 12/26/21 09:33 BP 95/79 L 12/26/21 09:15 Pulse Ox 89 L 12/26/21 09:15 Laboratory Results - last 24 hr 12/26/21 12/26/21 12/26/21 05:20 05:20 05:20 WBC 17.58 H RBC 4.06 Hgb 10.9 L Hct 33.2 L MCV 82 MCH 26.8 L MCHC 32.8 RDW 15.3 H Plt Count 289 MPV 8.7 Immature Gran % 1.9 Neutrophils % 93.8 Lymphocytes % 1.0 Monocytes % 3.0 Eosinophils % 0.1 Basophils % 0.2 Nucleated RBC % 0.0 Absolute Neutrophils 16.49 H Absolute Lymphocytes 0.18 L Absolute Monocytes 0.53 Absolute Eosinophils 0.02 Absolute Basophils 0.04 D-Dimer 2989 H Sodium 131 L Potassium 4.4 Chloride 94 L Carbon Dioxide 29.4 Anion Gap 7.6 BUN 29 H Creatinine 1.0 Est GFR (CKD-EPI 2020) 63.30 Glucose 119 H Calcium 8.9 Ferritin 442 H Total Bilirubin 0.3 AST 39 H ALT 20 Alkaline Phosphatase 78 Lactate Dehydrogenase 476 H Creatine Kinase 20 L C-Reactive Protein 4.37 H Total Protein 5.5 L Albumin 2.1 L Patient ABO/Rh Antibody Screen 12/26/21 05:20 WBC RBC Hgb Hct MCV MCH MCHC RDW Plt Count MPV Immature Gran % Neutrophils % Lymphocytes % Monocytes % Eosinophils % Basophils % Nucleated RBC % Absolute Neutrophils Absolute Lymphocytes Absolute Monocytes Absolute Eosinophils Absolute Basophils D-Dimer Sodium Potassium Chloride Carbon Dioxide Anion Gap BUN Creatinine Est GFR (CKD-EPI 2020) Glucose Calcium Ferritin Total Bilirubin AST ALT Alkaline Phosphatase Lactate Dehydrogenase Creatine Kinase C-Reactive Protein Total Protein Albumin Patient ABO/Rh O Positive Antibody Screen NEGATIVE Review of Systems All systems reviewed & are unremarkable except as noted in HPI and below Time spent with patient Time spent in Critical Care: 110 Time spent in Critical care included: Coordination of care, Chart review, Documenting critically ill care, Time at immediate bedside, Discussing critically ill care with other medical staff and Discussing care with family members Multi-Disciplinary Checklist Lines/Tubes CENTRAL LINE: no ARTERIAL LINE: no REA: no ENDOTRACHEAL TUBE: no ICU Maintenance GLUCOSE 140-180mg/dL: yes NUTRITION AT GOAL: yes PRESSURE ULCER: no RESTRAINTS: no ANTIBIOTICS(if yes, consider Stewardship): Yes Social Issues FAMILY UPDATED: yes PT/OT: no, Reason/Intervention: not appropriate at this time GOALS/DISPOSITION/PROPULSION ENGINEER: yes CODE STATUS: Full Prophylaxis DVT PROPHYLAXIS: yes GI PROPHYLAXIS: yes, Indication: will change prn to scheduled - steroids
--- NOTE | 2021-12-26 09:53 | W.PM.PROGNOT ---
Date of Service Date of service: 12/26/21 Time of Service: 09:53 Assessment and Plan Assessment and plan (1) Acute and chronic respiratory failure: Status: Acute Assessment and plan: continue Doxycycline and Rocephin empirically but if no fevers and if sputum is negative and procalcitonin test repeatedly normal then consider dc but will continue for now while she is worked up. Recheck fungal studies; continue Remdesivir, high dose dexamethasone 10 mg daily, Baricitinib 4 mg daily, use of HFNC while eating but otherwise encourage her to use CPAP and encourage her to prone. Critical care time spent interviewing and examining the patient, reviewing studies, discussing case with patient's nurse and consulting physicians was 30 minutes (2) COVID-19 long hauler: Status: Acute Assessment and plan: as above (3) Herpes zoster: Status: Acute Assessment and plan: will give iv acyclovir. (4) Thrush, oral: Status: Acute Assessment and plan: diflucan added yesterday (5) Rheumatoid arthritis: Status: Chronic Assessment and plan: patient has not had any methotrexate for the past 6 weeks. She went off this prior to her bronchoscopy and has not restarted this. She has not had her rituximab since August. (6) DVT prophylaxis: Status: Acute Assessment and plan: enoxaparin 40 mg SC daily Subjective Subjective Interval history since last seen: Patient has had increased oxygen needs. She requires HFNC @ 60 LPM and has to use a NRB mask over top of this to keep her SPO2 above 90% but w/ any prolonged conversation or even trying to get cleaned up she quickly desaturates. I discussed w/ her the need to wear the CPAP as much as possible. The ativan did help her last night but left her feeling overly fatigued, groggy afterwards. At home she has had chronic insomnia and has chronically used Ambien. I told her that I would reduce her Ativan dose to 0.5 mg tid prn anxiety but will have her use the Ambien on schedule and use the CR form to try to help her sleep at night. We talked about her increased likelihood of needing intubation. She did not seem to realize how precarious her oxygen status has become. I told her that my intention is not to frighten her but trying to be honest and realist w/ her. I told her that Dr. Ann will work w/ administration to allow her to see her through the glass door and if intubation becomes necessary then have him see her at her bedside in full PPE gear. For now I asked that she focus on using the CPAP and attempt proning maneuvers to hopefully improve her ventilation/perfusion matching and improve aeration to her base of her lungs. Just while I was in there, her SPO2 adriel to 94% with just getting her off of her back and having her lean forward for my exam. I explained to her that in addition to the Remdesivir, Baricitnib is being added to her regimen. She will remain on high dose dexamethasone 10 mg IV daily (equivalent to prednisone [address]). [address]. Ann has indicated that she will consult w/ her ID and PULM colleagues at [facility] [[email or web address]] regarding any further therapies for recurrent COVID. Exam Narrative Exam Narrative: Crissy appears fatigued. She is not in imminent respiratory distress but just looks more tired than yesterday; she seems to be using her accessory muscles to catch her breath after any conversation Lungs: diffuse fine rales; no wheezing Heart: regular but tachycardic Abdomen: soft, nontender, she has not had a BM and has chronic constipation ( I told her that we need to correct that as straining will fatigue her more and increase her work of breathing) Legs: no edema or cyanosis; no calf tenderness; good capillary refill Objective Last Vital Signs Temp 37.3 C 12/26/21 09:33 Pulse 105 H 12/26/21 09:15 Resp 26 H 12/26/21 09:33 BP 95/79 L 12/26/21 09:15 Pulse Ox 89 L 12/26/21 09:15 Laboratory Results - last 24 hr 12/26/21 12/26/21 12/26/21 05:20 05:20 05:20 WBC 17.58 H RBC 4.06 Hgb 10.9 L Hct 33.2 L MCV 82 MCH 26.8 L MCHC 32.8 RDW 15.3 H Plt Count 289 MPV 8.7 Immature Gran % 1.9 Neutrophils % 93.8 Lymphocytes % 1.0 Monocytes % 3.0 Eosinophils % 0.1 Basophils % 0.2 Nucleated RBC % 0.0 Absolute Neutrophils 16.49 H Absolute Lymphocytes 0.18 L Absolute Monocytes 0.53 Absolute Eosinophils 0.02 Absolute Basophils 0.04 D-Dimer 2989 H Sodium 131 L Potassium 4.4 Chloride 94 L Carbon Dioxide 29.4 Anion Gap 7.6 BUN 29 H Creatinine 1.0 Est GFR (CKD-EPI 2020) 63.30 Glucose 119 H Calcium 8.9 Ferritin 442 H Total Bilirubin 0.3 AST 39 H ALT 20 Alkaline Phosphatase 78 Lactate Dehydrogenase 476 H Creatine Kinase 20 L C-Reactive Protein 4.37 H Total Protein 5.5 L Albumin 2.1 L Patient ABO/Rh Antibody Screen 12/26/21 05:20 WBC RBC Hgb Hct MCV MCH MCHC RDW Plt Count MPV Immature Gran % Neutrophils % Lymphocytes % Monocytes % Eosinophils % Basophils % Nucleated RBC % Absolute Neutrophils Absolute Lymphocytes Absolute Monocytes Absolute Eosinophils Absolute Basophils D-Dimer Sodium Potassium Chloride Carbon Dioxide Anion Gap BUN Creatinine Est GFR (CKD-EPI 2020) Glucose Calcium Ferritin Total Bilirubin AST ALT Alkaline Phosphatase Lactate Dehydrogenase Creatine Kinase C-Reactive Protein Total Protein Albumin Patient ABO/Rh O Positive Antibody Screen NEGATIVE
--- NOTE | 2021-12-26 10:34 | W.NUTCONSULT ---
Date of service: 12/26/21 Time of Service: 10:34 Nutritional Consult ASSESSMENT: Crissy was admitted with respiratory failure, covid long gordon, immune suppressed with chronic steriod use for RA. Med chart review indicates 12% weight loss in last 90 days considered significant and of concern. Is about 25 lbs below baseline weight with BMI of 23. Following Regular meal plan with poor intake (averaging 25% of meals). Will supplement with nutrient dense meals and snacks. Unable to meet with Crissy as with covid precautions. NUTRITIONAL DIAGNOSIS: Unintentional weight loss due to poor appetite with long covid INTERVENTION: continue regular meal plan, will supplement with nutrient dense meals and snacks. MONITORING AND EVALUATION: wt, po intake, labs. Time Spent in Nutritional Counseling and Treatment: 0
--- NOTE | 2021-12-26 10:36 | CMPROGNOTE_ITS ---
- If Service Date Differs Date of service: 12/26/21 Time of Service: 10:36 Care Management Progress Note S/O: Crissy is being closely monitored at ICU level of care. 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 Per MD, Crissy is still at risk for intubation, if her respiratory status continues to decline. CM was asked to attend to a request for her to be able to see her through the glass, and if she does require intubation, for him to be able to wear full PPE and visit at the bedside. CM discussed this with senior leadership, who agreed to him visiting through the glass, but not for in person visitation, as that is not in our current visitation policy. CM informed her RN of this decision. CM will continue to follow. A: Crissy is a 61 year old female admitted to [facility] on 12/24/21 with hypoxemia, Covid Pneumonia. P: Crissy will likely be discharged home when medically cleared by provider, unless transfer to a tertiary care facility becomes necessary. She will follow up with her community providers and plan of care and transport with family. CM will continue to support Crissy and assess for discharge planning concerns.
--- NOTE | 2021-12-26 10:40 | PCNE_ITS ---
Date of service: 12/25/21 Time of Service: 14:00 History of Present Illness History of Present Illness Chief Complaint: SOB Narrative: Crissy is a 61-year-old woman who has been my patient for many years. She has rheumatoid arthritis, history of pelvic prolapse, hip replacement x2 and most recently COVID. She has struggled with her breathing since COVID began approximately 3 to 4 months ago. She has tested positive repeatedly. She has been seen by Dr. Kimball, pulmonology, had bronchoscopy and multiple tests done. Other than COVID there has been no specific etiology for her continued problems with shortness of breath and hypoxia. She has long COVID. Things were starting to improve a few weeks back and she return to work half- time. Unfortunately this was short-lived and on Sunday she contacted me because of O2 readings in the 50s. She went to [facility] ER and was admitted to ICU. She continues to struggle to keep her oxygenation's in the normal range. She is short of breath, tachypneic, and worried. Today she is a PUI. The expectation is that she will be positive. I am seeing Crissy as a palliative consult Consults Consult date: 12/25/21 Requesting physician: Robbie Smith Assessment and Plan Assessment and plan (1) Acute respiratory distress syndrome (ARDS) due to COVID-19 virus: Status: Acute Assessment and plan: Crissy is presently on high flow oxygen and nonrebreather. When she is sleeping she will be switching to CPAP. Her oxygenation/O2 sats do fluctuate with even very mild exertion. Tomorrow Dr. Kimball will be in and help to guide therapy. She is presently receiving antibiotics, steroids, antivirals. (2) Herpes zoster: Status: Acute Assessment and plan: She is on acyclovir for pathology confirmed herpes in her nose. This is bothering her stomach. I will talk to the hospitalist about changing this to IV (3) Elevated troponin level not due to acute coronary syndrome: Status: Acute (4) Palliative care patient: Status: Acute Assessment and plan: Over the course of Crissy's protracted illness, we have spoken of her goals of care. She is firm that she wants to be a full code. She wants intubation to only occur if there is absolutely no alternatives. She wants to stay at [facility] if at all possible. She does have a grandchild that she is guardian for. She wants to be around for his future. She knows she is already been through a lot, but is willing to go through what it takes to hopefully reach the other side of her long COVID. This is very much complicated by the fact that she has RA and receives immunosuppressants. These are on hold at this time it is likely that the immunosuppressants contributed to her development of long COVID I will continue to see Crissy. I spoke with the Hospitalist team and attempted to call her Review of Systems Narrative: Her biggest problem is her shortness of breath. She also has chest pressure and chest pain. She struggles with chronic constipation and needs to have a high- fiber diet. She does not have a headache at this time. She has in the past. Constitutional Comments: Crissy is in mild distress. She is tachypneic. She can speak in 2-3 word sentences. When I helped her untangle a cord the exertion caused her to drop into the 50s on her O2 sats Eyes Comments: Surrounding eyes are somewhat swollen from masks etc. PFSH All Active Problems (Updated 12/27/21 @ 06:34 by Kim Mandel MD, [place]) Palliative care patient (Acute) Acute respiratory distress syndrome (ARDS) due to COVID-19 virus (Acute) Leukocytosis (Acute) COVID-19 (Acute) Acute respiratory failure with hypoxia (Acute) DVT prophylaxis (Acute) Thrush, oral (Acute) Herpes zoster (Acute) Elevated troponin level not due to acute coronary syndrome (Acute) Chronic rhinitis (Acute) Nasal ulcer (Chronic) Trismus (Chronic) Annual physical exam (Acute 02/27/17) Bone spur of toe (Chronic 02/27/17) Family history of early CAD (Chronic 04/17/16) GERD (gastroesophageal reflux disease) (Chronic) Hormone replacement therapy (HRT) (Chronic) Hyperlipidemia (Chronic) Insomnia (Chronic) Osteopenia (Chronic) Paresthesia (Chronic) Rheumatoid arthritis (Chronic) Seasonal affective disorder (Acute) Primary osteoarthritis of right knee (Acute 10/04/16) Herpes (Acute) Fatigue (Acute) Left shoulder pain (Acute) On prednisone therapy (Acute) History of total right hip replacement (Acute 02/21/19) Anosmia (Acute) 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) Rectocele (Acute) Dislocation of internal right hip prosthesis (Acute) Contusion of hip, right (Acute) Strain of right knee (Acute) Mechanical instability of hip prosthesis (Acute) s/p acetabular revision with dual mobility liner (09/01/20) Recto-vaginal fistula (Acute) Rectal prolapse (Acute) History of revision of total replacement of right hip joint (Acute 09/01/20) Acetabular component Low back pain (Acute) Community acquired pneumonia, bilateral (Acute) SOB (shortness of breath) (Acute) Rheumatoid arthritis (Chronic) Chest pain (Acute) Cardiomegaly (Acute) Post-acute sequelae of COVID-19 (PASC) (Acute) Abnormal chest CT (Acute) Encounter for screening for COVID-19 (Acute) Medical History (Updated 12/27/21 @ 06:34 by Kim Mandel MD, [place]) Articular fracture of head of femur Chest pain Per pt. 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 Pre-op exam Pulmonary hypertension, high resistance (04/01/17) PAP 37 03/25 Stress fracture Surgical History Abdominal hysterectomy (~1987) Appendectomy (~1977) RUPTURED Bilateral salpingectomy with oophorectomy (~1987) Bunionectomy (~2006) Right H/O abdominal surgery for prolapsed rectum, 05/10/2021 History of appendectomy History of discectomy History of orthopedic surgery History of tonsillectomy and adenoidectomy Injection 03/03/15, 12/2015 Synvisc/Depomedrol in the right knee L5-S1 Discectomy (~2001) Lysis of adhesions Multiple surgeries, abdominal Repair, ACL (~10/2011) Replacement of total knee joint 08/23 [facility] (R) Rotator Cuff Repair (~2003) Left Status post abdominal hysterectomy Status post bunionectomy Status post repair of anterior cruciate ligament Status post rotator cuff repair Family History Mother Essential hypertension Depression Heart disease Hyperlipidemia Stroke Father , BRAIN BLEED at age 84. RA (rheumatoid arthritis) Essential hypertension CAD (coronary artery disease) Heart disease Hyperlipidemia Myocardial infarction Parkinson disease Sister Multiple personality disorder Substance abuse Essential hypertension Bipolar disorder Depression Heart disease Hyperlipidemia OA (osteoarthritis) RA (rheumatoid arthritis) Brother Essential hypertension CAD (coronary artery disease) Heart disease Hyperlipidemia Myocardial infarction ANGIOPLASTY/STENTS Brother RA (rheumatoid arthritis) Hypertension Hyperlipidemia Maternal Grandfather , 84 Essential hypertension Heart disease Hyperlipidemia Dementia Paternal Grandfather Dementia Leukemia Heart disease Maternal Grandmother , 72 Neoplasm BREAST W/METS Breast cancer with mets Paternal Grandmother , 74 Essential hypertension Heart disease VA Hyperlipidemia Son Depression Substance abuse Social History Smoking/Tobacco Use Status: Former Tobacco Use tobacco type: cigarettes Quit Date: 04/09/91 Tobacco: How many years used: 16 Second Hand Exposure: Yes Smoking risk assessment performed?: Yes Alcohol Intake: current Alcohol Intake frequency: a few times a week Alcohol type: wine and hard liquor Drug use: Never Substance use type: does not use Caregiver/Support person: No Household members: spouse and children Communication Needs: None Do you need help understanding health information?: Rarely Pets and animals: No Sexually active: No Do you think of yourself as: straight/heterosexual Current gender identity: female What is your relationship status?: How often do you talk on the phone with friends or family?: three or more times per week How often do you attend sikh or congregation services?: 4 or more times per year Do you belong to any clubs or organized social groups?: no Panel score (0-1 are the most socially isolated patients): 3 Jessica/Jainism: Hinduism Special jessica needs: No Seatbelt use: always Helmet use: Yes Helmet use: always Drive intox or ride w/intox highway truck driver: No Do you feel safe at home: Yes Do you feel safe in your relationship?: Yes Exam Narrative Exam Narrative: Crissy is lying in bed. She has a high flow oxygen and a nonrebreather on. Her O2 sats are in the lower 90s. When she helps me to untangle a cord, the sats dipped into the 50s. It takes about 2 minutes for them to return to more normal levels. She is tachypneic. She is mildly anxious. Her eyes are somewhat edematous from the different oxygen systems. Mouth excellent dentition neck is supple. Lungs very little air movement definite crackles in the right lower left. Heart?heart rate is in about 100. I do not hear any murmurs. Abdomen nontender. Legs no real edema seen today Results Last Vital Signs Temp 99.1 F 12/26/21 09:33 Pulse 105 H 12/26/21 09:15 Resp 26 H 12/26/21 09:33 BP 95/79 L 12/26/21 09:15 Pulse Ox 89 L 12/26/21 09:15 Labs Result diagrams: 12/26/21 05:20 12/26/21 05:20 Labs: Laboratory Results - last 24 hr 12/26/21 12/26/21 12/26/21 05:20 05:20 05:20 WBC 17.58 H RBC 4.06 Hgb 10.9 L Hct 33.2 L MCV 82 MCH 26.8 L MCHC 32.8 RDW 15.3 H Plt Count 289 MPV 8.7 Immature Gran % 1.9 Neutrophils % 93.8 Lymphocytes % 1.0 Monocytes % 3.0 Eosinophils % 0.1 Basophils % 0.2 Nucleated RBC % 0.0 Absolute Neutrophils 16.49 H Absolute Lymphocytes 0.18 L Absolute Monocytes 0.53 Absolute Eosinophils 0.02 Absolute Basophils 0.04 D-Dimer 2989 H Sodium 131 L Potassium 4.4 Chloride 94 L Carbon Dioxide 29.4 Anion Gap 7.6 BUN 29 H Creatinine 1.0 Est GFR (CKD-EPI 2020) 63.30 Glucose 119 H Calcium 8.9 Ferritin 442 H Total Bilirubin 0.3 AST 39 H ALT 20 Alkaline Phosphatase 78 Lactate Dehydrogenase 476 H Creatine Kinase 20 L C-Reactive Protein 4.37 H Total Protein 5.5 L Albumin 2.1 L Patient ABO/Rh Antibody Screen 12/26/21 05:20 WBC RBC Hgb Hct MCV MCH MCHC RDW Plt Count MPV Immature Gran % Neutrophils % Lymphocytes % Monocytes % Eosinophils % Basophils % Nucleated RBC % Absolute Neutrophils Absolute Lymphocytes Absolute Monocytes Absolute Eosinophils Absolute Basophils D-Dimer Sodium Potassium Chloride Carbon Dioxide Anion Gap BUN Creatinine Est GFR (CKD-EPI 2020) Glucose Calcium Ferritin Total Bilirubin AST ALT Alkaline Phosphatase Lactate Dehydrogenase Creatine Kinase C-Reactive Protein Total Protein Albumin Patient ABO/Rh O Positive Antibody Screen NEGATIVE
--- NOTE | 2021-12-26 10:40 | PCPN_ITS ---
Date of service: 12/26/21 Time of Service: 07:00 Assessment and Plan Assessment and plan (1) Acute respiratory distress syndrome (ARDS) due to COVID-19 virus: Status: Acute (2) Herpes zoster: Status: Acute (3) Palliative care patient: Status: Acute Assessment and plan: I did bring Crissy to high-protein high-fiber drinks today in hopes that she will be able to sip on these. We also did get a glass of ice for this. She understandably looks and talks about being scared. She knows the people feel that she is dying. She does not. She thinks that she will pull through this. Dr. Kimball was working hard at getting the right treatment in the right place for Crissy to improve. Again Crissy's hope is that she can stay at [facility] if at all possible Dr. Heart is working with different medications. He has switched her acyclovir to IV which is bothering her stomach much less than the p.o. Her condition at this time is guarded. I did speak to her this morning. He came in this afternoon. I will touch base with him again tomorrow after I see Crissy Subjective Subjective Interval history since last seen: Crissy was seen by me both a.m. and p.m. She struggles today to breathe. Her voice is very low and very short sentences. Many times I have to be rate to her ear in order to understand what she is saying. She is scared. Although she does not feel that she is dying, she is very aware that other people think she may be. She very much wants to stay at [facility]. She does not want to go to [facility]. She has been seen by Dr. Kimball who now has her on pulsed doses of steroids. She has been started on other medications and Dr. Kimball is working on possible transfer to a tertiary hospital. Her grandson and were able to see her through the door. did bring her Bible, sikhism is very very important to her family. In the morning she had asked me for some sort of smoothie as eating was too difficult to do. She is hoping that being able to sit on something would be easier and also get her the nutrition. Nursing and hospitalist staff very concerned Exam Narrative Exam Narrative: Crissy is in a position. She has a fan directly on her. She has her CPAP machine. She is trying hard to rest and be calm. Her voice is almost inaudible. It is 3-4 word sentences. She looks exhausted. Air movement present, but definite rales again I hear the most on the right. She is laying on her left at this point. Her abdomen is also working hard at the work of breathing. Her face does have a cushingoid appearance Objective Last Vital Signs Temp 99.1 F 12/26/21 09:33 Pulse 105 H 12/26/21 09:15 Resp 26 H 12/26/21 09:33 BP 95/79 L 12/26/21 09:15 Pulse Ox 89 L 12/26/21 09:15 Laboratory Results - last 24 hr 12/26/21 12/26/21 12/26/21 05:20 05:20 05:20 WBC 17.58 H RBC 4.06 Hgb 10.9 L Hct 33.2 L MCV 82 MCH 26.8 L MCHC 32.8 RDW 15.3 H Plt Count 289 MPV 8.7 Immature Gran % 1.9 Neutrophils % 93.8 Lymphocytes % 1.0 Monocytes % 3.0 Eosinophils % 0.1 Basophils % 0.2 Nucleated RBC % 0.0 Absolute Neutrophils 16.49 H Absolute Lymphocytes 0.18 L Absolute Monocytes 0.53 Absolute Eosinophils 0.02 Absolute Basophils 0.04 D-Dimer 2989 H Sodium 131 L Potassium 4.4 Chloride 94 L Carbon Dioxide 29.4 Anion Gap 7.6 BUN 29 H Creatinine 1.0 Est GFR (CKD-EPI 2020) 63.30 Glucose 119 H Calcium 8.9 Ferritin 442 H Total Bilirubin 0.3 AST 39 H ALT 20 Alkaline Phosphatase 78 Lactate Dehydrogenase 476 H Creatine Kinase 20 L C-Reactive Protein 4.37 H Total Protein 5.5 L Albumin 2.1 L Patient ABO/Rh Antibody Screen 12/26/21 05:20 WBC RBC Hgb Hct MCV MCH MCHC RDW Plt Count MPV Immature Gran % Neutrophils % Lymphocytes % Monocytes % Eosinophils % Basophils % Nucleated RBC % Absolute Neutrophils Absolute Lymphocytes Absolute Monocytes Absolute Eosinophils Absolute Basophils D-Dimer Sodium Potassium Chloride Carbon Dioxide Anion Gap BUN Creatinine Est GFR (CKD-EPI 2020) Glucose Calcium Ferritin Total Bilirubin AST ALT Alkaline Phosphatase Lactate Dehydrogenase Creatine Kinase C-Reactive Protein Total Protein Albumin Patient ABO/Rh O Positive Antibody Screen NEGATIVE
[2021-12-26] MEDS: Doxycycline Hyclate 100 MG CAP PO ×2 (10:43→20:52)
--- NOTE | 2021-12-26 13:16 | DI.US_ITS ---
APPROVED REPORT EXAM: Comprehensive 2D, Doppler, and color-flow Echocardiogram Patient Location: In-Patient Room/Bed: RZW726 Guard Rail Installer: Suzie Salcido RDCS (AE) Indications: A Fib, CHF Echo Enhancing Agent Indication: Rule out Shunt Agent(s) / Amount(s) Used: Agitated Saline 30.0 cc Comments: Contrast study was performed with 3 IV injections of 10ccs of agitated normal saline, at re , with cough and post valsalva maneuver. Negative contrast study for shunt flow. Other Information Study Quality: Adequate. Technically limited study due to inability to position patient exam [facility]. Conclusion Normal left ventricular wall thickness and chamber size. Estimated ejection fraction is 60%. Wall m otion is normal Normal right ventricular size and systolic function Both atria are normal in size There is no structural or hemodynamically significant valvular disease No intracardiac shunting was identified with administration of agitated saline Estimated right ventricular systolic pressure is 38 mmHg Mildly dilated aortic root and ascending aorta Wall motion Left Ventricle The left ventricle is normal size. The left ventricular systolic function is normal. The left ventric ular ejection fraction is within the normal range. There is normal left ventricular wall thickness. T here is normal LV segmental wall motion. There is no ventricular septal defect visualized. LVEF is 60 %. Right Ventricle Right ventricle is grossly normal in size. Right ventricular systolic function is grossly normal. The RVSP is 38.5mmHg. Atria The left atrium size is normal. The right atrium size is normal. The interatrial septum is intact wit h no evidence for an atrial septal defect. Saline bubble contrast intravenous injection does not demo nstrate PFO. Aortic Valve The aortic valve is normal in structure. Aortic valve is trileaflet. There is no aortic valvular sten osis. Trace aortic regurgitation. Mitral Valve The mitral valve is normal in structure. No evidence of mitral valve stenosis. Trace mitral regurgita tion. Tricuspid Valve The tricuspid valve is normal in structure. There is no tricuspid valve stenosis. Mild tricuspid regu rgitation. Pulmonic Valve The pulmonary valve is normal in structure. There is no pulmonic valvular stenosis. Trace pulmonic re gurgitation. Great Vessels Aortic root is mildly dilated. The ascending aorta is mildly dilated. IVC is normal in size and colla pses >50% with inspiration. Pericardium There is no pericardial effusion. 2D Dimensions IVSD d PLAX 0.90 cm F: 0.6-1.0 LV Vol A2C d MOD 107.9 mL LVPW d PLAX 0.90 cm F: 0.6 - 1.0 LV Vol A4C d MOD 63.6 mL LVID d PLAX 4.20 cm F: 3.8 - 5.2 LA vol/ BSA A4C s A-L 14.6 mL/m2 LVDs 2.80 cm F: 2.2 - 3.5 LA Area A4C s MOD 10.63 cm2 Ao Root d 3.40 cm F: 2.7 - 3.3 LV EF A4C MOD 63.2 % Ao Asc Diam d 3.75 cm F: 2.3 - 3.1 LV EF A2C MOD 59.6 % LV EF Teichholz 61.8 % LV EF Biplane MOD 61.7 % LVEF (Acosta's) 61.70 % F: 54 - 74 SV 53.77 mL LV Volume 71.31 mL F: 46 - 106 SV Index 34.23 mL/m2 LV Volume Index 45.42 mL/m2 F: 29 - 61 LV Vol Biplane MOD 87.1 mL FS 32.85 % LV Diastology MV E' medial 0.086 (>0.07 m/s) E/A Ratio 1.2 LV E/e MED 9.20 (<14) MV E Vmax 0.79 (0.4-1.3 m/s) MV E/E' medial 9.22 MV A Vmax 0.65 (0.4-1.3 m/s) MV E/A Ratio 1.13 Aortic Valve LVOT Area 2.84 cm2 AoV Area Vmax 2.43 cm2 LVOT Vmax 1.32 m/s AoV Area/ BSA (Vmax) 1.54 cm2/m2 LVOT Mean Som. 0.89 m/s SYBIL Mean Som. 2.24 cm2 LVOT Peak Grad 7.0 mmHg SYBIL Mean Som. Index 1.43 cm2/m2 LVOT Mean Grad 3.5 mmHg LVOT VTI 0.239 m LVOT Diam s 1.90 cm AoV Vmax 1.55 m/s Velocity Ratio 0.85 AoV Mean Som. 1.13 m/s AoV Peak Grad 9.6 mmHg LVOT SV 67.97 mL AoV Mean Grad 5.6 mmHg AoV VTI 0.229 m AoV Area VTI 2.97 cm2 AoV Area/ BSA (VTI) 1.89 cm/m2 Mitral Valve MV DT 207 (160-240 msec) MV PHT 60 msec MV Area PHT 3.66 cm2 MV VTI 0.174 m MV Area VTI 3.91 (4.0-6.0 cm2) Pulmonary Valve PV Vmax 0.88 (0.5-1.5 m/s) RVOT Peak Gr. 2.46 mmHg PV Peak Grad 3.1 mmHg RVOT Mean Gr. 1.25 mmHg PV Mean Grad 1.9 mmHg RVOT VTI 0.123 m PV VTI 0.156 m RVOT Vmax 0.78 m/s Tricuspid Valve TR Peak Grad 35.5 mmHg TR Vmax 2.98 m/s RA Pressure 3.00 mmHg RVSP (TR) 38.5 mmHg
[2021-12-26] MEDS: Normal Saline 500 ML 30 ML IV (14:29)
[2021-12-26] MEDS: Escitalopram 10 MG TAB PO (14:33)
[2021-12-26] MEDS: REMDESIVIR 100 MG in Normal Saline 250 ML 250 MG IVPB (14:34)
--- NOTE | 2021-12-26 15:16 | PHA.REVIEW2 ---
Pharmacy Admission Review - Admission Clinical Review (Last Reviewed 12/25/21 @ 01:52 by Kaushik Lunsford) DVT prophylaxis (Acute) Thrush, oral (Acute) Herpes zoster (Acute) Acute and chronic respiratory failure (Acute) Elevated troponin level not due to acute coronary syndrome (Acute) Inflammation of lung (Acute) COVID-19 long hauler (Acute) Cardiomegaly (Acute) gabapentin Adverse Reaction (Severe, Verified 12/24/21 22:18) Psychosis prochlorperazine [From Compazine] Adverse Reaction (Severe, Unverified 12/24/21 22:18) Itching codeine Adverse Reaction (Mild, Verified 12/24/21 22:18) Nausea Resuscitation Status Full Code Height 5 ft 2 in Weight 57.4 kg - Renal Dosing Renal Dosing: BUN 29 mg/dL (7-18) H 12/26/21 05:20 Creatinine 1.0 mg/dL (0.55-1.02) 12/26/21 05:20 Medications needing adjustments: Reviewed (crcl = 51.8, no adjustments needed) - Anticoagulation Anticoagulation: Hgb 10.9 g/dL (11.2-15.7) L 12/26/21 05:20 Hct 33.2 % (36.0-46.0) L 12/26/21 05:20 Plt Count 289 10^3/uL (130-400) 12/26/21 05:20 Creatinine 1.0 mg/dL (0.55-1.02) 12/26/21 05:20 DVT Prophylaxis: Reviewed Medications: Enoxaparin (enoxaparin 40 mg daily) Therapeutic Anticoagulation: N/A - Opiate Usage Evaluate Pain Scale/Pains Meds: N/A - Relevant Labs Sodium 131 mmol/L (136-145) L 12/26/21 05:20 Potassium 4.4 mmol/L (3.5-5.1) 12/26/21 05:20 Chloride 94 mmol/L (98-107) L 12/26/21 05:20 Magnesium 1.7 mg/dL (1.8-2.4) L 12/25/21 05:13 C-Reactive Protein 4.37 mg/dL (0.0-0.3) H 12/26/21 05:20 Electrolytes, C-Reactive P, ESR: Reviewed (slightly hyponatremic) - DM Control DM Control: Glucose 119 mg/dL (74-106) H 12/26/21 05:20 DM Control: N/A - Cardiac Review Cardiac Review: Troponin I < 50 ng/L (<or=60) 12/25/21 05:13 NT-Pro-B Natriuret Pep 856 pg/mL (<300) H 12/24/21 17:15 BP, HR, EF%: Reviewed - Qtc Review QTc: Reviewed (QTc = 432 on 12/26) - IV to PO Switch IV Medications: Reviewed (continue IV meds) - Home Meds Home Med List reviewed: Reviewed Relevent Home Meds Not ordered & why?: home meds are ordered. Escitalopram had been put on hold d/t concern related to interaction with fluconazole (possible QT prolongation) however per uptodate, 10 mg escitalopram should not be an issue. QTc = 432, WNL. POULTRY KILLER reported pt was anxious and felt this was related to skipping escitalopram this morning. OK to resume today, pt received dose this afternoon. - Current meds Current Medication Order Review: Reviewed Antibiotic Activity - Pharmacy Antibiotic Review Pharmacy Antibiotic Activity: Reviewed, no change - Antibiotic Information Antibiotic Review Info: *COVID (recurrent/long-covid) tx: remdesivir, baricitinib. *Pneumonia empiric tx: doxy 100 mg po BID, ceftriaxone 1 gram daily. *Herpes rash: acyclovir 600 mg IV q8h + topical acyclovir oint PRN. *Thrush: voriconazole 200 mg BID. *Bactrim DS 1 tab daily for prophylaxis while on steroids
[2021-12-26] MEDS: methylPREDNISolone SUCC 500 MG in Normal Saline 100 ML 185.185 MG IVPB (18:38)
[2021-12-26] MEDS: cefTRIAXone 1 GM/50 ML BAG IVPB (19:53)
[2021-12-26] MEDS: Montelukast 10 MG TAB PO (19:55)
[2021-12-26] MEDS: Ipratropium/Albuterol 4 GM 120 PUFF INH IH (19:55)
[2021-12-26] MEDS: Senna TAB 1 TAB PO (20:03)
[2021-12-26] MEDS: Polyethylene Glycol 3350 17 GM PACKET PO (20:03)
[2021-12-26] MEDS: Zolpidem 5 MG TAB 10 MG PO (20:52)
[2021-12-26 23:06] LABS: Legionella Ag Detection Urine Negative (Negative)
[2021-12-27] VITALS (47 sets, daily range): BP systolic 90–121; BP diastolic 47–78; PULSE 81–112; RESP 17–36; TEMP 31–36.8; O2SAT 73–97
[2021-12-27] MEDS: methylPREDNISolone SUCC 500 MG in Normal Saline 100 ML 185 MG IVPB (05:52)
[2021-12-27 06:25] LABS: Abs Immature Grans 0.17 10^3/uL (0.0-0.06); Absolute Basophil Count 0.01 10^3/uL (0.0-0.2); Absolute Monocyte Count 0.41 10^3/uL (0.1-0.8); Absolute Neutrophil Count 12.39 10^3/uL (1.2-6.7); Basophils % 0.1; HCT 33.2 % (36.0-46.0); HGB 10.9 g/dL (11.2-15.7); Immature Grans % 1.3; Lymphocytes % 1.5; MCH 27.1 pg (27.0-33.0); MCHC 32.8 % (32.0-36.0); MCV 83 fL (80-95); MPV 8.9 fL (8.0-11.0); Monocytes % 3.1; Platelet Count 313 10^3/uL (130-400); RBC 4.02 10^6/uL (3.93-5.22); RDW 15.2 % (11.7-14.6); RDW-SD 45.4 fL; WBC 13.18 10^3/uL (4.4-10.8)
[2021-12-27 07:00] LABS: D-Dimer 2287 ng/mlFEU (<500)
[2021-12-27 07:04] LABS: ALT 22 U/L (14-59); AST 37 U/L (15-37); Albumin 2.2 g/dL (3.4-5.0); Alkaline Phosphatase 76 U/L (46-116); Anion Gap 5.2 mmol/L (3-11); BUN 27 mg/dL (7-18); Bilirubin, Total 0.2 mg/dL (0.2-1.0); CO2 32.8 mmol/L (21.0-32.0); Calcium 8.7 mg/dL (8.5-10.1); Chloride 95 mmol/L (98-107); Creatine Kinase 21 U/L (26-192); Ferritin 498 ng/mL (8-252); Glucose 124 mg/dL (74-106); LDH 491 U/L (81-234); Potassium 4.5 mmol/L (3.5-5.1); Sodium 133 mmol/L (136-145); Total Protein 5.6 g/dL (6.4-8.2)
[2021-12-27] MEDS: Normal Saline 500 ML 30 ML IV ×2 (07:26→08:39)
[2021-12-27] MEDS: Normal Saline Flush 10 ML SYR IVP (07:27)
[2021-12-27] MEDS: Furosemide 20 MG/2 ML VIAL IVP (07:28)
[2021-12-27] MEDS: Enoxaparin 40 MG/0.4 ML SYR SC (08:42)
[2021-12-27] MEDS: Escitalopram 10 MG TAB PO (08:43)
[2021-12-27] MEDS: DULoxetine 30 MG CAP 60 MG PO (08:43)
[2021-12-27] MEDS: Rosuvastatin 5 MG TAB PO (08:43)
[2021-12-27] MEDS: Folic Acid 1 MG TAB 2 MG PO (08:43)
[2021-12-27] MEDS: Magnesium Oxide 400 MG TAB PO (08:43)
[2021-12-27] MEDS: Sulfameth/Trimeth DS TAB 1 TAB PO (08:44)
[2021-12-27] MEDS: Triamcinolone 0.1% CR 15 GM TUBE TP (08:45)
--- NOTE | 2021-12-27 09:16 | TELEFU_ITS ---
Date of service: 12/27/21 Time of Service: 09:16 Nutrition Note NOTE: Crissy is at high nutritional risk in view of poor nutritional state prior to admission with a 15 lbs weight loss in last 90 days. Has struggled with SOB for many weeks, making it difficult to eat. Liquids are easier for her to consume. Estimated Needs: 1680 kcal(BEE (Mif St J) x 1.2), 57-68 g protein (kg x 1.0- 1.2), 1710 ml fluid (kg x 30ml) Following Heart Healthy Diet with approx. 500 kcal intake in 24 hours meeting 30% macronutrient needs. Goal: to meet minimum of 50% of caloric needs, 75% of protein needs to help support immune system and lean body mass Plan: will liberalize diet to Regular for increased choices, will provide ensure plus with glass ice at all meals. Time Spent in Nutritional Counseling and Treatment: 0
[2021-12-27 09:18] LABS: HBs Antibody, Qual Positive (See Note); HBs Antibody, Quant 57.5 mIU/mL (See Note); Hepatitis B Core Antibody Negative (Negative); Hepatitis B surface Ag Negative (Negative); Hepatitis C Ab w Rflx HCV PCR Negative (Negative)
[2021-12-27 09:23] LABS: HIV-1/2 Ag & Ab Screen Negative (Negative)
[2021-12-27] MEDS: Ipratropium/Albuterol 4 GM 120 PUFF INH IH ×3 (09:35→16:04)
[2021-12-27] MEDS: Budesonide/Formoterol 160/4.5 6 GM 60 PUFF INH IH (09:36)
--- NOTE | 2021-12-27 10:04 | CMPROGNOTE_ITS ---
- If Service Date Differs Date of service: 12/27/21 Time of Service: 10:04 Care Management Progress Note S/O: Crissy was transferred to [facility] today for continued care. Per MD, her condition is critical at this time. She is agreeable to transfer, and will be transported via EMS, coordinated by RN scientific laboratory supervisor. A: Crissy is a 61 year old female admitted to [facility] on 12/24/21 with hypoxemia, Covid Pneumonia. P: Crissy will likely be discharged home when medically cleared by provider, unless transfer to a tertiary care facility becomes necessary. She will follow up with her community providers and plan of care and transport with family. CM will continue to support Crissy and assess for discharge planning concerns.
[2021-12-27] MEDS: Doxycycline Hyclate 100 MG CAP PO (10:22)
[2021-12-27] MEDS: Ondansetron 4 MG/2 ML VIAL IVP (11:13)
--- NOTE | 2021-12-27 11:48 | NUR.NOTE ---
Dr Bird called to notify us that [facility] has no beds at this time. She will Check-in with Dr Ann. Informed patient and Aron of this information.
--- NOTE | 2021-12-27 13:57 | W.PM.DS.N ---
Date of service: 12/27/21 Time of Service: 13:59 DS: Diagnosis Discharge Diagnosis (1) Acute respiratory failure with hypoxia: Status: Acute (2) Acute respiratory distress syndrome (ARDS) due to COVID-19 virus: Status: Acute (3) COVID-19 igor leyva: (4) Elevated troponin level not due to acute coronary syndrome: Status: Acute (5) Herpes zoster: Status: Acute (6) Rheumatoid arthritis: Status: Chronic (7) Nasal ulcer: Status: Chronic Discharge Plan Disposition Patient Disposition: [facility] Condition: Critical Discharge Details Reason For Visit: Hypoxemia,Covid Pneumonitis,Elevated Troponoin Lev Admit Date/Time: 12/24/21 21:01 Admit Provider: Kaushik Lunsford Attending Provider: Kaushik Lunsford Primary Care Provider: Kim Mandel [facility] Course Hospital Course: Ms Hurt is a 61 year old female with PMHx of RA on rituximab and methotrexate, who is a COVID-10 long haisma, first diagnosed with COVID-19 in August of 2021, on a steroid taper, h/o pulmonary hypertension, herpetic nasal ulcers, hyperlipidemia, GERD, who is a PCP in the [facility], and who was admitted to [facility] ICU under the hospitalist service on 12/24/21 with acute hypoxic respiratory failure due to COVID-19. She was saturating 40% on RA at home. On arrival to the ED, her O2 sats were 70% on 6L of O2 by NC. She was placed on BIPAP with 60% FiO2. PE was ruled out. She was started on empiric antibiotics (ceftriaxone, doxycycline), remdesivir, dexamethasone, baricitinib. Additionally, due to her having been on a lengthy steroid taper, the patient is also being treated with Bactrim DS 1 tab PO daily and voriconazole 200 mg PO Q12hrs. She was transitioned to high pulse doses of solumedrol from dexamethasone. Because the patient has had epistaxis with her known history of herpetic nasal ulcers, she is also on acyclovir 600 mg Q 8hrs. Her oxygen requirement has not been improving. On 12/25-, She was alternating between humidified heated high flow nasal canula with @ 60 L 95% FiO2 and CPAP with PEEP of 10 and FiO2 of 100%. Last night she needed PEEP of 12 with FiO2 of 100% on CPAP. Her O2 requirement today on high flow nasal canula is 60 L and 84-86% FiO2. The patient is full code and has met with palliative care on this admission. At this point, it is felt that she would benefit from transfer to a tertiary care facility where additional resources such as possible ECMO and/or intubation could be considered as her condition is quite critical from the pulmonary stand point. No beds were available at [facility]. She was accepted at [facility] by Dr Polk of critical care medicine. We appreciate the assistance of the [facility] critical care team. She is felt to be stable for transfer on CPAP. She is in agreement to transfer. Total Critical Care for patient as well as completion of her transfer summary on day of transfer took 85 minutes. Please, look at her MAR for list of current inpatient medications. The list of medications below reflects her outpatient prescriptions. Home Meds and New Rx's Prescriptions: No Action methotrexate sodium 2.5 mg tablet 7.5 mg PO qWEEK Qty: 36 5RF Hold Instructions: Home Medication placed on hold at Doctor's office zolpidem 10 mg tablet 10 mg PO QHS PRN (Reason: sleep) Qty: 90 3RF prednisone 20 mg tablet 50 mg PO DAILY albuterol sulfate 5 MG/1 ML solution 2.5 mg Inhalation QID PRN cholecalciferol (vitamin D3) 25 mcg (1,000 unit) tablet 2,000 unit PO DAILY duloxetine 60 mg capsule,delayed release(DR/EC) 60 mg PO DAILY Qty: 90 11RF escitalopram oxalate 10 mg tablet 10 mg PO DAILY Qty: 90 4RF diltiazem HCl 120 mg capsule,extended release 24 hr 120 mg PO DAILY Qty: 90 4RF celecoxib [Celebrex] 200 mg capsule 200 mg PO BID Qty: 180 4RF estradiol 0.01 % (0.1 mg/gram) cream 1 g vaginal .twice weekly Qty: 127.5 5RF Advair HFA 230-21 mcg/actuation HFA aerosol inhaler 2 puff Inhalation BID PRN (Reason: asthma) Qty: 12 11RF Rx Instructions: dispense 3 canisters folic acid 1 mg tablet 2 mg PO DAILY Qty: 180 12RF montelukast 10 mg tablet 10 mg PO QPM Qty: 90 4RF mupirocin 2 % ointment 1 applic TP BID Qty: 30 4RF prednisone 20 mg tablet 40 mg PO .COMPLEX Qty: 10 4RF Rx Instructions: 40 mg PO daily prior to infusion; for premedication prior to infusion omeprazole 20 mg capsule,delayed release(DR/EC) 20 mg PO DAILY PRN (Reason: heartburn) Qty: 90 4RF triamcinolone acetonide 0.1 % cream 1 applic topical BID Qty: 453.6 3RF Rx Instructions: apply to affected area acyclovir [Zovirax] 5 % cream 1 applic TP DAILY PRN Qty: 15 4RF acyclovir 800 mg tablet 800 mg PO TID PRN (Reason: herpes) Qty: 90 5RF rosuvastatin [Crestor] 5 mg tablet 5 mg PO DAILY Qty: 90 12RF nitroglycerin 0.4 mg tablet, sublingual 0.4 mg SL Q5M PRN (Reason: chest pain) Qty: 25 6RF Rx Instructions: do not exceed 3 doses per episode methylphenidate HCl 10 mg tablet See Rx Instructions PO TID MDD 4 Qty: 120 0RF Dose Instruction: 2 tabs am; 1 tab noon and 4 pm PO TID; 2 tabs am; 1 tab noon and 4 pm Rx Instructions: 2 tabs am; 1 tab noon and 4 pm PO TID; 2 tabs am; 1 tab noon and 4 pm albuterol sulfate [ProAir HFA] 90 mcg/actuation HFA aerosol inhaler 2 puff inhalation Q6H PRN (Reason: shortness of breath or wheezing) Qty: 25.5 3RF prednisone 20 mg tablet 20 mg PO DAILY Qty: 90 2RF Rx Instructions: Decrease by 5mg every 2 weeks prednisone 5 mg tablet 5 mg PO DAILY Qty: 60 0RF Rx Instructions: Decrease by 5mg every 2 weeks sulfamethoxazole-trimethoprim [Bactrim DS] 800-160 mg tablet 1 tab PO DAILY Qty: 63 0RF Rx Instructions: Take 1 daily while on 20mg of prednisone or higher acetaminophen [Acetaminophen Extra Strength] 500 mg tablet 1,000 mg PO Q6H PRNQty: 90 0RF Discharge Instructions Referrals: Kim Mandel MD, [place] [Primary Care Provider] - Haydee Ann MD [ [facility] STAFF PHYSICIAN] - Activity:: bed to chair Equipment/Supplies:: Oxygen (L/min Below) Diet:: As Tolerated Discharge Orders Discharge Orders: Discharge Order (Routine); Ordered 12/27/21 Ordered By: Kassandra Bird DS: Summary Time Spent with Patient providing and/or coordinating discharge services: Greater than 30 minutes Status at Discharge Functional status at discharge: bed bound Overall status at discharge: patient is not back to baseline Mental Status: mental status grossly normal Speech and Movement: speech and movement normal Mood: anxious mood Affect: anxious affect Exam Narrative Exam Narrative: General: Pleasant middle-aged female who is mildly tachypneic, having epistaxis on humidified heated high flow NC, not cyanotic, able to complete sentences. Anxious HEENT: EOMI, MMM, epistaxis Heart: RRR, no m/r/g Lungs: Diminished breath sounds B Abdomen: soft, nontender, nondistended Extremities: no edema BLEs. Psych Mental Status: mental status grossly normal Speech and Movement: speech and movement normal Mood: anxious mood Affect: anxious affect DS: Data Vitals/I&O Vitals and I&O: Vital Signs Temperature 36.2 C L 12/27/21 13:00 Temperature Source Temporal Artery Scan 12/27/21 13:00 Pulse 105 H 12/27/21 13:00 Pulse 112 H 12/27/21 12:31 Respiratory Rate 24 12/27/21 13:00 Respiratory Effort Accessory Muscle Use 12/27/21 13:00 Respiratory Depth Shallow 12/27/21 13:00 Respiratory Pattern Tachypnea 12/27/21 13:00 Blood Pressure 103/70 12/27/21 13:00 Blood Pressure Mean 81 12/27/21 13:00 Blood Pressure Position Supine 12/27/21 13:00 Pulse Oximetry 91 L 12/27/21 13:00 Oxygen Delivery Method Hi Flow Nasal Cannula 12/27/21 13:00 Oxygen Flow Rate 40 12/27/21 13:00 Fraction of Inspired Oxygen (FIO2) 86 12/27/21 13:00 Pain Level 0 12/27/21 10:00 Intake & Output 12/26/21 12/27/21 12/27/21 23:59 11:59 23:59 Intake Total 1329.500 / 1899.500 722 / 722 Output Total 1700 / 2400 1450 / 1450 Balance -370.500 / -500.500 -728 / -728 Intake: IV 809.500 / 909.500 242 / 242 Oral 520 / 990 480 / 480 Output: Urine 1700 / 2400 1450 / 1450 Other: Urine Color Pale Yellow Yellow Urine Appearance Clear Clear Urine Odor None None Comment voids on bedside commode Mixed with Stool Stool Size Small Voiding Methods Bedside Commode Data Completed and Pending Completed studies during hospitalization [Text1]: CXR; Findings as above which recommend significant change compared to 2017.Recommend nonportable PA and lateral views when clinically possible. CTA chest: 1. Extensive bilateral ground-glass infiltrates throughout both lungs involving all segments of all lobes and with significant progression when compared to prior CT scan of 12/06/2021..No associated pleural effusions nor obvious intrathoracic adenopathy.? Findings are highly suspicious for Covid-19 pneumonia. 2. Prominent descending thoracic aorta.? No dissection. 3. No significant osseous lesions. Echo: Normal left ventricular wall thickness and chamber size.? Estimated ejection fraction is 60%.? Wall motion is normal Normal right ventricular size and systolic function Both atria are normal in size There is no structural or hemodynamically significant valvular disease No intracardiac shunting was identified with administration of agitated saline Estimated right ventricular systolic pressure is 38 mmHg Mildly dilated aortic root and ascending aorta Labs on day of discharge: Labs from last 24 hours 12/27/21 12/27/21 12/27/21 05:20 05:20 05:20 WBC 13.18 H RBC 4.02 Hgb 10.9 L Hct 33.2 L MCV 83 MCH 27.1 MCHC 32.8 RDW 15.2 H Plt Count 313 MPV 8.9 Immature Gran % 1.3 Neutrophils % 94.0 Lymphocytes % 1.5 Monocytes % 3.1 Eosinophils % 0.0 Basophils % 0.1 Nucleated RBC % 0.0 Absolute Neutrophils 12.39 H Absolute Lymphocytes 0.20 L Absolute Monocytes 0.41 Absolute Eosinophils 0.00 Absolute Basophils 0.01 D-Dimer 2287 H Sodium 133 L Potassium 4.5 Chloride 95 L Carbon Dioxide 32.8 H Anion Gap 5.2 BUN 27 H Creatinine 1.0 Est GFR (CKD-EPI 2020) 63.30 Glucose 124 H Calcium 8.7 Ferritin 498 H Total Bilirubin 0.2 AST 37 ALT 22 Alkaline Phosphatase 76 Lactate Dehydrogenase 491 H Creatine Kinase 21 L C-Reactive Protein 2.20 H Total Protein 5.6 L Albumin 2.2 L Hep Bs Antigen Hep Bs Antibody Hep Bs Antibody, Quant Hep B Core Total Ab Hepatitis C Antibody HIV 1&2 Ag/Ab, 4th Gen Urine Legionella Ag Aspergillus Ag (EIA) 12/26/21 12/26/21 12/26/21 18:16 15:56 05:20 WBC RBC Hgb Hct MCV MCH MCHC RDW Plt Count MPV Immature Gran % Neutrophils % Lymphocytes % Monocytes % Eosinophils % Basophils % Nucleated RBC % Absolute Neutrophils Absolute Lymphocytes Absolute Monocytes Absolute Eosinophils Absolute Basophils D-Dimer Sodium Potassium Chloride Carbon Dioxide Anion Gap BUN Creatinine Est GFR (CKD-EPI 2020) Glucose Calcium Ferritin Total Bilirubin AST ALT Alkaline Phosphatase Lactate Dehydrogenase Creatine Kinase C-Reactive Protein Total Protein Albumin Hep Bs Antigen Negative Hep Bs Antibody Positive Hep Bs Antibody, Quant 57.5 Hep B Core Total Ab Negative Hepatitis C Antibody Negative HIV 1&2 Ag/Ab, 4th Gen Urine Legionella Ag Aspergillus Ag (EIA) Pending Cancelled 12/26/21 12/25/21 05:20 17:00 WBC RBC Hgb Hct MCV MCH MCHC RDW Plt Count MPV Immature Gran % Neutrophils % Lymphocytes % Monocytes % Eosinophils % Basophils % Nucleated RBC % Absolute Neutrophils Absolute Lymphocytes Absolute Monocytes Absolute Eosinophils Absolute Basophils D-Dimer Sodium Potassium Chloride Carbon Dioxide Anion Gap BUN Creatinine Est GFR (CKD-EPI 2020) Glucose Calcium Ferritin Total Bilirubin AST ALT Alkaline Phosphatase Lactate Dehydrogenase Creatine Kinase C-Reactive Protein Total Protein Albumin Hep Bs Antigen Hep Bs Antibody Hep Bs Antibody, Quant Hep B Core Total Ab Hepatitis C Antibody HIV 1&2 Ag/Ab, 4th Gen Negative Urine Legionella Ag Negative Aspergillus Ag (EIA) 12/25/21 10:00 Sputum Sputum Culture - Pending 12/25/21 10:00 Sputum Gram Stain - Pending Preliminary micro results at discharge 12/25/21 10:00 Sputum Culture - Pending Sputum Gram Stain - Pending [facility] All Active Problems (Updated 12/27/21 @ 06:34 by Kim Mandel MD, [place]) Palliative care patient (Acute) Acute respiratory distress syndrome (ARDS) due to COVID-19 virus (Acute) Leukocytosis (Acute) COVID-19 (Acute) Acute respiratory failure with hypoxia (Acute) DVT prophylaxis (Acute) Thrush, oral (Acute) Herpes zoster (Acute) Elevated troponin level not due to acute coronary syndrome (Acute) Chronic rhinitis (Acute) Nasal ulcer (Chronic) Trismus (Chronic) Annual physical exam (Acute 02/27/17) Bone spur of toe (Chronic 02/27/17) Family history of early CAD (Chronic 04/17/16) GERD (gastroesophageal reflux disease) (Chronic) Hormone replacement therapy (HRT) (Chronic) Hyperlipidemia (Chronic) Insomnia (Chronic) Osteopenia (Chronic) Paresthesia (Chronic) Rheumatoid arthritis (Chronic) Seasonal affective disorder (Acute) Primary osteoarthritis of right knee (Acute 10/04/16) Herpes (Acute) Fatigue (Acute) Left shoulder pain (Acute) On prednisone therapy (Acute) History of total right hip replacement (Acute 02/21/19) Anosmia (Acute) 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) Rectocele (Acute) Dislocation of internal right hip prosthesis (Acute) Contusion of hip, right (Acute) Strain of right knee (Acute) Mechanical instability of hip prosthesis (Acute) s/p acetabular revision with dual mobility liner (09/01/20) Recto-vaginal fistula (Acute) Rectal prolapse (Acute) History of revision of total replacement of right hip joint (Acute 09/01/20) Acetabular component Low back pain (Acute) Community acquired pneumonia, bilateral (Acute) SOB (shortness of breath) (Acute) Rheumatoid arthritis (Chronic) Chest pain (Acute) Cardiomegaly (Acute) Post-acute sequelae of COVID-19 (PASC) (Acute) Abnormal chest CT (Acute) Encounter for screening for COVID-19 (Acute) Medical History (Updated 12/27/21 @ 06:34 by Kim Mandel MD, [place]) Articular fracture of head of femur Chest pain Per pt. 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 Pre-op exam Pulmonary hypertension, high resistance (04/01/17) PAP 37 03/25 Stress fracture Surgical History Abdominal hysterectomy (~1987) Appendectomy (~1977) RUPTURED Bilateral salpingectomy with oophorectomy (~1987) Bunionectomy (~2006) Right H/O abdominal surgery for prolapsed rectum, 05/10/2021 History of appendectomy History of discectomy History of orthopedic surgery History of tonsillectomy and adenoidectomy Injection 03/03/15, 12/2015 Synvisc/Depomedrol in the right knee L5-S1 Discectomy (~2001) Lysis of adhesions Multiple surgeries, abdominal Repair, ACL (~10/2011) Replacement of total knee joint 08/23 [facility] (R) Rotator Cuff Repair (~2003) Left Status post abdominal hysterectomy Status post bunionectomy Status post repair of anterior cruciate ligament Status post rotator cuff repair Family History Mother Essential hypertension Depression Heart disease Hyperlipidemia Stroke Father , BRAIN BLEED at age 84. RA (rheumatoid arthritis) Essential hypertension CAD (coronary artery disease) Heart disease Hyperlipidemia Myocardial infarction Parkinson disease Sister Multiple personality disorder Substance abuse Essential hypertension Bipolar disorder Depression Heart disease Hyperlipidemia OA (osteoarthritis) RA (rheumatoid arthritis) Brother Essential hypertension CAD (coronary artery disease) Heart disease Hyperlipidemia Myocardial infarction ANGIOPLASTY/STENTS Brother RA (rheumatoid arthritis) Hypertension Hyperlipidemia Maternal Grandfather , 84 Essential hypertension Heart disease Hyperlipidemia Dementia Paternal Grandfather Dementia Leukemia Heart disease Maternal Grandmother , 72 Neoplasm BREAST W/METS Breast cancer with mets Paternal Grandmother , 74 Essential hypertension Heart disease [place] Hyperlipidemia Son Depression Substance abuse Social History Smoking/Tobacco Use Status: Former Tobacco Use tobacco type: cigarettes Quit Date: 04/09/91 Tobacco: How many years used: 16 Second Hand Exposure: Yes Smoking risk assessment performed?: Yes Alcohol Intake: current Alcohol Intake frequency: a few times a week Alcohol type: wine and hard liquor Drug use: Never Substance use type: does not use Caregiver/Support person: No Household members: spouse and children Communication Needs: None Do you need help understanding health information?: Rarely Pets and animals: No Sexually active: No Do you think of yourself as: straight/heterosexual Current gender identity: female What is your relationship status?: How often do you talk on the phone with friends or family?: three or more times per week How often do you attend mosque or zoroastrianism services?: 4 or more times per year Do you belong to any clubs or organized social groups?: no Panel score (0-1 are the most socially isolated patients): 3 Jessica/Sikhism: Hoahaoism Special jessica needs: No Seatbelt use: always Helmet use: Yes Helmet use: always Drive intox or ride w/intox electric truck driver: No Do you feel safe at home: Yes Do you feel safe in your relationship?: Yes
--- NOTE | 2021-12-27 13:58 | W.PULMCC ---
General Date of Service Date of service: 12/27/21 Time of Service: 08:30 Reason for Admission to ICU: COVID-19 Assessment and Plan Assessment and plan (1) Thrush, oral: Status: Acute (2) Herpes zoster: Status: Acute (3) Acute respiratory failure with hypoxia: Status: Acute (4) Nasal ulcer: Status: Chronic (5) Elevated troponin level not due to acute coronary syndrome: Status: Acute (6) Acute respiratory distress syndrome (ARDS) due to COVID-19 virus: Status: Acute (7) Rheumatoid arthritis: Status: Chronic (8) COVID-19: Status: Acute (9) Post-acute sequelae of COVID-19 (PASC): Status: Acute (10) Leukocytosis: Status: Acute Assessment and plan: This is a 61 yo female admitted for her third documented COVID 19 infection. In my opinion there is really no way to tell if she truly has contracted a new COVID infection or if this represents her bodies inability to clear the virus successfully from her last infection. In either case, it seems appropriate to treat her as though this is a new infection. She does have elevation of inflammatory markers and so I did start barcitinib. It is also possible that the COVID could have triggered the development of AIP (given the chest CT appearance), particularly with her RA history. It is still more likely that this is severe COVID infection but AIP is on the differential. Due to this, and the severity of her illness it is worth trying pulse dose steroids on her, while continuing to empirically cover her for pneumonia. I also added fungal coverage in the off chance she contracted aspergillus since her bronch. 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 If this is AIP then pulse dose steroids is the treatment. We need to be aggressive about supportive care with PAP, IS, Acapella, etc. I have worries about the trajectory of her clinical course and recommend transfer to a tertiary care center, and she was accepted to [facility]. Recommendations Pulmonary: ARDS, hypoxic respiratory failure - continue CPAP at night and prn - can try adding mepalex to her cheeks to help with mask fitting - can titrate PEEP up, but would not go above [id number] - HFNC/NRB for CPAP breaks - IS and Acapella - Comnivent QID ordered in place of Atrovent - would consider PICC line Cardiac: Troponin elevation - due to demand - recommend holding Cardizem given softer blood pressures Renal: No acute concerns, continue to monitor I&O: Intake & Output 12/24/21 12/25/21 12/26/21 12/27/21 23:59 23:59 23:59 23:59 Intake Total 300 / 300 600 / 600 1899.500 / 1899.500 722 / 722 Output Total 900 / 900 2400 / 2400 1450 / 1450 Balance 300 / 300 -300 / -300 -500.500 / -500.500 -728 / -728 Weight 58.6 kg 58.6 kg 57.4 kg Daily Fluid Goal:: -500 to -1L in 24 hours GI Nutrition: PO diet Date of Last Bowel Movement: 12/27/21 Infectious Disease: COVID 19 - recommend remdesivir - recommend starting barcitinib - would trial pulse dose steroids - 500mg IV bid for 6 doses - then with plans to titrate back down to 60mg pred equivilant - continue empiric bacterial pneumonia coverage - empiric voriconazole for possible fungal coverage in setting on pulse steroids - awaiting Fungitell - awaiting aspergillus antigen Hematologic: Leukocytosis - due to steroids vs infection Neurologic: No acute concerns, confusion improved Endocrine: monitor glucose levels with the steroids Lines: PIV Prophylaxis: Lovenox Prilosec Code Status: Resuscitation Status Full Code Subjective Critical and life-threatening events over the past 24 hours: She is feeling better than yesterday. On my assessment her HFNC had been turned down to 21% FiO2 and she was saturating 70%. I turned her back up to 60L/min and 93% and her sats went back up to the low 90's. She does have difficulty with proning but tried to sleep on her sides. Per the hospitalist she has been accepted to [facility], which I think is the best place for her given her complex critical illness. Exam Narrative Exam Narrative: Gen: NAD, normal respiratory effort, well-nourished HENT: PERRL, bloody nose Chest: No respiratory distress, normal appearance of chest, clear to auscultation bilaterally, crackles bilaterally, no wheezes, normal inspiratory effort Heart: regular rate and rhythym, no murmurs, rubs or gallops Abdomen: Non-distended, soft, non tender Extremities: No clubbing, edema, cyanosis, rashes Neuro: AAOx3 , non focal Psych: cooperative, appropriate mental affect Most Recent VS/Results Last Vital Signs Temp 36.2 C L 12/27/21 13:00 Pulse 105 H 12/27/21 13:00 Resp 24 12/27/21 13:00 BP 103/70 12/27/21 13:00 Pulse Ox 91 L 12/27/21 13:00 Laboratory Results - last 24 hr 12/25/21 12/26/21 12/26/21 17:00 05:20 05:20 WBC RBC Hgb Hct MCV MCH MCHC RDW Plt Count MPV Immature Gran % Neutrophils % Lymphocytes % Monocytes % Eosinophils % Basophils % Nucleated RBC % Absolute Neutrophils Absolute Lymphocytes Absolute Monocytes Absolute Eosinophils Absolute Basophils D-Dimer Sodium Potassium Chloride Carbon Dioxide Anion Gap BUN Creatinine Est GFR (CKD-EPI 2020) Glucose Calcium Ferritin Total Bilirubin AST ALT Alkaline Phosphatase Lactate Dehydrogenase Creatine Kinase C-Reactive Protein Total Protein Albumin Hep Bs Antigen Negative Hep Bs Antibody Positive Hep Bs Antibody, Quant 57.5 Hep B Core Total Ab Negative Hepatitis C Antibody Negative HIV 1&2 Ag/Ab, 4th Gen Negative Urine Legionella Ag Negative Aspergillus Ag (EIA) 12/26/21 12/27/21 12/27/21 15:56 05:20 05:20 WBC 13.18 H RBC 4.02 Hgb 10.9 L Hct 33.2 L MCV 83 MCH 27.1 MCHC 32.8 RDW 15.2 H Plt Count 313 MPV 8.9 Immature Gran % 1.3 Neutrophils % 94.0 Lymphocytes % 1.5 Monocytes % 3.1 Eosinophils % 0.0 Basophils % 0.1 Nucleated RBC % 0.0 Absolute Neutrophils 12.39 H Absolute Lymphocytes 0.20 L Absolute Monocytes 0.41 Absolute Eosinophils 0.00 Absolute Basophils 0.01 D-Dimer Sodium 133 L Potassium 4.5 Chloride 95 L Carbon Dioxide 32.8 H Anion Gap 5.2 BUN 27 H Creatinine 1.0 Est GFR (CKD-EPI 2020) 63.30 Glucose 124 H Calcium 8.7 Ferritin 498 H Total Bilirubin 0.2 AST 37 ALT 22 Alkaline Phosphatase 76 Lactate Dehydrogenase 491 H Creatine Kinase 21 L C-Reactive Protein 2.20 H Total Protein 5.6 L Albumin 2.2 L Hep Bs Antigen Hep Bs Antibody Hep Bs Antibody, Quant Hep B Core Total Ab Hepatitis C Antibody HIV 1&2 Ag/Ab, 4th Gen Urine Legionella Ag Aspergillus Ag (EIA) Cancelled 12/27/21 05:20 WBC RBC Hgb Hct MCV MCH MCHC RDW Plt Count MPV Immature Gran % Neutrophils % Lymphocytes % Monocytes % Eosinophils % Basophils % Nucleated RBC % Absolute Neutrophils Absolute Lymphocytes Absolute Monocytes Absolute Eosinophils Absolute Basophils D-Dimer 2287 H Sodium Potassium Chloride Carbon Dioxide Anion Gap BUN Creatinine Est GFR (CKD-EPI 2020) Glucose Calcium Ferritin Total Bilirubin AST ALT Alkaline Phosphatase Lactate Dehydrogenase Creatine Kinase C-Reactive Protein Total Protein Albumin Hep Bs Antigen Hep Bs Antibody Hep Bs Antibody, Quant Hep B Core Total Ab Hepatitis C Antibody HIV 1&2 Ag/Ab, 4th Gen Urine Legionella Ag Aspergillus Ag (EIA) Review of Systems All systems reviewed & are unremarkable except as noted in HPI and below Time spent with patient Time spent in Critical Care: 45 Time spent in Critical care included: Coordination of care, Chart review, Documenting critically ill care, Time at immediate bedside, Discussing critically ill care with other medical staff and Discussing care with family members Multi-Disciplinary Checklist Lines/Tubes CENTRAL LINE: no ARTERIAL LINE: no REA: no ENDOTRACHEAL TUBE: no ICU Maintenance GLUCOSE 140-180mg/dL: yes NUTRITION AT GOAL: yes PRESSURE ULCER: no RESTRAINTS: no ANTIBIOTICS(if yes, consider Stewardship): Yes Social Issues FAMILY UPDATED: yes PT/OT: no, Reason/Intervention: not appropriate at this time 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
[2021-12-27] MEDS: REMDESIVIR 100 MG in Normal Saline 250 ML 250 MG IVPB (14:21)
[2021-12-27 14:27] LABS: Lab Add On Test DONE
[2021-12-27 14:58] LABS: Procalcitonin < 0.1 ng/mL
--- NOTE | 2021-12-27 15:43 | CHAPLAIN ---
Crissy was talking with Dr. Bird and Nurse Teetee when I visited. Crissy is COVID positive, so I did not go in the room. I remained outside the room with her Aron who was on the phone with Crissy and listing to Dr. Bird as well. Dr. Bird was talking with Crissy about being transferred to [facility] or [facility] proactively so she would be in a larger facility if needed. She is dealing with respiratory issues due to custodial COVID, since August. Dr. Mandel visited with Crissy earlier for a Palliative Consult. She is also Crissy's PCP. According to Dr. Mandel's notes, Crissy is a full code and did not want to be transferred from [facility] if it was possible to keep her here. Aron told me that Crissy is [employer] and would be comforted by a visit from the [facility]. I contacted Fr. Lerner and he arrived later and offered a prayer through the glass door by writing to Crissy and holding up the message. Crissy has been accepted at [facility] and will be transferred there.
[2021-12-27] MEDS: Zolpidem 5 MG TAB 10 MG PO (19:02)
[2021-12-27] MEDS: LORazepam 1 MG TAB PO (19:02)
--- NOTE | 2021-12-27 19:58 | PCPN_ITS ---
Date of service: 12/27/21 Time of Service: 17:00 Assessment and Plan Assessment and plan (1) Acute respiratory distress syndrome (ARDS) due to COVID-19 virus: Status: Acute (2) Palliative care patient: Status: Acute Assessment and plan: Crissy initially was extremely resistant to consider transfer to [facility]. This would place a hardship on her family. She knows that Dr. Kimball and Dr. Bird feels strongly that she needs to be in a tertiary care center. After discussion and then discussion with her Aron she left the decision to the 4 of us. We all agreed to the transfer was in her best interest. She also understands that she has been hypoxic and is not making the best decisions. I returned to Crissy's bedside after the decision was made. I stayed with her until the ambulance came to take her to [facility]. We packed up her belongings, those that she would take with her and those that I would hold onto until her could get them. She did have a lorazepam prior to transfer. She also had zolpidem 10 mg with her if needed to help her with sleep. I did apprise the ambulance transfer crew of these medications. Her condition continues to be guarded but she did show improvement from yesterday to today which is promising. (3) Herpes zoster: Status: Acute Subjective Subjective Interval history since last seen: Crissy is now on antivirals, high-dose methylprednisolone, CPAP, nonrebreather, high flow oxygen. She feels better than she did yesterday but certainly not good. Nurses report that she desats with minimal exertion such as talking in a complete sentence. Her desats are in the 70s sometimes lower. It takes her a few minutes to recover. She tells me that she is scared. She feels better and she does not want to transfer due to the hardship of her family. She also talks about how her son is very upset with her illness. 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 Exam Narrative Exam Narrative: Crissy looks considerably better than yesterday. She still is D satting as we talk or if she moves to the toilet. She is able to smile but also is very upset. Lungs movement with some rales more on the right side. She is tachycardic into the 100s. Objective Last Vital Signs Temp 98.2 F 12/27/21 16:39 Pulse 94 H 12/27/21 16:39 Resp 20 12/27/21 16:00 BP 103/70 12/27/21 16:39 Pulse Ox 92 12/27/21 16:00 Laboratory Results - last 24 hr 12/25/21 12/26/21 12/26/21 17:00 05:20 05:20 WBC RBC Hgb Hct MCV MCH MCHC RDW Plt Count MPV Immature Gran % Neutrophils % Lymphocytes % Monocytes % Eosinophils % Basophils % Nucleated RBC % Absolute Neutrophils Absolute Lymphocytes Absolute Monocytes Absolute Eosinophils Absolute Basophils D-Dimer Sodium Potassium Chloride Carbon Dioxide Anion Gap BUN Creatinine Est GFR (CKD-EPI 2020) Glucose Calcium Ferritin Total Bilirubin AST ALT Alkaline Phosphatase Lactate Dehydrogenase Creatine Kinase C-Reactive Protein Total Protein Albumin Procalcitonin Hep Bs Antigen Negative Hep Bs Antibody Positive Hep Bs Antibody, Quant 57.5 Hep B Core Total Ab Negative Hepatitis C Antibody Negative HIV 1&2 Ag/Ab, 4th Gen Negative Urine Legionella Ag Negative Add-On Test Request 12/27/21 12/27/21 12/27/21 05:20 05:20 05:20 WBC 13.18 H RBC 4.02 Hgb 10.9 L Hct 33.2 L MCV 83 MCH 27.1 MCHC 32.8 RDW 15.2 H Plt Count 313 MPV 8.9 Immature Gran % 1.3 Neutrophils % 94.0 Lymphocytes % 1.5 Monocytes % 3.1 Eosinophils % 0.0 Basophils % 0.1 Nucleated RBC % 0.0 Absolute Neutrophils 12.39 H Absolute Lymphocytes 0.20 L Absolute Monocytes 0.41 Absolute Eosinophils 0.00 Absolute Basophils 0.01 D-Dimer 2287 H Sodium 133 L Potassium 4.5 Chloride 95 L Carbon Dioxide 32.8 H Anion Gap 5.2 BUN 27 H Creatinine 1.0 Est GFR (CKD-EPI 2020) 63.30 Glucose 124 H Calcium 8.7 Ferritin 498 H Total Bilirubin 0.2 AST 37 ALT 22 Alkaline Phosphatase 76 Lactate Dehydrogenase 491 H Creatine Kinase 21 L C-Reactive Protein 2.20 H Total Protein 5.6 L Albumin 2.2 L Procalcitonin Hep Bs Antigen Hep Bs Antibody Hep Bs Antibody, Quant Hep B Core Total Ab Hepatitis C Antibody HIV 1&2 Ag/Ab, 4th Gen Urine Legionella Ag Add-On Test Request 12/27/21 12/27/21 05:20 05:20 WBC RBC Hgb Hct MCV MCH MCHC RDW Plt Count MPV Immature Gran % Neutrophils % Lymphocytes % Monocytes % Eosinophils % Basophils % Nucleated RBC % Absolute Neutrophils Absolute Lymphocytes Absolute Monocytes Absolute Eosinophils Absolute Basophils D-Dimer Sodium Potassium Chloride Carbon Dioxide Anion Gap BUN Creatinine Est GFR (CKD-EPI 2020) Glucose Calcium Ferritin Total Bilirubin AST ALT Alkaline Phosphatase Lactate Dehydrogenase Creatine Kinase C-Reactive Protein Total Protein Albumin Procalcitonin < 0.1 Hep Bs Antigen Hep Bs Antibody Hep Bs Antibody, Quant Hep B Core Total Ab Hepatitis C Antibody HIV 1&2 Ag/Ab, 4th Gen Urine Legionella Ag Add-On Test Request DONE
[2021-12-28 14:38] LABS: Fungitell Qualitative Negative (Negative); Fungitell Quantitative Value <31 pg/mL (<60 pg/mL)
[2021-12-30 10:53] LABS: Specimen Source Sputum
== END 2021-12-27 19:23 | DRG 177 ==
LOC: ER 21:11 → ICU 22:35
PROVIDERS: Internal Medicine; Admitting Provider Family Medicine; Emergency Provider Physician Assistant; PCP Family Medicine; Visit Provider Family Medicine
DX: U07.1 COVID-19 (principal); J12.82 Pneumonia due to coronavirus disease 2019; J18.9 Pneumonia, unspecified organism; J96.21 Acute and chronic respiratory failure with hypoxia; B02.8 Zoster with other complications; D84.821 Immunodeficiency due to drugs; B37.0 Candidal stomatitis; U09.9 Post COVID-19 condition, unspecified; R74.8 Abnormal levels of other serum enzymes; M06.9 Rheumatoid arthritis, unspecified; I27.20 Pulmonary hypertension, unspecified; Z79.899 Other long term (current) drug therapy; K21.9 Gastro-esophageal reflux disease without esophagitis; E78.5 Hyperlipidemia, unspecified; G47.00 Insomnia, unspecified; Z79.52 Long term (current) use of systemic steroids; I51.7 Cardiomegaly; J34.0 Abscess, furuncle and carbuncle of nose
CPT/HCPCS: 36415; 71275; 80053; 82550; 82805; 84145; 86704; 86706; 86803; 86850; 86900; 86901; 87081; 87305; 87340; 87389; 87449; 87635; 87801; 93005; 94640; 96365; 96367; 96375; 99285; J1650; 36600; 71045; 82728; 83615; 83735; 83880; 84484; 85025; 85379; 86140; 87070; 87205; 87581; 93010; 93306; 94660; 94664; 94667; 99223; 99291; J0133; J0248; J0456; J0696; J1100; J1941; J2405; J2930; J3490; J7620